=== PATIENT | male | born 1950 | race Caucasian/White ===

== ENCOUNTER → 2018-12-03 08:41 | Outpatient (BNVA) | payer OTHER, SELFPAY | PROVIDERS: PCP Internal Medicine; Visit Provider Orthopaedic Surgery | DX: S93.401A Sprain of unspecified ligament of right ankle, initial encounter (principal); X50.1XXA Overexertion from prolonged static or awkward postures, initial encounter; Y93.23 Activity, snow (alpine) (downhill) skiing, snowboarding, sledding, tobogganing and snow tubing | CPT/HCPCS: 29515; 99211; 99212; L1902 ==

== ENCOUNTER → 2018-12-22 09:22 | Outpatient (BNVA) | payer OTHER, SELFPAY | PROVIDERS: PCP Internal Medicine; Referring Provider Internal Medicine; Visit Provider Orthopaedic Surgery | DX: S93.431A Sprain of tibiofibular ligament of right ankle, initial encounter (principal); X50.9XXA Other and unspecified overexertion or strenuous movements or postures, initial encounter; Y93.23 Activity, snow (alpine) (downhill) skiing, snowboarding, sledding, tobogganing and snow tubing | CPT/HCPCS: 99212; 99213 ==

== ENCOUNTER 2019-06-07 15:25 | Outpatient (REF) | payer OTHER, SELFPAY ==
[2019-06-07 20:51] LABS: Abs Immature Grans 0.02 k/cumm (0.0-0.09); Absolute Basophil Count 0.03 k/cumm (0.0-0.2); Absolute Eosinophil Count 0.09 k/cumm (0.0-0.7); Absolute Lymphocyte Count 1.68 k/cumm (1.2-3.4); Absolute Monocyte Count 0.63 k/cumm (0.11-0.7); Absolute Neutrophil Count 4.25 k/cumm (1.2-6.7); Basophils % 0.4; Eosinophils % 1.3; HCT 44.5 % (40.0-50.0); HGB 15.3 g/dL (13.5-17.5); Immature Grans % 0.3; Lymphocytes % 25.1; Mean Corp. HGB Concentration 34.4 g/dL (32.0-36.0); Mean Corpuscular Hemoglobin 32.8 pg (27.0-33.0); Mean Corpuscular Volume 95.5 fL (80-95); Mean Platelet Volume 8.8 fL (8.0-11.0); Monocytes % 9.4; Neutrophils % 63.5; Platelet Count 265 x1000/uL (130-400); RBC 4.66 m/cumm (4.50-6.00); RBC Distribution Width 12.5 % (11.8-14.1)
[2019-06-07 20:59] LABS: Anion Gap 9.4 mmol/L (3-11); BUN 24 mg/dL (7-18); CO2 26.6 mmol/L (21.0-32.0); CREATININE 0.88 mg/dL (0.70-1.30); Calcium 8.6 mg/dL (8.5-10.1); Calculated LDL 170 mg/dL; Chloride 105 mmol/L (98-107); Cholesterol 264 mg/dL (50-200); Glucose 94 mg/dL (70-100); HDL Cholesterol 69 mg/dL (40-60); Potassium 4.3 mmol/L (3.5-5.1); Sodium 141 mmol/L (136-145); Triglyceride 127 mg/dL (30-150)
== END 2019-06-07 15:45 ==
LOC: NCHCN 15:25
PROVIDERS: PCP Internal Medicine; Visit Provider Internal Medicine
DX: N40.0 Benign prostatic hyperplasia without lower urinary tract symptoms (principal); Z01.818 Encounter for other preprocedural examination; Z13.6 Encounter for screening for cardiovascular disorders
CPT/HCPCS: 80048; 80061; 85025; 87086

== ENCOUNTER 2019-12-28 13:48 | Outpatient (REF) | payer OTHER, SELFPAY ==
[2019-12-28 21:58] LABS: Calculated LDL 158 mg/dL (<100); Cholesterol 225 mg/dL (<200); HDL Cholesterol 59 mg/dL (40-60); Triglyceride 43 mg/dL (<150)
== END 2019-12-28 14:08 ==
LOC: NCHCN 13:48
PROVIDERS: PCP Internal Medicine; Visit Provider Internal Medicine
DX: E78.5 Hyperlipidemia, unspecified (principal)
CPT/HCPCS: 80061

== ENCOUNTER 2021-02-15 16:21 | Outpatient (REF) | payer OTHER, SELFPAY ==
[2021-02-15 21:10] LABS: Calculated LDL 124 mg/dL (<100); Cholesterol 199 mg/dL (<200); HDL Cholesterol 70 mg/dL (40-60); Triglyceride 26 mg/dL (<150)
== END 2021-02-15 16:22 | disposition home or self-care (01) ==
LOC: NCHCN 16:21
PROVIDERS: PCP Internal Medicine; Visit Provider Internal Medicine
DX: E78.5 Hyperlipidemia, unspecified (principal)
CPT/HCPCS: 80061

== ENCOUNTER 2021-07-20 15:53 | Outpatient (REF) | payer MEDICARE, SELFPAY ==
[2021-07-20 15:59] LABS: Abs Immature Grans 0.01 10^3/uL (0.0-0.06); Absolute Basophil Count 0.06 10^3/uL (0.0-0.2); Absolute Eosinophil Count 0.07 10^3/uL (0.0-0.7); Absolute Lymphocyte Count 0.96 10^3/uL (1.2-3.4); Absolute Monocyte Count 0.48 10^3/uL (0.1-0.8); Absolute Neutrophil Count 3.34 10^3/uL (1.2-6.7); Basophils % 1.2; Eosinophils % 1.4; HCT 43.1 % (40.0-50.0); HGB 14.7 g/dL (13.5-17.5); Immature Grans % 0.2; Lymphocytes % 19.5; MCHC 34.1 % (32.0-36.0); MCV 96.6 fL (80-95); MPV 9.5 fL (8.0-11.0); Monocytes % 9.8; Neutrophils % 67.9; Nucleated RBC 0 %; Platelet Count 234 10^3/uL (130-400); RBC 4.46 10^6/uL (4.36-5.78); RDW 12.4 % (11.8-14.1); RDW-SD 44.4 fL; WBC 4.92 10^3/uL (4.4-10.8)
[2021-07-20 16:21] LABS: Iron 110 ug/dL (65-175); Total Iron Binding Capacity 241 ug/dL (250-450); Transferrin Sat 46 % (20-55)
[2021-07-20 16:34] LABS: Ferritin 104 ng/mL (26-388)
[2021-07-20 17:03] LABS: Calculated LDL 78 mg/dL (<100); Cholesterol 140 mg/dL (<200); HDL Cholesterol 57 mg/dL (40-60); Triglyceride 29 mg/dL (<150)
== END 2021-07-20 15:54 | disposition home or self-care (01) ==
LOC: NCHCN 15:53
PROVIDERS: PCP Internal Medicine; Visit Provider Internal Medicine
DX: E78.5 Hyperlipidemia, unspecified (principal); D64.9 Anemia, unspecified; Z51.81 Encounter for therapeutic drug level monitoring
CPT/HCPCS: 80061; 82728; 83540; 83550; 85025

== ENCOUNTER 2021-10-26 18:52 | Outpatient (REF) | payer MEDICARE, SELFPAY ==
--- OUTSIDE RECORDS SUMMARY | 2021-10-26 18:55 | XMS_ITS | CCD ---
:1950 Author Care Team Providers Name Role Phone Val JOSHUA MD Attending Physician Unavailable Vital Signs Unknown or Not Available. Allergies Allergy Code Allergy Type Reaction Status No Known Drug Allergies 0 No known drug allergies Active Procedures Unknown or Not Available. History of Immunizations Unknown or Not Available. Problems Unknown or Not Available. Results Unknown or Not Available. Active Medications Unknown or Not Available. Medications Administered During Visit Unknown or Not Available. Encounters Encounter Diagnosis Diagnosis Code Start Date Aftercare following joint replacement surgery [id number] 03/09/2021 Social History Smoking Status Code Start Date End Date Former smoker [id number] Patient Decision Aids Unknown or Not Available. Discharge Instructions You were admitted to [facility] on 03/09/2021 12:56 with a principal diagnosis of Aftercare following joint r eplacement surgery You were discharged from [facility] on 05/23/2021 13:29 Should you have any questions prior to d ischarge, please contact a member of your healthcare team. If you have left the spital and have any questions, please contact your primary care physician. Chief Complaint and Reason For Visit Unknown or Not Available. Function Status Unknown or Not Available. Plan of Care Unknown or Not Available. Referral/Transition of Care Unknown or Not Available.
--- OUTSIDE RECORDS SUMMARY | 2021-10-26 18:55 | XMS_ITS ---
:1950 Author Care Team Providers Name Role Phone RAPHAEL DOWNS MD Guest Services [phone] SANDRA ANDRES MD Primary Care Provider [phone] [employer] Primary Care Provider [phone] Allergies Code Code System Name Reaction Severity Status Onset NKDA ? Medications Name Status Start Date Stop Date ? ? amiodarone Completed ? 04/02/2019 5mg, pt thinks atorvastatin Active ? Not available dofetilide 250 mcg capsule Completed ? 10/26 Take 1 capsule twice a day by oral route. Eliquis 5 mg tablet Completed ? 04/02/2019 Take 1 tablet twice a day by oral route. Keppra 500 mg tablet Completed ? 10/26/2018 Take 1 tablet twice a day by oral route. pindolol 5 mg tablet Completed ? 01/22/2019 Take 2 tablets every day by oral route. tamsulosin 0.4 mg capsule Completed ? 2019 Take 1 capsule every day by oral route. Toprol XL 25 mg tablet,extended release Completed ? 10/26/2018 Take 1 tablet every day by oral route. Problems Name Status Onset Date Source ? Snoring Active 10/21/2018 ? Obstructive Sleep Apnea Syndrome Active ? ? Atrial Fibrillation Active ? History Apnea Active ? History Procedures Date Name Performed by ? 10/26/2018 Polysomnogram Information not avai lable Results Lab Results None recorded. Past Encounters 06/11/2021 Obstructive Sleep Apnea Syndrome Lolly Gil [employer] ATTENDANT: [address], [email or web address] [address], Ph. 07/03/2020 Obstructive Sleep Apnea Syndrome Lolly Gil [employer] ATTENDANT: [address], [email or web address] [address], Ph. Social History Tobacco Smoking Status Former Smoker Notes: quit 15 + years ago Vaccine List None recorded. Plan of Care Reminders Provider Appointments None ? ? recorded. Lab None ? ? recorded. Referral None ? ? recorded. Procedures None ? ? recorded. Surgeries None ? ? recorded. Imaging None ? ? recorded. Vitals 06/11/2021 08:30AM Office 30 Height Weight BMI Blood Pressure 170.18 cm 68.9 kg 23.8 kg/m2 122/72 mm[Hg] 07/03/2020 09:00AM Office 30 Height Weight BMI Blood Pressure 176.53 cm 70.85 kg 22.7 kg/m2 119/63 mm[Hg] 04/02/2019 01:15PM Office 30 Height Weight BMI Blood Pressure 176.53 cm 74.84 kg 24 kg/m2 110/54 mm[Hg] 01/22/2019 12:30PM Office 15 Weight Blood Pressure 76.16 kg 104/62 mm[Hg] 10/26/2018 01:30PM Office 30 Weight Blood Pressure 78.74 kg 118/62 mm[Hg] 07/23/2017 Height Weight Blood Pressure 177.8 cm 72.57 kg 98/60 mm[Hg] 06/11/2017 Height Weight Blood Pressure 177.8 cm 74.39 kg 98/62 mm[Hg]
--- OUTSIDE RECORDS SUMMARY | 2021-10-26 18:55 | XMS_ITS | CCD ---
[...] Encounter Diagnosis Diagnosis Code Start Date Aftercare [id number] 04/17/2021 Social History Smoking Status Code Start Date End Date Former smoker [id number] Patient Decision Aids Unknown or Not Available. Discharge Instructions You were admitted to [facility] on 04/17/2021 09:56 with a principal diagnosis of Aftercare following joint r eplacement surgery You were discharged from [facility] on 04/17/2021 09:56 Should you have any questions prior to [...]
--- OUTSIDE RECORDS SUMMARY | 2021-10-26 18:55 | XMS_ITS | CCD ---
:1950 Author Care Team Providers Name Role Phone SARAH CHARLES Attending Physician Unavailable Vital Signs Unknown or [...] Encounter Diagnosis Diagnosis Code Start Date Aftercare [id number] 03/07/2021 Social History Smoking Status Code Start Date End Date Former smoker [id number] Patient Decision Aids Unknown or Not Available. Discharge Instructions You were admitted to [facility] on 03/07/2021 13:17 with a principal diagnosis of Aftercare following joint r eplacement surgery You were discharged from [facility] on 03/07/2021 13:17 Should you have any questions prior to [...]
--- OUTSIDE RECORDS SUMMARY | 2021-10-26 18:55 | XMS_ITS | CCD ---
:1950 Author Care Team Providers Name Role Phone MENDEZ Attending Physician Unavailable Vital Signs Unknown or Not Available. Allergies Allergy Code Allergy Type Reaction Status No Known Drug Allergies 0 No known drug allergies Active Procedures Unknown or Not Available. History of Immunizations Unknown or Not Available. Problems Unknown or Not Available. Results TESTOSTERONE TOTAL - Collect Date/Time: 04/18/2021 09:37 Test Name Code Test Result Test Units Test Ref Range Testosterone 650 N/A 229-902 Active Medications Unknown or Not Available. Medications Administered During Visit Unknown or Not Available. Encounters Encounter Diagnosis Diagnosis Code Start Date Male erectile dysfunction, unspecified N529 0 04/18/2021 Social History Smoking Status Code Start Date End Date Former smoker [id number] Patient Decision Aids Unknown or Not Available. Discharge Instructions You were admitted to [facility] on 04/18/2021 08:53 with a principal diagnosis of Male erectile dysfunction, unspecified You had the following tests done: TESTOSTERONE TOTAL You were discharged from [facility] on 04/18/2021 08:53 Should you have any questions prior to d ischarge, please contact a member of your healthcare team. If you have left the ho spital and have any questions, please contact your primary care physician. Chief Complaint and Reason For Visit Unknown or Not Available. Function Status Unknown or Not Available. Plan of Care Unknown or Not Available. Referral/Transition of Care Unknown or Not Available.
[2021-10-26 21:52] LABS: Bilirubin Negative (Negative); Blood Negative (Negative); Clarity Clear (Clear); Glucose Negative (Negative); Ketones Negative (Negative); Leukocyte Esterase Negative (Negative); Nitrite Negative (Negative); Urobilinogen 0.2 EU/dL (Up TO 0.2); pH 6.5 (5-8)
== END 2021-10-26 18:53 | disposition home or self-care (01) ==
LOC: LBN 18:52
PROVIDERS: PCP Internal Medicine; Visit Provider Internal Medicine
DX: R39.12 Poor urinary stream (principal)
CPT/HCPCS: 81003

== ENCOUNTER 2022-04-18 12:50 | Outpatient (REF) | payer MEDICARE, SELFPAY ==
[2022-04-18 15:49] LABS: Anion Gap 8.4 mmol/L (3-11); BUN 14 mg/dL (7-18); CO2 27.6 mmol/L (21.0-32.0); CREATININE 0.8 mg/dL (0.70-1.30); Calcium 8.8 mg/dL (8.5-10.1); Chloride 105 mmol/L (98-107); Glucose 97 mg/dL (74-106); Potassium 4.4 mmol/L (3.5-5.1); Sodium 141 mmol/L (136-145)
== END 2022-04-18 12:51 | disposition home or self-care (01) ==
LOC: NCHCN 12:50
PROVIDERS: PCP Internal Medicine; Visit Provider Nurse Practitioner Family
DX: Z51.81 Encounter for therapeutic drug level monitoring (principal)
CPT/HCPCS: 80048

== ENCOUNTER 2022-08-01 15:46 | Outpatient (REF) | payer MEDICARE, SELFPAY ==
--- OUTSIDE RECORDS SUMMARY | 2022-08-01 15:47 | XMS_ITS | Encounter Summary ---
:1950 Author Organization [facility] [place] [address] Care Team Providers Name Role Phone Nathaniel Smith MD Primary Care Provider Encounter Details Date Type Department Care Team Description 05/21/2021 Telephone Cardiology [place] [facility] [place] [address] Social History Tobacco Use Types Packs/Day Years Used Date Smoking Tobacco: Never Smokeless Tobacco: Never Sex Assigned at Date Recorded Not on file documented as of this encounter Plan of Treatment Not on filedocumented as of this encounter Visit Diagnoses Not on filedocumented in this encounter Care Teams Independent Contractor Relationship Specialty Start Date End Date Nathaniel Smith MD PCP - General Family Medicine 12/23/18 [address] [place], [place] [address] documented as of this encounter
--- OUTSIDE RECORDS SUMMARY | 2022-08-01 15:47 | XMS_ITS | Encounter Summary ---
:1950 Author Organization [facility] [place] [address] Care Team Providers Name Role Phone Nathaniel Smith MD Primary Care Provider Encounter Details Date Type Department Care Team Description 05/29/2021 TH Visit Cardiology at [facility] Roderick Colón, Hyperlipidemia, unspecified hyperlipidemia type; (TeleHealth) [facility] Status post ablation of atrial fibrillat ion Drive [facility] [id number] CARDIOLOGY DEPT [phone] [place] [address] Social History Tobacco Use Types Packs/Day Years Used Date Smoking Tobacco: Never Smokeless Tobacco: Never Sex Assigned at Date Recorded Not on file documented as of this encounter Progress Notes Roderick Colón MD - 05/29/2021 8:40 AM EDT CARDIOLOGY TELE VISIT NOTE Pritesh Cardona 05/29/21 The patient consented to this being a virtual visit. HPI: Pritesh Cardona is a 70 y.o. year old male with history of PAF (s/p mini MAZE procedure and subsequent ablation) who presents now as a new patient. Per report the patient had a coronary calcium score of 250 (moderate risk). See electrophysiology's notes previously but briefly, patient had a mini maze procedure done in [place] in 2017 which included cardiac denervation as well as left atrial appendage closure with atrial clip and implantation of a Linq. He then underwent an additional atrial fibrillation ablation in 2019.He is not currently on anticoagulation or aspirin. The patient has a history of HLD. He says his diet is good, he is quite active. He has been trying to avoid taking a statin but was talking with his primary care about HLD (LDL 170, HDL 69, Trig 127, total cholesterol 264). He states that he also has developed erectile dysfunction. He has since started 20mg of Atorvastatin about 1 week ago. He seems to be tolerating it quite well.He bikes and skis quite a bit. He is wondering whether he can continue those activities. He denies chest pain chest pressure or lightheadedness. He says his exercise tolerance is as good as it ever hasbeen. He has a brother who has HTN and HLD but not CAD known. His parents both lived to old age without known CAD. Brief ROS: Activity level: Very active No new orthopnea, PND, LE edema. No lightheadedness, dizziness, syncope/pre- syncope. No new CP. Medications: Current Outpatient Medications Medication Sig Dispense Refill ??? atorvastatin (Lipitor) 20 mg Tablet Take 20 mg by mouth daily. Medications were reviewed with patient. TESTING: I have reviewed the pertinent outside records, laboratory data, and imaging studies. I personally reviewed the images and developed my own interpretation of the echocardiogram, CT scan if available, chest xray, and ECG. Pertinent results for this evaluation include: Labs: Lab Results Component Value Date WBC 7.8 01/15/2019 HGB 11.9 (L) 01/15/2019 HCT 34.7 (L) 01/15/2019 MCV 93.8 (H) 01/15/2019 PLATELET 162 01/15/2019 No results for input(s): NA, K, CL, CO2, BUN, CREATININE, GLUCOSE in the last 168 hours. Assessment and Plan CV issues are currently stable. 1. Primary prevention of coronary artery disease. Patient a coronary calcium score of 250. He started atorvastatin 20mg last week. He seems to be tolerating the medication well. We discussed his LDL goal of less than 100. I recommended he have his cholesterol rechecked with his primary care doctor 1 month after starting the atorvastatin. We also had a discussion about primary prevention aspirin. Given his coronary calcium score as well as history of smoking and elevated cholesterol I think it is reasonable for somebody of his age to start primary prevention 81 mg aspirin. He thinks he will give it a try. 2. History of paroxysmal atrial fibrillation status post mini maze procedure as well as ablation 2 years later. He is followed by [facility] electrophysiology. Follow-up on as-needed basis Roderick Colón MD Time spent: I spent a total of 40 minutes associated with this encounter including chart review, thepatient encounter, and documentation. Please see Assessment and Plan above for details of the discussion. documented in this encounter Plan of Treatment Not on filedocumented as of this encounter Visit Diagnoses Diagnosis Hyperlipidemia, unspecified hyperlipidem ia type Status post ablation of atrial fibrillat ion Other postprocedural status documented in this encounter Care Teams Chart Computer Relationship Specialty Start Date End Date Nathaniel Smith MD PCP - General Family Medicine 12/23/18 [address] [place] [address] documented as of this encounter
--- OUTSIDE RECORDS SUMMARY | 2022-08-01 15:47 | XMS_ITS | Encounter Summary ---
:1950 Author Organization [facility] [address] Care Team Providers Name Role Phone Nathaniel Smith MD Primary Care Provider Encounter Details Date Type Department Care Team Description 03/20/2021 Telephone Electrophysiology La [place] at [facility] [place] [address] Social History Tobacco Use Types Packs/Day Years Used Date Smoking Tobacco: Never Smokeless Tobacco: Never Sex Assigned at Date Recorded Not on file documented as of this encounter Miscellaneous Notes Telephone Encounter - Crystal Mallory - 03/20/2021 2:47 PM EDTSummary: ILR EXPLANT DEFERRED I spoke to patient to schedule his ILR explant and the patient advised that he wasn't bothering withthis right now. He stated he was recovering from total shoulder surgery. He advised that he may have this done closer to home as he lives in [facility] or if he decides to have it done here he will give our office a call to schedule. documented in this encounter Plan of Treatment Not on filedocumented as of this encounter Visit Diagnoses Not on filedocumented in this encounter Care Teams Nuclear Equipment Operator Relationship Specialty Start Date End Date Nathaniel Smith MD PCP - General Family Medicine 12/23/18 [address] [place] [address] documented as of this encounter
--- OUTSIDE RECORDS SUMMARY | 2022-08-01 15:48 | XMS_ITS | Encounter Summary ---
:1950 Author Organization [facility] [place] [address] Care Team Providers Name Role Phone Nathaniel Smith MD Primary Care Provider Encounter Details Date Type Department Care Team Description 10/16/2020 Notes Only Cardiology Angelica Kirkland PA [facility] [place] [address] [place], [place] [id number] [phone] (Wo rk) Social History Tobacco Use Types Packs/Day Years Used Date Smoking Tobacco: Never Smokeless Tobacco: Never Sex Assigned at Date Recorded Not on file documented as of this encounter Progress Notes Angelica Kirkland PA - 10/16/2020 9:19 AM EST Cardiac Electrophysiology Implantable Loop Recorder (ILR) Remote Monitoring Interpretation Transmission Date: 10/16/20 Device Type: Implantable Loop Recorder Generator resident care manager: [employer] Implanted: 08/14/17 Indication: AF management Battery Status: NATIONAL ACCOUNTS RECRUITER since 10/15/20 Events/Arrhythmias noted since 05/02/20 Symptom: 0 Tachy (> 167 BPM x 16 beats): 4 09/10/20 oversensing/noise artifact 08/25/20 oversensing/noise artifact Bradycardia (<30 BPM x 4 beats): 0 Asystole (<20 BPM): 110 08/07/20 undersensing 07/20/20 undersensing 07/13/20 undersensing 07/06/20 undersensing 07/03/20 undersensing with noise artifact 07/02/20 undersensing with noise artifact 06/24/20 undersensing 06/22/20 undersensing 06/16/20 undersensing 06/11/20 undersensing with noise artifact 06/10/20 undersensing 06/08/20 undersensing with noise artifact 06/05/20 undersensing 06/04/20 undersensing with noise artifact 05/30/20 undersensing with noise artifact 05/26/20 undersensing with noise artifact 05/23/20 undersensing with noise artifact 05/22/20 undersensing with noise artifact 05/17/20 undersensing with noise artifact 05/16/20 undersensing with noise artifact 05/13/20 undersensing 05/12/20 undersensing 05/11/20 undersensing with noise artifact 05/08/20 undersensing SVT/AT/other : 0 Atrial Fibrillation / Flutter: 10 09/11/20 Available EGM shows regular ventricular rhythm although preceding plot graph shows irregularity 08/30/20 Frequent noise 08/11/20 Irregular ventricular rhythm but P waves present 07/20/20 Noise, oversensing 05/25/20 Noise artifact Physiologic Monitoring: Activity ~3-4hrs/day Presenting EGM- VS at 100bpm, variation in R-R intervals Impression: Battery at NATIONAL ACCOUNTS RECRUITER- will reach out to Dr. Bustos (primary EP) to discuss preference for another ILR implant Angelica Kirkland PA-C Cardiac Electrophysiology documented in this encounter Plan of Treatment Not on filedocumented as of this encounter Visit Diagnoses Not on filedocumented in this encounter Care Teams Blueprint Processor Relationship Specialty Start Date End Date Nathaniel Smith MD PCP - General Family Medicine 12/23/18 [address] [place], [place] [address] documented as of this encounter
--- OUTSIDE RECORDS SUMMARY | 2022-08-01 15:48 | XMS_ITS | Encounter Summary ---
:1950 Author Organization [facility] [place] [address] Care Team Providers Name Role Phone Nathaniel Smith MD Primary Care Provider Reason for Visit Reason Comments Follow-up Encounter Details Date Type Department Care Team Description 02/05/2021 Office Visit [place]iology [place] [facility] Bustos [place] Atrial [facility] [place] [address] CARDIOLOGY DEPT. [phone] [place], [place] [address] (Wo rk) Social History Tobacco Use Types Packs/Day Years Used Date Smoking Tobacco: Never Smokeless Tobacco: Never Sex Assigned at Date Recorded Not on file documented as of this encounter Last Filed Vital Signs Vital Sign Reading Time Taken Comments Blood Pressure 126/66 02/05/2021 8:53 AM EDT Pulse 60 02/05/2021 8:53 AM EDT Temperature - - Respiratory Rate - - Oxygen Saturation 99% 02/05/2021 8:53 AM EDT Inhaled Oxygen Concentration - - Weight 71.8 kg (158 lb 6.4 oz) 02/05/2021 8:53 AM EDT Height 175.3 cm (5' 9) 02/05/2021 8:53 AM EDT Body Mass Index 23.39 02/05/2021 8:53 AM EDT documented in this encounter Progress Notes Torrey Bustos MD - 02/05/2021 9:00 AM EDT Cardiac Electrophysiology [place] Office February 05, 2021 (last visit January 26, 2020 via telephone) ?? Primary Care:??Nathaniel Smith MD ?? Reason for Visit:??Follow up s/p mapping and ablation of atrial fibrillation 2 years ago ?? Backgound: ??Brendan??is a 70??year old gentleman who has had symptomatic episodes of atrial tachycardia/fibrillation??subsequent to having undergone a mini-Maze procedure in [place] back in August2017. He underwent a follow up electrophysiology study, mapping, and ablation procedure on January 13 19??(findings and results summarized in his problem list). ?? When we spoke last year, he reported that overall he had been doing well, with no new issues. He hasgone about his exertional activities carefully, and he noted improvement. The day we spoke,in the morning he had jogged 1/2 mile, and he got his heart rate up to 115/minute (O2 saturation 97.5%) duringthat exercise; he was feeling well. Since that time, he reported having continued to do well, with no known symptomatic recurrences of atrial tachycardia/fibrillation. Of note, he has an implanted loop recorder that has been in place since prior to his ablation procedure 2 years ago. Please see the interrogation summary below... there was a questionable 1 hour detected atrial dysrhythmia episode on March 18, and there was a definite 8.5 hour episode of atrial fibrillation back on April 05 (of which he had been unaware). ?? Past Medical History: ??1) ??Persistent atrial fibrillation >?Phillips mini-Maze ([place]; August 2017) : Bilateral antral electrical isolation, partial cardiac denervation, left atrial appendage Atriclipclosure : Implanted loop recorder >?Atrial tachycardia - atypical flutter >?Recurrent fibrillation reported via ILR >?Mapping/ablation (January 13, 2019): :?No left atrial thrombus identified. Left atrial appendage closed,??without thrombus.?? :?Successful acute electrical isolation of the posterior left atrial wall and consequently biantral pulmonary vein isolation. Demonstration of slow spontaneous electrical activity in the posterior wall at the conclusion of the procedure but stage IV testing could not be performed due to procedural delays and time constraints.? :?Mitral annular isthmus dependent flutter was ablated across the posterolateral mitral annulus with bidirectional conduction block.?? :?Inferior cavotricuspid isthmus dependent atrial flutter??was ablated with bidirectional conduction block. :?Atypical right atrial flutter ablation at the right atrial lateral wall.?? :?Significant conduction inhomogeneity in the coronary sinus with tightly coupled APC of coronarysinus origin. Future consideration towards targeting coronary sinus if recurrent atrial arrhythmias.?? :?Preserved atrioventricular conduction. :?No finding of an accessory pathway. :?The P wave duration pre-ablation was 142 ms and post-ablation was 140 ms. > Implanted loop recorder (August 2017) : Confirmed coarse atrial fibrillation 8.5 hours on April 05, 2020, starting late at night and persisting into the morning of the next day; mean rate 94/minute. : Possible 1 hours episode of aztrial fibrillation on March 18, 2020; not confirmed, mean rate 120/minute. > [id number] score 1 ??2) ??Probable seizure disorder / Keppra ?? Allergies & Sensitivities:??Patient has no known allergies.? Medications:??Proscar, finasteride? Social History: Review of Systems: No history of diabetes, TIA, stroke, heart failure; no complaint of exertional angina, presyncope, syncope. Remainder of??interval??review of systems was unremarkable. Physical Examination: Vital Signs: Blood pressure: 126/66 sitting left arm (cuff). Pulse: 60/minute, regular Ventilations: 16/minute, unlabored Weight: 71.8 kg dressed General: In no acute distress. Articulate and attentive. Skin: Warm and dry, normal turgor. HEENT: Normocephalic, atraumatic; anicteric sclerae. Neck: No elevated jugulovenous distention upright. Chest: Symmetric chest wall expansion with inspiration. No significant kyphoscoliosis. Lungs: Clear. Heart: Regular rate. Abdomen: Nondistended. Extremities: Pulses present. Neurological: Grossly intact. ?? Tests:?? Loop Recorder??(November 29, 2020):??Since January 25, 2020, a total of 13 episodes of atrial fibrillation have been detected; review of these reveals that most are 2- 10 minute episodes detected as atrial fibrillation, and all had marked noise (sometimes periodic) +/- frequent conducted ectopy, but underlying these was sinus rhythm.??On April 05, however, there definitely was some coarse atrial fibrillation with a mean rate of 94/minute, but it lasted for nearly 8.5 hours overnight. The only other significant episode was from March 18, and that reportedly last ~1 hour at a mean rate of 120/minute - that episode lacked a tracing that I could review. There have been many pauses detected, but these have been attributed to undersensing. Loop Recorder??(December 06, 2019 - previously interrogated on September 02, 2019):??No tracings to review directly, but per summary report in chart: no clear finding of any atrial tachycardia/flutter.??Therewere 5 pauses detected, but each of those was due to undersensing. Loop Recorder??(September 03, 2019 - previously interrogated on June 05, 2019):??There was 1??episodeof atrial??tachycardia/flutter??detected July 02 with duration ~206 minutes and with median ventricular rate 83/minute.??There also were 3 pauses detected, but each of those was due to undersensing. Loop Recorder??(June 09, 2019):??There were episodes of tachycardia/fibrillation detected until February 13, and none since then (but for some limited noise detections)... Electrocardiogram??(January 17, 2020): Sinus bradycardia 57/minute, normal intervals, unremarkable morphology. Electrocardiogram??(June 09, 2019):??Sinus bradycardia 58/minute, VT 172 ms, QRS duration 96/minute, QTc 435 ms. Zio Monitor??(December 23, 2019; 11 days 12 hours): >?The overall sinus rhythm rate range was 42-130/minute, and averaged 69/minute. The predominant underlying rhythm throughout the monitoring period was conducted sinus rhythm. The slowest heart rates marginally tended to occur overnigh. >?No pauses >3 seconds were seen, and there was no high grade atrioventricular conduction block reported or observed at normal sinus rates.?? >?There was a <1.0% burden of isolated ectopic supraventricular beats detected, and rare supraventricular couplets and triplets were detected as well. There were 20 supraventricular runs detected (the run with the fastest interval lasted 5 beats with a maximum rate of 182/minute, and the longest lasted 11.9 seconds at a mean rate of 133/minute); the mean rate of all of these runs was 125/minute. Some of these may have been atrial tachycardia with variable atrioventricular conduction block. >?There was a <1.0% burden of isolated ectopic ventricular beats detected; no ventricular couplets, triplets, nor runs were detected. >?The patient wrote in 1 timed diary entry during a period of feeling anxious; there were alsowere 2 patient-triggered events. These corresponded to sinus rhythm 56-63/minute with supraventricular ectopy. ?Conclusion: This monitor study was remarkable for sinus rhythm with a limited rate range. Occasional nonsustained supraventricular tachycardia runs (without any atrial flutter/fibrillation) ladarius low overall burden of ectopy were detected. Transthoracic Echocardiogram??(January 17, 2020): >?The left ventricular chamber size is normal. There is normal global??left ventricular systolic function. The quantitative left ventricular??ejection fraction by biplane Olivares's method is 64%.There are no left??ventricular segmental wall motion abnormalities. >?Right ventricular chamber size and systolic function are within??normal limits. Pulmonary artery hypertension could not be assessed due??to inadequate tricuspid regurgitation jet.?? >?The atria are normal in size. >?There is no hemodynamically significant valve disease.?? >?Normal left atrial size. >?Compared to a prior study dated??January 14, 2019,??the??left ventricular??ejection fraction hasimproved. ?? Assessment:??Since his procedure in 2018, Mr. Garcia has had very limited atrial fibrillation detected via the loop recorder, as noted above. Since his last visit there has been 2 detected self-limited episodes detected by his ILR, one of which was confirmed (last April). His ILR battery no longer is sufficient to support continued monitoring (end of service as of November 06, 2020, with last interrogation having occurred on November 29, 2020). Going forward, continued vigilance for any recurrent atrial tachycardia/fibrillation should be maintained. He is aware that he has had at least a low burden of atrial fibrillation. We discussed the matter of anticoagulation, as his [id number] risk score is 1; his preference is to remain off anticoagulation for now, but he understands that existing guidelines support consideration of chronic anticoagulation therapy; reduction of his mild- moderate thromboembolic risk (relative to an mildly increasedhemorrahgic risk) makes anticoagulation worthwhile considering. We previously have discussed self-monitoring methods, and also discussed some of the limitations of commercial devices such as the [employer] Watch or similar devices. They also have utility in assessing heart rate trends that can faciliate assessing improvements in fitness, or otherwise. ?? I answered all of his questions. ?? Recommendations: 1)?Zio monitor in 1 year, sooner as needed (especially if any recurrent symptoms). 2) ??Follow up in this clinic with me??to review Zio monitor results (telehealth visit also OK). 3) Discussion about the role of anticoagulation for Mr. Cardona to consider. 4) Removal of implanted loop recorder - he has upcoming plans for orthopedic surgery, and I suggested that he ask if his surgeon might consider removal of the loop recorder at the same time (else I offered to schedule him nonurgently for this to be accomplished separately). __ documented in this encounter Plan of Treatment Not on filedocumented as of this encounter Visit Diagnoses Diagnosis Atrial arrhythmia Cardiac dysrhythmia, unspecified documented in this encounter Care Teams Patient Account Specialist Relationship Specialty Start Date End Date Nathaniel Smith MD PCP - General Family Medicine 12/23/18 [address] [place] [address] documented as of this encounter
--- OUTSIDE RECORDS SUMMARY | 2022-08-01 15:48 | XMS_ITS | Encounter Summary ---
:1950 Author Organization [facility] [place] [address] Care Team Providers Name Role Phone Nathaniel Smith MD Primary Care Provider Encounter Details Date Type Department Care Team Description 01/04/2020 TH Visit Cardiology at [facility] [place] Torrey Bustos, Atrial arrhythmia (TeleHealth) [facility] [place] [address] CARDIOLOGY DEPT. [phone] [place], [place] [address] Social History Tobacco Use Types Packs/Day Years Used Date Smoking Tobacco: Never Smokeless Tobacco: Never Sex Assigned at Date Recorded Not on file documented as of this encounter Progress Notes Torrey Bustos MD - 01/04/2020 8:20 AM EDT Cardiac Electrophysiology Clinic [place] Office January 04, 2020 Primary Care: Nathaniel Smith MD ?? Reason for Visit: S/p mapping and ablation of atrial fibrillation Backgound: Mr. Cardona is a 69 year old gentleman who has had symptomatic episodes of atrial tachycardia/fibrillation subsequent to having undergone a mini-Maze procedure in [place] back in August 2017. He underwent a follow up electrophysiology study, mapping, and ablation procedure on January 13, 2019 ( findings and results summarized in his problem list) ?? He reports having done well overall since his last visit until early November, when he went for a vigorous bike ride. The next morning (and since), he noted a faster (but regular) resting heart rate and reduced exercise tolerance. He did a loop recorder upload on December 05 in an effort to learn more about what might be going on; no atrial tachycardia/fibrillation was reported from that upload. Given thelimitations of the loop recorder for detecting regular atrial dysrhythmias with controlled ventricular rates, a Zio monitor was arranged. He is still wearing the Zio monitor for the next few days. He has no overt symptomns or irregular pulse, but his energy level is down - enough so that he wouldn't consider doing another vigorous bike ride for the time being, although he feels fine when he getsout to go for a walk. Otherwise he reports that he has been doing well. ?? Past Medical History: 1) Persistent atrial fibrillation > [place] mini-Maze ([place]; August 2017) : Bilateral antral electrical isolation, partial cardiac denervation, left atrial appendage Atriclipclosure : Implanted loop recorder > Atrial tachycardia - atypical flutter > Recurrent fibrillation reported via ILR > Mapping/ablation (January 13, 2019): : No left atrial thrombus identified. Left atrial appendage closed, without thrombus. : Successful acute electrical isolation of the posterior left atrial wall and consequently biantral pulmonary vein isolation. Demonstration of slow spontaneous electrical activity in the posterior wallat the conclusion of the procedure but stage IV testing could not be performed due to procedural delays and time constraints. ?? : Mitral annular isthmus dependent flutter was ablated across the posterolateral mitral annulus withbidirectional conduction block. : Inferior cavotricuspid isthmus dependent atrial flutter??was ablated with bidirectional conductionblock. : Atypical right atrial flutter ablation at the right atrial lateral wall. : Significant conduction inhomogeneity in the coronary sinus with tightly coupled APC of coronary sinus origin. Future consideration towards targeting coronary sinus if recurrent atrial arrhythmias. : Preserved atrioventricular conduction. : No finding of an accessory pathway. : The P wave duration pre-ablation was 142 ms and post-ablation was 140 ms. 2) Probable seizure disorder / Keppra Allergies & Sensitivities: Patient has no known allergies. ?? Medications: Proscar, finasteride ?? Review of Systems: No history of diabetes, TIA, stroke, heart failure; no complaint of exertional angina, presyncope, syncope. Remainder of interval review of systems was unremarkable. ?? Physical Examination (from June 09, 2019): Vital Signs: Blood pressure: 107/68 sitting arm (cuff). Pulse: 53/minute, regular Ventilations: 16/minute, unlabored Weight: 76.7 kg dressed Body mass index: 24.96 kg/m2 General: In no acute distress. Articulate and attentive. Skin: Warm and dry, normal turgor. HEENT: Normocephalic, atraumatic; anicteric sclerae. Neck: No elevated jugulovenous distention upright. Chest: Symmetric chest wall expansion with inspiration. Lungs: Good air movement. Heart: Regular rate. Abdomen: Nondistended. Extremities: Pulses present. Neurological: Grossly intact. Tests: Loop Recorder (December 06, 2019 - previously interrogated on September 02, 2019): No tracings to review directly, but per summary report in chart: no clear finding of any atrial tachycardia/flutter. There were 5 pauses detected, but each of those was due to undersensing. Loop Recorder (September 03, 2019 - previously interrogated on June 05, 2019): There was 1 episode ofatrial tachycardia/flutter detected July 02 with duration ~206 minutes and with median ventricular rate 83/minute. There also were 3 pauses detected, but each of those was due to undersensing. Loop Recorder (June 09, 2019): There were episode of tachycardia/fibrillation detected until February 13, and none since then (but for some limited noise detections)... Electrocardiogram (June 09, 2019): Sinus bradycardia 58/minute, FL 172 ms, QRS duration 96/minute,QTc 435 ms. ?? Assessment: From June through December 05, the loop recorder revealed one episode (atrial tachycardia/flutter with associated median ventricular rate 83/minute on July 02); the patient had no recollection of feeling that. Otherwise, he has remained free of detected recurrences; in case of underse nsing, a Zio monitor is underway to further assess for rate controlled atrial dysrhythmias, but as yet I don't have the results of that. Recommendations: 1) Continue device clinic follow up. 2) Obtain interval electrocardiogram and echocardiogram (compare to December 2018 study, with EF 45% global hypokinesis) 2) Pending Zio monitor results (I'll want to read this study). 3) Follow up in this clinic with me on January 25 __ Results of: Zio Monitor (December 23, 2019; 11 days 12 hours): > The overall sinus rhythm rate range was 42-130/minute, and averaged 69/minute. The predominant underlying rhythm throughout the monitoring period was conducted sinus rhythm. The slowest heart rates marginally tended to occur overnigh. > No pauses >3 seconds were seen, and there was no high grade atrioventricular conduction block reported or observed at normal sinus rates. > There was a <1.0% burden of isolated ectopic supraventricular beats detected, and rare supraventricular couplets and triplets were detected as well. There were 20 supraventricular runs detected(the run with the fastest interval lasted 5 beats with a maximum rate of 182/minute, and the longestlasted 11.9 seconds at a mean rate of 133/minute); the mean rate of all of these runs was 125/minute. Some of these may have been atrial tachycardia with variable atrioventricular conduction block. > There was a <1.0% burden of isolated ectopic ventricular beats detected; no ventricular couplets, triplets, nor runs were detected. > The patient wrote in 1 timed diary entry during a period of feeling anxious; there were also were 2 patient-triggered events. These corresponded to sinus rhythm 56-63/minute with supraventricular ectopy. Conclusion: This monitor study was remarkable for sinus rhythm with a limited rate range. Occasional nonsustained supraventricular tachycardia runs (without any atrial flutter/fibrillation) and a low overall burden of ectopy were detected. Electrocardiogram (January 17, 2020): Sinus bradycardia 57/minute, normal intervals, unremarkable morphology Transthoracic Echocardiogram (January 17, 2020): > The left ventricular chamber size is normal. There is normal global left ventricular systolic function. The quantitative left ventricular ejection fraction by biplane Olivares's method is 64%. There are no left ventricular segmental wall motion abnormalities. > Right ventricular chamber size and systolic function are within normal limits. Pulmonary arteryhypertension could not be assessed due to inadequate tricuspid regurgitation jet. > The atria are normal in size. > There is no hemodynamically significant valve disease. > Normal left atrial size. > Compared to a prior study dated January 14, 2019, the left ventricular ejection fraction has improved. documented in this encounter Plan of Treatment Not on filedocumented as of this encounter Visit Diagnoses Diagnosis Atrial arrhythmia Cardiac dysrhythmia, unspecified documented in this encounter Care Teams Utilization Management Nurse Relationship Specialty Start Date End Date Nathaniel Smith MD PCP - General Family Medicine 12/23/18 [address] [place] [address] documented as of this encounter
--- OUTSIDE RECORDS SUMMARY | 2022-08-01 15:48 | XMS_ITS | Encounter Summary ---
:1950 Author Organization [facility] [place] [address] Care Team Providers Name Role Phone Nathaniel Smith MD Primary Care Provider Encounter Details Date Type Department Care Team Description 01/26/2020 TH Visit Cardiology at [facility] Torrey Bustos, Atrial arrhythmia (TeleHealth) [facility] [place] [address] CARDI[address] DEPT. [phone] [place], [place] [address] Social History Tobacco Use Types Packs/Day Years Used Date Smoking Tobacco: Never Smokeless Tobacco: Never Sex Assigned at Date Recorded Not on file documented as of this encounter Progress Notes Torrey Bustos MD - 01/26/2020 10:40 AM EDT Cardiac Electrophysiology Telephone Visit January 26, 2020 ?? Primary Care:??Nathaniel Smith MD ?? Reason for Visit:??S/p mapping and ablation of atrial fibrillation ?? Backgound: ??Brendan??is a 69??year old gentleman who has had symptomatic episodes of atrial tachycardia/fibrillation??subsequent to having undergone a mini-Maze procedure in [place] back in August2017. He underwent a follow up electrophysiology study, mapping, and ablation procedure on January 13, 2019 (findings and results summarized in his problem list). He and I connected via telephone ~4 weeks ago (May 5th), but I did not have all his records with test results at the time, and so this connection is a follow up of that. Overall he has been doing well,with no new issues since we last spoke. He has gone about his exertional activities carefully, and he feels that he has been improving. Indeed, this morning he jogged 1/2 mile, and he got his heart rate up to 115/minute (O2 saturation 97.5%) during that exercise; he felt well. ?? Past Medical History: ??1) ??Persistent atrial fibrillation >?Phillips mini-Maze ([place]; August 2017) : Bilateral antral electrical isolation, partial cardiac denervation, left atrial appendage Atriclipclosure : Implanted loop recorder >?Atrial tachycardia - atypical flutter >?Recurrent fibrillation reported via ILR > Mapping/ablation (January 13, 2019): :?No left atrial thrombus identified. Left atrial appendage closed, without thrombus.?? :?Successful acute electrical isolation of the [...] 142 ms and post-ablation was 140 ms. ??2) ??Probable seizure disorder / Keppra ?? Allergies & Sensitivities:??Patient has no known allergies.? Medications:??Proscar, finasteride? Review of Systems: No history of diabetes, TIA, stroke, heart failure; no complaint of exertional angina, presyncope, syncope. Remainder of??interval??review of systems was unremarkable. Tests:?? Loop Recorder??(December 06, 2019 - previously interrogated on September 02, 2019):??No tracings to review directly, but per summary report in chart: no clear finding of any atrial tachycardia/flutter. There were 5 pauses detected, but each of those was due to undersensing. Loop Recorder??(September 03, 2019 - previously interrogated on June 05, 2019):??There was 1 episode of atrial tachycardia/flutter detected July 02 with duration ~206 minutes and with median ventricular rate 83/minute. There also were 3 pauses detected, but each of those was due to undersensing. Loop Recorder??(June 09, 2019):??There were episode of tachycardia/fibrillation detected until February 13, and none since then (but for some limited noise detections)... Electrocardiogram (January 17, 2020): Sinus bradycardia 57/minute, normal intervals, unremarkable morphology. Electrocardiogram??(June 09, 2019):??Sinus bradycardia 58/minute, WV 172 ms, QRS duration 96/minute, QTc 435 ms. Zio Monitor (December 23, 2019; 11 days [...] overall burden of ectopy were detected. Transthoracic Echocardiogram (January 17, 2020): > The [...] the left ventricular ejection fraction has improved. ?? Assessment:??I reviewed the results of the testing performed (Zio monitor, echocardiogram, and electrocardiogram. These revealed good cardiac structure and function, and no atrial tachycardia/fibrillation was detected. This is reassuring. Continued routine monitoring via the ILR is appropriate, as othe rwise he gradually works up towards longer periods of exercise. We discussed self-monitoring methods, and also discussed some of the limitations of commercial devices such as the Apple Watch and some of the available O2 saturation monitors. Even so, they may have utility in assessing heart rate trends that can faciliate assessing improvements in fitness, or otherwise. I answered all of his questions. Recommendations: 1)?Continue device clinic follow up. 2) ??Follow up in this clinic with me in 1 year, sooner as needed __ ?? documented in this encounter Plan of Treatment Not on filedocumented as of this encounter Visit Diagnoses Diagnosis Atrial arrhythmia Cardiac dysrhythmia, unspecified documented in this encounter Care Teams Aitchbone Breaker Relationship Specialty Start Date End Date Nathaniel Smith MD PCP - General Family Medicine 12/23/18 [address] [place] [address] documented as of this encounter
--- OUTSIDE RECORDS SUMMARY | 2022-08-01 15:48 | XMS_ITS | Encounter Summary ---
:1950 Author Organization [facility] [place] [address] Care Team Providers Name Role Phone Nathaniel Smith MD Primary Care Provider Encounter Details Date Type Department Care Team Description 06/09/2019 Office Visit Cardiology at [facility] Neli Farias Persistent atrial [facility] [place] [address] Social History Tobacco Use Types Packs/Day Years Used Date Smoking Tobacco: Never Smokeless Tobacco: Never Sex Assigned at Date Recorded Not on file documented as of this encounter Last Filed Vital Signs Vital Sign Reading Time Taken Comments Blood Pressure 107/68 06/09/2019 3:04 PM EDT Pulse 53 06/09/2019 3:04 PM EDT Temperature - - Respiratory Rate - - Oxygen Saturation 99% 06/09/2019 3:04 PM EDT Inhaled Oxygen Concentration - - Weight 76.7 kg (169 lb) 06/09/2019 3:04 PM EDT Height 175.3 cm (5' 9.02) 06/09/2019 3:04 PM EDT Body Mass Index 24.95 06/09/2019 3:04 PM EDT documented in this encounter Progress Notes Neli Farias RN - 06/09/2019 3:00 PM EDT ILR INTERROGATION INPATIENT Pritesh Cardona is a [address] Bustos wishes to interrogate the ILR to assess for Afib post ablation 01/13/19. The ILR was implanted Aug 14, 2017. PCP: Nathaniel Smith MD Implant data: Current ILR programming:Symptom Four 7.5 min episodes Tachy >167 bpm ,>=16 beats Pause >3 sec Tulio <30 bpm AT OFF AF all episodes %AT/AF Underlying rhythm today: SR 65 Battery status: Good R wave: 0.14 mV Activations: None Findings: Since AUG 14, 2017 There were 4 Tachy episodes- most of which was noise , 2 pauses and 366AF episodes for a 37.3% burden, He has had no further Afib since February 13, 2019 he had an Afib ablation on 01/13/19 Reprogramming: His sensitivity was decreased by 0.035 mV from 0.025 mV to decrease oversensing Plan: Continue to monitor remotely Provider: Neli Farias RN Attending: Torrey Bustos MD documented in this encounter Plan of Treatment Not on filedocumented as of this encounter Visit Diagnoses Diagnosis Persistent atrial fibrillation Atrial fibrillation documented in this encounter Care Teams Blood Splatter Analyst Relationship Specialty Start Date End Date Nathaniel Smith MD PCP - General Family Medicine 12/23/18 [address] [place] [address] documented as of this encounter
--- OUTSIDE RECORDS SUMMARY | 2022-08-01 15:48 | XMS_ITS | Encounter Summary ---
:1950 Author Organization [facility] [place] [address] Care Team Providers Name Role Phone Nathaniel Smith MD Primary Care Provider Encounter Details Date Type Department Care Team Description 03/07/2019 [place] [address] Social History Tobacco Use Types Packs/Day Years Used Date Smoking Tobacco: Never Smokeless Tobacco: Never Sex Assigned at Date Recorded Not on file documented as of this encounter Plan of Treatment Not on filedocumented as of this encounter Procedures Procedure Name Priority Date/Time Associated Diagnosis Comme nts CARDIAC DEVICE Routine 03/07/2019 10:36 PM Result s for this CHECK - REMOTE EDT procedure are in the results section. documented in this encounter Results Cardiac Device Check - Remote (03/07/2019 10:36 PM EDT) Component Value Ref Test Analysis Performed Pathologis t Range Method Time At Signature Date Time [id number] IDCO Interrogation Session Implantable Medtronic IDCO Pulse Generator Structural Engineering Project Manager Implantable [id number] IDCO Pulse Generator Model Implantable [id number] IDCO Pulse Generator Serial Number Type Remote IDCO Interrogation Session Implantable Implantable IDCO Pulse Generator Diagnostic Type Monitor Implantable [id number] IDCO Pulse Generator Implant Date Anatomical Region Laterality Modality Other Specimen (Source) Anatomical Collection Method Collection Time Re ceived Time Location / / Volume Laterality 03/07/2019 10:36 PM EDT Physician Cardiology IMPLANTABLE CARDIAC DEVICE documented in this encounter Visit Diagnoses Not on filedocumented in this encounter Care Teams Skein Dyer Relationship Specialty Start Date End Date Nathaniel Smith MD PCP - General Family Medicine 12/23/18 [address] [place] [address] documented as of this encounter
--- OUTSIDE RECORDS SUMMARY | 2022-08-01 15:48 | XMS_ITS | Encounter Summary ---
:1950 Author Organization [facility] [place] [address] Care Team Providers Name Role Phone Nathaniel Smith MD Primary Care Provider Encounter Details Date Type Department Care Team Description 06/09/2019 Office Visit Cardiology at [facility] Torrey Bustos, Duarte atrial [facility] [place] [address] CARDIOLOGY DEPT. [phone] [place], [place] [address] Social History Tobacco Use Types Packs/Day Years Used Date Smoking Tobacco: Never Smokeless Tobacco: Never Sex Assigned at Date Recorded Not on file documented as of this encounter Last Filed Vital Signs Vital Sign Reading Time Taken Comments Blood Pressure 107/68 06/09/2019 3:02 PM EDT Pulse 53 06/09/2019 3:02 PM EDT Temperature - - Respiratory Rate - - Oxygen Saturation 99% 06/09/2019 3:02 PM EDT Inhaled Oxygen Concentration - - Weight 76.7 kg (169 lb) 06/09/2019 3:02 PM EDT Height 175.3 cm (5' 9) 06/09/2019 3:02 PM EDT Body Mass Index 24.96 06/09/2019 3:02 PM EDT documented in this encounter Progress Notes Torrey Bustos MD - 06/09/2019 3:20 PM EDT Cardiac Electrophysiology Clinic [place] Office June 09, 2019 Primary Care: Nathaniel Smith MD Reason for Visit: S/p mapping and ablation of atrial fibrillation Backgound: Mr. Cardona is a 68 year old gentleman who has had symptomatic episodes of atrial tachycardia/fibrillation subsequent to having undergone a mini-Maze procedure in [place] back in August 2017. He underwent a follow up electrophysiology study, mapping, and ablation procedure on January 13, 2019.Below are listed summary findings and ablation results from his procedure: > No left atrial thrombus identified. Left atrial appendage surgical closed without thrombus. > Successful acute electrical isolation of the posterior left atrial wall and consequently biantral pulmonary vein isolation. Demonstration of slow spontaneous electrical activity in the posterior wall at the conclusion of the procedure but stage IV testing could not be performed due to procedural delays and time constraints. > Mitral annular isthmus dependent flutter was ablated across the posterolateral mitral annulus with bidirectional conduction block. > Inferior cavotricuspid isthmus dependent atrial flutter??was ablated with bidirectional conduction block. > Atypical right atrial flutter ablation at the right atrial lateral wall. > Significant conduction inhomogeneity in the coronary sinus with tightly coupled APC of coronarysinus origin. Future consideration towards targeting coronary sinus if recurrent atrial arrhythmias. > Preserved atrioventricular conduction. > No finding of an accessory pathway. > The P wave duration pre-ablation was 142 ms and post-ablation was 140 ms. He reports having doen well through the summer. He s here for follow up today (he has a loop recorder in place) Past Medical History: 1) Persistent atrial fibrillation > Phillips mini-Maze ([place]; August 2017) : Bilateral antral electrical isolation, partial cardiac denervation, left atrial appendage Atriclipclosure : Implanted loop recorder > Atrial tachycardia - atypical flutter > Recurrent fibrillation reported via ILR 2) Probable seizure disorder / Keppra Allergies & Sensitivities: Patient has no known allergies. Medications: Proscar, finasteride Review of Systems: No history of diabetes, TIA, stroke, heart failure; no complaint of exertional angina, presyncope, syncope. Remainder of interval review of systems was unremarkable. Physical Examination (cursory): Vital Signs: Blood pressure: 107/68 sitting arm [...] present. Neurological: Grossly intact. Tests: Loop Recorder (June 09, 2019): There were episode of tachycardia/fibrillation detected until February 13, and none since then (but for some limited noise detections)... Electrocardiogram (June 09, 2019): Sinus bradycardia 58/minute, SC 172 ms, QRS duration 96/minute,QTc 435 ms. Assessment: The loop recorder revealed some self-limited atrial dysrhythmias during the first month post-ablation, but over the past ~4 months he appears to have done well, and has remained free of recurrences. I reviewed the findings of the procedure again with him, and diuscussed limitations. All in all, there is nothing different to be done at this time. He will continue follow up in the device clinic for evaluation of his status via review of loop recorder data. Recommendations: 1) Continue device clinic follow up 2) No changes otherwise. 3) Follow up in this clinic with me in 1 year. ____ documented in this encounter Plan of Treatment Not on filedocumented as of this encounter Procedures Procedure Name Priority Date/Time Associated Diagnosis Comme nts EKG 12-LEAD Routine 06/09/2019 3:11 PM Persistent atrial Resu lts for this EDT fibrillation procedure are i n the results section. documented in this encounter Results EKG 12 Lead (06/09/2019 3:11 PM EDT) Component Value Ref Range Test Analysis Performed Pathologis t Method Time At Signature Ventricular rate 58 BPM MUSE SYSTEM Atrial Rate 58 BPM MUSE SYSTEM P-R Interval 172 ms MUSE SYSTEM QRS Duration 96 ms MUSE SYSTEM Q-T Interval 444 ms MUSE SYSTEM QTC Calculated 435 ms MUSE SYSTEM (Bezet) Calculated P [place] 85 degrees MUSE SYSTEM Calculated R [place] 40 degrees MUSE SYSTEM Calculated T [place] 64 degrees MUSE SYSTEM INTERPRETATION Sinus bradycardia with marked sinus arrhythmia MUSE SYSTEM When compared with ECG of 14-JAN-2019 11:57, Vent. rate has decreased BY ??32 BPM Borderline criteria for Inferior infarct are no longer Prese nt Nonspecific T wave abnormality no longer evident in Inferior leads Nonspecific T wave abnormality no longer evident in Anterola teral leads Confirmed by MD Garcia Michael ([id number]) on 06/09/2019 8:42:22 PM Specimen Anatomical Collection Method Collection Time Receive d Time (Source) Location / / Volume Laterality 06/09/2019 3:11 PM 9 8:42 EDT PM EDT Torrey Bustos MD ECG ORDERABLES Performing Organization Address City/State/ZIP Code Phon e Number MUSE SYSTEM documented in this encounter Visit Diagnoses Diagnosis Persistent atrial fibrillation Atrial fibrillation documented in this encounter Care Teams Home Specialist Relationship Specialty Start Date End Date Nathaniel Smith MD PCP - General Family Medicine 12/23/18 [address] [place] [address] documented as of this encounter
--- OUTSIDE RECORDS SUMMARY | 2022-08-01 15:48 | XMS_ITS | Encounter Summary ---
:1950 Author Organization [facility] [place] [address] Care Team Providers Name Role Phone Nathaniel Smith MD Primary Care Provider Encounter Details Date Type Department Care Team Description 01/26/2020 Notes Only Cardiology at [facility] Valentín Browne MD [facility] [place] [address] CARDIOLOGY DEPT. [phone] [place] [address] (Wo rk) Social History Tobacco Use Types Packs/Day Years Used Date Smoking Tobacco: Never Smokeless Tobacco: Never Sex Assigned at Date Recorded Not on file documented as of this encounter Progress Notes Valentín Browne MD - 01/26/2020 10:15 AM EDT Cardiac Device Remote Monitoring Report Summary Medtronic Carelink 01/26/20 Device: ILR Model: Reveal LINQ LNQ11 Battery: 'OK' Events: Underlying rhythm appears to be sinus rhythm 2 pauses - these appear to be secondary to undersensing Impression Normal device function No arrhythmias Follow Up As per schedule - in-clinic and remote VALENTÍN BROWNE MD documented in this encounter Plan of Treatment Not on filedocumented as of this encounter Visit Diagnoses Not on filedocumented in this encounter Care Teams Video Game Tester Relationship Specialty Start Date End Date Nathaniel Smith MD PCP - General Family Medicine 12/23/18 [address] [place] [address] documented as of this encounter
--- OUTSIDE RECORDS SUMMARY | 2022-08-01 15:48 | XMS_ITS | Encounter Summary ---
:1950 Author Organization [facility] [place] [address] Care Team Providers Name Role Phone Nathaniel Smith MD Primary Care Provider Encounter Details Date Type Department Care Team Description 10/16/2020 Hospital Encounter Non-Invasive Cardiology [place], Myriam Mari MD [place], [place] [address] [place] [address] [phone] Social History Tobacco Use Types Packs/Day Years Used Date Smoking Tobacco: Never Smokeless Tobacco: Never Sex Assigned at Date Recorded Not on file documented as of this encounter Medications at Time of Discharge Medication Sig Dispensed Refills Start Date End Date finasteride (PROSCAR) 5 mg Take 5 mg by mouth. 0 02/06/2018 05/29/2021 Tablet tamsulosin (FLOMAX) 0.4 mg Take 0.4 mg by 0 02/0705/29/2021 Capsule, Sust. Release 24 mouth. hr documented as of this encounter Plan of Treatment Not on filedocumented as of this encounter Visit Diagnoses Not on filedocumented in this encounter Care Teams Larry Car Operator Relationship Specialty Start Date End Date Nathaniel Smith MD PCP - General Family Medicine 12/23/18 [address] [place], [place] [id number] documented as of this encounter
--- OUTSIDE RECORDS SUMMARY | 2022-08-01 15:48 | XMS_ITS | Encounter Summary ---
:1950 Author Organization [facility] [place] [address] Care Team Providers Name Role Phone Nathaniel Smith MD Primary Care Provider Encounter Details Date Type Department Care Team Description 01/24/2019 [place] [address] Social History Tobacco Use Types Packs/Day Years Used Date Smoking Tobacco: Never Smokeless Tobacco: Never Sex Assigned at Date Recorded Not on file documented as of this encounter Plan of Treatment Not on filedocumented as of this encounter Procedures Procedure Name Priority Date/Time Associated Diagnosis Comme nts CARDIAC DEVICE Routine 01/24/2019 11:06 PM Result s for this CHECK - REMOTE EDT procedure are in the results section. documented in this encounter Results Cardiac Device Check - Remote (01/24/2019 11:06 PM EDT) Component Value Ref Test Analysis Performed Pathologis t Range Method Time At Signature Date Time [id number] IDCO Interrogation Session Implantable Medtronic IDCO Pulse Generator Gas Singer Implantable [id number] IDCO Pulse Generator Model Implantable [id number] IDCO Pulse Generator Serial Number Type Remote IDCO Interrogation Session Implantable Implantable IDCO Pulse Generator Diagnostic Type Monitor Implantable [id number] IDCO Pulse Generator Implant Date Zone Setting 2,000 ms IDCO Detection Interval Zone Setting 3,000 ms IDCO Detection Interval Zone Setting AT/AF IDCO Type Category Zone Setting VF IDCO Type Category Zone Setting VT IDCO Type Category Zone Setting 360 ms IDCO Detection Interval Battery Status OK IDCO Episode 2,023 IDCO Identifier Episode Type AT/AF IDCO Category Episode Date [id number] IDCO Time Episode Duration 1,560 s IDCO Episode 2,022 IDCO Identifier Episode Type AT/AF IDCO Category Episode Date [id number] IDCO Time Episode Duration 720 s IDCO Episode 2,021 IDCO Identifier Episode Type AT/AF IDCO Category Episode Date [id number] IDCO Time Episode Duration 720 s IDCO Episode 2,020 IDCO Identifier Episode Type AT/AF IDCO Category Episode Date [id number] IDCO Time Episode Duration 240 s IDCO Episode 2,019 IDCO Identifier Episode Type AT/AF IDCO Category Episode Date [id number] IDCO Time Episode Duration 840 s IDCO Episode 2,018 IDCO Identifier Episode Type AT/AF IDCO Category Episode Date [id number] IDCO Time Episode Duration 3,240 s IDCO Episode 2,017 IDCO Identifier Episode Type AT/AF IDCO Category Episode Date [id number] IDCO Time Episode Duration 120 s IDCO Episode 2,016 IDCO Identifier Episode Type AT/AF IDCO Category Episode Date [id number] IDCO Time Episode Duration 240 s IDCO Episode 2,015 IDCO Identifier Episode Type AT/AF IDCO Category Episode Date [id number] IDCO Time Episode Duration 720 s IDCO Episode 2,014 IDCO Identifier Episode Type AT/AF IDCO Category Episode Date [id number] IDCO Time Episode Duration 120 s IDCO Episode 2,013 IDCO Identifier Episode Type AT/AF IDCO Category Episode Date [id number] IDCO Time Episode Duration 480 s IDCO Episode 2,012 IDCO Identifier Episode Type AT/AF IDCO Category Episode Date [id number] IDCO Time Episode Duration 120 s IDCO Episode 2,011 IDCO Identifier Episode Type AT/AF IDCO Category Episode Date [id number] IDCO Time Episode Duration 120 s IDCO Episode 2,010 IDCO Identifier Episode Type AT/AF IDCO Category Episode Date [id number] IDCO Time Episode Duration 120 s IDCO Episode 2,009 IDCO Identifier Episode Type AT/AF IDCO Category Episode Date [id number] IDCO Time Episode Duration 120 s IDCO Episode 2,008 IDCO Identifier Episode Type AT/AF IDCO Category Episode Date [id number] IDCO Time Episode Duration 3,840 s IDCO Episode 2,007 IDCO Identifier Episode Type AT/AF IDCO Category Episode Date [id number] IDCO Time Episode Duration 240 s IDCO Episode 2,006 IDCO Identifier Episode Type AT/AF IDCO Category Episode Date [id number] IDCO Time Episode Duration 480 s IDCO Episode 2,005 IDCO Identifier Episode Type AT/AF IDCO Category Episode Date [id number] IDCO Time Episode Duration 1,800 s IDCO Episode 2,004 IDCO Identifier Episode Type AT/AF IDCO Category Episode Date [id number] IDCO Time Episode Duration 120 s IDCO Episode 2,003 IDCO Identifier Episode Type AT/AF IDCO Category Episode Date [id number] IDCO Time Episode Duration 9,600 s IDCO Episode 2,002 IDCO Identifier Episode Type AT/AF IDCO Category Episode Date [id number] IDCO Time Episode Duration 8,160 s IDCO Episode 2,001 IDCO Identifier Episode Type AT/AF IDCO Category Episode Date [id number] IDCO Time Episode Duration 120 s IDCO Episode 2,000 IDCO Identifier Episode Type AT/AF IDCO Category Episode Date [id number] IDCO Time Episode Duration 120 s IDCO Episode 1,999 IDCO Identifier Episode Type AT/AF IDCO Category Episode Date [id number] IDCO Time Episode Duration 240 s IDCO Episode 1,998 IDCO Identifier Episode Type AT/AF IDCO Category Episode Date [id number] IDCO Time Episode Duration 120 s IDCO Episode 1,997 IDCO Identifier Episode Type AT/AF IDCO Category Episode Date [id number] IDCO Time Episode Duration 1,200 s IDCO Episode 1,996 IDCO Identifier Episode Type AT/AF IDCO Category Episode Date [id number] IDCO Time Episode Duration 3,240 s IDCO Episode 1,995 IDCO Identifier Episode Type AT/AF IDCO Category Episode Date [id number] IDCO Time Episode Duration 360 s IDCO Episode 1,994 IDCO Identifier Episode Type AT/AF IDCO Category Episode Date [id number] IDCO Time Episode Duration 3,240 s IDCO Episode 1,975 IDCO Identifier Episode Type AT/AF IDCO Category Episode Date [id number] IDCO Time Episode Duration 29,640 s IDCO Atrial Tachy 87547124132055 IDCO Statistic Date Time Start Atrial Tachy 13963828460491 IDCO Statistic Date Time End Atrial Tachy 41.5 % IDCO Statistic AT/AF [place] Percent Episode 0 IDCO Statistic Recent Count Episode 0 IDCO Statistic Recent Count Episode 0 IDCO Statistic Recent Count Episode 0 IDCO Statistic Recent Count Episode 0 IDCO Statistic Recent Count Episode Patient Activated IDCO Statistic Type Category Episode 86 IDCO Statistic Recent Count Episode AT/AF IDCO Statistic Type Category Episode [id number] IDCO Statistic Recent Date Time Start Episode 32343910275868 IDCO Statistic Recent Date Time End Episode 23627835723205 IDCO Statistic Recent Date Time Start Episode 12700827236015 IDCO Statistic Recent Date Time End Episode 26104454214961 IDCO Statistic Recent Date Time Start Episode 63350167483774 IDCO Statistic Recent Date Time End Episode 84068279382351 IDCO Statistic Recent Date Time Start Episode 09631778517455 IDCO Statistic Recent Date Time End Episode 08960373213830 IDCO Statistic Recent Date Time Start Episode 23211494227377 IDCO Statistic Recent Date Time End Episode 36231202123888 IDCO Statistic Recent Date Time Start Episode 97261826672377 IDCO Statistic Recent Date Time End Episode 3 IDCO Statistic Total Count Episode 2 IDCO Statistic Total Count Episode 0 IDCO Statistic Total Count Episode 0 IDCO Statistic Total Count Episode 6 IDCO Statistic Total Count Episode Patient Activated IDCO Statistic Type Category Episode 4,806 IDCO Statistic Total Count Episode AT/AF IDCO Statistic Type Category Episode [id number] IDCO Statistic Total Date Time Start Episode 29659139555305 IDCO Statistic Total Date Time End Episode 15749016138868 IDCO Statistic Total Date Time Start Episode 09651304760591 IDCO Statistic Total Date Time End Episode 74489624879889 IDCO Statistic Total Date Time Start Episode 55802082354315 IDCO Statistic Total Date Time End Episode 04645791578108 IDCO Statistic Total Date Time Start Episode 04177389313273 IDCO Statistic Total Date Time End Episode 02402082750140 IDCO Statistic Total Date Time Start Episode 38956572879754 IDCO Statistic Total Date Time End Episode 13550348135221 IDCO Statistic Total Date Time Start Episode 40338947694220 IDCO Statistic Total Date Time End Anatomical Region Laterality Modality Other Specimen (Source) Anatomical Collection Method Collection Time Re ceived Time Location / / Volume Laterality 01/24/2019 11:06 PM EDT Physician Cardiology IMPLANTABLE CARDIAC DEVICE documented in this encounter Visit Diagnoses Not on filedocumented in this encounter Care Teams Sales Promotion Coordinator Relationship Specialty Start Date End Date Nathaniel Smith MD PCP - General Family Medicine 12/23/18 [address] [place] [address] documented as of this encounter
--- OUTSIDE RECORDS SUMMARY | 2022-08-01 15:48 | XMS_ITS | Encounter Summary ---
:1950 Author Organization [facility] [place] [address] Care Team Providers Name Role Phone Nathaniel Smith MD Primary Care Provider Reason for Referral Diagnostic Test (Routine) - Closed Specialty Diagnoses / Procedures Referred By Contact Refer red To Contact Cardiology Diagnoses Persistent atrial fibrillation Torrey Bustos MD [facility] Non-Inv Card Lab Procedures Echocardiogram Transthoracic([facility]) [facility] [place] [address] [place] [address] Fax: Referral ID Status Reason Start Date Expiration Date Visits V isits Requested Authorized [id number] Closed Specialty 01/11/2020 01/10/2021 1 1 Service Requested Encounter Details Date Type Department Care Team Description 01/11/2020 [place] [facility], Persistent atrial [facility] [place] [address] CARDI[address]Y DEPT. [phone] [place], [place] [address] Social History Tobacco Use Types Packs/Day Years Used Date Smoking Tobacco: Never Smokeless Tobacco: Never Sex Assigned at Date Recorded Not on file documented as of this encounter Plan of Treatment Not on filedocumented as of this encounter Results ECHOCARDIOGRAM COMPLETE (01/17/2020 12:00 PM EDT) P athologist Signature EF 60 HEARTLAB SYSTEM Anatomical Region Laterality Modality Other Specimen (Source) Anatomical Location Collection Method / Collectio n Time Received Time / Laterality Volume 01/17/2020 Narrative 01/17/2020 12:36 PM EDT Procedure: ?Transthoracic Echocardiogram Patient: ?ARMANI QUINTERO Yared ?(Age): 1950(69y) Med Rec#: ? [id number] ?Sex: ?M ? [place] ? [facility]Ht / Wt: ??175(cm)/77(kg) Pt. Loc: ?Echo Lab ?BSA: ?1.92 Study Date: ?? 01/17/2020 ?Pt. Type: Outpatient Tape: ? Referring: JEFF Reading: Eduardo Garcia ??([id number]) Cloth Dyeing Range Tender: Arielle Lawler Diagnosis: Rhythm: ? Sinus BP: ? 123/72 SUMMARY: 1. The left ventricular chamber size is normal. There is normal global left ventricular systolic function. The quantitative left ventricular ejection fraction by biplane Olivares's m ethod is 64%. There are no left ventricular segmental wall motion abnorm alities. 2. Right ventricular chamber size and sy stolic function are within normal limits. Pulmonary artery hyperten truman could not be assessed due to inadequate tricuspid regurgitation je t. 3. The atria are normal in size. 4. There is no hemodynamically significa nt valve disease. 5. See remainder of report for additiona l findings. 6. Compared to a prior study dated , LVEF has improved. Findings ? : Study Quality: ? Adequate Left Ventricle: ? The left ventricul ar chamber size is normal. ?Left ventricular wall thickness is normal. ?There is normal global left ventri cular systolic function. ?The quantitative left ventricular ejection fraction by biplane Olivares's method is 64%. ?There are no left ventricular segm ental wall motion abnormalities. ?Assessment of diastolic function i s indeterminate. ?Doppler assessment is consistent w ith normal left sided filling pressure. Left Atrium: ? The left atrium is no rmal in size. ?No atrial septal defect is visuali zed. Right Ventricle: ? Right ventricular chamber size, wall thickness, and systolic function are within normal limi ts. ?Pulmonary artery hypertension coul d not be assessed due to inadequate tricuspid regurgitation jet. ?The estimated right atrial pressur e is 3 mmHg. Right Atrium: ? The right atrium kaye ears normal. Aortic Valve: ? The aortic valve is trileaflet. The leaflets are thin with normal excursion. There is no aorti c stenosis or regurgitation present. Mitral Valve: ? The mitral valve kaye ears normal in structure and function. ?There is trace mitral regurgitatio n present. Tricuspid Valve: ? The tricuspid amilcar ve appears normal in structure and function. ?There is trace tricuspid regurgita tion present. Pulmonic Valve: ? The pulmonic valve appears normal in structure and function. Pericardium: ? The pericardium appea rs normal and there is no evidence of a pericardial effusion. Aorta: ? There is no evidence of coa rctation of the aorta. Venous: ? The inferior vena cava kaye ears normal in size. ?There is a greater than 50% respir atory change in the inferior vena cava dimension. Misc: ? There is no hemodynamically significant valve disease. ?See remainder of report for additi onal findings. ?Two-dimensional echo, limited spec tral Doppler and color Doppler performed. Chambers 2D ?Value ?Units (Range) ? IVSd (2D) ? 0.97 ? cm ? LVPWd (2D) ?0.83 ? cm ? IVS:LVPW ratio (2D) 1.16 ? ratio ? RWT (2D) ?0.34 ? ratio ? RWT PW (2D) ? 0.31 ? ratio ? LVIDd (2D) ?5.34 ? cm ? LVIDs (2D) ?3.72 ? cm ? LVIDd (2D) index ?2.77 ? cm/m2 ? LVIDs (2D) index ?1.93 ? cm/m2 ? LV FS (2D) ?30.34 ?% ? EF Teichholz (2D) ?? 57.24 ?% ? Ao root diameter (2D3.3 ?cm (2.1 - 3.6) ? Ascending Ao ?3.2 ?cm (2 - 3.5) ? Volumes/Mass ?Value ?Units (Range) ? LA Area 4 CH ?18 ? cm2 (<21) ? RA AREA 4CH ? 17 ? cm2 ? LA ESV BP (MOD) inde28.79 ? ml/m2 ? LV ESV SP 4CH (MOD) 41 ? ml ? LV ESV SP 2CH (MOD) 32 ? ml ? LV EDV BP ? 99.8 ? ml ? LV ESV BP ? 36.2 ? ml ? LV EDV BP index ? 51.86 ?ml/m2 ? LV ESV BP index ? 18.81 ?ml/m2 ? BP EF (MOD) ? 63.73 ?% ? LV mass (2D) ?176.24 ? g ? LV mass (2D) index ??91.58 ?g/m2 ? Diastolic/Systolic Function ?Value ?Units (Range) ? MV E-wave Vmax ?0.83 ? m/sec ? MV deceleration [id number] ?msec ? MV A-wave Vmax ?0.34 ? m/sec ? MV E:A ratio ?2.47 ? ratio ? LV septal e' Vmax ?? 0.11 ? m/sec ? LV lateral e' Vmax ??0.12 ? m/sec ? LV average e' Vmax ??0.12 ? m/sec ? LV E:e' septal ratio7.54 ? ratio ? LV E:e' lateral rati6.91 ? ratio ? LV average E:e' rati7.21 ? ratio ? Tricuspid Valve ?Value ?Units (Range) ? RAP ? 3 ?mmHg ? Pulmonic Valve/Qp:Qs ?Value ?Units (Range) ? CA end-diastolic Vma0.65 ? m/sec ? Wall Motion: Segment Name ?Rest ? Base-Anteroseptal ?? Normal ? Base-Anterior ? Normal ? Base-Anterolateral ??Normal ? Base-Posterolateral Normal ? Base-Inferior ? Normal ? Base-Inferoseptal ?? Normal ? Mid-Anteroseptal ?Normal ? Mid-Anterior ?Normal ? Mid-Anterolateral ?? Normal ? Mid-Posterolateral ??Normal ? Mid-Inferior ?Normal ? Mid-Inferoseptal ?Normal ? [place]-Septal ? Normal ? [place]-Anterior ? Normal ? [place]-Lateral ?Normal ? [place]-Inferior ? Normal ? [place]-Tip ?Normal ? This report has been electronically sign ed by: _ Eduardo Garcia MD ? 01/17/2020 12:35 :15 [facility] Procedure Note Eduardo Garcia MD - 01/17/2020Formattin g of this note might be different from the original. Procedure: Transthoracic Echocardiogram Patient: ARMANI Vail (Age): 1950(69y) Med Rec#: [id number] Sex: M [place] [facility]t / Wt: 175(cm)/77(kg) Pt. Loc: Echo Lab BSA: 1.92 Study Date: 01/17/2020 Pt. Type: Outpati ent Tape: Referring: JEFF Reading: Eduardo Garcia ([id number]) Cloth Dyeing Range Tender: Arielle Lawler Diagnosis: Rhythm: Sinus BP: 123/72 SUMMARY: 1. The left ventricular chamber size is normal. There is normal global left ventricular systolic function. The quantitative left ventricular ejection fraction by biplane Olivares's m ethod is 64%. There are no left ventricular segmental wall motion abnorm alities. 2. Right ventricular chamber size and sy stolic function are within normal limits. Pulmonary artery hyperten truman could not be assessed due to inadequate tricuspid regurgitation je t. 3. The atria are normal in size. 4. There is no hemodynamically significa nt valve disease. 5. See remainder of report for additiona l findings. 6. Compared to a prior study dated , LVEF has improved. Findings : Study Quality: Adequate Left Ventricle: The left ventricular madiha mber size is normal. Left ventricular wall thickness is norm al. There is normal global left ventricular systolic function. The quantitative left ventricular eject ion fraction by biplane Olivares's method is 64%. There are no left ventricular segmental wall motion abnormalities. Assessment of diastolic function is ind eterminate. Doppler assessment is consistent with n ormal left sided filling pressure. Left Atrium: The left atrium is normal i n size. No atrial septal defect is visualized. Right Ventricle: Right ventricular chamb er size, wall thickness, and systolic function are within normal limi ts. Pulmonary artery hypertension could not be assessed due to inadequate tricuspid regurgitation jet. The estimated right atrial pressure is 3 mmHg. Right Atrium: The right atrium appears n ormal. Aortic Valve: The aortic valve is trilea flet. The leaflets are thin with normal excursion. There is no aorti c stenosis or regurgitation present. Mitral Valve: The mitral valve appears n ormal in structure and function. There is trace mitral regurgitation pre sent. Tricuspid Valve: The tricuspid valve kaye ears normal in structure and function. There is trace tricuspid regurgitation present. Pulmonic Valve: The pulmonic valve appea rs normal in structure and function. Pericardium: The pericardium appears nor mal and there is no evidence of a pericardial effusion. Aorta: There is no evidence of coarctati on of the aorta. Venous: The inferior vena cava appears n ormal in size. There is a greater than 50% respiratory change in the inferior vena cava dimension. Misc: There is no hemodynamically signif icant valve disease. See remainder of report for additional findings. Two-dimensional echo, limited spectral Doppler and color Doppler performed. Chambers 2D Value Units (Range) IVSd (2D) 0.97 cm LVPWd (2D) 0.83 cm IVS:LVPW ratio (2D) 1.16 ratio RWT (2D) 0.34 ratio RWT PW (2D) 0.31 ratio LVIDd (2D) 5.34 cm LVIDs (2D) 3.72 cm LVIDd (2D) index 2.77 cm/m2 LVIDs (2D) index 1.93 cm/m2 LV FS (2D) 30.34 % EF Teichholz (2D) 57.24 % Ao root diameter (2D3.3 cm (2.1 - 3.6) Ascending Ao 3.2 cm (2 - 3.5) Volumes/Mass Value Units (Range) LA Area 4 CH 18 cm2 (<21) RA AREA 4CH 17 cm2 LA ESV BP (MOD) inde28.79 ml/m2 LV ESV SP 4CH (MOD) 41 ml LV ESV SP 2CH (MOD) 32 ml LV EDV BP 99.8 ml LV ESV BP 36.2 ml LV EDV BP index 51.86 ml/m2 LV ESV BP index 18.81 ml/m2 BP EF (MOD) 63.73 % LV mass (2D) 176.24 g LV mass (2D) index 91.58 g/m2 Diastolic/Systolic Function Value Units (Range) MV E-wave Vmax 0.83 m/sec MV deceleration [id number] msec MV A-wave Vmax 0.34 m/sec MV E:A ratio 2.47 ratio LV septal e' Vmax 0.11 m/sec LV lateral e' Vmax 0.12 m/sec LV average e' Vmax 0.12 m/sec LV E:e' septal ratio7.54 ratio LV E:e' lateral rati6.91 ratio LV average E:e' rati7.21 ratio Tricuspid Valve Value Units (Range) RAP 3 mmHg Pulmonic Valve/Qp:Qs Value Units (Range) CA end-diastolic Vma0.65 m/sec Wall Motion: Segment Name Rest Base-Anteroseptal Normal Base-Anterior Normal Base-Anterolateral Normal Base-Posterolateral Normal Base-Inferior Normal Base-Inferoseptal Normal Mid-Anteroseptal Normal Mid-Anterior Normal Mid-Anterolateral Normal Mid-Posterolateral Normal Mid-Inferior Normal Mid-Inferoseptal Normal [place]-Septal Normal [place]-Anterior Normal [place]-Lateral Normal [place]-Inferior Normal [place]-Tip Normal This report has been electronically sign ed by: _ Eduardo Garcia MD 01/17/2020 12:35:15 Images reviewed and interpretation verif ied [facility] Cardiac Ultrasound Laboratory Torrey Bustos MD ECHO ORDERABLES EKG 12 Lead (01/17/2020 9:41 AM EDT) Component Value Ref Range Test Analysis Performed Pathologis t Method Time At Signature Ventricular rate 57 BPM MUSE SYSTEM Atrial Rate 57 BPM MUSE SYSTEM P-R Interval 172 ms MUSE SYSTEM QRS Duration 90 ms MUSE SYSTEM Q-T Interval 434 ms MUSE SYSTEM QTC Calculated 422 ms MUSE SYSTEM (Bezet) Calculated P [place] 72 degrees MUSE SYSTEM Calculated R [place] 48 degrees MUSE SYSTEM Calculated T [place] 8 degrees MUSE SYSTEM INTERPRETATION Sinus bradycardia MUSE SY STEM Otherwise normal ECG When compared with ECG of 09-JUN-2019 15:11, No significant change was found Confirmed by Adam Roque MD ([id number]) on 01/17/2020 3:54:30 PM Specimen Anatomical Collection Method Collection Time Receive d Time (Source) Location / / Volume Laterality 01/17/2020 9:41 AM 0 3:54 EDT PM EDT Torrey Bustos MD ECG ORDERABLES Performing Organization Address City/State/ZIP Code Phon e Number MUSE SYSTEM documented in this encounter Visit Diagnoses Diagnosis Persistent atrial fibrillation Atrial fibrillation Persistent atrial fibrillation Atrial fibrillation documented in this encounter Care Teams Gas Welding Machine Operator Relationship Specialty Start Date End Date Nathaniel Smith MD PCP - General Family Medicine 12/23/18 [address] [place] [address] documented as of this encounter
--- OUTSIDE RECORDS SUMMARY | 2022-08-01 15:48 | XMS_ITS | Encounter Summary ---
:1950 Author Organization [facility] [place] [address] Care Team Providers Name Role Phone Nathaniel Smith MD Primary Care Provider Encounter Details Date Type Department Care Team Description 12/17/2019 Notes Only Cardiology at [facility] Valentín Browne MD [facility] [place] [address] CARDIOLOGY DEPT. [phone] [place] [id number] (Wo rk) Social History Tobacco Use Types Packs/Day Years Used Date Smoking Tobacco: Never Smokeless Tobacco: Never Sex Assigned at Date Recorded Not on file documented as of this encounter Progress Notes Valentín Browne MD - 12/17/2019 1:34 PM EDT Remote Device Download Medtronic Carelink 12/17/19 Device: ILR Model: LinQ [id number] Battery: 'OK' Events: 1 tachycardia - this appears to be oversensing and noise 9 pause - events appear to represent undersensing 4 AF - appear to be sinus rhythm / tachycardia with noise Although events on 07/02/2019 and 07/03/2019 may represent atrial flutter (3.5 hours and 12 minutes respectively, average ventricular rate 109 bpm for the briefer episode) Impression Most of the events represent noise with over and undersensing There are 2 episodes of probable atrial flutter - the longest is about 3.5 hours, ventricular rates appear to be reasonably well controlled VALENTÍN BROWNE MD documented in this encounter Plan of Treatment Not on filedocumented as of this encounter Visit Diagnoses Not on filedocumented in this encounter Care Teams Senior Business Development Manager Relationship Specialty Start Date End Date Nathaniel Smith MD PCP - General Family Medicine 12/23/18 [address] [place] [address] documented as of this encounter
--- OUTSIDE RECORDS SUMMARY | 2022-08-01 15:48 | XMS_ITS | Encounter Summary ---
:1950 Author Organization [facility] [place] [address] Care Team Providers Name Role Phone Nathaniel Smith MD Primary Care Provider Reason for Referral Diagnostic Test (Routine) - Closed Specialty Diagnoses / Procedures Referred By Contact Refer red To Contact Cardiology Diagnoses Persistent atrial fibrillation Torrey Bustos MD [facility] Non-Inv Card Lab Procedures Echocardiogram Transthoracic([facility]) [facility] CARDIOLOGY DEPT. [place], [place] [id number] [place] [phone] Fax: Referral ID Status Reason Start Date Expiration Date Visits V isits Requested Authorized [id number] Closed Specialty 01/11/2020 01/10/2021 1 1 Service Requested Reason for Visit Diagnostic Test (Routine) - Closed Specialty Diagnoses / Procedures Referred By Contact Refer red To Contact Cardiology Diagnoses Persistent atrial fibrillation Torrey Bustos MD [facility] Non-Inv Card Lab Procedures Echocardiogram Transthoracic([facility]) [facility] CARDIOLOGY DEPT. [place], [place] [id number] [place] [phone] Fax: Referral ID Status Reason Start Date Expiration Date Visits V isits Requested Authorized [id number] Closed Specialty 01/11/2020 01/10/2021 1 1 Service Requested Encounter Details Date Type Department Care Team Description 01/17/2020 Hospital Encounter Non-Invasive Torrey Bustos Persi stent atrial Cardiology Lab [place] [place] fibrillation [facility] [place]IOLOGY [place] [id number] [phone] Social History Tobacco Use Types Packs/Day Years [...] Name Priority Date/Time Associated Diagnosis Comme nts ECHOCARDIOGRAM Routine 01/17/2020 12:00 Persistent atrial Resu lts for this COMPLETE PM EDT fibrillation procedure are i n the results section. documented in this encounter Results ECHOCARDIOGRAM COMPLETE (01/17/2020 12:00 PM EDT) P athologist Signature EF 60 HEARTLAB SYSTEM Anatomical Region Laterality Modality Other Specimen (Source) Anatomical Location Collection Method / Collectio n Time Received Time / Laterality Volume 01/17/2020 Narrative 01/17/2020 12:36 PM EDT Procedure: ?Transthoracic Echocardiogram Patient: ?ARMANI Vail ?(Age): 1950(69y) Med Rec#: ? [id number] ?Sex: ?M ? Site Loc: ? [facility] ?Ht / Wt: ??175(cm)/77(kg) Pt. Loc: ?Echo Lab ?BSA: ?1.92 Study Date: ?? 01/17/2020 ?Pt. Type: Outpatient Tape: ? Referring: JEFF Reading: Eduardo Garcia ??([id number]) Production Welder: Arielle Lawler Diagnosis: Rhythm: ? Sinus BP: [...] Vmax ?0.83 ? m/sec ? MV deceleration [id number] ?msec ? MV A-wave Vmax ?0.34 ? [...] ? Pulmonic Valve/Qp:Qs ?Value ?Units (Range) ? IA end-diastolic Vma0.65 ? m/sec ? Wall Motion: Segment Name ?Rest ? Base-Anteroseptal ?? Normal ? Base-Anterior ? Normal ? Base-Anterolateral ??Normal ? Base-Posterolateral Normal ? Base-Inferior ? Normal ? Base-Inferoseptal ?? Normal ? Mid-Anteroseptal ?Normal ? Mid-Anterior ?Normal ? Mid-Anterolateral ?? Normal ? Mid-Posterolateral ??Normal ? Mid-Inferior ?Normal ? Mid-Inferoseptal ?Normal ? [place]-Septal ? Normal ? [place]-Anterior ? Normal ? [place]-Lateral ?Normal ? [place]-Inferior ? Normal ? [place]-Tip ?Normal ? This report has been electronically sign ed by: _ Eduardo Garcia MD ? 01/17/2020 12:35 :15 Images reviewed and interpretation verif [email or web address] [facility] Cardiac Ultrasound Laboratory Procedure Note Eduardo Garcia MD - 01/17/2020Formattin g of this note might be different from the original. Procedure: Transthoracic Echocardiogram Patient: ARMANI Vail (Age): 1950(69y) Med Rec#: [id number] Sex: M Site Loc: [facility] Ht / Wt: 175(cm)/77(kg) Pt. Loc: Echo Lab BSA: 1.92 Study Date: 01/17/2020 Pt. Type: Outpati ent Tape: Referring: JEFF Reading: Eduardo Garcia ([id number]) Production Welder: Arielle Lawler Diagnosis: Rhythm: Sinus BP: 123/72 [...] MV E-wave Vmax 0.83 m/sec MV deceleration [id number] msec MV A-wave Vmax 0.34 m/sec MV E:A ratio 2.47 ratio LV septal e' Vmax 0.11 m/sec LV lateral e' Vmax 0.12 m/sec LV average e' Vmax 0.12 m/sec LV E:e' septal ratio7.54 ratio LV E:e' lateral rati6.91 ratio LV average E:e' rati7.21 ratio Tricuspid Valve Value Units (Range) RAP 3 mmHg Pulmonic Valve/Qp:Qs Value Units (Range) IA end-diastolic Vma0.65 m/sec Wall Motion: Segment Name Rest Base-Anteroseptal Normal Base-Anterior Normal Base-Anterolateral Normal Base-Posterolateral Normal Base-Inferior Normal Base-Inferoseptal Normal Mid-Anteroseptal Normal Mid-Anterior Normal Mid-Anterolateral Normal Mid-Posterolateral Normal Mid-Inferior Normal Mid-Inferoseptal Normal [place]-Septal Normal [place]-Anterior Normal [place]-Lateral Normal [place]-Inferior Normal [place]-Tip Normal This report has been electronically sign ed by: _ Eduardo Garcia MD 01/17/2020 12:35:15 Images reviewed and interpretation verif ied [facility] Cardiac Ultrasound Laboratory Torrey Bustos MD ECHO ORDERABLES documented in this encounter Visit Diagnoses Diagnosis Persistent atrial fibrillation Atrial fibrillation documented in this encounter Care Teams Tailing Machine Operator Relationship Specialty Start Date End Date Nathaniel Smith MD PCP - General Family Medicine 12/23/18 [address] [place] [address] documented as of this encounter
--- OUTSIDE RECORDS SUMMARY | 2022-08-01 15:48 | XMS_ITS | Encounter Summary ---
:1950 Author Organization [facility] [place] [address] Care Team Providers Name Role Phone Nathaniel Smith MD Primary Care Provider Encounter Details Date Type Department Care Team Description 12/06/2019 Notes Only Cardiology at [facility] Willard Hayes MD [facility] [place] [address] [place], [place] [address] [phone] (Wo rk) Social History Tobacco Use Types Packs/Day Years Used Date Smoking Tobacco: Never Smokeless Tobacco: Never Sex Assigned at Date Recorded Not on file documented as of this encounter Progress Notes Willard Hayes MD - 12/06/2019 9:10 PM EDT MDT ILR remote reviewed. Battery OK. Since Sep 02, 2019: 5 pauses. 3 to 4 seconds in duration. Most represent, clearly, undersensing. 2 episodes: 2/20 at 6:17 am and 2/18 at 8:19 am are likely undersensing but this is not definitive. 2 AF : unlikely AF. Undersensing and oversensing of noise are both observed. Premature are also observed. AF is not definitively seen. No symptoms reported. documented in this encounter Plan of Treatment Not on filedocumented as of this encounter Visit Diagnoses Not on filedocumented in this encounter Care Teams Thermostat Repairer Relationship Specialty Start Date End Date Nathaniel Smith MD PCP - General Family Medicine 12/23/18 [address] [place] [address] documented as of this encounter
--- OUTSIDE RECORDS SUMMARY | 2022-08-01 15:48 | XMS_ITS | Encounter Summary ---
:1950 Author Organization [facility] [address] Care Team Providers Name Role Phone Nathaniel Smith MD Primary Care Provider Encounter Details Date Type Department Care Team Description 02/25/2019 [place] [phone] Social History Tobacco Use Types Packs/Day Years Used Date Smoking Tobacco: Never Smokeless Tobacco: Never Sex Assigned at Date Recorded Not on file documented as of this encounter Plan of Treatment Not on filedocumented as of this encounter Procedures Procedure Name Priority Date/Time Associated Diagnosis Comme nts CARDIAC DEVICE Routine 02/25/2019 11:15 PM Result s for this CHECK - REMOTE EDT procedure are in the results section. documented in this encounter Results Cardiac Device Check - Remote (02/25/2019 11:15 PM EDT) Component Value Ref Test Analysis Performed Pathologis t Range Method Time At Signature Date Time [id number] IDCO Interrogation Session Implantable Medtronic IDCO Pulse Generator Erosion Control Coordinator Implantable [id number] IDCO Pulse Generator Model Implantable [id number] IDCO Pulse Generator Serial Number Type Remote IDCO Interrogation Session Implantable Implantable IDCO Pulse Generator Diagnostic Type Monitor Implantable [id number] IDCO Pulse Generator Implant Date Zone Setting 2,000 ms IDCO Detection Interval Zone Setting 3,000 ms IDCO Detection Interval Zone Setting AT/AF IDCO Type Category Zone Setting VF IDCO Type Category Zone Setting VT IDCO Type Category Zone Setting 360 ms IDCO Detection Interval Battery Status OK IDCO Episode 2,073 IDCO Identifier Episode Type AT/AF IDCO Category Episode Date [id number] IDCO Time Episode Duration 120 s IDCO Episode 2,072 IDCO Identifier Episode Type AT/AF IDCO Category Episode Date [id number] IDCO Time Episode Duration 1,080 s IDCO Episode 2,071 IDCO Identifier Episode Type AT/AF IDCO Category Episode Date [id number] IDCO Time Episode Duration 2,280 s IDCO Episode 2,070 IDCO Identifier Episode Type AT/AF IDCO Category Episode Date [id number] IDCO Time Episode Duration 480 s IDCO Episode 2,069 IDCO Identifier Episode Type AT/AF IDCO Category Episode Date [id number] IDCO Time Episode Duration 600 s IDCO Episode 2,068 IDCO Identifier Episode Type AT/AF IDCO Category Episode Date [id number] IDCO Time Episode Duration 4,080 s IDCO Episode 2,067 IDCO Identifier Episode Type AT/AF IDCO Category Episode Date [id number] IDCO Time Episode Duration 1,080 s IDCO Episode 2,066 IDCO Identifier Episode Type AT/AF IDCO Category Episode Date [id number] IDCO Time Episode Duration 480 s IDCO Episode 2,065 IDCO Identifier Episode Type AT/AF IDCO Category Episode Date [id number] IDCO Time Episode Duration 120 s IDCO Episode 2,064 IDCO Identifier Episode Type AT/AF IDCO Category Episode Date [id number] IDCO Time Episode Duration 1,320 s IDCO Episode 2,063 IDCO Identifier Episode Type AT/AF IDCO Category Episode Date [id number] IDCO Time Episode Duration 240 s IDCO Episode 2,062 IDCO Identifier Episode Type AT/AF IDCO Category Episode Date [id number] IDCO Time Episode Duration 120 s IDCO Episode 2,061 IDCO Identifier Episode Type AT/AF IDCO Category Episode Date [id number] IDCO Time Episode Duration 600 s IDCO Episode 2,060 IDCO Identifier Episode Type AT/AF IDCO Category Episode Date [id number] IDCO Time Episode Duration 120 s IDCO Episode 2,059 IDCO Identifier Episode Type AT/AF IDCO Category Episode Date [id number] IDCO Time Episode Duration 120 s IDCO Episode 2,058 IDCO Identifier Episode Type AT/AF IDCO Category Episode Date [id number] IDCO Time Episode Duration 120 s IDCO Episode 2,057 IDCO Identifier Episode Type AT/AF IDCO Category Episode Date [id number] IDCO Time Episode Duration 240 s IDCO Episode 2,056 IDCO Identifier Episode Type AT/AF IDCO Category Episode Date [id number] IDCO Time Episode Duration 120 s IDCO Episode 2,055 IDCO Identifier Episode Type AT/AF IDCO Category Episode Date [id number] IDCO Time Episode Duration 120 s IDCO Episode 2,054 IDCO Identifier Episode Type AT/AF IDCO Category Episode Date [id number] IDCO Time Episode Duration 360 s IDCO Episode 2,053 IDCO Identifier Episode Type AT/AF IDCO Category Episode Date [id number] IDCO Time Episode Duration 360 s IDCO Episode 2,052 IDCO Identifier Episode Type AT/AF IDCO Category Episode Date [id number] IDCO Time Episode Duration 1,320 s IDCO Episode 2,051 IDCO Identifier Episode Type AT/AF IDCO Category Episode Date [id number] IDCO Time Episode Duration 360 s IDCO Episode 2,050 IDCO Identifier Episode Type AT/AF IDCO Category Episode Date [id number] IDCO Time Episode Duration 120 s IDCO Episode 2,049 IDCO Identifier Episode Type AT/AF IDCO Category Episode Date [id number] IDCO Time Episode Duration 240 s IDCO Episode 2,048 IDCO Identifier Episode Type AT/AF IDCO Category Episode Date [id number] IDCO Time Episode Duration 1,200 s IDCO Episode 2,047 IDCO Identifier Episode Type AT/AF IDCO Category Episode Date [id number] IDCO Time Episode Duration 360 s IDCO Episode 2,046 IDCO Identifier Episode Type AT/AF IDCO Category Episode Date [id number] IDCO Time Episode Duration 1,680 s IDCO Episode 2,045 IDCO Identifier Episode Type AT/AF IDCO Category Episode Date [id number] IDCO Time Episode Duration 240 s IDCO Episode 2,044 IDCO Identifier Episode Type AT/AF IDCO Category Episode Date [id number] IDCO Time Episode Duration 120 s IDCO Atrial Tachy [id number] IDCO Statistic Date Time Start Atrial Tachy 91250314471744 IDCO Statistic Date Time End Atrial Tachy 2.9 % IDCO Statistic AT/AF [place] Percent Episode 0 IDCO Statistic Recent Count Episode 0 IDCO Statistic Recent Count Episode 0 IDCO Statistic Recent Count Episode 0 IDCO Statistic Recent Count Episode 0 IDCO Statistic Recent Count Episode Patient Activated IDCO Statistic Type Category Episode 89 IDCO Statistic Recent Count Episode AT/AF IDCO Statistic Type Category Episode [id number] IDCO Statistic Recent Date Time Start Episode [id number] IDCO Statistic Recent Date Time End Episode 87087391360199 IDCO Statistic Recent Date Time Start Episode 75753642677440 IDCO Statistic Recent Date Time End Episode [id number] IDCO Statistic Recent Date Time Start Episode 47459753405725 IDCO Statistic Recent Date Time End Episode 37503212028575 IDCO Statistic Recent Date Time Start Episode 64686328794157 IDCO Statistic Recent Date Time End Episode 99190393126033 IDCO Statistic Recent Date Time Start Episode [id number] IDCO Statistic Recent Date Time End Episode 67876828133180 IDCO Statistic Recent Date Time Start Episode 54228798664941 IDCO Statistic Recent Date Time End Episode 3 IDCO Statistic Total Count Episode 2 IDCO Statistic Total Count Episode 0 IDCO Statistic Total Count Episode 0 IDCO Statistic Total Count Episode 6 IDCO Statistic Total Count Episode Patient Activated IDCO Statistic Type Category Episode 4,899 IDCO Statistic Total Count Episode AT/AF IDCO Statistic Type Category Episode [id number] IDCO Statistic Total Date Time Start Episode 02017559958649 IDCO Statistic Total Date Time End Episode 95006655548628 IDCO Statistic Total Date Time Start Episode 94055904054598 IDCO Statistic Total Date Time End Episode 65659778390440 IDCO Statistic Total Date Time Start Episode 32385364379034 IDCO Statistic Total Date Time End Episode 21251435310370 IDCO Statistic Total Date Time Start Episode 17110587240918 IDCO Statistic Total Date Time End Episode 94610402932485 IDCO Statistic Total Date Time Start Episode 70598528665269 IDCO Statistic Total Date Time End Episode 91285113916044 IDCO Statistic Total Date Time Start Episode 93310762480514 IDCO Statistic Total Date Time End Anatomical Region Laterality Modality Other Specimen (Source) Anatomical Collection Method Collection Time Re ceived Time Location / / Volume Laterality 02/25/2019 11:15 PM EDT Physician Cardiology MD IMPLANTABLE CARDIAC DEVICE documented in this encounter Visit Diagnoses Not on filedocumented in this encounter Care Teams Electronics Instructor Relationship Specialty Start Date End Date Nathaniel Smith MD PCP - General Family Medicine 12/23/18 [address] [place] [address] documented as of this encounter
--- OUTSIDE RECORDS SUMMARY | 2022-08-01 15:48 | XMS_ITS | Encounter Summary ---
:1950 Author Organization [place] [address] Care Team Providers Name Role Phone Nathaniel Smith MD Primary Care Provider Encounter Details Date Type Department Care Team Description 01/17/2020 Hospital Encounter Non-Invasive Persisten [place] [address] Social History Tobacco Use Types Packs/Day [...] Associated Diagnosis Comme nts EKG 12-LEAD Routine 01/17/2020 9:41 AM Persistent atrial Resu lts for this EDT fibrillation procedure are i n the results section. documented in this encounter Results EKG 12 Lead (01/17/2020 9:41 AM EDT) Component Value Ref Range Test Analysis Performed Pathologis t Method Time At Signature Ventricular rate 57 BPM MUSE SYSTEM Atrial Rate 57 BPM MUSE SYSTEM P-R Interval 172 ms MUSE SYSTEM QRS Duration 90 ms MUSE SYSTEM Q-T Interval 434 ms MUSE SYSTEM QTC Calculated 422 ms MUSE SYSTEM (Bezet) Calculated P [place] 72 degrees MUSE SYSTEM Calculated R [place] 48 degrees MUSE SYSTEM Calculated T [place] 8 degrees MUSE SYSTEM INTERPRETATION Sinus bradycardia [...] fibrillation documented in this encounter Care Teams Work Manager Relationship Specialty Start Date End Date Nathaniel Smith MD PCP - General Family Medicine 12/23/18 [address] [place] [address] documented as of this encounter
--- OUTSIDE RECORDS SUMMARY | 2022-08-01 15:48 | XMS_ITS | Encounter Summary ---
:1950 Author Organization [facility] [place] [address] Care Team Providers Name Role Phone Nathaniel Smith MD Primary Care Provider Reason for Visit Auth/Cert Specialty Diagnoses / Procedures Referred By Contact Refer red To Contact Diagnoses AFIB Procedures PRG SHANIA REAL TIME IMG 2D W PRB IMG ACQUIS I&R PRO EPHYS EVAL W ABLATION SUPRAVENT ARRHYTHMIA ELECTROPHYSIOLOGY PROCEDURE TRANSESOPHAGEAL ECHO DURING CATH/EP PROCEDURE Referral ID Status Reason Start Date Expiration Date Visits Requ ested Visits Authorized [id number] 1 1 Encounter Details Date Type Department Care Team Description 01/13/2019 - Hospital Encounter Short Stay Unit at [facility], [place], Persistent atrial fibrillation; 01/15/2019 Demetra Mckay MD Dyspnea, unspecified type; [facility] Abnormal stress test; [facility] Status post ablation of atrial fibrillat ion; [facility] CARDIOLOGY DEPT. [place], [place] [id number] [phone] Social History Tobacco Use Types Packs/Day Years Used Date Smoking Tobacco: Never Smokeless Tobacco: Never Sex Assigned at Date Recorded Not on file documented as of this encounter Last Filed Vital Signs Vital Sign Reading Time Taken Comments Blood Pressure 97/51 01/15/2019 7:09 AM EDT Pulse 89 01/15/2019 7:09 AM EDT Temperature 36.9 ??C (98.4 ??F) 01/15/2019 7:09 AM EDT Respiratory Rate 18 01/15/2019 7:09 AM EDT Oxygen Saturation 95% 01/15/2019 7:09 AM EDT Inhaled Oxygen Concentration - - Weight 77.8 kg (171 lb 9.6 oz) 01/15/2019 4:26 AM EDT Height 175.3 cm (5' 9) 01/13/2019 6:37 AM EDT Body Mass Index 25.34 01/13/2019 6:37 AM EDT documented in this encounter Discharge Instructions Patient InstructionsSung Beatty PA - 01/14/2019 9:16 AM EDT DISCHARGE INSTRUCTIONS FOLLOWING YOUR ABLATION 1. Medications as prescribed. ?? Amiodarone 400 mg twice daily x 1 week, then 200 mg daily x 2 months, then STOP ?? Colchicine 0.6 mg daily x 30 days ?? Pantoprazole 40 mg daily x 30 days 2. Follow up with Dr. Bustos in 3 months. You will be contacted with arrangements. 3. Resume anticoagulation as per your home dose. 4. Standard post ablation wound care instructions (see below): Anticoagulation - You have been prescribed anticoagulation to reduce risk of clot formation due to atrial fibrillation/flutter and following the ablation procedure. Catheter Insertion Area Care - You may take a shower if you wish the morning after the procedure. Wash the area with soap and water. - Look for signs of infection over the next several days. - A little spot of blood at the catheter insertion area is not unusual. A bruise or a small lump under the skin is normal; they generally disappear in three or four days. In some cases you may develop a larger bruise that may appear to extend somewhat down your thigh; this is normal and will resolve, generally within 1-2 weeks. - Expect some mild tenderness over the area where the catheter was inserted. This should improve during the 24 to 48nhours after the procedure. - Take Tylenol if needed and contact your doctor if the discomfort worsens. Avoid higher-dose ibuprofen (greater than 400mg twice daily) due to increased bleeding risk while on blood thinners (does notinclude aspirin). Problems to Watch For If there is bright red blood flowing from the catheter insertion area 1. STOP what you are doing and lie down. 2. Hold pressure steadily on the area for fifteen minutes. 3. Call for help. 4. If the bleeding does not stop in fifteen minutes, call 911. 5. If there is rapid swelling with a ???black and blue?? color at the catheter insertion area, there may be bleeding inside. Call your doctor if there is any increase in size. Check the insertion site for the next few days at home. Signs of infection are: 1. Redness 2. Swelling 3. Yellow, white, green or brown, foul smelling drainage 4. Increased soreness 5. If you think there is an infection, take your temperature. Then call your doctor. The limb on the side where you had the catheter inserted should look and feel normal in its color, sensation and temperature. If your leg becomes cool, pale, blue or changing color with numbness and tingling, contact your doctor. If you feel faint or dizzy, lie down with your feet elevated. Have someone call the doctor. If you are alert, drink fluids. Activity - Do not bend over, strain or lift heavy objects for 48 hours after the procedure. - Do not participate in active sports for 1 week. - Avoid heavy lifting (greater than 10 pounds) for one week following your procedure. Additional discharge instructions: Pt advised to be vigilant for any of the following clinical findings (or anything else out of the ordinary): ?? Bleeding, pain, or swelling at any sheath/catheter insertion site. Sometimes this may develop even days after discharge, and there may then be a need to examine this and alter the anticoagulation medications. It is good to be up and around after the ablation procedure, but heavy lifting and straingshould be avoided for the first 3-5 days. ?? Chest discomfort. Inflammation in the form of pericarditis may result in chest pain, which is notuncommon after an ablation procedure for atrial fibrillation. It often may be position-dependent, orwill be exacerbated by ventilatory movement. If the patient experiences chest discomfort, it should be medically evaluated to ascertain the significance, and to assess for more serious alternative considerations requiring urgent intervention. If it otherwise is pericarditis, it commonly responds well to anti-inflammatory medication. ?? Atrial dysrhythmias (flutter, fibrillation, tachycardia). Post-procedure atrial dysrhythmias on the basis of temporary inflammation are not uncommon, and are not necessarily indicative of an ineffective procedure... if the dysrhythmia is due to inflammtion, the dysrhythmias likely will cease as theinflammation resolves. The first 1-2 months are the most likely time during which this matter is relevant. If the patient experiences dysrhythmias, the Cardiac Electrtophysiology Service should be contacted. ?? Side effects of any new medications initiated at the [facility]. The patient should be aware and informed of any significant potential side effects that may be incurred as a result of being on new medication... ?? Sudden weakness, sensory loss, altered behavior or speech. This might be a consequence of a cerbrovascular event (stroke or TIA). This requires urgent and immediate medical attention. ?? Fever or sweats, significant malaise. Possibly a consequence of infection. This requires that theCardiac Electrophysiology Service be contacted, or otherwise an urgent medical assessment should be obtained. ?? Shortness of breath, increased exertional intolerance. A variety of pulmonary or cardiac processes could be responsible for this. This requires that the Cardiac Electrophysiology Service be contacted, or otherwise an urgent medical assessment should be obtained. ?? Difficulty swallowing, or pain with swallowing. While remote, there nonetheless is a ablation procedural risk of injury to the esophagus; if these symptoms emerge, immediate medical evaluation is urged (with no oral intake pending medical evaluation). This is not an exhaustive list. If the patient experiences anything out of the ordinary post-procedure, he/she is encouraged to contact his/her physician or the Cardiac Electrophysiology Service ([phone]). AttachmentsThe following attachments cannot be sent through Care Everywhere.EPS (Electrophysiology Study) and Catheter Ablation: Post-op ([place])documented in this encounter Medications at Time of Discharge Medication Sig Dispensed Refills Start Date End Date colchicine (COLCRYS) 0.6 Take 1 tablet by 30 tablet 0 01/1602/15/2019 mg Tablet mouth daily for 30 days. pantoprazole (PROTONIX) Take 1 tablet by 30 tablet 0 201802/14/2019 40 mg Tablet, Delayed mouth daily for 30 Release (E.C.) days. AMIOdarone (CORDARONE; Take 2 tablets by 88 tablet 0 201806/09/2019 PACERONE) 200 mg Tablet mouth twice daily x 7 days, then 1 tablet by mouth daily x 60 days, then STOP apixaban (ELIQUIS) 5 mg Take 1 tablet by 180 tablet 1 201806/09/2019 TabletIndications: mouth 2 times Persistent atrial daily. fibrillation finasteride (PROSCAR) 5 Take 5 mg by mouth. 0 04/201805/29/2021 mg Tablet tamsulosin (FLOMAX) 0.4 Take 0.4 mg by 0 02/08/20 18 05/29/2021 mg Capsule, Sust. Release mouth. 24 hr documented as of this encounter Progress Notes Marleen Oleary RN - 01/15/2019 11:46 AM EDT The patient has met discharge criteria per policy. Discharge instruction reviewed and patient discharged to responsible adult. Patient???s pain level has been assessed and patient states that his/her level is tolerable at this time. The After Visit Summary (AVS) and accompanying hand-outs have been reviewed with the patient; the patient verbalizes understanding at this time. Opportunity for clarification provided. All new medications have been reviewed with the patient and the appropriate hand-outs have been given to the patient. Reportable sign and symptoms have been reviewed with patient. Marleen Oleary RN Celine Adorno RN - 01/15/2019 4:31 AM EDT 01/15/19 0345 01/15/19 0346 01/15/19 0348 Adult Vital Signs Temp 36.9 ??C (98.4 ??F) -- -- Temp src Oral -- -- Heart Rate 75 -- -- Heart Rate Source Monitor -- -- BP (!) 81/52 (!) 83/54 (!) 85/56 (sure sign device) BP Method Automatic Automatic Automatic BP Location (NBP) Left arm Right arm Left arm Patient Position Lying Lying Lying Resp 18 -- -- SpO2 96 % -- -- Visual Checks Eyes closed;In bed;Quiet -- -- Oxygen Therapy O2 Device RA -- -- pt soundly asleep, vitals obtained above. Pt up to BR at this time no dizziness. BP remians low . Ptin NSR on his tele. Groins site soft, FLEECE TIER, noredness,no drainage. +DP and PT pulses. Pt. Denies dizziness, has no SOB. Pt. Weighed, up at 171.60 lb.-Bp info paged to Dr. Herring at [phone] by this RN. Am labs drawn and pending.Dr. Herring called back and said to hold am BP meds.hemo. Back as 11.9,hct 34.7. Dr. Herring came to see pt. , BP rechecked by RN motor coach supervisor, Mamta as 92/50 Celine Adorno RN - 01/15/2019 1:25 AM EDT 01/15/19 0103 Adult Vital Signs Heart Rate 86 Heart Rate Source Monitor BP (!) 89/56 BP Method Automatic BP Location (NBP) Left arm SpO2 94 % Oxygen Therapy O2 Device RA pt.'s bolus done @ 0100. BP rechecked at 89/56. Pt. States he feels great. This info text paged to Dr. Herring by this RN at [phone] Celine Adorno RN - 01/14/2019 11:43 PM EDT 01/14/19 2341 Adult Vital Signs Temp 36.7 ??C (98.1 ??F) Temp src Oral Heart Rate 77 (sinus rhythm) Heart Rate Source Monitor BP (!) 87/53 (86/53 right arm, automatic) BP Method Automatic BP Location (NBP) Left arm Patient Position Lying Resp 16 SpO2 95 % Oxygen Therapy O2 Device RA Pain Scale/Rating Pain Assessment Scale Numbers (Numeric Rating Pain Scale) Pain Level 1 pt.'s BP soft, taken left and right arms.pt just oob to BR asymtomatic. Pt. With clear lungs bilat,decreased. Groin sites ASIA,benign,no swelling. +DP and PT pulses +2 heard with doppler. Pt says its easier to breath now,he rates his pain as less than 1/10-hurts less to take a deep breath. This paged to dr. Herring at [phone], pager [phone]. One time IV bolus of 500cc's ordered Celine Adorno RN - 01/14/2019 10:43 PM EDT Pt assessed at the time of 1945: He says he has 3-4/10 pain with a deep breath to center chest,but it is better than it was. Pt.'s apical HR over one minute is 83 beats a minute of regular rhythm. Pt. On r/a. Pt.'s bilat groin sites are FLEECE TIER,no redness,no drainage ,no swelling, + DP and PT pulses with doppler bilat to feet. Pt ambulating to BR for frequent voids with one stand by assist. Pt denies SOBand denies dizziness when up ambulating. His telemetry is in sinus rhythm, very occasional PAC as pt. Has been during the day as reported by off going RN. Pac's confirmed with this RN by [facility] [facility]. Ptgiven motrin around 1900 per Sung, Nurse Practitioner's request. Sung said to continue motrin whendue per pt.'s pain and also encouraged tylenol use(also give to pt. By this RN). Sung said it was okay to give pt. His hs Colchicine with prn motrin and ordered anti platelet. Dr. Herring later called by this RN for pt.'s BP left arm 91/50's(pt was asleep and normally runs 110 systolic-per pt.'s RN present ) with HR in the seventies. Asked by this RN if pt . Should receive his amniodarone. Dr. herring said to go ahead and give pt his amniodarone. Dr. herring is on pager [phone]. p aparna requested no further running IV fluids at [address] herring said was okay to stop fluids, if pt. Refused them. Sung Beatty PA - 01/14/2019 9:57 PM EDT Cardiac Electrophysiology Progress Note Problem List: Patient Active Problem List Diagnosis ??? Status post ablation of atrial fibrillation ??? Probable seizure disorder Overview Note: Pt placed on Keppra ??? Persistent atrial fibrillation Overview Note: Phillips mini maze (bilateral left antral isolation, partial cardiac denervation, intraoperative EP testing & closure of left atrial appendage), transesophageal echo, intraoperative cardioversion ??? History of loop recorder Overview Note: Placed 08/14/17 - [employer] LINQ serial #[id number] Brief HPI: 68 y.o. male with a history of recurrent AF/AFL following his surgical AF ablation (performed in [facility]iant - 'mini MAZE, bilateral LA antral isolation, cardiac denervation, MACKENZIE closer with atriclip, implant of LINQ ILR) following which he developed probable atypical atrial flutter. He was in rate controlled flutter at this visit, having stopped amiodarone a few months prior.??He was trialledon pindolol for about 3 days - converted to sinus rhythm and believes stayed in SR for couple of months and therefore decided to postpone his redo AF ablation. However, sometime in July went back into AF with symptoms and couldn't tolerate pindolol and was not interested in Amiodarone or other AADdue to side effect profile and presents today in AF for mapping, EPS and ablation. Interval History: Patient underwent acutely successful LA wall isolation, mitral annual flutter, inferior cavotriuspid isthmus flutter ablation, and right posterior wall atrial ablation with scaring likely due to prior surgery to remove ganglia (cardiac denervation). He was resting well and euvolemic f ollowing IV lasix drip overnight. The lasix drip was turned off and pleitez catheter removed. Patient complained of rib pain followed by bilateral precordial pain worse with deep inspiration. A 12-leadEKG did not show signs of acute pericarditis including no diffuse ST segment elevation. He had an echo done to rule out pericardial effusion that also showed LVEF 45% without significant valvular abnormalities and no pericardial effusion. There were bilateral pleural effusions noted. A chest x-ray wasperformed with official results pending at time of documentation. Patient was not hypotensive or tach ycardic at time of evaluation. His chest pain was somewhat masked by Ibuprofen and Colchicine, but persisted at a lower level of discomfort for much of the day (atypical for ischemia with pleuritic component). A 12-lead EKG showed possible inferior infarct with Q waves and non-specific T wave abnormalities laterally. He denied shortness of breath, palpitations, and issues with access sites. ROS: Constitutional: - fatigue, - fever, - chills Respiratory: - shortness of breath, - cough, - apnea, - wheezing Cardiovascular: - chest pain, - palpitations, - unusual rates Gastrointestinal: - nausea, - vomiting, - abdominal pain, - diarrhea Neurological: - lightheadedness, - dizziness, - syncope, - weakness Psychiatric: - anxious Vitals: Last Set of Vitals and range of vitals over past 24 hours: Last value Range last 24 hrs Temperature Temp: 37.2 ??C (99 ??F) Temp: [37 ??C (98.6 ??F)-37.2 ??C (99 ??F)] Heart Rate Heart Rate: 79 Heart Rate: [79-104] Blood Pressure BP: 92/56(91/57) BP: (92-119)/(56-71) Respiratory Rate Resp: 16 Resp: [16-18] SpO2 SpO2: 97 % SpO2: [93 %-99 %] Physical Exam: General- No acute distress, laying comfortably in bed Skin- Warm and dry Neck- No JVD note. [facility] acces site is CDI without drainage. Cardiovascular- S1/S2 regular rate and rhythm. No murmur, rub or gallop Lungs- Clear to auscultation bilaterally Extremities- Pulses equal bilaterally. No edema noted. R/L groin are CDI. Neuro- A&Ox3 Laboratory (Last 24 Hours): Lab Results Component Value Date WBC 5.0 01/13/2019 HGB 14.3 01/13/2019 HCT 42.1 01/13/2019 PLATELET 214 01/13/2019 No results for input(s): INR in the last 168 hours. Lab Results Component Value Date NA 141 01/14/2019 K 3.4 (L) 01/14/2019 CL 100 01/14/2019 BUN 15 01/14/2019 CREATININE 1.16 01/14/2019 MAGNESIUM 0.69 01/14/2019 Procedures: EPS/Ablation: See operative note Assessment: 1. Post-AFib/Flutter ablation 2. Post-ablation pericarditis, without effusion or tamponade, pleuritic pain improved on Colchicine and Ibuprofen 3. Bilateral pleural effusions 4. Cardiomyopathy, etiology unclear, LVEF 45% 5. Anticoagulation on Eliquis Plan: 1. Reviewed post-ablation instructions 2. Continue Colchicine and Ibuprofen for pericardial symptoms. 3. Start NaCL 0.9% at 100 ml/hr for up to 1L in setting of overdiuresis 4. Replete electrolytes 5. Follow-up CXR results 6. Possible discharge in AM CANDACE Garcia 01/14/2019 Pager: [phone] More than 60 minutes were spent on coordination of care and formulation of treatment plan. Dr. Nj was directly involved in patient's care and treatment plan and our discussion reflective above. Associated attestation - Hector Nazario MD - 01/15/2019 8:48 AM EDT Cardiac Electrophysiology Attending Addendum: The patient was seen, interviewed and examined by me, and Sung Beatty's note above was reviewed byme and agreed with. Specifically, the pertinent diagnoses and recommendations were discussed with me. We shall treat his likely post- ablative pericardial discomfort w/ NSAIDS and colchicine. He may also have been over diuresed, hence will give back 1 L NS over 10 hours, extend observation to 48 hours and anticipate discharge in AM Hector Nazario MD, PhD, [facility] Cardiac Electrophysiology Jenelle Jasso RN - 01/14/2019 4:26 AM EDT Patient refusing catheter removal due to lasix gtt. Dr. Herring notified-- ok to keep pleitez until lasix is discontinued. Jenelle Jasso RN - 01/13/2019 8:50 PM EDT Patient Name: Pritesh Cardona Patient Age: 68 y.o. Birthdate: 1950 Admit date: 01/13/2019 Attending Physician: Torrey Bustos MD Patient arrived via bed to [facility] in no acute distress, assessment as documented. Dressings all appearCDI, no hematomas noted. PIV flushed without difficulty. Pharmacy paged for lasix gtt. Currently running NSR with occasional PVCs on telemetry. New patient education provided. Bedrest until 2229. Will continue to monitor. BP 112/70 (BP Location (NBP): Left arm) Pulse 89 Temp 36.6 ??C (97.9 ??F) (Oral) Resp 17 Ht 175.3 cm (5' 9) Wt 74.9 kg (165 lb 0.2 oz) SpO2 98% BMI 24.37 kg/m?? Silvana Andersen RN - 01/13/2019 8:30 PM EDT Report to Keeley in [facility]su. Pt janessa ice chips. Denies pain. States he feels well.. documented in this encounter H&P Notes Shantal Louie DO - 01/13/2019 7:14 AM EDT Pritesh Vail Brendan [id number] 01/13/2019 68 y.o. Admission History and Physical PCP: Nathaniel Smith MD I performed a history and physical exam of the patient and discussed the management of this patient with Dr. Browne. Admission Diagnosis: persistent symptomatic AF Date of Evaluation: 01/13/2019 Date of Admission: 01/13/2019 Problem List: Active Non-Hospital Problems Diagnosis ??? Probable seizure disorder ??? Persistent atrial fibrillation ??? History of loop recorder HPI: This 68 y.o. male is admitted with a chief complaint of exertional fatigue and shortness of breath with atrial fibrillation. He was seen by myself and Dr. Browne in 02/16 for recurrent AF/AFL following his surgical AF ablation (performed in Radiant - 'mini MAZE, bilateral LA antral isolation, cardiac denervation, MACKENZIE closer with atriclip, implant of LINQ ILR) following which he developed probableatypical atrial flutter. He was in rate controlled flutter at this visit, having stopped amiodarone a few months prior. He was trialled on pindolol for about 3 days - converted to sinus rhythm and believes stayed in SR for couple of months and therefore decided to postpone his redo AF ablation. However, sometime in July went back into AF with symptoms and couldn't tolerate pindolol and was not interested in Amiodarone or other AAD due to side effect profile and presents today in AF for mapping, EPS and ablation. No changes in health recently. Sprained his right ankle this winter during Skiing. Is undergoing evaluation (2nd time) for SHERI. Has not received results back yet. Last dose of Eliquis was yesterday morning. Accompanied by his Eunice today. I have reviewed the available records, interviewed and examined the patient. Physical Exam: Vital signs: BP 106/80 Pulse 63 Temp 36.3 ??C (97.3 ??F) (Temporal) Resp 16 Ht 175.3 cm (5' 9) Wt 74.9 kg (165 lb 0.2 oz) SpO2 99% BMI 24.37 kg/m?? Physical Exam Gen: Appears well, no acute distress Oropharynx: +tonsils Lungs: CTA b/l, no w/r/r Cardiac: Irregular rate and rhythm, S1, S2, no murmurs or gallops, no rubs Ext: Warm, trace edema Neuro: No focal deficits Skin: Warm, no new rashes MSK: Intact ROM in all extremities Lab (Last 24 Hours): Recent Results (from the past 24 hour(s)) BMP w/fasting Glucose Result Value Ref Range Glucose Fasting 93 65 - 99 mg/dL BUN 20 10 - 20 mg/dL Creatinine 0.88 0.80 - 1.50 mg/dL Sodium 142 135 - 145 mmol/L Potassium 4.3 3.5 - 5.0 mmol/L Chloride 105 98 - 107 mmol/L CO2 26 22 - 31 mmol/L Anion Gap 11 5 - 15 mmol/L Calcium 8.9 8.5 - 10.5 mg/dL eGFR 89 >=60 mL/min/1.73 m?? eGFR 103 >=60 mL/min/1.73 m?? Hemogram Result Value Ref Range WBC 5.0 4.0 - 9.5 x10(3)/mcL RBC 4.38 (L) 4.58 - 5.54 x10(6)/mcL Hemoglobin 14.3 13.7 - 16.5 gm/dL Hematocrit 42.1 40.5 - 48.5 % MCV 96.1 (H) 82.9 - 93.1 fL MCH 32.6 (H) 27.5 - 32.1 pg MCHC 34.0 32.0 - 35.7 gm/dL Platelets 214 145 - 357 x10(3)/mcL RDWSD 41.4 36.0 - 45.0 fL RDWCV 11.9 11.4 - 13.8 % MPV 9.0 7.6 - 12.9 fL nRBC % Auto 0.0 % nRBC Abs Auto 0.000 0.000 - 0.000 x10(3)/mcL Differential, Automated Result Value Ref Range Neutrophils % 50.7 % Neutr Abs (ANC) 2.55 1.70 - 6.10 x10(3)/mcL Lymphocytes % 34.2 % Lymphocytes Abs 1.7 0.9 - 3.2 x10(3)/mcL Monocytes % 11.5 % Monocyte Abs 0.6 0.3 - 0.9 x10(3)/mcL Eosinophils % 1.8 % Eosinophils Abs 0.1 0.0 - 0.4 x10(3)/mcL Basophils % 1.2 % Basophils Abs 0.1 0.0 - 0.1 x10(3)/mcL Immature Gran % 0.60 % Sheri Gran Abs 0.03 0.00 - 0.04 x10(3)/mcL Assessment: 1. Recurrent persistent Symptomatic AF/Atypical atrial flutter with history of prior surgical AF ablation: b/l LA antral isolation, cardiac denervation, MACKENZIE atriclip closure, and subsequent ILR implantation 2. Possible seizure d/o 3. BPH Plan: 1. The working diagnosis and plan of management was reviewed with the patient, available family 2. We had an extensive discussion. Plan for detailed mapping and evaluation for flutter circuits andtriggers, evaluation of his prior surgical ablation lines. Possibly requiring further ablation to isolate the posterior wall after ensuring bilateral PV are isolated. We discussed the involved risks related to the planned intervention. Major risk of harm from the procedure: tamponade, esophageal injury (very rare), vascular complications, embolic phenomenon, pericarditis, bleeding, more frequent AF in the post ablation period, possible requirement repeat atrial fibrillation ablation, but this is generally deferred for over three months after the index procedure. The risk of cardiovascular deterioration, arrhythmia and and resuscitative measures were discussed. After detailed discussion informed consent was obtained. Risk of anesthesia has been discussed separately by anesthesia service. All questions were addressed and patient wishes to proceed. Above case was discussed with Dr. Bustos, recommendations reflect our discussion together. Shantal Loiue, DO Cardiac Electrophysiology Fellow documented in this encounter Miscellaneous Notes Plan of Care - Laurence Oates RN - 01/14/2019 6:34 PM EDT Problem: Patient Care Overview Goal: Plan of Care Review Outcome: Ongoing (Interventions Implemented as Appropriate) 01/13/19 2223 01/14/19 0900 Coping/Psychosocial Plan Of Care Reviewed With -- patient;spouse Plan of Care Review Progress progress toward functional goals as expected -- OUTCOME EVALUATION NOTE: OUTCOME SUMMARY: Pt alert and oriented throughout shift. at bedside. In AM with MD Nazario at bedside pt c/o rightunder the arm pain, within 20 minutes pt states that pain is getting worse. CANDACE Beatty at bedside toassess pt. Ordered STAT EKG, echo and chest x-ray. Pt frustrated throughout day with pain and no answers. CANDACE at bedside multiple times to see pt. MD Nazario at bedside in evening to see pt. Ibuprofen ordered q 6 for pain. IV fluids started. Pt up to void multiple times in bathroom. Fall precautions maintained. PLAN MOVING FORWARD: Control pain, encourage PO intake INDIVIDUALIZED FALL PREVENTION INTERVENTIONS: Patient-specific fall risk factors per assessment: pain Assistance: 1 assist Supervision: Arms reach Surveillance: Bed locked in low position, call quevedo within reach, purposeful hourly rounding, clutter free environment, at bedside Patient-specific fall prevention interventions for sensory deficits provided: Yes CPG GOAL OUTCOME EVALUATION: Continue care plan as documented. Plan of Care - Jenelle Jasso RN - 01/13/2019 10:26 PM EDT Problem: Patient Care Overview Goal: Plan of Care Review Outcome: Ongoing (Interventions Implemented as Appropriate) 01/13/192222 Coping/Psychosocial Plan Of Care Reviewed With patient;spouse Plan of Care Review Progress progress toward functional goals as expected PLAN MOVING FORWARD: Waiting on HS medications and lasix gtt from pharmacy. Will ambulate and discontinue catheter once bedrest is complete. INDIVIDUALIZED FALL PREVENTION INTERVENTIONS: Patient-specific fall risk factors per assessment: [current deficits]: Medications Assistance [level of assistance required for transfers and ambulation]: Assist x1 Supervision [direct monitoring required during toileting and ADLs]: No Surveillance [continuous indirect monitoring]: Telemetry, continuous pulse oximetry Patient-specific fall prevention interventions for sensory deficits provided, if applicable: [X] N/A Goal: Fall Prevention-Safe Patient Handling Outcome: Ongoing (Interventions Implemented as Appropriate) 01/13/19204901/13/192222 Daily Care Interventions Self-Care Promotion -- independence encouraged;BADL personal objects within reach;safe use of adaptive equipment encouraged;BADL personal routines maintained Jean Fall Risk History of Falling 0 -- Secondary Diagnosis 15 -- Ambulatory Aids 0 -- Intravenous Therapy/Heparin/Saline Lock 20 -- Gait/Transferring 0 -- Mental Status 0 -- Score 35 -- OTHER Jean Fall Risk Med -- Restraint Interventions Safety Promotion/Fall Prevention activity supervised;fall prevention program maintained;muscle strengthening facilitated;nonskid shoes/slippers when out of bed;safety round/check completed -- Positioning Body Position independent;supine -- Activity Activity Type bedrest -- Goal: Infection Control Outcome: Ongoing (Interventions Implemented as Appropriate) 01/13/192049 Safety Interventions Isolation Precautions standard precautions maintained Infection Prevention rest/sleep promoted;single patient room provided Coping Strategies Supportive Measures active listening utilized;goal setting facilitated;relaxation techniques promoted;self-care encouraged;verbalization of feelings encouraged Goal: Discharge Needs Assessment Outcome: Ongoing (Interventions Implemented as Appropriate) 01/13/192222 Discharge Needs Assessment Concerns To Be Addressed no discharge needs identified Equipment Needed After Discharge none Discharge Disposition still a patient Current Health Anticipated Changes Related to Illness none Activity/Self Care Review of Systems Equipment Currently Used at Home none Living Environment Transportation Available family or friend will provide Goal: Interdisciplinary Rounds/Family Conf Outcome: Ongoing (Interventions Implemented as Appropriate) 01/13/19 2223 Interdisciplinary Rounds/Family Conf Participants nursing;family;patient documented in this encounter Plan of Treatment Not on filedocumented as of this encounter Procedures Procedure Name Priority Date/Time Associated Comments Diagnosis HEMOGRAM Routine 01/15/2019 4:15 Results for this AM EDT procedure are i n the results section. MAGNESIUM Routine 01/15/2019 4:15 Results for this AM EDT procedure are i n the results section. BASIC METABOLIC PANEL Routine 01/15/2019 4:15 Res ults for this (NON-FASTING) AM EDT procedure are in the results section. XR CHEST PA AND LATERAL Routine 01/14/2019 6:14 R esults for this PM EDT procedure are i n the results section. ECHOCARDIOGRAM LMTD W/O STAT 01/14/2019 3:04 Status post R esults for this CON W LMTD SPEC DOPP, PM EDT ablation of atrial procedure are in COLOR DOPP fibrillation the results Chest pain, section. unspecified type EKG 12-LEAD STAT 01/14/2019 11:57 Status post Results for this AM EDT ablation of atrial procedure are in fibrillation the results Chest pain, section. unspecified type T3 TOTAL Routine 01/14/2019 9:18 Results for this AM EDT procedure are i n the results section. T4, FREE Routine 01/14/2019 9:18 Results for this AM EDT procedure are i n the results section. MAGNESIUM Routine 01/14/2019 9:18 Results for this AM EDT procedure are i n the results section. BASIC METABOLIC PANEL Routine 01/14/2019 9:18 Res ults for this (NON-FASTING) AM EDT procedure are in the results section. EKG 12-LEAD Routine 01/14/2019 7:25 Dyspnea, Results for this AM EDT unspecified type procedure are in Abnormal stress the results test section. EKG 12-LEAD Routine 01/13/2019 7:28 Persistent atrial Results for this PM EDT fibrillation procedure are i n the results section. POINT OF CARE BLOOD GAS Routine 01/13/2019 12:56 Results for this HISTORICAL PM EDT procedure are i n the results section. ELECTROPHYSIOLOGY Routine 01/13/2019 12:20 Result s for this PROCEDURE PM EDT procedure are i n the results section. BMP W/FASTING GLUCOSE STAT 01/13/2019 6:21 Res ults for this AM EDT procedure are i n the results section. HEMOGRAM STAT 01/13/2019 6:21 Results for this AM EDT procedure are i n the results section. DIFFERENTIAL, AUTOMATED STAT 01/13/2019 6:21 R esults for this AM EDT procedure are i n the results section. CBC (WITH DIFF) STAT 01/13/2019 6:21 AM EDT TSH STAT 01/13/2019 6:21 Results for this AM EDT procedure are i n the results section. HEPATIC FUNCTION PANEL STAT 01/13/2019 6:21 Re sults for this AM EDT procedure are i n the results section. MANAGER OF GLOBAL SCAN 01/13/2019 12:00 Res ults for this AM EDT procedure are i n the results section. documented in this encounter Results Magnesium (01/15/2019 4:15 AM EDT) athologist Signature Magnesium 0.79 0.69 - 1.07 [facility] mmol/L [facility] Specimen Anatomical Collection Method Collection Time Receive d Time (Source) Location / / Volume Laterality Blood specimen 01/15/2019 4:15 AM 019 4:26 (specimen) EDT AM EDT Resulting Agency Comment Spec In Lab Torrey Bustos MD CHEMISTRY ORDERABLES Performing Organization Address City/State/Z[place] [address] (ABNORMAL) Basic Metabolic Panel (non-fasting) (01/15/2019 4:15 AM EDT) athologist Signature Glucose Lvl 112 65 - 199 [facility] mg/dL [facility] Comment: Diabetes: >=200 mg/dL plus symp toms BUN 12 10 - 20 mg/dL [facility] Creatinine 0.90 0.80 - 1.50 mg/dL [facility] Sodium 137 135 - 145 mmol/L [facility] Potassium 4.0 3.5 - 5.0 mmol/L [facility] Comment: Please note: ??Patients with WBC >100,00 0 may have falsely elevated Potassium levels. ??For accurate Potassium quantif ication in these patients send serum separator tube (gold top) for subsequent determinations. ??Contact the Clinical Chemistry Laboratory if there are any qu estions. Chloride 103 98 - 107 mmol/L [facility] CO2 26 22 - 31 mmol/L [facility] Anion Gap 8 5 - 15 mmol/L [facility] Calcium 8.3 (L) 8.5 - 10.5 mg/dL [facility] Estimated GFR 88 >=60 mL/min/1.73 m?? [facility] Comment: The eGFR was calculated using the CKD-EP I equation. As with all creatinine based estimates of kidney function, eGFR values calculated with the CKD-EPI equation are not accurate in patients wi th acute kidney failure, extremes of body mass or the acutely ill. [email or web address] eGFR 102 >=60 mL/min/1.73 m?? [facility] Comment: The eGFR was calculated using the CKD-EP I equation. As with all creatinine based estimates of kidney function, eGFR values calculated with the CKD-EPI equation are not accurate in patients wi th acute kidney failure, extremes of body mass or the acutely ill. [email or web address] Specimen Anatomical Collection Method Collection Time Receive d Time (Source) Location / / Volume Laterality Blood specimen 01/15/2019 4:15 AM 019 4:26 (specimen) EDT AM EDT Resulting Agency Comment Spec In Lab Torrey Bustos MD CHEMISTRY ORDERABLES Performing Organization Address City/State/[place] [address] (ABNORMAL) Hemogram (01/15/2019 4:15 AM EDT) Analysis Performed At Patho logist Time Signature WBC 7.8 4.0 - 9.5 [facility] x10(3)/[facility] LABORATORY RBC 3.70 (L) 4.58 - [place] 5.54 [facility] x10(6)/[facility] LABORATORY Hemoglobin 11.9 (L) 13.7 - [place] 16.5 gm/dL [facility] Hematocrit 34.7 (L) 40.5 - [place] 48.5 % [facility] MCV 93.8 (H) 82.9 - [facility] [place] 93.1 [facility] LABORATORY MCH 32.2 (H) 27.5 - [place] 32.1 pg [facility] MCHC 34.3 32.0 - [place] 35.7 gm/dL [facility] Platelets 162 145 - 357 [facility] x10(3)/[facility] LABORATORY RDWSD 40.7 36.0 - [place] 45.0 [facility] RDWCV 11.9 11.4 - [facility] 13.8 % [facility] MPV 8.9 7.6 - 12.9 [facility] nRBC % Auto 0.0 % [facility] nRBC Abs Auto 0.000 0.000 - [place] 0.000 [facility] x10(3)/[facility] LABORATORY Specimen Anatomical Collection Method Collection Time Receive d Time (Source) Location / / Volume Laterality Blood specimen 01/15/2019 4:15 AM 019 4:26 (specimen) EDT AM EDT Resulting Agency Comment Spec In Lab Torrey Bustos MD HEMATOLOGY ORDERABLES Performing Organization Address City/State/ZIP [place] [address] XR Chest PA & Lateral (Generic) (01/14/2019 6:14 PM EDT) Anatomical Region Laterality Modality Chest N/A Digital Radiography Specimen (Source) Anatomical Location Collection Method / Collectio n Time Received Time / Laterality Volume Impressions 01/15/2019 1:07 AM EDT Small bilateral pleural effusions. Thank you for letting us participate in the care of this patient. For questions regarding this report, please contact e number below. ? Narrative 01/15/2019 1:07 AM EDT EXAMINATION: XR CHEST PA AND LATERAL (GENERIC) CLINICAL HISTORY: status-post AFib ablat ion, chest pain, pleural effusions on echo, assess for acute abnormalities TECHNIQUE: Frontal and lateral views of the chest COMPARISON: Chest radiograph dated 07/16/2018 FINDINGS: Implanted event monitor is seen on the l eft. Small pleural effusions are seen bilaterally. There is left lower lobe at electasis. No pneumothorax is seen. No acute osseous abnormality is present. Procedure Note Joshua Riggs MD - 01/15/2019Formatt ing of this note might be different from the original. EXAMINATION: XR CHEST PA AND LATERAL (GE NERIC) CLINICAL HISTORY: status-post AFib ablat ion, chest pain, pleural effusions on echo, assess for acute abnormalities TECHNIQUE: Frontal and lateral views of the chest COMPARISON: Chest radiograph dated 07/16/2018 FINDINGS: Implanted event monitor is seen on the l eft. Small pleural effusions are seen bilaterally. There is left lower lobe at electasis. No pneumothorax is seen. No acute osseous abnormality is present. IMPRESSION Small bilateral pleural effusions. Thank you for letting us participate in the care of this patient. For questions regarding this report, please contact e number below. Torrey Bustos MD IMG DX ORDERABLES ECHOCARDIOGRAM LMTD W/O CON W LMTD SPEC DOPP, COLOR DOPP (01/14/2019 3:04 PM EDT) P athologist Signature EF 45 [facility] Anatomical Region Laterality Modality Other Specimen (Source) Anatomical Location Collection Method / Collectio n Time Received Time / Laterality Volume 01/14/2019 Narrative 01/14/2019 3:55 PM EDT Procedure: ?Transthoracic Echocardiogram Patient: ?BRENDAN QUINTERO ?(Age): 1950(68y) Med Rec#: ? [id number] ?Sex: ?M ? Site Loc: ? [facility] ?Ht / Wt: ??175(cm)/75(kg) Pt. Loc: ?PACU ?BSA: ?1.9 Study Date: ?? 01/14/2019 ?Pt. Type: Same-Day Patient Tape: ? Referring: Torrey Bustos Reading: Reagan Ybarra ([id number]) Color Separation Photographer: Parish Cheung Diagnosis: *Persistent atrial fibrillation (I48.1) *Shortness of breath (R06.02) BP: ? 101/57 SUMMARY: 1. The left ventricular chamber size is normal. ??Global left ventricular systolic function is mildly reduced. ??E jection fraction is estimated to be 45%. ??There is diffuse hypokinesis p resent. 2. Right ventricular chamber size, wall thickness, and systolic function are within normal limits. 3. The left atrium is normal in size. 4. No significant valvular abnormalities . 5. See remainder of report for additiona l findings. 6. IMPRESSION: Overal LVEF similar to a prior outside echo report from 03/05/17. Findings ? : Study Quality: ? Adequate Limited st udy done post ablation. Patient is supine per his request. Left Ventricle: ? The left ventricul ar chamber size is normal. ?Left ventricular wall thickness is normal. ?Global left ventricular systolic f unction is mildly reduced. Ejection fraction is estimated to be 45% . ?There is diffuse hypokinesis prese nt. ?Left sided filling pressure could not be assessed by Doppler. Left Atrium: ? The left atrium is no rmal in size. Right Ventricle: ? Right ventricular chamber size, wall thickness, and systolic function are within normal limi ts. ?The estimated right atrial pressur e is [...] is no evidence of a pericardial effusion. ?Bilateral pleural effusions are pr esent. Venous: ? The inferior vena cava kaye ears normal in size. ?There is a greater than 50% respir atory change in the inferior vena cava dimension. Misc: ? Two-dimensional echo, limite d spectral Doppler and color Doppler performed. Chambers 2D ?Value ?Units (Range) ? IVSd (2D) ? 0.9 ?cm ? LVPWd (2D) ?0.8 ?cm ? IVS:LVPW ratio (2D) 1.2 ?ratio ? RWT (2D) ?0.4 ?ratio ? RWT PW (2D) ? 0.3 ?ratio ? LVIDd (2D) ?5.1 ?cm ? LVIDs (2D) ?4 ?cm ? LVIDd (2D) index ?2.7 ?cm/m2 ? LVIDs (2D) index ?2.1 ?cm/m2 ? LV FS (2D) ?22 ? % ? EF Teichholz (2D) ?? 44 ? % ? Volumes/Mass ?Value ?Units (Range) ? LA Area 4 CH ?22.4 ? cm2 (<21) ? LA ESV BP (A/L) inde32.5 ? ml/m2 ? RA AREA 4CH ? 18.6 ? cm2 ? LV mass (2D) ?158.8 ?g ? LV mass (2D) index ??83.6 ? g/m2 ? Tricuspid Valve ?Value ?Units (Range) ? TR Vmax ? 2.5 ?m/sec ? TR peak gradient ?25 ? mmHg ? RAP ? 3 ?mmHg ? RVSP ?28 ? mmHg ? Wall Motion: Segment Name ?Rest ? Base-Anteroseptal ?? Normal ? Base-Anterior ? Normal ? Base-Anterolateral ??Normal ? Base-Posterolateral Normal ? Base-Inferior ? Normal ? Base-Inferoseptal ?? Normal ? Mid-Anteroseptal ?Normal ? Mid-Anterior ?Normal ? Mid-Anterolateral ?? Normal ? Mid-Posterolateral ??Normal ? Mid-Inferior ?Normal ? Mid-Inferoseptal ?Normal ? [place]-Septal ? Normal ? [place]-Anterior ? Normal ? [place]-Lateral ?Normal ? [place]-Inferior ? Normal ? [place]-Tip ?Normal ? This report has been electronically sign ed by: _ Reagan Ybarra MD ? 01/14/2019 15:54:55 Images reviewed and interpretation [facility] Cardiac Ultrasound Laboratory Procedure Note Reagan Ybarra MD - 01/14/2019Forma tting of this note might be different from the original. Procedure: Transthoracic Echocardiogram Patient: BRENDAN SINGH(Age): [birth year](68y) Med Rec#: [id number] Sex: M Site Loc: [facility] Ht / Wt: 175(cm)/75(kg) Pt. Loc: PACU BSA: 1.9 Study Date: 01/14/2019 Pt. Type: Same-Da y Patient Tape: Referring: Torrey Bustos Reading: Reagan Ybarra ([id number]) Color Separation Photographer: Parish Cheung Diagnosis: *Persistent atrial fibrillation (I48.1) *Shortness of breath (R06.02) BP: 101/57 SUMMARY: 1. The left ventricular chamber size is normal. Global left ventricular systolic function is mildly reduced. Eje ction fraction is estimated to be 45%. There is diffuse hypokinesis pre sent. 2. Right ventricular chamber size, wall thickness, and systolic function are within normal limits. 3. The left atrium is normal in size. 4. No significant valvular abnormalities . 5. See remainder of report for additiona l findings. 6. IMPRESSION: Overal LVEF similar to a prior outside echo report from 03/05/17. Findings : Study Quality: Adequate Limited study do ne post ablation. Patient is supine per his request. Left Ventricle: The left ventricular madiha mber size is normal. Left ventricular wall thickness is norm al. Global left ventricular systolic functi on is mildly reduced. Ejection fraction is estimated to be 45% . There is diffuse hypokinesis present. Left sided filling pressure could not b e assessed by Doppler. Left Atrium: The left atrium is normal i n size. Right Ventricle: Right ventricular chamb er size, wall thickness, and systolic function are within normal limi ts. The estimated right atrial pressure is 3 [...] is no evidence of a pericardial effusion. Bilateral pleural effusions are present . Venous: The inferior vena cava appears n ormal in size. There is a greater than 50% respiratory change in the inferior vena cava dimension. Misc: Two-dimensional echo, limited spec tral Doppler and color Doppler performed. Chambers 2D Value Units (Range) IVSd (2D) 0.9 cm LVPWd (2D) 0.8 cm IVS:LVPW ratio (2D) 1.2 ratio RWT (2D) 0.4 ratio RWT PW (2D) 0.3 ratio LVIDd (2D) 5.1 cm LVIDs (2D) 4 cm LVIDd (2D) index 2.7 cm/m2 LVIDs (2D) index 2.1 cm/m2 LV FS (2D) 22 % EF Teichholz (2D) 44 % Volumes/Mass Value Units (Range) LA Area 4 CH 22.4 cm2 (<21) LA ESV BP (A/L) inde32.5 ml/m2 RA AREA 4CH 18.6 cm2 LV mass (2D) 158.8 g LV mass (2D) index 83.6 g/m2 Tricuspid Valve Value Units (Range) TR Vmax 2.5 m/sec TR peak gradient 25 mmHg RAP 3 mmHg RVSP 28 mmHg Wall Motion: Segment Name Rest Base-Anteroseptal Normal Base-Anterior Normal Base-Anterolateral Normal Base-Posterolateral Normal Base-Inferior Normal Base-Inferoseptal Normal Mid-Anteroseptal Normal Mid-Anterior Normal Mid-Anterolateral Normal Mid-Posterolateral Normal Mid-Inferior Normal Mid-Inferoseptal Normal [place]-Septal Normal [place]-Anterior Normal [place]-Lateral Normal [place]-Inferior Normal [place]-Tip Normal This report has been electronically sign ed by: _ Reagan Ybarra MD 01/14/2019 15:54: 55 Images reviewed and interpretation verif ied [facility] Cardiac Ultrasound Laboratory Torrey Bustos MD ECHO ORDERABLES EKG 12 Lead (01/14/2019 11:57 AM EDT) Component Value Ref Range Test Analysis Performed Pathologis t Method Time At Signature Ventricular rate 90 BPM MUSE SYSTEM Atrial Rate 90 BPM MUSE SYSTEM P-R Interval 180 ms MUSE SYSTEM QRS Duration 100 ms MUSE SYSTEM Q-T Interval 350 ms MUSE SYSTEM QTC Calculated 428 ms MUSE SYSTEM (Bezet) Calculated P [place] 64 degrees MUSE SYSTEM Calculated R [place] 68 degrees MUSE SYSTEM Calculated T [place] -12 degrees MUSE SYSTEM INTERPRETATION Normal sinus rhythm MUSE SYSTEM Possible Inferior infarct , age undetermined T wave abnormality, consider lateral ischemia Abnormal ECG When compared with ECG of 14-JAN-2019 07:25, (unconfirmed) Borderline criteria for Inferior infarct are now Present Confirmed by MD Shun, Saturnino ([id number]) on 01/14/2019 4:53:38 PM Specimen Anatomical Collection Method Collection Time Receive d Time (Source) Location / / Volume Laterality 01/14/2019 11:57 01/14/2019 4:53 AM EDT PM EDT Torrey Bustos MD ECG ORDERABLES Performing Organization Address City/State/ZIP Code Phon e Number MUSE SYSTEM (ABNORMAL) T3 Total (01/14/2019 9:18 AM EDT) athologist Signature T3, Total 58 (L) 75 - 170 [facility] [place] ng/dL [facility] Specimen Anatomical Collection Method Collection Time Receive d Time (Source) Location / / Volume Laterality Blood specimen Venous Draw / 01/14/2019 9:18 AM 2018 (specimen) Unknown EDT 10:53 AM EDT Resulting Agency Comment Spec In Lab Sung MARIA CHEMISTRY ORDERABLES Performing Organization Address City/[facility]/ZIP Code Phon e Number [address] T4, free (01/14/2019 9:18 AM EDT) athologist Signature Free T4 1.54 0.93 - 1.70 [place] ng/dL [facility] Specimen Anatomical Collection Method Collection Time Receive d Time (Source) Location / / Volume Laterality Blood specimen Venous Draw / 01/14/2019 9:18 AM 2018 (specimen) Unknown EDT 10:53 AM EDT Resulting Agency Comment Spec In Lab Sung MARIA CHEMISTRY ORDERABLES Performing Organization Address City/[facility]/[place] [address] Magnesium (01/14/2019 9:18 AM EDT) athologist Signature Magnesium 0.69 0.69 - 1.07 [facility]/L [facility] Specimen Anatomical Collection Method Collection Time Receive d Time (Source) Location / / Volume Laterality Blood specimen 01/14/2019 9:18 AM 019 (specimen) EDT 10:53 AM EDT Resulting Agency Comment Spec In Lab Torrey Bustos MD CHEMISTRY ORDERABLES Performing Organization Address City/[facility]/ZIP [place] [address] (ABNORMAL) Basic Metabolic Panel (non-fasting) (01/14/2019 9:18 AM EDT) athologist Signature Glucose Lvl Not Perf 65 - 199 [facility] Comment: Sample improperly processed prior to rec eipt. Diabetes: >=200 mg/dL plus symptoms BUN 15 10 - 20 mg/dL [facility] Creatinine 1.16 0.80 - 1.50 mg/dL [facility] Sodium 141 135 - 145 mmol/L [facility] Potassium 3.4 (L) 3.5 - 5.0 mmol/L [facility] Comment: Please note: ??Patients with WBC >100,00 0 may have falsely elevated Potassium levels. ??For accurate Potassium quantif ication in these patients send serum separator tube (gold top) for subsequent determinations. ??Contact the Clinical Chemistry Laboratory if there are any qu estions. Chloride 100 98 - 107 mmol/L [facility] CO2 26 22 - 31 mmol/L [facility] Anion Gap 15 5 - 15 mmol/L [facility] Calcium 8.6 8.5 - 10.5 mg/dL [facility] Estimated GFR 65 >=60 mL/min/1.73 m?? [facility] Comment: The eGFR was calculated using the CKD-EP I equation. As with all creatinine based estimates of kidney function, eGFR values calculated with the CKD-EPI equation are not accurate in patients wi th acute kidney failure, extremes of body mass or the acutely ill. [email or web address] eGFR 75 >=60 mL/min/1.73 m?? [facility] Comment: The eGFR was calculated using the CKD-EP I equation. As with all creatinine based estimates of kidney function, eGFR values calculated with the CKD-EPI equation are not accurate in patients wi th acute kidney failure, extremes of body mass or the acutely ill. [email or web address] Specimen Anatomical Collection Method Collection Time Receive d Time (Source) Location / / Volume Laterality Blood specimen 01/14/2019 9:18 AM 019 (specimen) EDT 10:53 AM EDT Resulting Agency Comment Spec In Lab Torrey Bustos MD CHEMISTRY ORDERABLES Performing Organization Address City/State/ZIP Code Phon e Number [place] [phone] EKG 12 Lead (01/14/2019 7:25 AM EDT) Component Value Ref Range Test Analysis Performed Pathologis t Method Time At Signature Ventricular rate 83 BPM MUSE SYSTEM Atrial Rate 83 BPM MUSE SYSTEM P-R Interval 186 ms MUSE SYSTEM QRS Duration 96 ms MUSE SYSTEM Q-T Interval 378 ms MUSE SYSTEM QTC Calculated 444 ms MUSE SYSTEM (Bezet) Calculated P [place] 82 degrees MUSE SYSTEM Calculated R [place] 48 degrees MUSE SYSTEM Calculated T [place] 42 degrees MUSE SYSTEM INTERPRETATION Normal sinus rhythm with sinus arrhythmia MUSE SYSTEM T wave abnormality, consider anterolateral ischemia Abnormal ECG When compared with ECG of 13-JAN-2019 19:28, No significant change was found Confirmed by Adam Roque MD ([id number]) on 01/14/2019 3:20:46 PM Specimen Anatomical Collection Method Collection Time Receive d Time (Source) Location / / Volume Laterality 01/14/2019 7:25 AM 9 3:20 EDT PM EDT Osorio Barbosa MD ECG ORDERABLES Performing Organization Address City/State/ZIP Code Phon e Number MUSE SYSTEM EKG 12 Lead (01/13/2019 7:28 PM EDT) Component Value Ref Range Test Analysis Performed Pathologis t Method Time At Signature Ventricular rate 90 BPM MUSE SYSTEM Atrial Rate 90 BPM MUSE SYSTEM P-R Interval 186 ms MUSE SYSTEM QRS Duration 94 ms MUSE SYSTEM Q-T Interval 382 ms MUSE SYSTEM QTC Calculated 467 ms MUSE SYSTEM (Bezet) Calculated P [place] 79 degrees MUSE SYSTEM Calculated R [place] -30 degrees MUSE SYSTEM Calculated T [place] -28 degrees MUSE SYSTEM INTERPRETATION Normal sinus rhythm MUSE SYSTEM Left axis deviation Nonspecific T wave abnormality Prolonged QT Abnormal ECG When compared with ECG of 18-AUG-2018 11:16, Sinus rhythm has replaced Atrial fibrillation Confirmed by Adam Roque MD ([id number]) on 01/14/2019 3:20:22 PM Specimen Anatomical Collection Method Collection Time Receive d Time (Source) Location / / Volume Laterality 01/13/2019 7:28 PM 05/16/201 9 3:20 EDT PM EDT Torrey Bustos MD ECG ORDERABLES Performing Organization Address City/State/ZIP Code Phon e Number MUSE SYSTEM (ABNORMAL) Point of Care Blood Gas Historical (01/13/2019 12:56 PM EDT) [facility] Method Time Signature POC pH 7.40 7.35 - [facility] 7.45 [facility] POC PCO2 39 35 - 45 [facility] mmHg [facility] POC PO2 315 (H) 85 - 104 [facility] LABORATORY POC Base Excess 0.0 -3.0 - 3.0 [facility] K mmol/L [facility] POC HCO3 24.3 20.0 - [facility] 26.0 [facility] Sodium 143 135 - 145 [facility] mmol/L [facility] POC Potassium 3.8 3.5 - 5.0 [facility] mmol/L [facility] POC Ionized Ca 1.08 (L) 1.15 - [facility] 1.33 [facility] P[facility] Hematocrit 37.0 (L) 40.0 - [facility] 51.0 % [facility] POC Calc Hgb 12.6 (L) 13.7 - [facility] 17.5 gm/dL [facility] Comment: The calculation of hemoglobin f rom hematocrit assumes a normal MCHC. POC Bgas Loc CC LAB [facility] Specimen Anatomical Collection Method Collection Time Receive d Time (Source) Location / / Volume Laterality Blood specimen 01/13/2019 12:56 9 9:30 (specimen) PM EDT AM EDT Torrey Bustos MD CHEMISTRY ORDERABLES Performing Organization Address City/State/[place]IP [place] [address] ELECTROPHYSIOLOGY PROCEDURE (01/13/2019 12:20 PM EDT) Anatomical Region Laterality Modality Other Specimen (Source) Anatomical Location Collection Method / Collectio n Time Received Time / Laterality Volume Narrative 01/20/2019 7:17 PM EDT Electrical Isolation of Pulmonary Vein Antra, Electrical Isolation of Posterior Left Atrial Wall, Mitral Annul ar Flutter Ablation, Inferior Cavotricuspid Isthmus Ablation, Right At rial Atypical Flutter Ablation: Electrophysiology Study with Dobutamine Infusion, Transseptal Left Atrial Assessment x 2, Intracardiac Echo Imagin g, 3-Dimensional Intracardiac Mapping (CARTO + CARTO-Sound), Direct Cu rrent Cardioversion ?? Operators: ??Shantal Louie DO, and Torrey Bustos MD ?? Indication:??Symptomatic persistent atri al fibrillation ?? Pre-procedure:? Anticoagulation ?: Apixaban (he ld for 2 doses) Antiarrhythmic ?: None Weight (kilograms) ?: 74.9 [id number] Score ?: 1 Method:??The procedural attending person soila reviewed the nature of the procedure, procedural goals, and associa salvador risks and limitations of the planned intervention with the patient. T he patient was reminded of anticoagulation plans post-procedure. Ot her post-procedure issues also were reviewed, such as pericarditis, pos t-procedure atrial fibrillation related to inflammation in pericarditis, bleeding and thrombus issues, excess fluid, etc. All??questions were a nswered. Mr. Cardona was brought to the electrophy siology lab after a four hour delay due to fluoroscopy equipment malfu nction. ?? After confirming the??informed consent, the patient was brought to the biplane Electrophysiology Laboratory in the fasting state. A time out was accomplished. Continuous electrocard iographic monitoring was instituted. General anesthesia and airwa y management were accomplished by the Anesthesiology Service. ?? Both femoral regions and the right base of the neck were prepared and draped in the usual sterile manner. Loca l anesthesia was achieved with a 1:1 mixture of 2% lidocaine and 0.5% bup ivacaine administered subcutaneously. Using ultrasound venogra phy for guidance, the following hemostatic sheaths (all with sidearms an d flushed) were inserted utilizing a modified Seldinger technique and elect rode catheters were positioned under fluoroscopic guidance as follows: ?? Sheath Catheter Electrodes ??Insertion S ite ?Target ?8 Fr ?6 Fr ?10 ?Right internal jugular ??Coronary sinus (CS) ??8.5 Fr ?7 Fr ?20 ?Right femoral vein ?Left atrium 11.5 Fr ??7.5 Fr ?4 ?Right femoral vein ?Left atrium ?9 Fr ?8 Fr ?ICE ?Left femoral vein ?Both atria ??5.5 Fr ?5 Fr ?10 ?Left femoral vein ?Right atrium ?? ... esophageal lead w/ 2 cm bipole (with thermistor and Esophastar) (to assess left atrial posterior wall ac tivation timing). ?? ... central venous pressure (monitored via the right internal jugula r sheath side arm). ?? ... blood pressure (monitored via radial arterial line) ?? Programmed electrical stimulation, imagi ng, CARTO 3-dimensional mapping, and radiofrequency ablation were perform ed as detailed below and digitally archived. ?? Transeptal Access: ?? A heparin infusion was initiated at a ra te of 3000 units/hour. The short 8 American sheaths in the right femoral vein were replaced with long sheaths as follows: ?? A Daig 8.5 Fr SL1 transeptal sheath care fully was advanced over a 0.035 J-tipped guidewire so that its tip was i n the superior vena cava. The guidewire was exchanged for a BrockiApp4Me ugh needle (BRK tip), which was inserted into the sheath dilator. The ti p of the sheath dilator was pulled inferiorly and positioned at the low mid dle aspect of the foramen ovalis ('leftward tenting at the fossa' was con firmed), and then the Brockenbrough needle was advanced into t he left atrium guided by the intracardiac echocardiography (ICE) imag ing and fluoroscopic views, and over this was advanced the dilator and s zak, taking care to remain posterior and away from the left atrial appendage (MACKENZIE); almost simultaneously, a 7500 unit bolus of hep marybeth was administered. With the needle and dilator withdrawn, the left a trial pressure was assessed via the sheath side arm pressure column to b e??8??cm blood. A blood sample sample also was obtained, and the oxygen saturation was measured as 96.6%. An eicosapolar PentaRay catheter was ins erted via this SL1 sheath and cautiously advanced into the left atrium (LA) for mapping. ?? Arterial blood gas measurements and iSt at chemistries were obtained from the sample drawn at the time of initial transseptal access to the left atrium; these results were within an acc eptable range pH 7.41, pCO2??39??mm Hg, pO2 315??mm Hg, HCO3 24??mmol/L. ?? Next, a [address] Yamil 'Agilis' s hort curl steerable transeptal sheath was advanced across the fossa via a separate lower and more anterior septal access site utilizing si milar technique as was used with the SL1 sheath. The left atrial pressure was assessed via the sheath side arm pressure column, and was 8 cm blood. Another blood sample was obtained, with the oxygen saturation was measured at 95.9%). Another 5000 unit intravenous bolus of heparin was ad ministered immediately after confirming successful left atrial access . ?? Activated Clotting Times (ACTs) were ass essed regularly after entry into the left atrium, and adjustments to the heparin infusion rate and heparin bolus doses were administered to maintai n the ACT in the targeted range (300-400 seconds). A slow continuous hep arinized saline flush (10,000 units/liter) was maintained through the sidearms of both transseptal sheaths. ?? Left Atrial Appendage Assessment: ?? The intracardiac echocardiography (ICE) catheter was removed from the 9 Fr sheath, and then deployed through the Ag ilis sheath for left atrial access. ICE was employed for a careful a ssessment of the left atrial appendage (imaging at a frequency of 11. 5 MHz). Left atrial appendage stump was identified with no evidence of thrombus. ICE also was used to generate spatial shells depicting the le ft atrium and esophageal volume. The ICE catheter then was removed from t he Agilis sheath, and redeployed via the 9 Fr femoral sheath to the right atrium for subsequent use in monitoring the patient's status. ?? Electrophysiologic Assessment: ?? 1) The baseline rhythm was atrial fibril lation??with a ventricular rate of 80/minute. A 200 J synchronized direct c urrent cardioversion (DCCV) across an anterior posterior vector restored si nus rhythm. Measurements assessed during sinus rhythm at a cycle length (C L) of 1125 milliseconds (ms) were as follows: ?? KS: ??200 ms (P wave duration??142 ms) AH:?104 ms HV: ??60 ms QRS: 100 ms QT: ??472 ms ?? 2) Atrial overdrive pacing (10 mA @ 2 ms ) was accomplished from the proximal-most bipole in the coronary sin us (CS), and the atrioventricular (AV) Wenckebach block CL was observed at ??370 ms. There was no pre-excitation or conduction aberrancy i dentified. The lgdxojzz-fi-AMG interval < QRS-QRS interval just prior t o the observed AV Wenckebach block CL, and no echo beats were elicited. ?? 3) Pacing was accomplished from high rig ht ventricular septum, and 1:1 concentric ventriculo-atrial (VA) conduc tion was present down to a CL of??610 ms. Frequent atrial premature be ats (APBs) would interrupt the VA conduction. Tightest APB coupling interv al of 290 ms was observed to originate from the left atrial lateral w all. ?? 4) Atrial extrastimulus testing from the most proximal CS bipole was accomplished using an atrial drive train of CL 600 ms (10 mA @ 2 ms); the atrioventricular node effective refracto ry period (ERP) was noted at an S2 coupling interval of??300 ms, and the lo irvin atrial ERP was 280 ms (25 mA @ 2 ms) with 12 beats of atrial reentry. S ubsequent to this, julita of atrial tachycardia/atrial flutter emerged with varying cycle length. ?? 5) A 6 mg intravenous test bolus of martell osine was administered, which was observed to have minimal manifest effect on conduction intervals, and also there was no other obvious effect on the patient's rhythm or ventilatory parameters (no significant AH prolongati on, AV conduction block, or change in ventilatory pressures). An 18 mg intr avenous bolus of adenosine was administered next, that elicited transie nt AV conduction block with sinus rate slowing; again there was no apparen t impact on ventilatory parameters. ?? 6) ??Rapid atrial pacing from the proxim al most coronary sinus bipole with decremented down to a CL of 220 ms elici salvador ??5 reentrant beats. Rapid atrial pacing to CL of 200 ms elicited 1 0 beats. Rapid atrial pacing was limited by conduction inhomogeneity and conduction delays in the coronary sinus. 7) Dobutamine was infused at a rate of 1 0 mcg/kg/minute, and the infusion rate incrementally was increased to a ma ximum infusion rate of 40 mcg/kg/minute (sinus rate increased to?? 97/minute). As the dobutamine infusion was terminated, a??30??mg adeno sine bolus was administered, after which AV conduction block occurred follo wing which atrial fibrillation (AF) ensued. This was self limiting. Sin us rhythm with APB of left atrial origin was noted. ?? Left Atrial Anatomy and Mapping: ?? A CARTO Biosense ThermoCool SF 8 Fr abla tion catheter with bidirectional deflectable 3.5 mm tip (D and F curves) was positioned within the left atrium for mapping and ablation via the Agilis sheath. A left atrial volume was constructed via a combination of fast anatomical mapping (using the eicosapolar PentaRay catheter) and 3 -dimensional volumes obtained using CARTO-Sound. A left atrial voltage map was simultaneously acquired. Attempts at coronary sinus pacing would results in conduction delay and induction of atrial fibrillation that re quired electrical cardioversion with 200 J across an AP vector. Therefor e, left atrial mapping was performed in sinus rhythm. Bilateral pul monary veins were found to be isolated. However, as depicted in figure 1, the right pulmonary vein antrum (as expected with surgical ablati on) did not show adequate trajectory to encase the right pulmonary vein antra and probably a contributor to periantral flutter. Figure 1: Pre catheter ablation voltage map of the left atrium during sinus rhythm. The left pulmonary vein an tral margin appears to be adequately isolated. However, the right pulmonary vein antra is inadequately encased in the attempted ri ght pulmonary vein surgical isolation. ?? Radiofrequency Ablation:? Electrical Isolation of Posterior Left A trial Wall (PLAW) ?? The esophageal lead was observed in posi tion more adjacent to the posterior??left atrial wall. Ablation du ring coronary sinus pacing was hampered by coronary sinus conduction in homogeneity and resulted atrial fibrillation. Therefore, initial ablatio n trajectory across the IP line starting from the right IP segment was p erformed in atrial fibrillation. Cautious radiofrequency ablation was acc omplished across the inferoposterior (IP) segment, extending from the inferior right pulmonary vein antrum (LPVA) margin towards the in feroposterior margin of the left pulmonary vein antrum (RPVA), using expe dited unidirectional catheter motion and 20 lux of delivered power. Direct current cardioversion across an AP vector with 30 J restored s inus rhythm. The IP segment was ablated with the delivery of??0??Joul es during 1:43??minutes:seconds (m:s) of ablation time before conduction block across the trajectory became evident. ?? Next, ablation was accomplished along th e superior segment; the superior segment was ablated with the delivery of 10,077??Joules during 5:10??minutes:seconds (m:s) of ablation time, with demonstration of??acute electrical isolation (aEI) of the PLAW. Inferior cavotricuspid isthmus (iCTI) de pendant atrial flutter ablation ?? Rapid atrial pacing from the proximal mo st coronary sinus down (CS)to CL 220 ms now elicited atrial flutter at CL 240 with medial to lateral CS activation. Entrainment from iCTI showed post pacing interval of 255 ms consistent with iCTI dependency. The rov e catheter and Agilis sheath were withdrawn to the right atrium. Ablation was accomplished along the iCTI ablation trajectory at ~6:00 in the KISWAHILI view during tachycardia with termination during ablation; coronary si nus pacing to assess for iCTI block would consistently induce atrial f ibrillation that required 30 J direct current cardioversion. During a b rief CS pacing captured beat, block was not demonstrated across the iC TI line and further ablation was performed near the annular end of the li ne. The iCTI line was found to be quite long (~4-5 cm by ICE imaging). Tig htly couple (90ms) atrial premature beat (APB) from the coronary s inus elicited atrial flutter. TCL had slowed to 290 ms and further interro gation of the ablation line finally resulted in conduction block as assessed by medial pacing with a decapolar catheter (as CS pacing would d eteriorate into atrial fibrillation). Transisthmus conduction t percy was 163 ms on bidirectional pacing. This required ablation energy of 39,441 J delivered over 18:14 min:sec. Mitral annular isthmus dependent atrial flutter ablation Tightly couple APB (121 ms) elicited atr ial flutter with medial to lateral activation at TCL 270 ms. This was not i CTI dependent. As CS entrainment had consistently resulted in deteriorati on to AF, the ablation catheter was carefully advanced back into the LA followed by the Agilis steerable sheath and endocardial entrainment of th e flutter was performed from the posterolateral (PL) mitral annulus (MA). Post pacing interval of [address] MA demonstrated active circuit p articipation. A posterolateral mitral annular ablation was performed ex tending up to the left pulmonary vein marya using up to 40 Lux along t he length of this trajectory. Tachycardia persisted without cycle adin th being perturbed. Therefore, the ablation catheter was advanced via the c oronary sinus to ablation across the mitral isthmus from the epicardial a spect. Atrial flutter deteriorated to atrial fibrillation during this ablat ion attempt. After restoring sinus rhythm via 30J direct current cardiovers ion across AP vector, bidirectional block with a conduction de lay time of 170 ms was demonstrated. The mitral annulus remaine d blocked upon reassessment at the completion of the procedure. At this time the PLAW demonstrated slow spontaneous electrical activity (SSEA) and mitral annulus endocardial as pect demonstrated wide splits using the PentaRay mapping catheter. Atypical right atrial flutter ablation Rapid atrial pacing (RAP) from the proxi mal most coronary sinus down to 200 ms elicited 2 reentrant beats. Repea t assessment down to 200 ms elicited atrial flutter with CL 270 ms m edial to lateral CS activation. Entrainment from the lateral MA or iCTI was not consistent with reconnection at these sites. Due to dete rioration to AF, electrical cardioversion with 50J restored sinus rh ythm and an RAP was performed again that now elicited atrial flutter o f TCL 230 ms. No discrete site of entrainment (iCTI, MA, septum) indicated participation. Limited right atrial activation map was performed. A n arrow region of right atrial posterolateral wall showed a local area of probable reentry (not a focal pattern of activation) that accounted fr om almost the entire cycle length of the tachycardia. This was suspected t o be probably one of the surgical sites that may have targeted the ganglio seda plexi in the past on this particular patient. After carefully liliana ing for the phrenic nerve with high output stimulation, cautious ablati on was performed in this region that resulted in termination of the atri al flutter. A thorough assessment of the tachycardia focus and mechanism c ould not be performed due to long procedure time and delayed start to the procedure. Reassessment:? Coronary sinus continued to demonstrated tightly coupled APC between 190-230 ms. ICTI line and posterior mitr al annular line demonstrated continued block and demonstration of loc al splits in the iCTI line. PLAW demonstrated SSEA with demonstration of exit block. Rapid atrial pacing could now be performed down to 160 ms th at elicited atrial fibrillation with successful baptism of sinus rhy thm with only 20 J of synchronized electrical cardioversion. The coronary s inus conduction inhomogeneity was acknowledged and its tendency to elicit tightly coupled APCs that would trigger atrial flutter with fibrillatory conduction. However, due to the prolonged nature of this procedure time, anesthesia time with the back drop of four hour delayed procedure star t time secondary to equipment malfunction, ablation in the coronary si nus was not pursued. Additionally, further assessment of the posterior wall for stage IV block could not be performed for the above reasons. ?? Completion of the Procedure: ?? The heparin infusion was discontinued as the catheters and sheaths were withdrawn from the left atrium.??All cat heters and sheaths were placed in neutral position and cautiously were wit hdrawn from the heart. ?? Total Fluoroscopy Time:??low intensity s etting, biplane Data not docuemented Total Radiofrequency Energy Delivered:?? 54,946??Joules Total Actual Ablation Time:?25:25??m:s ?? At the conclusion of the procedure, kramer ths were removed, and hemostasis was achieved via manual compression (fol lowing administration of 50??mg of protamine). The total estimated blood lo ss was <50 cc (including discards in conjunction with assessing ACT). No i ntravenous contrast was used during this procedure. The total fluid a dministered during the procedure was 3036??cc, and the urine output was 1 000??cc. The patient tolerated the procedure well, with no apparent acute c omplications. She??was transferred to the recovery area in stable condition with a Pleitez catheter yet in place. ?? Results: ?? 0) No left atrial thrombus identified. L eft atrial appendage surgical closed without thrombus. ?? 1)??Successful acute electrical isolatio n of the posterior left atrial wall and consequently biantral pulmonary vein isolation. Demonstration of slow spontaneous electrical activity in the p osterior wall at the conclusion of the procedure but stage IV testing could not be performed due to procedural delays and time constraints. ? 2)??Mitral annular isthmus dependent flu tter was ablated across the posterolateral mitral annulus with bidir ectional conduction block. ?? 3) Inferior cavotricuspid isthmus depend ent atrial flutter??was ablated with bidirectional conduction block. 4) Atypical right atrial flutter ablatio n at the right atrial lateral wall. ?? 5) Significant conduction inhomogeneity in the coronary sinus with tightly coupled APC of coronary sinus origin. Fu ture consideration towards targeting coronary sinus if recurrent at rial arrhythmias. 6) Preserved atrioventricular conduction . ?? 7) No finding of an accessory pathway. ?? 8) The P wave duration pre-ablation was 142 ms and post-ablation was [address] ___ Dr. Bustos was present through out the procedure and was the gravity prospecting operator; he reviewed the draft report p repared by Dr. Louie, and approved it with only limited editing. Torrey Bustos MD EP PROCEDURE ORDERABLES (ABNORMAL) Hepatic Function Panel (01/13/2019 6:21 AM EDT) Analysis Performed At [facility] Time Signature Total Protein 6.1 6.1 - 8.0 [facility] gm/dL [facility] Albumin 4.1 3.2 - 5.2 [facility] gm/dL [facility] AST 18 0 - 39 [facility] unit/L [facility] ALT 15 0 - 55 [facility] unit/L [facility] Alk Phos 36 (L) 40 - 120 [facility] Total Not Perf 0.2 - 1.3 [facility]LA Bilirubin mg/dL [facility] Comment: Analyte stability exceeded; nighat t not performed. Bili, Direct Not Perf 0.0 - 0.3 mg/dL [facility] Comment: Analyte stability exceeded; nighat t not performed. Specimen Anatomical Collection Method Collection Time Receive d Time (Source) Location / / Volume Laterality Blood specimen Venous Draw / 01/13/2019 6:21 AM 2018 7:16 (specimen) Unknown EDT AM EDT Resulting Agency Comment Spec In Lab Sung MARIA CHEMISTRY ORDERABLES Performing Organization Address City/[facility]/ZIP Code Phon e Number [address] (ABNORMAL) TSH (01/13/2019 6:21 AM EDT) P athologist Signature TSH 4.69 (H) 0.27 - 4.20 [facility] mcIU/mL [facility] Specimen Anatomical Collection Method Collection Time Receive d Time (Source) Location / / Volume Laterality Blood specimen Venous Draw / 01/13/2019 6:21 AM 2018 7:16 (specimen) Unknown EDT AM EDT Resulting Agency Comment Spec In Lab Sung MARIA CHEMISTRY ORDERABLES Performing Organization Address City/[facility]/ZIP Code Phon e Number [address] Differential, Automated (01/13/2019 6:21 AM EDT) P athologist Signature Neutrophils % 50.7 % [facility] Neutr Abs (ANC) 2.55 1.70 - [facility] 6.10 [facility] x10(3)/[facility] LABORATORY Lymphocytes % 34.2 % [facility] Lymphocytes Abs 1.7 0.9 - 3.2 [facility] x10(3)/[facility] LABORATORY Monocytes % 11.5 % [facility] Monocyte Abs 0.6 0.3 - 0.9 [facility] x10(3)/[facility] LABORATORY Eosinophils % 1.8 % [facility] Eosinophils Abs 0.1 0.0 - 0.4 [facility] x10(3)/[facility] LABORATORY Basophils % 1.2 % [facility] Basophils Abs 0.1 0.0 - 0.1 [facility] x10(3)/[facility] LABORATORY Immature Gran % 0.60 % [facility] Comment: Immature granulocytes(IG's)percentage an d absolute count will include metamyelocytes, myelocytes, and promyelo cytes. Blood smears from CBCs yielding IG's will be scanned manually for concor dance. If this scan disagrees with the automated IG or if promyelocytes are not ed, a manual differential will be performed. Sheri Gran Abs 0.03 0.00 - 0.04 x10(3)/[facility] MAR Y [facility]OR[facility]ORY Specimen Anatomical Collection Method Collection Time Receive d Time (Source) Location / / Volume Laterality Blood specimen 01/13/2019 6:21 AM 019 6:24 (specimen) EDT AM EDT Resulting Agency Comment Spec In Lab Farhad MARIA HEMATOLOGY ORDERABLES Performing Organization Address City/State/[place]IP [place] [address] (ABNORMAL) Hemogram (01/13/2019 6:21 AM EDT) Analysis Performed At Patho logist Time Signature WBC 5.0 4.0 - 9.5 [facility] x10(3)/[facility] LABORATORY RBC 4.38 (L) 4.58 - [facility] 5.54 [facility] x10(6)/[facility] LABORATORY Hemoglobin 14.3 13.7 - [facility] 16.5 gm/dL [facility] Hematocrit 42.1 40.5 - [facility] 48.5 % [facility] MCV 96.1 (H) 82.9 - [facility] 93.1 [facility] LABORATORY MCH 32.6 (H) 27.5 - [place] 32.1 pg [facility] MCHC 34.0 32.0 - [place] 35.7 gm/dL [facility] Platelets 214 145 - 357 [facility] x10(3[facility] LABORATORY RDWSD 41.4 36.0 - [place] 45.0 [facility] LABORATORY RDWCV 11.9 11.4 - [place] [facility] 13.8 % [facility] MPV 9.0 7.6 - 12.9 [facility] LABORATORY nRBC % Auto 0.0 % [facility] nRBC Abs Auto 0.000 0.000 - [place] [facility] 0.000 [facility] x10(3)/[facility] LABORATORY Specimen Anatomical Collection Method Collection Time Receive d Time (Source) Location / / Volume Laterality Blood specimen 01/13/2019 6:21 AM 019 6:24 (specimen) EDT AM EDT Resulting Agency Comment Spec In Lab Farhad MARIA HEMATOLOGY ORDERABLES Performing Organization Address City/State/ZIP [place] [address] BMP w/fasting Glucose (01/13/2019 6:21 AM EDT) P athologist Signature Glucose 93 65 - 99 [facility] Fasting mg/dL [facility] Comment: ?Fasting* Glucose Interpretive C riteria Normal ?65-99 mg/dL Impaired Fasting glucose ?100-125 mg/dL Consistent with Diabetes Mellitus ? >or= 126 mg/dL *Fasting is defined as no caloric intake for at least 8 hours In the absence of unequivocal hypergly cemia a plasma glucose value of >or= 126 mg/dL should be repeated on a subseq u day. Diagnosis and Classification of Diabetes Mellitus, Position Statement from the [place] [employer]. ??Diabete s Care, Volume 33, Supplement 1, Sep 2009 BUN 20 10 - 20 mg/dL [facility] Creatinine 0.88 0.80 - 1.50 mg/dL [facility] Sodium 142 135 - 145 mmol/L [facility] Potassium 4.3 3.5 - 5.0 mmol/L [facility] Comment: Please note: ??Patients with WBC >100,00 0 may have falsely elevated Potassium levels. ??For accurate Potassium quantif ication in these patients send serum separator tube (gold top) for subsequent determinations. ??Contact the Clinical Chemistry Laboratory if there are any qu estions. Chloride 105 98 - 107 mmol/L [facility] CO2 26 22 - 31 mmol/L [facility] Anion Gap 11 5 - 15 mmol/L [facility] Calcium 8.9 8.5 - 10.5 mg/dL [facility] Estimated GFR 89 >=60 mL/min/1.73 m?? [facility] Comment: The eGFR was calculated using the CKD-EP I equation. As with all creatinine based estimates of kidney function, eGFR values calculated with the CKD-EPI equation are not accurate in patients wi th acute kidney failure, extremes of body mass or the acutely ill. [email or web address] eGFR 103 >=60 mL/min/1.73 m?? [facility] Comment: The eGFR was calculated using the CKD-EP I equation. As with all creatinine based estimates of kidney function, eGFR values calculated with the CKD-EPI equation are not accurate in patients wi th acute kidney failure, extremes of body mass or the acutely ill. [email or web address] Specimen Anatomical Collection Method Collection Time Receive d Time (Source) Location / / Volume Laterality Blood specimen 01/13/2019 6:21 AM 019 6:24 (specimen) EDT AM EDT Resulting Agency Comment Spec In Lab Osorio Barbosa MD CHEMISTRY ORDERABLES Performing Organization Address City/State/ZIP [place] [address] SCAN DOC: MANAGER OF GLOBAL (01/13/2019 12:00 AM EDT) Anatomical Region Laterality Modality Other Narrative 01/13/2019 12:00 AM EDT This result has an attachment that is no t available. Ordered by an unspecified provider. Scanning Provider MEDIA MGR SCAN EXT ORDR/RSLT documented in this encounter Visit Diagnoses Diagnosis Persistent atrial fibrillation Atrial fibrillation Dyspnea, unspecified type Abnormal stress test Other nonspecific abnormal cardiovascula r system function study Status post ablation of atrial fibrillat ion Other postprocedural status Chest pain, unspecified type Status post ablation of atrial fibrillat ion Other postprocedural status documented in this encounter Admitting Diagnoses Diagnosis Status post ablation of atrial fibrillat ion Other postprocedural status documented in this encounter Administered Medications Inactive Administered Medications - up to 3 most recent administrations Medication Order MAR Action Action Date Dose Rate Site acetaminophen (TYLENOL) tablet 650 Given 01/14/2019 8:22 PM EDT 650 mg mg 650 mg, Oral, EVERY 4 HOURS PRN, Starting on Fri01/13/19 at 1838, Until Fri01/15/19 at 1352, Pain, Fever, Mild-moderate pain (1-6), maximum daily dose 4 gm, Recovery (Recovery-Hospital Unit), Routine Given 01/14/2019 8:19 AM EDT 650 mg Given 01/13/2019 9:53 PM EDT 650 mg AMIOdarone (CORDARONE; PACERONE) tablet 400 Given 01/14/2019 9:41 PM EDT 400 mg mg 400 mg, Oral, DAILY, First dose on Fri01/13/19 at 2200, Until Discontinued, Routine Given 01/13/2019 11:01 PM EDT 400 mg AMIOdarone (CORDARONE; PACERONE) tablet 400 Given 01/15/2019 9:14 AM EDT 400 mg mg 400 mg, Oral, 2 TIMES DAILY, First dose (after last modification) on Fri01/15/19 at 1000, Until Discontinued, Routine apixaban (ELIQUIS) tablet 5 mg Given 01/15/2019 9:14 AM EDT 5 mg 5 mg, Oral, 2 TIMES DAILY, First dose on Fri01/13/19 at 2230, Until Discontinued, Anticoagulant, Routine, Restricted anticoagulant, choose the most appropriate response: Approved indication of non-valvular atrial fibrillation Given 01/14/2019 11:29 PM EDT 5 mg Given 01/14/2019 8:19 AM EDT 5 mg BUpivacaine (PF) (MARCAINE) 0.5 % (5 mg/mL) Given 12/30 12:55 PM EDT 150 mg injection 150 mg 150 mg (30 mL), Subcutaneous, ONCE, 1 dose, On Fri01/13/19 at 0715, EP (Intra-Procedure), Routine colchicine (COLCRYS) tablet 0.6 mg Given 01/15/2019 9:14 AM EDT 0.6 mg 0.6 mg, Oral, 2 TIMES DAILY, First dose on Fri01/14/19 at 2100, Until Discontinued, Maximum dose: 2.4 mg/ 24 hours, Routine Given 01/14/2019 9:42 PM EDT 0.6 mg colchicine (COLCRYS) tablet 0.6 mg 0.6 mg, Oral, DAILY, First dose (after l ast modification) on Fri01/16/19 at 0900, Until Discontinued, Maximum dose: 2.4 mg/ 24 hours, Ro utine finasteride (PROSCAR) tablet 5 mg Given 01/14/2019 8:00 PM EDT 5 mg 5 mg, Oral, NIGHTLY, First dose (after last reorder) on Fri01/13/19 at 2315, Until Discontinued, STAT Given 01/13/2019 11:15 PM EDT 5 mg furosemide (LASIX) 100 mg in sodium New Bag 01/13/2019 11:01 P M EDT 5 mg/hr 5 mL/hr chloride 0.9% 100 mL infusion 5 mg/hr (5 mL/hr), Intravenous, CONTINUOUS, Starting on Fri01/13/19 at 2200, Until Fri01/14/19 at 0836, Routine ibuprofen (ADVIL;MOTRIN) tablet 400 mg Given 01/14/2019 12:51 PM EDT 400 mg 400 mg, Oral, ONCE, 1 dose, On Fri01/14/19 at 1315, Administer orally with milk or food to minimize GI irritation. Maximum dose of 3200 mg from all sources in 24 hours, Routine ibuprofen (ADVIL;MOTRIN) tablet 400 mg Given 01/15/2019 11:34 AM EDT 400 mg 400 mg, Oral, EVERY 6 HOURS PRN, Starting on Fri01/14/19 at 1712, Until Fri01/15/19 at 1352, Pain, GREATER THAN 7/10, Administer orally with milk or food to minimize GI irritation. Maximum dose of 3200 mg from all sources in 24 hours, Routine Given 01/14/2019 7:07 PM EDT 400 mg lactated ringers infusion New Bag 01/13/2019 6:00 PM EDT 1,000 mL, at 100 mL/hr, Intravenous, CONTINUOUS, Starting on Fri01/13/19 at 0715, Until Fri01/13/19 at 2030, Day of Surgery (Day of Procedure) New Bag 01/13/2019 2:57 PM EDT New Bag 01/13/2019 7:24 AM EDT 1,000 mLs 100 mL/hr lidocaine ((GLYDO)) 2 % gel 10 mL Given 01/13/2019 12:00 PM EDT 10 mLs 10 mL, INTRA-URETHRAL, ONCE, 1 dose, On Fri01/13/19 at 0715, EP (Intra-Procedure), Routine lidocaine (XYLOCAINE) 10 mg/mL (1 %) injection Given 0 01/13/2019 7:24 AM EDT 3 mg 3 mg 3 mg (0.3 mL), Subcutaneous, ONCE PRN, 1 dose, Starting on Fri01/13/19 at 0657, Until Fri01/13/19 at 0724, for discomfort with PIV insertion, Day of Surgery (Day of Procedure), Routine lidocaine (XYLOCAINE) 20 mg/mL (2 %) Given 01/13/2019 12:55 PM E DT 400 mg injection 400 mg 400 mg (20 mL), Subcutaneous, ONCE, 1 dose, On Fri01/13/19 at 0715, EP (Intra-Procedure), Routine magnesium oxide (MAG-OX) tablet 400 mg Given 01/15/2019 9:15 AM EDT 400 mg 400 mg, Oral, DAILY, First dose on Fri01/14/19 at 1900, Until Discontinued, Routine Given 01/14/2019 8:02 PM EDT 400 mg melatonin tablet 6 mg Given 01/14/2019 11:29 PM EDT 6 mg 6 mg, Oral, NIGHTLY, First dose on Fri01/14/19 at 2100, Until Discontinued, Routine pantoprazole (PROTONIX) tablet 40 mg Given 01/15/2019 9:30 AM EDT 40 mg 40 mg, Oral, DAILY, First dose on Fri01/15/19 at 1000, Until Discontinued, DO NOT CRUSH OR OPEN, Routine potassium chloride (K-DUR/KLOR-CON) extended Given 5:39 PM EDT 40 mEq release tablet 40 mEq 40 mEq, Oral, ONCE, 1 dose, On Anna 01/14/19 at 1730, 20 mEq tablet may be dissolved in water for administration, Routine psyllium (Aspartame) 1 packet 1 packet, Oral, DAILY PRN, Starting on T hu 01/14/19 at 1859, Until Fri01/15/19 at 1352, constipation, Routine sodium chloride 0.9% 500 mL IV bolus New Bag 01/15/2019 12:00 AM EDT Intravenous, ONCE, 1 dose, On Fri01/15/19 at 0015 sodium chloride 0.9% infusion New Bag 01/14/2019 6:19 PM EDT 100 mL/hr 100 mL/hr 100 mL/hr, Intravenous, CONTINUOUS, Starting on Anna 01/14/19 at 1730, Until Fri01/15/19 at 0329 tamsulosin (FLOMAX) ER capsule 0.4 mg Given 01/14/2019 8:01 PM EDT 0.4 mg 0.4 mg, Oral, NIGHTLY, First dose (after last reorder) on Fri01/13/19 at 2315, Until Discontinued, DO NOT CRUSH OR OPEN, STAT Given 01/13/2019 11:15 PM EDT 0.4 mg documented in this encounter Active and Recently Administered Medications Times are shown in EDT. Scheduled Medication Order 01/13/2019 01/14/2019 01/15/2019 AMIOdarone (CORDARONE; PACERONE) tablet 400 mg (CANCEL ED) 230 (Given - Provider: Jenelle Jasso RN - Comment: med missing) 2140 (Given - Provider: Celine Adorno RN - Comment: 91/57,HR 89-okay to have ,this checked by this RN,Dr. Herring at 2145) 400 mg, Oral, DAILY, First dose on Fri at 2200, Until Discontinued, Routine AMIOdarone (CORDARONE; PACERONE) tablet 400 mg 0914 (Given - Provider: Marleen Oleary RN) 400 mg, Oral, 2 TIMES DAILY, First dose on Fri01/15/19 at 1000, Until Discontinued, Routine apixaban (ELIQUIS) tablet 5 mg 2152 (Given - Provider: Nicole Jasso RN) 818 (Given - Provider: Laurence Oates, RN)2328 (Given - Provider: Celine Adorno RN) 09 (Given - Provider: Lyn Sylvester) 5 mg, Oral, 2 TIMES DAILY, First dose on Fri01/13/19 at 2230, Until Discontinued, Anticoagulant, Routine BUpivacaine (PF) (MARCAINE) 0.5 % (5 mg/mL) injection 150 mg (COMPLETED) 1255 (Given - Provider: Tanya Jin RN) 150 mg (30 mL), Subcutaneous, ONCE, 1 do se, Fri01/13/19 at 0715, EP (Intra- Procedure), Routine colchicine (COLCRYS) tablet 0.6 mg (CANCELED) 2141 (Given - Provider: Celine Adorno RN) 913 (Given - Provider: Lyn Sylvester) 0.6 mg, Oral, 2 TIMES DAILY, First dose on Anna 01/14/19 at 2100, Until Discontinued, Maximum dose: 2.4 mg/ 24 hours, Routine colchicine (COLCRYS) tablet 0.6 mg 0.6 mg, Oral, DAILY, First dose on Fri at 0900, Until Discontinued, Maximum dose: 2.4 mg/ 24 hours, Routine finasteride (PROSCAR) tablet 5 mg 2314 (Given - Provider: Pritesh Jasso RN) 1999 (Given - Provider: Celine Adorno RN)2100 (Not Given - Provider: Celine Adorno RN - Reason: See comment - Comment: given prior) 5 mg, Oral, NIGHTLY, First dose on Fri at 2315, Until Discontinued, STAT ibuprofen (ADVIL;MOTRIN) tablet 400 mg (COMPLETED) 1251 (Given - Provider: Laurence Oates, PRECIOUS) 400 mg, Oral, ONCE, 1 dose, Anna 01/14/19 at 1315, Administer orally with milk or food to minimize GI irritation. Maximum dose of 3200 mg from all sources in 24 hours, Routine lidocaine ((GLYDO)) 2 % gel 10 mL (COMPLETED) 1200 (Gi cecilia - Provider: Tanya Jin RN) 10 mL, INTRA-URETHRAL, ONCE, 1 dose, Fri01/13/19 at 0715, EP (Intra-Procedure), Routine lidocaine (XYLOCAINE) 20 mg/mL (2 %) injection 400 mg (COMPLETED) 1255 (Given - Provider: Tanya Jin RN) 400 mg (20 mL), Subcutaneous, ONCE, 1 do se, Fri01/13/19 at 0715, EP (Intra- Procedure), Routine magnesium oxide (MAG-OX) tablet 400 mg 2 002 (Given - Provider: Celine Adorno RN) 0915 (Given - Provider: Lyn Sylvester) 400 mg, Oral, DAILY, First dose on Fri at 1900, Until Discontinued, Routine melatonin tablet 6 mg 2328 (Given - Provider: Sheyla Adorno RN) 6 mg, Oral, NIGHTLY, First dose on Fri at 2100, Until Discontinued, Routine pantoprazole (PROTONIX) tablet 40 mg 30 (Given - Provider: Marleen Oleary, PRECIOUS) 40 mg, Oral, DAILY, First dose on Fri at 1000, Until Discontinued, DO NOT CRUSH OR OPEN, Routine potassium chloride (K-DUR/KLOR-CON) extended release tablet 40 mEq (COMPLETED) 1739 (Given - Provider: Laurence Oates, PRCEIOUS) 40 mEq, Oral, ONCE, 1 dose, Fri01/14/19 at 1730, 20 mEq tablet may be dissolved in water for administration, Routine sodium chloride 0.9% 500 mL IV bolus (COMPLETED) 0000 (New Bag - Provider: Celine Adorno RN) Intravenous, ONCE, 1 dose, Fri01/15/19 at 0015 tamsulosin (FLOMAX) ER capsule 0.4 mg 2315 (Given - Pr ovider: Jenelle Jasso RN) 2000 (Given - Provider: Celine Adorno RN) 0.4 mg, Oral, NIGHTLY, First dose on Fri01/13/19 at 2315, Until Discontinued, DO NOT CRUSH OR OPEN, STAT Continuous Medication Order 01/13/2019 01/14/2019 01/15/2019 furosemide (LASIX) 100 mg in sodium chloride 0.9% 100 mL infusion (CANCELED) 2301 (New Bag - Provider: Jenelle Jasso, RN) 0829 (Stopped - Provider: Laurence Oates RN) 5 mg/hr (5 mL/hr), Intravenous, at 5 mL/ hr, CONTINUOUS, Starting Fri01/13/19 at 2200, Until Anna 01/14/19 at 0836, Routine lactated ringers infusion (CANCELED) 0724 (New Bag - P rovider: Grace Martinez RN)1457 (New Bag - Provider: Lawson Cesar CRNA)1800 (New Bag - Provider: Lawson Cesar CRNA)1835 (Anesthesia Volume Adjustment - Provider: Lawson Cesar CRNA) 1,000 mL, at 100 mL/hr, Intravenous, CON TINUOUS, Starting Fri01/13/19 at 0715, Until Fri01/13/19 at 2030, Day of Surgery (Day of Procedure) sodium chloride 0.9% infusion 1819 (New Bag - Provider: Laurence Oates, PRECIOUS)2349 (Stopped - Provider: Celine Adorno RN - Comment: per pt request) 100 mL/hr, at 100 mL/hr, Intravenous, CO NTINUOUS, Starting Anna 01/14/19 at 1730, Until Fri01/15/19 at 0329 PRN Medication Order 01/13/2019 01/14/2019 01/15/2019 acetaminophen (TYLENOL) tablet 650 mg 2152 (Given - Pr ovider: Jenelle Jasso RN) 818 (Given - Provider: Laurence avery RN)2021 (Given - Provider: Celine Adorno, PRECIOUS) 650 mg, Oral, EVERY 4 HOURS PRN, Startin g Fri01/13/19 at 1838, Until Fri01/15/19 at 1352, Pain, Fever, Mild-moderate pain (1-6), maximum daily dose 4 gm, Recovery (Recovery-Hospital Unit), Routine ibuprofen (ADVIL;MOTRIN) tablet 400 mg 1 907 (Given - Provider: Celine Kyree, RN) 1134 (Given - Provider: Lyn Sylvester) 400 mg, Oral, EVERY 6 HOURS PRN, Startin g Anna 01/14/19 at 1712, Until Fri01/15/19 at 1352, Pain, GREATER THAN 7/10, Administer orally with milk or food to minimize GI irritation. Maximum dose of 3200 mg from all sources in 24 hours, Routine lidocaine (XYLOCAINE) 10 mg/mL (1 %) injection 3 mg (C OMPLETED) 0724 (Given - Provider: Grace Martinez RN) 3 mg (0.3 mL), Subcutaneous, ONCE PRN, 1 dose, Starting 01/13/19 at 0657, Until Discontinued, for discomfort with PIV insertion, Day of Surgery (Day of Procedure), Routine psyllium (Aspartame) 1 packet 1 packet, Oral, DAILY PRN, Starting Anna 01/14/19 at 1859, Until Fri01/15/19 at 1352, constipation, Routine documented in this encounter Care Teams Field Marketing Representative Relationship Specialty Start Date End Date Nathaniel Smith MD PCP - General Family Medicine 12/23/18 [address] [place] [address] documented as of this encounter
--- OUTSIDE RECORDS SUMMARY | 2022-08-01 15:48 | XMS_ITS | Encounter Summary ---
:1950 Author Organization [facility] [place] [address] Care Team Providers Name Role Phone Nathaniel Smith MD Primary Care Provider Encounter Details Date Type Department Care Team Description 09/03/2019 Orders [place] [phone] Social History Tobacco Use Types Packs/Day Years Used Date Smoking Tobacco: Never Smokeless Tobacco: Never Sex Assigned at Date Recorded Not on file documented as of this encounter Plan of Treatment Not on filedocumented as of this encounter Procedures Procedure Name Priority Date/Time Associated Diagnosis Comme nts CARDIAC DEVICE Routine 09/03/2019 11:40 PM Result s for this CHECK - REMOTE EST procedure are in the results section. documented in this encounter Results Cardiac Device Check - Remote (09/03/2019 11:40 PM EST) Component Value Ref Test Analysis Performed Pathologis t Range Method Time At Signature Date Time [id number] IDCO Interrogation Session Implantable Med[employer]onic IDCO Pulse Generator Park Aide Implantable [id number] IDCO Pulse Generator Model Implantable [id number] IDCO Pulse Generator Serial Number Type Remote IDCO Interrogation Session Implantable Implantable IDCO Pulse Generator Diagnostic Type Monitor Implantable [id number] IDCO Pulse Generator Implant Date Anatomical Region Laterality Modality Other Specimen (Source) Anatomical Collection Method Collection Time Re ceived Time Location / / Volume Laterality 09/03/2019 11:40 PM EST Physician Cardiology IMPLANTABLE CARDIAC DEVICE documented in this encounter Visit Diagnoses Not on filedocumented in this encounter Care Teams Refueling Ramp Supervisor Relationship Specialty Start Date End Date Nathaniel Smith MD PCP - General Family Medicine 12/23/18 [address] [place] [address] documented as of this encounter
--- OUTSIDE RECORDS SUMMARY | 2022-08-01 15:48 | XMS_ITS | Encounter Summary ---
:1950 Author Organization [facility] Address [place] [id number] Care Team Providers Name Role Phone Nathaniel Smith MD Primary Care Provider Encounter Details Date Type Department Care Team Description 03/01/2020 Hospital Encounter Non-Invasive Valentín Browne Atrial flutter, Cardiology Lab Demetra Bess MD unspecified type [facility] [place] [phone] Social History Tobacco Use Types Packs/Day Years [...] Procedure Name Priority Date/Time Associated Comments Diagnosis ILR INTERROGATION 1 Routine 03/02/2020 10:43 Atrial flutter, R esults for this MONTH AM EDT unspecified type procedure a re in the results section. documented in this encounter Results ILR INTERROGATION 1 MONTH (03/02/2020 10:43 AM EDT) Anatomical Region Laterality Modality Other Specimen (Source) Anatomical Location Collection Method / Collectio n Time Received Time / Laterality Volume Narrative 03/02/2020 2:05 PM EDT Cardiac Device Remote Monitoring Report Summary [employer] 03/02/20 Device: ??ILR Model: Reveal LINQ LNQ11 Battery: ok, Events: 12 pause events - these represent unders ensing 2 AF events - these represent oversensin g Impression No significant events Undersensing and oversensing is observed Follow Up As per schedule - in-clinic and remote VALENTÍN BROWNE MD Valentín Browne MD IMPLANTABLE CARDIAC DEVICE documented in this encounter Visit Diagnoses Diagnosis Atrial flutter, unspecified type documented in this encounter Care Teams Rebrander Relationship Specialty Start Date End Date Nathaniel Smith MD PCP - General Family Medicine 12/23/18 [address] [place] [address] documented as of this encounter
--- OUTSIDE RECORDS SUMMARY | 2022-08-01 15:48 | XMS_ITS | Encounter Summary ---
:1950 Author Organization [facility] [place] [address] Care Team Providers Name Role Phone Nathaniel Smith MD Primary Care Provider Encounter Details Date Type Department Care Team Description 04/22/2019 External Results Cardiology at [facility] Unknown [facility] [place] [address] Social History Tobacco Use Types Packs/Day Years Used Date Smoking Tobacco: Never Smokeless Tobacco: Never Sex Assigned at Date Recorded Not on file documented as of this encounter Plan of Treatment Not on filedocumented as of this encounter Procedures Procedure Name Priority Date/Time Associated Diagnosis Comme nts EP DEVICE SCAN Routine 02/25/2019 documented in this encounter Results Scan Doc: EP Device (02/25/2019) Anatomical Region Laterality Modality Other Narrative This result has an attachment that is no t available. Unknown MEDIA MGR SCAN EXT ORDR/RSLT documented in this encounter Visit Diagnoses Not on filedocumented in this encounter Care Teams Instrument Designer Relationship Specialty Start Date End Date Nathaniel Smith MD PCP - General Family Medicine 12/23/18 [address] [place] [address] documented as of this encounter
--- OUTSIDE RECORDS SUMMARY | 2022-08-01 15:48 | XMS_ITS | Encounter Summary ---
:1950 Author Organization [facility] [place] [address] Care Team Providers Name Role Phone Nathaniel Smith MD Primary Care Provider Encounter Details Date Type Department Care Team Description 01/22/2019 Notes Only Cardiology Valentín Browne MD [facility] [place] [address] CARDIOLOGY DEPT. [phone] [place], [place] [address] (Wo rk) Social History Tobacco Use Types Packs/Day Years Used Date Smoking Tobacco: Never Smokeless Tobacco: Never Sex Assigned at Date Recorded Not on file documented as of this encounter Progress Notes Valentín Browne MD - 01/22/2019 2:22 PM EDT Remote Device Download Medtronic Carelink 01/22/19 Device: ILR Model: LNQ11 Reveal LINQ Battery: 'OK' Events Atrial fibrillation and atrial flutter episodes are seen from the to 21 of January. Ventricular rates are generally well controlled. Impression Atrial fibrillation and atrial flutter with controlled ventricular rates seen since Jan 19 2019 VALENTÍN BROWNE MD documented in this encounter Plan of Treatment Not on filedocumented as of this encounter Visit Diagnoses Not on filedocumented in this encounter Care Teams Casing In Line Setter Relationship Specialty Start Date End Date Nathaniel Smith MD PCP - General Family Medicine 12/23/18 [address] [place] [address] documented as of this encounter
--- OUTSIDE RECORDS SUMMARY | 2022-08-01 15:48 | XMS_ITS | Encounter Summary ---
:1950 Author Organization [facility] [place] [address] Care Team Providers Name Role Phone Nathaniel Smith MD Primary Care Provider Reason for Referral Diagnostic Test (Routine) - Closed Specialty Diagnoses / Procedures Referred By Contact Refer red To Contact Cardiology Diagnoses Persistent atrial fibrillation Torrey Bustos MD [facility] Cardiology 4a Procedures [facility] [place] [address] [place] [address] Referral ID Status Reason Start Date Expiration Date Visits V isits Requested Authorized [id number] Closed Specialty 12/23/2019 01/18/2020 1 1 Service Requested Reason for Visit Diagnostic Test (Routine) - Closed Specialty Diagnoses / Procedures Referred By Contact Refer red To Contact Cardiology Diagnoses Persistent atrial fibrillation Torrey Bustos MD [facility] Cardiology 4a Procedures [facility] [place] [address] [place] [address] Referral ID Status Reason Start Date Expiration Date Visits V isits Requested Authorized [id number] Closed Specialty 12/23/2019 01/18/2020 1 1 Service Requested Encounter Details Date Type Department Care Team Description 12/23/2019 Hospital Encounter Non-Invasive Torrey Bustos Persi stent atrial Cardiology Lab Demetra [place] fibrillation [facility] CARDIOLOGY [address] [place], [place] [address] [phone] Social History Tobacco Use Types Packs/Day Years [...] Name Priority Date/Time Associated Diagnosis Comme nts ZIOPATCH Routine 12/23/2019 7:48 AM Persistent atrial Resu lts for this EDT fibrillation procedure are i n the results section. documented in this encounter Results Ziopatch (12/23/2019 7:48 AM EDT) Anatomical Region Laterality Modality Other Specimen (Source) Anatomical Location Collection Method / Collectio n Time Received Time / Laterality Volume Narrative 01/18/2020 2:58 PM EDT Cardiac Electrophysiology Zio Monitor Study Initiated: ??25 December 2019 Duration: ?? 11 days 12 hours (after rem oval of ~3 hours of artifact) Indication: Other persistent atrial (s ic) Result: The overall sinus rhythm rate range was 42-130/minute, and averaged 69/minute. The predominant underlying rh ythm throughout the monitoring period was conducted sinus rhythm. The s lowest heart rates marginally tended to occur overnigh. No pauses >3 seconds were seen, and ther e was no high grade atrioventricular conduction block report ed or observed at normal sinus rates. There was a <1.0% burden of isolated ect opic supraventricular beats detected, and rare supraventricular coup lets and triplets were detected as well. There were 20 supraventricular run s detected (the run with the fastest interval lasted 5 beats with a m aximum rate of 182/minute, and the longest lasted 11.9 seconds at a mean ra te of 133/minute); the mean rate of all of these runs was 125/minute. Artis e of these may have been atrial tachycardia with variable atrioventricul ar conduction block. There was a <1.0% burden of isolated ect opic ventricular beats detected; no ventricular couplets, triplets, nor r uns were detected. The patient wrote in 1 timed diary entry during a period of feeling anxious; there were also were 2 patient- triggered events. These corresponded to sinus rhythm 56-63/minut e with supraventricular ectopy. Conclusion: This monitor study was remarkable for si nus rhythm with a limited rate range. Occasional nonsustained supravent ricular tachycardia runs (without any atrial flutter/fibrillation) and a l ow overall burden of ectopy were detected. ____ Interpreted by Torrey Bustos MD, [facility] Torrey Bustos MD CARDIAC SERVICES ORDERABLES documented in this encounter Visit Diagnoses Diagnosis Persistent atrial fibrillation Atrial fibrillation documented in this encounter Care Teams Network Applications Specialist Relationship Specialty Start Date End Date Nathaniel Smith MD PCP - General Family Medicine 12/23/18 [address] [place] [address] documented as of this encounter
--- OUTSIDE RECORDS SUMMARY | 2022-08-01 15:48 | XMS_ITS | Encounter Summary ---
:1950 Author Organization [facility] [place] [address] Care Team Providers Name Role Phone Nathaniel Smith MD Primary Care Provider Reason for Visit Reason Onset Date Comments Follow-up 01/22/2019 from [facility] advice repaul udakotah Encounter Details Date Type Department Care Team Description 01/22/2019 Telephone Cardiology at [facility] Christine Rodríguez RN Follow-up (from [facility] advice re quest) [place] [address] Social History Tobacco Use Types Packs/Day Years Used Date Smoking Tobacco: Never Smokeless Tobacco: Never Sex Assigned at Date Recorded Not on file documented as of this encounter Miscellaneous Notes Telephone Encounter - Christine Rodríguez RN - 01/22/2019 10:24 AM EDT TC to pt regarding ILR transmission & episodes of atrial fibrillation s/p Afib ablation on 01/[address] Bustos. ILR does show episodes of Afib, he reports he is not terribly symptomatic & can do daily activities, however when he attempts to walk up long flights of stairs/ performs physical he can become mildly SOB. HR 77 when checking on home monitor. He currently is on amiodarone taper (taking 400 mg BID for 7 days and then will drop to 200 mg daily), also taking Eliquis, & colchicine for pericarditis. He reports that he stopped the colchicine a few days ago, but has been having the same pericardial pain that he had during hospital stay when he lays on his sides. Notes that he typically likes to sleep on his sides because he when he does he does not have apnea. [place] as though pulse maybe dropped low in the middle of the night on Friday, Friday, & Friday. No decrease in pulse events seen on ILR per Neli Farias Discussed f/u plan with Sung Beatty. Recommended that pt could take low dose ibuprofen 200 mg per night (no more than 400 mg per day) If symptoms don't improve possible repeat echo within next 2 weeks. Pt was agreeable and verbalized understanding. Will call in the meantime with any further questions/concerns. documented in this encounter Plan of Treatment Not on filedocumented as of this encounter Visit Diagnoses Not on filedocumented in this encounter Care Teams Manufacturing Lead Relationship Specialty Start Date End Date Nathaniel Smith MD PCP - General Family Medicine 12/23/18 [address] [place] [address] documented as of this encounter
--- OUTSIDE RECORDS SUMMARY | 2022-08-01 15:48 | XMS_ITS | Encounter Summary ---
:1950 Author Organization [facility] [place] [address] Care Team Providers Name Role Phone Nathaniel Smith MD Primary Care Provider Encounter Details Date Type Department Care Team Description 01/26/2019 [place] [address] Social History Tobacco Use Types Packs/Day Years Used Date Smoking Tobacco: Never Smokeless Tobacco: Never Sex Assigned at Date Recorded Not on file documented as of this encounter Plan of Treatment Not on filedocumented as of this encounter Procedures Procedure Name Priority Date/Time Associated Diagnosis Comme nts CARDIAC DEVICE Routine 01/26/2019 6:22 PM Results for this CHECK - REMOTE EDT procedure are in the results section. documented in this encounter Results Cardiac Device Check - Remote (01/26/2019 6:22 PM EDT) Component Value Ref Test Analysis Performed Pathologis t Range Method Time At Signature Date Time [id number] IDCO Interrogation Session Implantable Medtronic IDCO Pulse Generator Pipe And Boiler Covers Supervisor Implantable LNQ11 IDCO Pulse Generator Model Implantable [id number] IDCO Pulse Generator Serial Number Type Remote IDCO Interrogation Session Implantable Implantable IDCO Pulse Generator Diagnostic Type Monitor Implantable [id number] IDCO Pulse Generator Implant Date Zone Setting 2,000 ms IDCO Detection Interval Zone Setting 3,000 ms IDCO Detection Interval Zone Setting AT/AF IDCO Type Category Zone Setting VF IDCO Type Category Zone Setting [place] IDCO Type Category Zone Setting 360 ms IDCO Detection Interval Battery Status OK IDCO Episode 2,025 IDCO Identifier Episode Type AT/AF IDCO Category Episode Date [id number] IDCO Time Episode Duration 120 s IDCO Episode 2,024 IDCO Identifier Episode Type AT/AF IDCO Category Episode Date [id number] IDCO Time Episode Duration 1,200 s IDCO Atrial Tachy [id number] IDCO Statistic Date Time Start Atrial Tachy [id number] IDCO Statistic Date Time End Atrial Tachy 1.2 % IDCO Statistic AT/AF [place] Percent Episode 0 IDCO Statistic Recent Count Episode 0 IDCO Statistic Recent Count Episode 0 IDCO Statistic Recent Count Episode 0 IDCO Statistic Recent Count Episode 0 IDCO Statistic Recent Count Episode Patient Activated IDCO Statistic Type Category Episode 4 IDCO Statistic Recent Count Episode AT/AF IDCO Statistic Type Category Episode [id number] IDCO Statistic Recent Date Time Start Episode [id number] IDCO Statistic Recent Date Time End Episode [id number] IDCO Statistic Recent Date Time Start Episode 68414677790155 IDCO Statistic Recent Date Time End Episode [id number] IDCO Statistic Recent Date Time Start Episode [id number] IDCO Statistic Recent Date Time End Episode 81310407345766 IDCO Statistic Recent Date Time Start Episode 24189498005477 IDCO Statistic Recent Date Time End Episode [id number] IDCO Statistic Recent Date Time Start Episode [id number] IDCO Statistic Recent Date Time End Episode [id number] IDCO Statistic Recent Date Time Start Episode 83872683957408 IDCO Statistic Recent Date Time End Episode 3 IDCO Statistic Total Count Episode 2 IDCO Statistic Total Count Episode 0 IDCO Statistic Total Count Episode 0 IDCO Statistic Total Count Episode 6 IDCO Statistic Total Count Episode Patient Activated IDCO Statistic Type Category Episode 4,810 IDCO Statistic Total Count Episode AT/AF IDCO Statistic Type Category Episode [id number] IDCO Statistic Total Date Time Start Episode 85179503899282 IDCO Statistic Total Date Time End Episode 45165521746877 IDCO Statistic Total Date Time Start Episode 74732189000377 IDCO Statistic Total Date Time End Episode 13227634873553 IDCO Statistic Total Date Time Start Episode 24323520256927 IDCO Statistic Total Date Time End Episode 82240151036112 IDCO Statistic Total Date Time Start Episode 88352792970225 IDCO Statistic Total Date Time End Episode [id number] IDCO Statistic Total Date Time Start Episode 38801966595831 IDCO Statistic Total Date Time End Episode 60316562109787 IDCO Statistic Total Date Time Start Episode 92801972266297 IDCO Statistic Total Date Time End Anatomical Region Laterality Modality Other Specimen (Source) Anatomical Collection Method Collection Time Re ceived Time Location / / Volume Laterality 01/26/2019 6:22 PM EDT Physician Cardiology IMPLANTABLE CARDIAC DEVICE documented in this encounter Visit Diagnoses Not on filedocumented in this encounter Care Teams Automotive Painter Relationship Specialty Start Date End Date Nathaniel Smith MD PCP - General Family Medicine 12/23/18 [address] [place] [address] documented as of this encounter
--- OUTSIDE RECORDS SUMMARY | 2022-08-01 15:48 | XMS_ITS | Encounter Summary ---
:1950 Author Organization [facility] [place] [address] Care Team Providers Name Role Phone Nathaniel Smith MD Primary Care Provider Encounter Details Date Type Department Care Team Description 01/21/2019 [place] [address] Social History Tobacco Use Types Packs/Day Years Used Date Smoking Tobacco: Never Smokeless Tobacco: Never Sex Assigned at Date Recorded Not on file documented as of this encounter Plan of Treatment Not on filedocumented as of this encounter Procedures Procedure Name Priority Date/Time Associated Diagnosis Comme nts CARDIAC DEVICE Routine 01/21/2019 4:03 PM Results for this CHECK - REMOTE EDT procedure are in the results section. documented in this encounter Results Cardiac Device Check - Remote (01/21/2019 4:03 PM EDT) Component Value Ref Test Analysis Performed Pathologis t Range Method Time At Signature Date Time [id number] IDCO Interrogation Session Implantable Medtronic IDCO Pulse Generator Radarman Implantable LNQ11 IDCO Pulse Generator Model Implantable [id number] IDCO Pulse Generator Serial Number Type Remote IDCO Interrogation Session Implantable Implantable IDCO Pulse Generator Diagnostic Type Monitor Implantable [id number] IDCO Pulse Generator Implant Date Zone Setting 2,000 ms IDCO Detection Interval Zone Setting 3,000 ms IDCO Detection Interval Zone Setting AT/AF IDCO Type Category Zone Setting VF IDCO Type Category Zone Setting [place] IDCO Type Category Zone Setting 360 ms IDCO Detection Interval Battery Status OK IDCO Episode 1,908 IDCO Identifier Episode Date 50538104607571 IDCO Time Episode Duration 4.55 s IDCO Episode 1,907 IDCO Identifier Episode Date 49486432250239 IDCO Time Episode Duration 7.07 s IDCO Episode 1,913 IDCO Identifier Episode Type Tachy IDCO Category Episode Date 24274421087974 IDCO Time Episode Duration 55 s IDCO Episode 1,912 IDCO Identifier Episode Type Tachy IDCO Category Episode Date 48815529341644 IDCO Time Episode Duration 175 s IDCO Episode 1,906 IDCO Identifier Episode Type Tachy IDCO Category Episode Date 88583033772816 IDCO Time Episode Duration 163 s IDCO Episode 1,975 IDCO Identifier Episode Type AT/AF IDCO Category Episode Date [id number] IDCO Time Episode Duration 22,080 s IDCO Episode 1,974 IDCO Identifier Episode Type AT/AF IDCO Category Episode Date [id number] IDCO Time Episode Duration 6,600 s IDCO Episode 1,973 IDCO Identifier Episode Type AT/AF IDCO Category Episode Date [id number] IDCO Time Episode Duration 720 s IDCO Episode 1,972 IDCO Identifier Episode Type AT/AF IDCO Category Episode Date [id number] IDCO Time Episode Duration 1,440 s IDCO Episode 1,971 IDCO Identifier Episode Type AT/AF IDCO Category Episode Date [id number] IDCO Time Episode Duration 480 s IDCO Episode 1,970 IDCO Identifier Episode Type AT/AF IDCO Category Episode Date [id number] IDCO Time Episode Duration 3,480 s IDCO Episode 1,969 IDCO Identifier Episode Type AT/AF IDCO Category Episode Date [id number] IDCO Time Episode Duration 360 s IDCO Episode 1,968 IDCO Identifier Episode Type AT/AF IDCO Category Episode Date [id number] IDCO Time Episode Duration 1,560 s IDCO Episode 1,967 IDCO Identifier Episode Type AT/AF IDCO Category Episode Date [id number] IDCO Time Episode Duration 120 s IDCO Episode 1,966 IDCO Identifier Episode Type AT/AF IDCO Category Episode Date [id number] IDCO Time Episode Duration 3,240 s IDCO Episode 1,965 IDCO Identifier Episode Type AT/AF IDCO Category Episode Date [id number] IDCO Time Episode Duration 1,440 s IDCO Episode 1,964 IDCO Identifier Episode Type AT/AF IDCO Category Episode Date [id number] IDCO Time Episode Duration 720 s IDCO Episode 1,963 IDCO Identifier Episode Type AT/AF IDCO Category Episode Date [id number] IDCO Time Episode Duration 480 s IDCO Episode 1,962 IDCO Identifier Episode Type AT/AF IDCO Category Episode Date [id number] IDCO Time Episode Duration 720 s IDCO Episode 1,961 IDCO Identifier Episode Type AT/AF IDCO Category Episode Date [id number] IDCO Time Episode Duration 4,800 s IDCO Episode 1,960 IDCO Identifier Episode Type AT/AF IDCO Category Episode Date [id number] IDCO Time Episode Duration 6,960 s IDCO Episode 1,959 IDCO Identifier Episode Type AT/AF IDCO Category Episode Date [id number] IDCO Time Episode Duration 600 s IDCO Episode 1,958 IDCO Identifier Episode Type AT/AF IDCO Category Episode Date [id number] IDCO Time Episode Duration 4,200 s IDCO Episode 1,957 IDCO Identifier Episode Type AT/AF IDCO Category Episode Date [id number] IDCO Time Episode Duration 15,480 s IDCO Episode 1,956 IDCO Identifier Episode Type AT/AF IDCO Category Episode Date [id number] IDCO Time Episode Duration 2,040 s IDCO Episode 1,955 IDCO Identifier Episode Type AT/AF IDCO Category Episode Date [id number] IDCO Time Episode Duration 7,920 s IDCO Episode 1,954 IDCO Identifier Episode Type AT/AF IDCO Category Episode Date [id number] IDCO Time Episode Duration 240 s IDCO Episode 1,953 IDCO Identifier Episode Type AT/AF IDCO Category Episode Date [id number] IDCO Time Episode Duration 3,960 s IDCO Episode 1,952 IDCO Identifier Episode Type AT/AF IDCO Category Episode Date [id number] IDCO Time Episode Duration 120 s IDCO Episode 1,951 IDCO Identifier Episode Type AT/AF IDCO Category Episode Date [id number] IDCO Time Episode Duration 600 s IDCO Episode 1,950 IDCO Identifier Episode Type AT/AF IDCO Category Episode Date [id number] IDCO Time Episode Duration 840 s IDCO Episode 1,949 IDCO Identifier Episode Type AT/AF IDCO Category Episode Date [id number] IDCO Time Episode Duration 840 s IDCO Episode 1,948 IDCO Identifier Episode Type AT/AF IDCO Category Episode Date IDCO Time Episode Duration 240 s IDCO Episode 1,947 IDCO Identifier Episode Type AT/AF IDCO Category Episode Date IDCO Time Episode Duration 1,200 s IDCO Episode 1,946 IDCO Identifier Episode Type AT/AF IDCO Category Episode Date [id number] IDCO Time Episode Duration 600 s IDCO Episode 1,945 IDCO Identifier Episode Type AT/AF IDCO Category Episode Date [id number] IDCO Time Episode Duration 2,160 s IDCO Episode 1,905 IDCO Identifier Episode Type AT/AF IDCO Category Episode Date IDCO Time Episode Duration 14,238,240 s IDCO Atrial Tachy 09759923237612 IDCO Statistic Date Time Start Atrial Tachy 73044333414996 IDCO Statistic Date Time End Atrial Tachy 96.8 % IDCO Statistic AT/AF [place] Percent Episode 3 IDCO Statistic Recent Count Episode 2 IDCO Statistic Recent Count Episode 0 IDCO Statistic Recent Count Episode 0 IDCO Statistic Recent Count Episode 0 IDCO Statistic Recent Count Episode Patient Activated IDCO Statistic Type Category Episode 75 IDCO Statistic Recent Count Episode AT/AF IDCO Statistic Type Category Episode [id number] IDCO Statistic Recent Date Time Start Episode 53890273853168 IDCO Statistic Recent Date Time End Episode 27757330792817 IDCO Statistic Recent Date Time Start Episode 04404559987496 IDCO Statistic Recent Date Time End Episode 33721749378659 IDCO Statistic Recent Date Time Start Episode 90033876188530 IDCO Statistic Recent Date Time End Episode 96245329386632 IDCO Statistic Recent Date Time Start Episode 56849997563440 IDCO Statistic Recent Date Time End Episode 30262601669558 IDCO Statistic Recent Date Time Start Episode [id number] IDCO Statistic Recent Date Time End Episode 46731679633397 IDCO Statistic Recent Date Time Start Episode 11700073129784 IDCO Statistic Recent Date Time End Episode 3 IDCO Statistic Total Count Episode 2 IDCO Statistic Total Count Episode 0 IDCO Statistic Total Count Episode 0 IDCO Statistic Total Count Episode 6 IDCO Statistic Total Count Episode Patient Activated IDCO Statistic Type Category Episode 4,720 IDCO Statistic Total Count Episode AT/AF IDCO Statistic Type Category Episode [id number] IDCO Statistic Total Date Time Start Episode 49257017371195 IDCO Statistic Total Date Time End Episode 44789314856313 IDCO Statistic Total Date Time Start Episode 54312522550947 IDCO Statistic Total Date Time End Episode 45667692246302 IDCO Statistic Total Date Time Start Episode 79185765844392 IDCO Statistic Total Date Time End Episode 77062577871140 IDCO Statistic Total Date Time Start Episode 74016170786126 IDCO Statistic Total Date Time End Episode 30983219335494 IDCO Statistic Total Date Time Start Episode 78037794088712 IDCO Statistic Total Date Time End Episode 96282879311364 IDCO Statistic Total Date Time Start Episode 73862035841526 IDCO Statistic Total Date Time End Anatomical Region Laterality Modality Other Specimen (Source) Anatomical Collection Method Collection Time Re ceived Time Location / / Volume Laterality 01/21/2019 4:03 PM EDT Physician Cardiology IMPLANTABLE CARDIAC DEVICE documented in this encounter Visit Diagnoses Not on filedocumented in this encounter Care Teams Outpatient Case Manager Relationship Specialty Start Date End Date Nathaniel Smith MD PCP - General Family Medicine 12/23/18 [address] [place] [address] documented as of this encounter
--- OUTSIDE RECORDS SUMMARY | 2022-08-01 15:48 | XMS_ITS | Encounter Summary ---
:1950 Author Organization [facility] [place] [address] Care Team Providers Name Role Phone Nathaniel Smith MD Primary Care Provider Encounter Details Date Type Department Care Team Description 02/04/2019 External Results Cardiology at [facility] [place] [address] Social History Tobacco Use Types Packs/Day Years Used Date Smoking Tobacco: Never Smokeless Tobacco: Never Sex Assigned at Date Recorded Not on file documented as of this encounter Plan of Treatment Not on filedocumented as of this encounter Procedures Procedure Name Priority Date/Time Associated Diagnosis Comme nts EP DEVICE SCAN Routine 01/21/2019 documented in this encounter Results Scan Doc: EP Device (01/21/2019) Anatomical Region Laterality Modality Other Narrative This result has an attachment that is no t available. Unknown MEDIA MGR SCAN EXT ORDR/RSLT documented in this encounter Visit Diagnoses Not on filedocumented in this encounter Care Teams Explosive Operator Bomb Relationship Specialty Start Date End Date Nathaniel Smith MD PCP - General Family Medicine 12/23/18 [address] [place] [address] documented as of this encounter
--- OUTSIDE RECORDS SUMMARY | 2022-08-01 15:48 | XMS_ITS | Encounter Summary ---
:1950 Author Organization [facility] [place] [address] Care Team Providers Name Role Phone Nathaniel Smith MD Primary Care Provider Encounter Details Date Type Department Care Team Description 10/28/2019 External [place] [address] Social History Tobacco Use Types Packs/Day Years Used Date Smoking Tobacco: Never Smokeless Tobacco: Never Sex Assigned at Date Recorded Not on file documented as of this encounter Plan of Treatment Not on filedocumented as of this encounter Procedures Procedure Name Priority Date/Time Associated Diagnosis Comme nts EP DEVICE SCAN Routine 12/07/2018 documented in this encounter Results Scan Doc: EP Device (12/07/2018) Anatomical Region Laterality Modality Other Narrative This result has an attachment that is no t available. Historical Provider MEDIA MGR SCAN EXT ORDR/RSLT documented in this encounter Visit Diagnoses Not on filedocumented in this encounter Care Teams Art Historian Relationship Specialty Start Date End Date Nathaniel Smith MD PCP - General Family Medicine 12/23/18 [address] [place] [address] documented as of this encounter
--- OUTSIDE RECORDS SUMMARY | 2022-08-01 15:48 | XMS_ITS | Encounter Summary ---
:1950 Author Organization [facility] Address [place] [id number] Care Team Providers Name Role Phone Nathaniel Smith MD Primary Care Provider Encounter Details Date Type Department Care Team Description 11/29/2020 Hospital Encounter Non-Invasive Myriam Bergeron Atrial flutter, Cardiology Lab Demetra Mari MD unspecified type [facility] [place], [place] [address] [place] [address] [phone] (Work) [phone] Social History Tobacco Use Types Packs/Day Years [...] Associated Comments Diagnosis ILR INTERROGATION 1 Routine 12/04/2020 8:31 AM Atrial flutter, Results for this MONTH EDT unspecified type procedure a re in the results section. documented in this encounter Results ILR INTERROGATION 1 MONTH (12/04/2020 8:31 AM EDT) Anatomical Region Laterality Modality Other Specimen (Source) Anatomical Location Collection Method / Collectio n Time Received Time / Laterality Volume Narrative 12/04/2020 11:16 AM EDT ILR Remote Transmission Interpretation Date of transmission: 11/29/2020 Date of implant: 08/14/2017 Device type: MDT Reveal LINQ Reason for implant: atrial flutter Battery: EOS since 11/06/2020 Presenting Rhythm: SR Events since 01/25/2020 Symptom: 0 Tachy: 4 Pause: 124 [place]: 0 AT: 0 AF: 13 All reviewed events are spurious represe nting oversensing (AF/tachy) and undersensing (pause) events. ??No arrhyt hmias seen. Conclusion(s): ? 1). Battery at EOS. ? 2). No arrhythmias seen. ? 3). Refer for consideration of de vice removal with or without replacement. Myriam Bergeron MD IMPLANTABLE CARDIAC DEVICE documented in this encounter Visit Diagnoses Diagnosis Atrial flutter, unspecified type documented in this encounter Care Teams Miner Helper Relationship Specialty Start Date End Date Nathaniel Smith MD PCP - General Family Medicine 12/23/18 [address] [place] [address] documented as of this encounter
--- OUTSIDE RECORDS SUMMARY | 2022-08-01 15:48 | XMS_ITS | Encounter Summary ---
:1950 Author Organization [facility] Address [place] [id number] Care Team Providers Name Role Phone Nathaniel Smith MD Primary Care Provider Encounter Details Date Type Department Care Team Description 07/30/2020 Hospital Encounter Non-Invasive Valentín Browne Atrial flutter, Cardiology Lab Demetra Bess MD unspecified type [facility] CARDIOLOGY DE PT. [place] [phone] Social History Tobacco Use Types Packs/Day Years [...] Associated Comments Diagnosis ILR INTERROGATION 1 Routine 07/31/2020 11:04 Atrial flutter, R esults for this MONTH AM EST unspecified type procedure a re in the results section. documented in this encounter Results ILR INTERROGATION 1 MONTH (07/31/2020 11:04 AM EST) Anatomical Region Laterality Modality Other Specimen (Source) Anatomical Location Collection Method / Collectio n Time Received Time / Laterality Volume Narrative 07/31/2020 12:54 PM EST Cardiac Device Remote Monitoring Report Summary Jobr 07/31/20 Device: ILR Model: LINQ [id number] Battery: Okay Events: The presenting rhythm appears to be sinu s rhythm Multiple pause events appear to repres ent undersensing Impression No significant arrhythmias, under sensin g and over sensing is seen Follow Up As per schedule - in-clinic and remote VALENTÍN BROWNE MD Valentín Browne MD IMPLANTABLE CARDIAC DEVICE documented in this encounter Visit Diagnoses Diagnosis Atrial flutter, unspecified type documented in this encounter Care Teams 1[address] Pressman Relationship Specialty Start Date End Date Nathaniel Smith MD PCP - General Family Medicine 12/23/18 [address] [place] [address] documented as of this encounter
--- OUTSIDE RECORDS SUMMARY | 2022-08-01 15:48 | XMS_ITS | Encounter Summary ---
:1950 Author Organization [facility] [place] [address] Care Team Providers Name Role Phone Nathaniel Smith MD Primary Care Provider Encounter Details Date Type Department Care Team Description 05/02/2020 Notes Only Cardiology at [facility] Willard Hayes MD [facility] [place] [address] [place] [address] [phone] (Wo rk) Social History Tobacco Use Types Packs/Day Years Used Date Smoking Tobacco: Never Smokeless Tobacco: Never Sex Assigned at Date Recorded Not on file documented as of this encounter Progress Notes Willard Hayes MD - 05/02/2020 12:52 PM EDT MDT ILR remote reviewed. Battery OK. Since March 31, 2020: 33 pauses. 12 episodes are available for review from March 31 to April 24. All represent sinus rhythm with undersensing and not true pauses. 1 AF episode. Not available for review. No details. Willard Hayes MD [facility] Cardiac Electrophysiology 05/02/2020 12:57 PM documented in this encounter Plan of Treatment Not on filedocumented as of this encounter Visit Diagnoses Not on filedocumented in this encounter Care Teams Box Car Checker Relationship Specialty Start Date End Date Nathaniel Smith MD PCP - General Family Medicine 12/23/18 [address] [place] [address] documented as of this encounter
--- OUTSIDE RECORDS SUMMARY | 2022-08-01 15:49 | XMS_ITS | Encounter Summary ---
:1950 Author Organization [facility] [place] [address] Care Team Providers Name Role Phone Nathaniel Smith MD Primary Care Provider Reason for Visit Diagnostic Test (Routine) - Closed Specialty Diagnoses / Procedures Referred By Contact Refer red To Contact Radiology Diagnoses Typical atrial flutter Shantal Louie, DO [facility] Rad Mri Procedures MRI Cardiac Morph Func wwo Contrast [facility] [place] [address] [place] [address] Referral ID Status Reason Start Date Expiration Date Visits V isits Requested Authorized [id number] Closed Specialty 02/12/2018 02/12/2019 1 1 Service Requested Encounter Details Date Type Department Care Team Description 07/20/2018 [address] Encounter MRI at [facility] Valentín Browne MD [facility] [place] [address] CARDIOLOGY DEPT. [phone] [place], [place] [address] (Wo rk) Social History Tobacco Use Types Packs/Day Years Used Date Smoking Tobacco: Never Smokeless Tobacco: Never Sex Assigned at Date Recorded Not on file documented as of this encounter Medications at Time of Discharge Medication Sig Dispensed Refills Start Date End Date pindolol (VISKEN) 5 mg Take 1 tablet by mouth 60 tablet 0 02/12/2018 07/30/2018 Tablet 2 times daily. chlorhexidine Apply topically daily 120 mL 0 02/12/2018 07/30/2018 (HIBICLENS) 4 % Liquid as needed. Shower/bathe from head to toe with Chlorhexidine the night before the procedure and the morning of the procedure. . ELIQUIS 5 mg Tablet Take 5 mg by mouth 2 0 201707/30/2018 times daily. finasteride (PROSCAR) 5 Take 5 mg by mouth. 0 04/201805/29/2021 mg Tablet tamsulosin (FLOMAX) 0.4 Take 0.4 mg by mouth. 0 0 02/07/2018 05/29/2021 mg Capsule, Sust. Release 24 hr documented as of this encounter Plan of Treatment Not on filedocumented as of this encounter Procedures Procedure Name Priority Date/Time Associated Comments Diagnosis MRI CARDIAC Routine 07/20/2018 11:17 AM Typical atrial Result s for this MORPHOLOGY FUNCTION EST flutter procedur e are in WWO CONTRAST the results section. documented in this encounter Visit Diagnoses Not on filedocumented in this encounter Administered Medications Inactive Administered Medications - up to 3 most recent administrations Medication Order MAR Action Action Date Dose Rate Site gadoterate meglumine (DOTAREM) Given 07/20/2018 10:32 AM EST 30 mLs 0.5 mmol/mL (376.9 mg/mL) injection 0-20 mL/kg/dose 0-20 mL/kg/dose, Intravenous, ONCE PRN, 1 dose, Starting on Fri07/20/18 at 1116, Until Fri07/20/18 at 1032, Per Protocol, Radiology Contrast, Routine documented in this encounter Care Teams Juvenile Corrections Officer Relationship Specialty Start Date End Date Nathaniel Smith MD PCP - General Family Medicine 04/22/17 08/11/18 [address] [place] [address] documented as of this encounter
--- OUTSIDE RECORDS SUMMARY | 2022-08-01 15:49 | XMS_ITS | Encounter Summary ---
:1950 Author Organization [place] [address] Care Team Providers Name Role Phone Nathaniel Smith MD Primary Care Provider Encounter Details Date Type Department Care Team Description 08/10/2018 [place] [address] Social History Tobacco Use Types Packs/Day Years Used Date Smoking Tobacco: Never Smokeless Tobacco: Never Sex Assigned at Date Recorded Not on file documented as of this encounter Plan of Treatment Not on filedocumented as of this encounter Procedures Procedure Name Priority Date/Time Associated Diagnosis Comme nts CARDIAC DEVICE Routine 08/10/2018 1:16 PM Results for this CHECK - REMOTE EST procedure are in the results section. documented in this encounter Results Cardiac Device Check - Remote (08/10/2018 1:16 PM EST) Component Value Ref Test Analysis Performed Pathologis t Range Method Time At Signature Date Time [id number] IDCO Interrogation Session Implantable Medtronic IDCO Pulse Generator Embroidery Machine Operator Implantable [id number] IDCO Pulse Generator Model Implantable [id number] IDCO Pulse Generator Serial Number Type Remote IDCO Interrogation Session Implantable Implantable IDCO Pulse Generator Diagnostic Type Monitor Implantable [id number] IDCO Pulse Generator Implant Date Zone Setting 2,000 ms IDCO Detection Interval Zone Setting 3,000 ms IDCO Detection Interval Zone Setting AT/AF IDCO Type Category Zone Setting VF IDCO Type Category Zone Setting [place] IDCO Type Category Zone Setting 360 ms IDCO Detection Interval Battery Status OK IDCO Episode 1,905 IDCO Identifier Episode Type AT/AF IDCO Category Episode Date [id number] IDCO Time Episode Duration 740,760 s IDCO Episode 1,904 IDCO Identifier Episode Type AT/AF IDCO Category Episode Date [id number] IDCO Time Episode Duration 360 s IDCO Episode 1,903 IDCO Identifier Episode Type AT/AF IDCO Category Episode Date [id number] IDCO Time Episode Duration 840 s IDCO Episode 1,902 IDCO Identifier Episode Type AT/AF IDCO Category Episode Date [id number] IDCO Time Episode Duration 129,600 s IDCO Episode 1,901 IDCO Identifier Episode Type AT/AF IDCO Category Episode Date [id number] IDCO Time Episode Duration 7,080 s IDCO Episode 1,900 IDCO Identifier Episode Type AT/AF IDCO Category Episode Date [id number] IDCO Time Episode Duration 480 s IDCO Episode 1,899 IDCO Identifier Episode Type AT/AF IDCO Category Episode Date [id number] IDCO Time Episode Duration 840 s IDCO Episode 1,898 IDCO Identifier Episode Type AT/AF IDCO Category Episode Date [id number] IDCO Time Episode Duration 240 s IDCO Episode 1,897 IDCO Identifier Episode Type AT/AF IDCO Category Episode Date [id number] IDCO Time Episode Duration 360 s IDCO Episode 1,896 IDCO Identifier Episode Type AT/AF IDCO Category Episode Date [id number] IDCO Time Episode Duration 5,040 s IDCO Episode 1,895 IDCO Identifier Episode Type AT/AF IDCO Category Episode Date [id number] IDCO Time Episode Duration 240 s IDCO Episode 1,894 IDCO Identifier Episode Type AT/AF IDCO Category Episode Date [id number] IDCO Time Episode Duration 2,640 s IDCO Episode 1,893 IDCO Identifier Episode Type AT/AF IDCO Category Episode Date [id number] IDCO Time Episode Duration 600 s IDCO Episode 1,892 IDCO Identifier Episode Type AT/AF IDCO Category Episode Date [id number] IDCO Time Episode Duration 1,800 s IDCO Episode 1,891 IDCO Identifier Episode Type AT/AF IDCO Category Episode Date [id number] IDCO Time Episode Duration 285,600 s IDCO Episode 1,890 IDCO Identifier Episode Type AT/AF IDCO Category Episode Date [id number] IDCO Time Episode Duration 216,360 s IDCO Episode 1,889 IDCO Identifier Episode Type AT/AF IDCO Category Episode Date [id number] IDCO Time Episode Duration 3,120 s IDCO Episode 1,888 IDCO Identifier Episode Type AT/AF IDCO Category Episode Date [id number] IDCO Time Episode Duration 20,880 s IDCO Episode 1,887 IDCO Identifier Episode Type AT/AF IDCO Category Episode Date [id number] IDCO Time Episode Duration 17,040 s IDCO Atrial Tachy 22105802747142 IDCO Statistic Date Time Start Atrial Tachy 67250571597119 IDCO Statistic Date Time End Atrial Tachy 39 % IDCO Statistic AT/AF [place] Percent Episode 0 IDCO Statistic Recent Count Episode 0 IDCO Statistic Recent Count Episode 0 IDCO Statistic Recent Count Episode 0 IDCO Statistic Recent Count Episode 0 IDCO Statistic Recent Count Episode Patient Activated IDCO Statistic Type Category Episode 18 IDCO Statistic Recent Count Episode AT/AF IDCO Statistic Type Category Episode [id number] IDCO Statistic Recent Date Time Start Episode [id number] IDCO Statistic Recent Date Time End Episode 39862925578919 IDCO Statistic Recent Date Time Start Episode 24244318671648 IDCO Statistic Recent Date Time End Episode 95426601249525 IDCO Statistic Recent Date Time Start Episode 12537794372730 IDCO Statistic Recent Date Time End Episode 13066914195537 IDCO Statistic Recent Date Time Start Episode 56024788915119 IDCO Statistic Recent Date Time End Episode [id number] IDCO Statistic Recent Date Time Start Episode 18828444323647 IDCO Statistic Recent Date Time End Episode 77655490585457 IDCO Statistic Recent Date Time Start Episode 75128181283264 IDCO Statistic Recent Date Time End Episode 0 IDCO Statistic Total Count Episode 0 IDCO Statistic Total Count Episode 0 IDCO Statistic Total Count Episode 0 IDCO Statistic Total Count Episode 6 IDCO Statistic Total Count Episode Patient Activated IDCO Statistic Type Category Episode 4,645 IDCO Statistic Total Count Episode AT/AF IDCO Statistic Type Category Episode 14970080033426 IDCO Statistic Total Date Time Start Episode 36764297549094 IDCO Statistic Total Date Time End Episode 99005679710927 IDCO Statistic Total Date Time Start Episode 76605099350986 IDCO Statistic Total Date Time End Episode 22898379060652 IDCO Statistic Total Date Time Start Episode 88961746139361 IDCO Statistic Total Date Time End Episode 47387380005222 IDCO Statistic Total Date Time Start Episode 78174447450396 IDCO Statistic Total Date Time End Episode 19054999834696 IDCO Statistic Total Date Time Start Episode 34490520374365 IDCO Statistic Total Date Time End Episode 87074697505027 IDCO Statistic Total Date Time Start Episode 50405616332838 IDCO Statistic Total Date Time End Anatomical Region Laterality Modality Other Specimen (Source) Anatomical Collection Method Collection Time Re ceived Time Location / / Volume Laterality 08/10/2018 1:16 PM EST Physician Cardiology IMPLANTABLE CARDIAC DEVICE documented in this encounter Visit Diagnoses Not on filedocumented in this encounter Care Teams Facility Administrator Relationship Specialty Start Date End Date Nathaniel Smith MD PCP - General Family Medicine 04/22/17 08/11/18 [address] [place] [address] documented as of this encounter
--- OUTSIDE RECORDS SUMMARY | 2022-08-01 15:49 | XMS_ITS | Encounter Summary ---
:1950 Author Organization [place] [address] Care Team Providers Name Role Phone None Primary Care Provider Unavailable Reason for Visit Reason Onset Date Comments Referral 04/21/2014 Encounter Details Date Type Department Care Team Description 04/21/2014 Telephone [place] [facility] [place] [address] Social History Tobacco Use Types Packs/Day Years Used Date Smoking Tobacco: Never Assessed Sex Assigned at Date Recorded Not on file documented as of this encounter Miscellaneous Notes Telephone Encounter - Rica Mejia - 05/05/2014 5:55 PM EDT Complete. Telephone Encounter - Alessandra Melchor - 04/26/2014 8:44 AM EDT Received 2 pages of office notes from [facility], for the patients upcoming appointment. List what was rec'd. MRI REPORT Telephone Encounter - Alessandra Melchor - 04/21/2014 8:54 AM EDT Ask patient to verify the following: Full name: Pritesh Cardona : 1950 Phone number: [phone] (home) [place]ailing address: [place] [address] AGE: 63 y.o. REASON FOR APPOINTMENT: L ACHILLES TENDON PAIN - 2ND OPINION How long have you had these symptoms? (days, weeks, months, years) Is this WORKERS COMP? If YES ? SINCE DECEMBER DOI: Records Retrieval What? When? (m/d/y) Where? (facility) Who? Notes: Checklist Physical exam w/in last year? X-rays 03/08/14 [facility] MRI 04/14/[address] Scan Physical Therapy Injection Other diagnostic studies Other therapies Other Specialist(s) 03/08/14 DR. DALE VASQUEZ If 2nd (+) opinion get info on previous; book with MD only ? Have you had any surgeries for this issue? Operative report Did surgery include placement of implant/hardware or fixation of any kind? Implant stickers Do you have a [facility] account? If ???NO?? deploy dotphrase: MYDHPATIENTINSTRUCTIONS documented in this encounter Plan of Treatment Not on filedocumented as of this encounter Visit Diagnoses Not on filedocumented in this encounter Care Teams Management Analyst Relationship Specialty Start Date End Date None PCP - General 07/24/10 04/21/17 None documented as of this encounter
--- OUTSIDE RECORDS SUMMARY | 2022-08-01 15:49 | XMS_ITS | Encounter Summary ---
:1950 Author Organization [facility] [place] [address] Care Team Providers Name Role Phone Nathaniel Smith MD Primary Care Provider Encounter Details Date Type Department Care Team Description 06/29/2018 [place] [address] Social History Tobacco Use Types Packs/Day Years Used Date Smoking Tobacco: Never Smokeless Tobacco: Never Sex Assigned at Date Recorded Not on file documented as of this encounter Plan of Treatment Not on filedocumented as of this encounter Procedures Procedure Name Priority Date/Time Associated Diagnosis Comme nts CARDIAC DEVICE Routine 06/29/2018 4:27 AM Results for this CHECK - REMOTE EDT procedure are in the results section. documented in this encounter Results Cardiac Device Check - Remote (06/29/2018 4:27 AM EDT) Component Value Ref Test Analysis Performed Pathologis t Range Method Time At Signature Date Time [id number] IDCO Interrogation Session Implantable Medtronic IDCO Pulse Generator Auto Club Travel Counselor Implantable [id number] IDCO Pulse Generator Model Implantable [id number] IDCO Pulse Generator Serial Number Type Remote IDCO Interrogation Session Implantable Implantable IDCO Pulse Generator Diagnostic Type Monitor Implantable [id number] IDCO Pulse Generator Implant Date Zone Setting 2,000 ms IDCO Detection Interval Zone Setting 3,000 ms IDCO Detection Interval Zone Setting AT/AF IDCO Type Category Zone Setting VF IDCO Type Category Zone Setting VT IDCO Type Category Zone Setting 360 ms IDCO Detection Interval Battery Status OK IDCO Episode 1,887 IDCO Identifier Episode Type AT/AF IDCO Category Episode Date [id number] IDCO Time Episode Duration 6,000 s IDCO Episode 1,886 IDCO Identifier Episode Type AT/AF IDCO Category Episode Date [id number] IDCO Time Episode Duration 720 s IDCO Episode 1,885 IDCO Identifier Episode Type AT/AF IDCO Category Episode Date [id number] IDCO Time Episode Duration 120 s IDCO Episode 1,884 IDCO Identifier Episode Type AT/AF IDCO Category Episode Date [id number] IDCO Time Episode Duration 360 s IDCO Episode 1,883 IDCO Identifier Episode Type AT/AF IDCO Category Episode Date 96496422112053 IDCO Time Episode Duration 18,480 s IDCO Atrial Tachy [id number] IDCO Statistic Date Time Start Atrial Tachy 84477909304875 IDCO Statistic Date Time End Atrial Tachy 0.2 % IDCO Statistic AT/AF [place] Percent Episode 0 IDCO Statistic Recent Count Episode 0 IDCO Statistic Recent Count Episode 0 IDCO Statistic Recent Count Episode 0 IDCO Statistic Recent Count Episode 0 IDCO Statistic Recent Count Episode Patient Activated IDCO Statistic Type Category Episode 5 IDCO Statistic Recent Count Episode AT/AF IDCO Statistic Type Category Episode [id number] IDCO Statistic Recent Date Time Start Episode 52696868017236 IDCO Statistic Recent Date Time End Episode 78486843549366 IDCO Statistic Recent Date Time Start Episode 23122291331942 IDCO Statistic Recent Date Time End Episode 19551202638963 IDCO Statistic Recent Date Time Start Episode 27129686820530 IDCO Statistic Recent Date Time End Episode 85803692660593 IDCO Statistic Recent Date Time Start Episode 78316111988603 IDCO Statistic Recent Date Time End Episode 30065409921662 IDCO Statistic Recent Date Time Start Episode 96012724824202 IDCO Statistic Recent Date Time End Episode 82771209493567 IDCO Statistic Recent Date Time Start Episode 95042406092358 IDCO Statistic Recent Date Time End Episode 0 IDCO Statistic Total Count Episode 0 IDCO Statistic Total Count Episode 0 IDCO Statistic Total Count Episode 0 IDCO Statistic Total Count Episode 6 IDCO Statistic Total Count Episode Patient Activated IDCO Statistic Type Category Episode 4,627 IDCO Statistic Total Count Episode AT/AF IDCO Statistic Type Category Episode [id number] IDCO Statistic Total Date Time Start Episode 24762192400782 IDCO Statistic Total Date Time End Episode 72602194006447 IDCO Statistic Total Date Time Start Episode 35170116463431 IDCO Statistic Total Date Time End Episode 65539102897254 IDCO Statistic Total Date Time Start Episode 03714432999835 IDCO Statistic Total Date Time End Episode 74463224478958 IDCO Statistic Total Date Time Start Episode 54380227887162 IDCO Statistic Total Date Time End Episode 94560674581325 IDCO Statistic Total Date Time Start Episode 08391012306698 IDCO Statistic Total Date Time End Episode 98977547687278 IDCO Statistic Total Date Time Start Episode 66442130829484 IDCO Statistic Total Date Time End Anatomical Region Laterality Modality Other Specimen (Source) Anatomical Collection Method Collection Time Re ceived Time Location / / Volume Laterality 06/29/2018 4:27 AM EDT Physician Cardiology IMPLANTABLE CARDIAC DEVICE documented in this encounter Visit Diagnoses Not on filedocumented in this encounter Care Teams Global Recruiter Relationship Specialty Start Date End Date Nathaniel Smith MD PCP - General Family Medicine 04/22/17 08/11/18 [address] [place] [address] documented as of this encounter
--- OUTSIDE RECORDS SUMMARY | 2022-08-01 15:49 | XMS_ITS | Encounter Summary ---
:1950 Author Organization [facility] [address] Care Team Providers Name Role Phone Nathaniel Smith MD Primary Care Provider Reason for Visit Diagnostic Test (Routine) - Closed Specialty Diagnoses / Procedures Referred By Contact Refer red To Contact Radiology Diagnoses Typical atrial flutter Shantal Louie, DO [facility] Rad Mri Procedures MRI Cardiac Morph Func wwo Contrast [facility] [place] [address] [place] [address] Referral ID Status Reason Start Date Expiration Date Visits V isits Requested Authorized [id number] Closed Specialty 02/12/2018 02/12/2019 1 1 Service Requested Encounter Details Date Type Department Care Team Description 04/20/2018 Hospital Encounter [place] [facility] [place] Browne Canceled ([facility] MD Shahriar LONGER NEEDED) [place], [place] CENTER [address] CARDIOLOGY DEPT. [phone] [place] [address] Social History Tobacco Use Types Packs/Day Years [...] filedocumented in this encounter Care Teams Nuclear Plant Operator Relationship Specialty Start Date End Date Nathaniel Smith MD PCP - General Family Medicine 04/22/17 08/11/18 [address] [place] [address] documented as of this encounter
--- OUTSIDE RECORDS SUMMARY | 2022-08-01 15:49 | XMS_ITS | Encounter Summary ---
:1950 Author Organization [facility] [place] [address] Care Team Providers Name Role Phone Nathaniel Smith MD Primary Care Provider Reason for Referral Diagnostic Test (Routine) - Closed Specialty Diagnoses / Procedures Referred By Contact Refer red To Contact Radiology Diagnoses Typical atrial flutter Shantal Louie, DO [facility] Rad Mri Procedures MRI Cardiac Morph Func wwo Contrast [facility] [place] [address] [place] [address] Referral ID Status Reason Start Date Expiration Date Visits V isits Requested Authorized [id number] Closed Specialty 02/12/2018 02/12/2019 1 1 Service Requested Reason for Visit Consultation (Routine) - Closed Specialty Diagnoses / Referred By Referred To Cont act Procedures Contact Electrophysiology / Diagnoses AFNathaniel Siddiqui [facility] Cardiology 4a Cardiology MD Michelle [facility] [address] [place], [place] [address] [place] [address] Phone: [phone] Referral ID Status Reason Start Date Expiration Date Visits V isits Requested Authorized [id number] Closed Consult, 12/30/2017 12/30/2018 1 1 Test & Treat Encounter Details Date Type Department Care Team Description 02/12/2018 Office Visit [place] [facility] [place] Raphael Browne S, Probable seizure disorder; [facility] MD History of loop recorder; Drive [facility] Persistent atrial fibrillati on; [place], [place] Typical atrial flutter [id number] CARDIOLOGY DEPT. [phone] [place] [address] Social History Tobacco Use Types Packs/Day Years Used Date Smoking Tobacco: Never Smokeless Tobacco: Never Sex Assigned at Date Recorded Not on file documented as of this encounter Last Filed Vital Signs Vital Sign Reading Time Taken Comments Blood Pressure 113/68 02/12/2018 8:49 AM EDT Pulse 52 02/12/2018 8:49 AM EDT Temperature - - Respiratory Rate - - Oxygen Saturation 100% 02/12/2018 8:49 AM EDT Inhaled Oxygen Concentration - - Weight 74.8 kg (165 lb) 02/12/2018 8:49 AM EDT Height 176.5 cm (5' 9.5) 02/12/2018 8:49 AM EDT Body Mass Index 24.02 02/12/2018 8:49 AM EDT documented in this encounter Progress Notes Shantal Louie, DO - 02/12/2018 8:40 AM EDT Images from the original note were not included. Section of Cardiology/Cardiac Electrophysiology Clinical Cardiac Electrophysiology Consult Patient ID Pritesh Cardona 1950 [id number] Pritesh Cardona is referred to the EP clinic by self History Mr. Cardona is a 67 year old male who was diagnosed with AF last March when he his called EMS lenny episode of ?apnea, loss of consciousness and possible seizure like activity during his sleep. He had presented to the hospital and was found to be in AF. He then underwent multiple cardioversion, once with Tikosyn in June 2017 but then had recurrent AF and was taken off. He then opted for a surgical AF ablation and went to [place] where he underwent '(Phillips) mini MAZE' entailing bilateral LA antral isolation, partial cardiac denervation, EP study, MACKENZIE closure with Atriclip. Post op day 9 he returned with AFL and required DCCV and a MDT LINQ loop recorder was implanted. He was placed on Amiodarone for 3 months. He returned to [place] where he required another DCCV in October which Mr. Cardona reports was for Atrial fibrillation while on Amiodarone. He is presenting today to establish care with us and get an opinion on his Atrial flutter management. His presenting rhythm today to [facility] is rate controlled atrial flutter at VR of 98 bpm, Flutter CL Around 240 ms. He stopped Amiodarone sometime in October or November. He is only on Eliquis and not on any AVN artem due to reported history of plummeting heart rate from 90's to 40's with symptoms. He is not symptomatic at rest or with moderate exertion but when he is performing heavy exertion (bike rides, skiis) he feels winded. He expresses a strong interest in going back to sinus rhythm and avoiding use of any antiarrhythmic drugs (Tikosyn due to lack of benefit and Amiodarone due to risk of fci side effects). Problem List Patient Active Problem List Diagnosis ??? 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 Persistent atrial fibrillation Phillips mini maze (bilateral left antral isolation, partial cardiac denervation, intraoperative EP testing & closure of left atrial appendage), transesophageal echo, intraoperative cardioversion ??? History of loop recorder Placed 08/14/17 - [employer] Reveal LINQ serial #[id number] Review of Systems ROS. 12 point ROS was discussed and otherwise was found to be negative. Meds Current Outpatient Prescriptions Medication Sig Dispense Refill ??? ELIQUIS 5 mg Tablet Take 5 mg by mouth 2 times daily. 0 ??? finasteride (PROSCAR) 5 mg Tablet Take 5 mg by mouth. 0 ??? tamsulosin (FLOMAX) 0.4 mg Capsule, Sust. Release 24 hr Take 0.4 mg by mouth. 0 No current facility-administered medications for this visit. Social History Social History Social History ??? Marital status: Spouse name: N/A ??? Number of children: N/A ??? Years of education: N/A Social History Main Topics ??? Smoking status: Never Smoker ??? Smokeless tobacco: Never Used ??? Alcohol use None ??? Drug use: None ??? Sexual activity: Not Asked Other Topics Concern ??? None Social History Narrative [place] Family History No family history on file. Exam Most Recent Vitals: 02/12/18 0849 BP: 113/68 Pulse: 52 SpO2: 100% Physical Exam Gen: Appears well, no acute distress Neck: no thyromegaly Lungs: CTA b/l, no w/r/r Cardiac: Somewhat distant heart sounds, somewhat irregular rate and rhythm, S1, S2, no murmurs or gallops, no rubs Abd: Soft, NT/ND Ext: Warm, no edema Neuro: No focal deficits Skin: Warm, no new rashes, healed chest incisional scars MSK: Intact ROM in all extremities I have personally reviewed the ECG: Typical appearing atrial flutter with 2:1 to 3:1 conduction, at 98 bpm Impression 1. Typical atrial flutter on EKG with atrial CL ~240-250 ms anticoagulated with Eliquis cannot rule out left sided flutter given history of extensive LA surgical ablation 2. History of mini - MAZE in [place] 08/17: b/l antral isolation with entrance block proven, partialcardiac denervation, EPS, MACKENZIE closure - Maintained on Amiodarone for 3-4 months post ablation till October or November 2017 3. Symptoms primary related to heavy exertion with shortness of breath 4. S/p DCCV at [facility] in Oct 2017 while being maintained on Amiodarone - ? If this was cardioversion for AF or AFL. Will need to get records. Discussion: We had an extensive discussion regarding approach to his atrial flutter. Review of the scanned document from [facility] don't indicate any right atrial circuit ablation nor elicitation of any AFL during their EPS. Post op day 9 he had presented there in atrial flutter per their reports and required DCCV and ILR implantation. We interrogated the ILR today but most of the data is from January and not recorded between September and January. It would also be important to find out if [facility] cardioverted him for AF or AFL. We reviewed that his EKG is consistent with a typical RA counterclockwise flutter but given his extensive left atrial ablation, there is a chance this could be a LA macro reentrant circuit. He stated intolerance to AVN blockers and is not interested in being on antiarrhythmic drug therapy and wishes to pursue ablation whether it is RA or LA involvement. Considering his complex LA ablation, we reviewed that his procedure will be planned as if this is will be LA flutter and require LA mapping. But an initial EPS will determine that on the day of the procedure. Recommendations / Plan A) Start Pindolol 5 mg BID. B) Obtained baseline echocardiogram C) Plan for EPS and Atrial flutter ablation. Although expect RA/CTI dependent flutter, cannot rule out LA flutter and therefore will plan the case as such. If LA mapping is needed, Rhythmia system would be better suited for low amplitude signal mapping. D) CMR for LA /PV topography (MACKENZIE clip is MRI conditional) E) Hold Eliquis for 2 doses (morning off and the night before), anticipate needing a SHANIA preprocedurally since it seem to be a persistent flutter on ILR interrogation. F) Submit request to [employer] to have his IL[place] download forwarded [place] [facility] [place] than [facility] G) Get records from [facility] related to most recent cardioversion (?AF vs AFL cardioverted). H) We discussed the importance of a centralized care. He wishes to stay with [facility] [place] further [place]. I) Get results of his sleep study from [facility] ([place], [place]). His episode of ?LOC/Seizure is suspicious for an apneic event vs ? Conversion pause. Patient states being diagnosed with mild SHERI with no therapy needed. Above case was discussed with Dr. Browne, recommendations reflect our discussion together. Shantal Louie, Cardiac Electrophysiology Fellow Cc: Nathaniel Smith MD Addendum I personally interviewed and saw the patient, discussed in detail with Dr Louie The above note reflects our discussion Mr. Cardona presents with what appears to be a counter-clockwise right atrial flutter; he has likely been in this for a number of weeks (based on his ILR interrogation, where there may be some undersensing apparent) With a slightly elevated heart rate in clinic today, and atrial flutter; and a prior history of mildhypokinesis on echo, I think it is reasonable to at least introduce a low dose of beta-artem. Pindolol may be a reasonable option given his intrinsic sympathomimetic activity. I think it is also reasonable to obtain an interval echocardiogram, to evaluate if there has been some return in LV function, but it is still mildly depressed. It seems also reasonable to proceed with what appears to be right atrial flutter ablation, given thehistory of extensive left atrial surgical ablation, this may jewel bearing turner to be a left atrial macro reentrant arrhythmia. Nonetheless, he is keen to proceed with EPS and ablation. Plan as above RAPHAEL BROWNE MD documented in this encounter Plan of Treatment Not on filedocumented as of this encounter Procedures Procedure Name Priority Date/Time Associated Diagnosis Comme nts IMPLANTABLE DEVICES 02/24/2018 12:00 Resu lts for this SCAN AM EDT procedure are i n the results section. EKG 12-LEAD Routine 02/12/2018 8:54 AM Persistent atrial Resu lts for this EDT fibrillation procedure are i n the results section. documented in this encounter Results MRI Cardiac Morph Fun wwo Contrast (07/20/2018 11:17 AM EST) Anatomical Region Laterality Modality Magnetic Resonance Specimen (Source) Anatomical Location Collection Method / Collectio n Time Received Time / Laterality Volume Impressions 07/21/2018 9:43 AM EST 1. ??Preserved left and right ventricular function 2. ??Pulmonary angiography as noted abov e 3. ??No delayed enhancement to suggest p revious infarct, myocarditis, or infiltrative disease of the left or righ t ventricle Narrative 07/21/2018 9:43 AM EST EXAMINATION: MRI CARDIAC MORPH FUN WWO CONTRAST CLINICAL HISTORY: Preprocedural planning for AF ablation, assess PV anatomy, has history of MACKENZIE clipping and has ILR (MRI conditional) COMPARISON: None TECHNIQUE: Right iliac MRI with and with out IV contrast IV CONTRAST: 30 mL Dotarem FUNCTIONAL ANALYSIS: LEFT VENTRICLE: End-diastolic volume 194 mL End-systolic volume 91 mL Stroke volume 103 mL Ejection fraction 53% End-diastolic width 5.3 cm End-systolic with 4.1 cm Septum 0.8 cm Inferolateral wall 0.8 cm RIGHT VENTRICLE: End-diastolic volume 162 mL End-systolic volume 64 mL Stroke volume 98 mL Ejection fraction 60% FINDINGS: Chambers: At rest, the left ventricle is normal in size and function. Quantitated left ventricular ejection fraction is 53%. No regional wall motion abnormalities are present. The right ventricle appears nor mal in size and function. Right ventricular ejection fraction is 60%. Mo derate biatrial enlargement is present. The interventricular and interatrial sep ellen appear intact. The aortic root is normal in size. There is no significant pericardial effusion present. Valves: The mitral valve appears normal in struc ture and function without stenosis or regurgitation present. The tricuspid amilcar ve appears normal in structure and function with trace tricuspid insufficie ncy and no stenosis present. The aortic valve appears normal in structure and fu nction without stenosis or regurgitation present. The pulmonic valve is not well visualized on the study. Pulmonary angiography: 4 pulmonary veins are seen entering the left atrium. Measurements are: Right superior: 1.7 cm x 2.7 cm Right inferior 1.1 cm x 1.5 cm Left superior 1.1 cm x 2.0 cm Left inferior 0.8 cm x 1.7 cm Left atrium: 4.4 x 2.5 x 5.8 cm Delayed enhancement: Delayed enhancement was performed in bot h long and short axis planes. No left ventricular delayed enhancement is noted . Some right atrial fibrosis is noted. No significant left atrial fibrosis is p resent. Procedure Note Ger Miner MD - 07/21/2018Formatt ing of this note might be different from the original. EXAMINATION: MRI CARDIAC MORPH FUNC WWO CONTRAST CLINICAL HISTORY: Preprocedural planning for AF ablation, assess PV anatomy, has history of MACKENZIE clipping and has ILR (MRI conditional) COMPARISON: None TECHNIQUE: Right iliac MRI with and with out IV contrast IV CONTRAST: 30 mL Dotarem FUNCTIONAL ANALYSIS: LEFT VENTRICLE: End-diastolic volume 194 mL End-systolic volume 91 mL Stroke volume 103 mL Ejection fraction 53% End-diastolic width 5.3 cm End-systolic with 4.1 cm Septum 0.8 cm Inferolateral wall 0.8 cm RIGHT VENTRICLE: End-diastolic volume 162 mL End-systolic volume 64 mL Stroke volume 98 mL Ejection fraction 60% FINDINGS: Chambers: At rest, the left ventricle is normal in size and function. Quantitated left ventricular ejection fraction is 53%. No regional wall motion abnormalities are present. The right ventricle appears nor mal in size and function. Right ventricular ejection fraction is 60%. Mo derate biatrial enlargement is present. The interventricular and interatrial sep ellen appear intact. The aortic root is normal in size. There is no significant pericardial effusion present. Valves: The mitral valve appears normal in struc ture and function without stenosis or regurgitation present. The tricuspid amilcar ve appears normal in structure and function with trace tricuspid insufficie ncy and no stenosis present. The aortic valve appears normal in structure and fu nction without stenosis or regurgitation present. The pulmonic valve is not well visualized on the study. Pulmonary angiography: 4 pulmonary veins are seen entering the left atrium. Measurements are: Right superior: 1.7 cm x 2.7 cm Right inferior 1.1 cm x 1.5 cm Left superior 1.1 cm x 2.0 cm Left inferior 0.8 cm x 1.7 cm Left atrium: 4.4 x 2.5 x 5.8 cm Delayed enhancement: Delayed enhancement was performed in bot h long and short axis planes. No left ventricular delayed enhancement is noted . Some right atrial fibrosis is noted. No significant left atrial fibrosis is p resent. IMPRESSION 1. Preserved left and right ventricular function 2. Pulmonary angiography as noted above 3. No delayed enhancement to suggest pre vious infarct, myocarditis, or infiltrative disease of the left or righ t ventricle Raphael Browne MD IMG MRI ORDERABLES SCAN DOC: IMPLANTABLE DEVICES (02/24/2018 12:00 AM EDT) Narrative 02/24/2018 12:00 AM EDT This result has an attachment that is no t available. Ordered by an unspecified provider. Scanning Provider MEDIA MGR SCAN EXT ORDR/RSLT EKG 12 Lead (02/12/2018 8:54 AM EDT) [facility] gist Method Time Signature Ventricular rate 98 BPM MUSE SYSTEM Atrial Rate 94 BPM MUSE SYSTEM QRS Duration 114 ms MUSE SYSTEM Q-T Interval 374 ms MUSE SYSTEM QTC Calculated 477 ms MUSE SYSTEM (Bezet) Calculated R [place] 2 degrees MUSE SYSTEM Calculated T [place] 27 degrees MUSE SYSTEM INTERPRETATION Atrial flutter with variable A-V block MUSE SYSTEM Prolonged QT Abnormal ECG No previous ECGs available Confirmed by fellow MD Pinedo Kristy ([id number]) on 02/12/2018 3:53:25 PM Confirmed by MD LAURA, KELLIE ([id number]) on 02/13/2018 8:44:35 AM Specimen Anatomical Collection Method Collection Time Receive d Time (Source) Location / / Volume Laterality 02/12/2018 8:54 AM 8 8:44 EDT AM EDT Raphael Browne MD ECG ORDERABLES Performing Organization Address City/State/ZIP Code Phon e Number MUSE SYSTEM documented in this encounter Visit Diagnoses Diagnosis Probable seizure disorder Unspecified epilepsy without mention of intractable epilepsy History of loop recorder Persistent atrial fibrillation Atrial fibrillation Typical atrial flutter Atrial flutter documented in this encounter Care Teams Evaluation Specialist Relationship Specialty Start Date End Date Nathaniel Smith MD PCP - General Family Medicine 04/22/17 08/11/18 [address] [place] [address] documented as of this encounter
--- OUTSIDE RECORDS SUMMARY | 2022-08-01 15:49 | XMS_ITS | Encounter Summary ---
:1950 Author Organization [facility] [place] [address] Care Team Providers Name Role Phone Unknown Primary Care Provider Unavailable Reason for Visit Reason Onset Date Comments Medication Refill 08/14/2018 Encounter Details Date Type Department Care Team Description 08/14/2018 Refill Cardiology at [facility] [place] Valentín Browne MD Medication Refill [facility] [place] [address] CARDIOLOGY DEPT. [phone] [place] [id number] (Wo rk) Social History Tobacco Use Types Packs/Day Years Used Date Smoking Tobacco: Never Smokeless Tobacco: Never Sex Assigned at Date Recorded Not on file documented as of this encounter Plan of Treatment Not on filedocumented as of this encounter Visit Diagnoses Diagnosis Persistent atrial fibrillation Atrial fibrillation documented in this encounter Care Teams Brake Mechanic Relationship Specialty Start Date End Date Unknown PCP - General 08/12/18 12/22/18 None documented as of this encounter
--- OUTSIDE RECORDS SUMMARY | 2022-08-01 15:49 | XMS_ITS | Encounter Summary ---
:1950 Author Organization [facility] [place] [address] Care Team Providers Name Role Phone Nathaniel Smith MD Primary Care Provider Encounter Details Date Type Department Care Team Description 10/16/2017 Hospital Encounter Radiology Library at Valentín Browne MD [facility] [place] [address] [place] [address] [phone] (Wo rk) Social History Tobacco Use Types Packs/Day Years Used Date Smoking Tobacco: Never Assessed Sex Assigned at Date Recorded Not on file documented as of this encounter Medications at Time of Discharge Medication Sig Dispensed Refills Start Date End Date levETIRAcetam (KEPPRA) 500 Take 500 mg by 0 09/0202/12/2018 mg Tablet mouth 2 times daily. metoprolol succinate Take 50 mg by 0 09/11/2017 0 02/12/2018 (TOPROL-XL) 50 mg Tablet mouth daily. Sustained Release 24 hr documented as of this encounter Plan of Treatment Not on filedocumented as of this encounter Procedures Procedure Name Priority Date/Time Associated Diagnosis Comme nts FILM LIBRARY Routine 10/16/2017 12:00 AM Results for this STORAGE ONLY DX EST procedure ar e in CHEST the results section. documented in this encounter Results Film Library- Storage Only DX Chest (10/16/2017 12:00 AM EST) Specimen (Source) Anatomical Location Collection Method / Collectio n Time Received Time / Laterality Volume Narrative RAD - 07/20/2018 3:06 PM EST This exam is for storage only and is aut o-finalizing. Valentín Browne MD IMG FILM LIBRARY ORDERABLES Performing Organization Address City/State/ZIP Code Phon e Number RAD [place], [place] documented in this encounter Visit Diagnoses Not on filedocumented in this encounter Care Teams Licensed Club Manager Relationship Specialty Start Date End Date Nathaniel Smith MD PCP - General Family Medicine 04/22/17 08/11/18 [address] [place] [address] documented as of this encounter
--- OUTSIDE RECORDS SUMMARY | 2022-08-01 15:49 | XMS_ITS | Encounter Summary ---
:1950 Author Organization [facility] [place] [address] Care Team Providers Name Role Phone Nathaniel Smith MD Primary Care Provider Reason for Visit Reason Onset Date Comments Prior Authorization 07/15/2018 Encounter Details Date Type Department Care Team Description 07/15/2018 Telephone Cardiology at [facility] Christine Rodríguez retail wireless [place] [address] Social History Tobacco Use Types Packs/Day Years Used Date Smoking Tobacco: Never Smokeless Tobacco: Never Sex Assigned at Date Recorded Not on file documented as of this encounter Miscellaneous Notes Telephone Encounter - Christine Rodríguez RN - 07/15/2018 12:02 PM EST TC to pt's insurance provider [facility] Managed Medicare concerning necessity of pre- certification beforecompletion. Pt is having CXR prior to procedure, wants to have done at [facility]. Per property insurance inspector, no PA required for CPT 91882 Reference #[id number] Faxed demographics, phone note, and CXR order to [facility] Radiology at [phone] documented in this encounter Plan of Treatment Not on filedocumented as of this encounter Visit Diagnoses Not on filedocumented in this encounter Care Teams Euclid Operator Relationship Specialty Start Date End Date Nathaniel Smith MD PCP - General Family Medicine 04/22/17 08/11/18 [address] [place] [address] documented as of this encounter
--- OUTSIDE RECORDS SUMMARY | 2022-08-01 15:49 | XMS_ITS | Encounter Summary ---
:1950 Author Organization [facility] [place] [address] Care Team Providers Name Role Phone Unknown Primary Care Provider Unavailable Encounter Details Date Type Department Care Team Description 12/07/2018 [facility] [place] [address] Social History Tobacco Use Types Packs/Day Years Used Date Smoking Tobacco: Never Smokeless Tobacco: Never Sex Assigned at Date Recorded Not on file documented as of this encounter Plan of Treatment Not on filedocumented as of this encounter Procedures Procedure Name Priority Date/Time Associated Diagnosis Comme nts CARDIAC DEVICE Routine 12/07/2018 9:35 PM Results for this CHECK - REMOTE EDT procedure are in the results section. documented in this encounter Results Cardiac Device Check - Remote (12/07/2018 9:35 PM EDT) Component Value Ref Test Analysis Performed Pathologis t Range Method Time At Signature Date Time [id number] IDCO Interrogation Session Implantable Medtronic IDCO Pulse Generator Information Technology Associate Implantable [id number] IDCO Pulse Generator Model Implantable [id number] IDCO Pulse Generator Serial Number Type Remote IDCO Interrogation Session Implantable Implantable IDCO Pulse Generator Diagnostic Type Monitor Implantable [id number] IDCO Pulse Generator Implant Date Anatomical Region Laterality Modality Other Specimen (Source) Anatomical Collection Method Collection Time Re ceived Time Location / / Volume Laterality 12/07/2018 9:35 PM EDT Physician Cardiology MD IMPLANTABLE CARDIAC DEVICE documented in this encounter Visit Diagnoses Not on filedocumented in this encounter Care Teams Hobbies And Crafts Sales Representative Relationship Specialty Start Date End Date Unknown PCP - General 08/12/18 12/22/18 None documented as of this encounter
--- OUTSIDE RECORDS SUMMARY | 2022-08-01 15:49 | XMS_ITS | Encounter Summary ---
:1950 Author Organization [facility] [place] [address] Care Team Providers Name Role Phone Unknown Primary Care Provider Unavailable Encounter Details Date Type Department Care Team Description 09/08/2018 [facility] [place] [address] Social History Tobacco Use Types Packs/Day Years Used Date Smoking Tobacco: Never Smokeless Tobacco: Never Sex Assigned at Date Recorded Not on file documented as of this encounter Plan of Treatment Not on filedocumented as of this encounter Procedures Procedure Name Priority Date/Time Associated Diagnosis Comme nts CARDIAC DEVICE Routine 09/08/2018 9:41 PM Results for this CHECK - REMOTE EST procedure are in the results section. documented in this encounter Results Cardiac Device Check - Remote (09/08/2018 9:41 PM EST) Component Value Ref Test Analysis Performed Pathologis t Range Method Time At Signature Date Time [id number] IDCO Interrogation Session Implantable Medtronic IDCO Pulse Generator Radiotelephone Technical Operator Implantable LNQ11 IDCO Pulse Generator Model Implantable [id number] IDCO Pulse Generator Serial Number Type Remote IDCO Interrogation Session Implantable Implantable IDCO Pulse Generator Diagnostic Type Monitor Implantable [id number] IDCO Pulse Generator Implant Date Anatomical Region Laterality Modality Other Specimen (Source) Anatomical Collection Method Collection Time Re ceived Time Location / / Volume Laterality 09/08/2018 9:41 PM EST Physician Cardiology MD IMPLANTABLE CARDIAC DEVICE documented in this encounter Visit Diagnoses Not on filedocumented in this encounter Care Teams Security Administrator Relationship Specialty Start Date End Date Unknown PCP - General 08/12/18 12/22/18 None documented as of this encounter
--- OUTSIDE RECORDS SUMMARY | 2022-08-01 15:49 | XMS_ITS | Encounter Summary ---
:1950 Author Organization [facility] [place] [address] Care Team Providers Name Role Phone Nathaniel Smith MD Primary Care Provider Encounter Details Date Type Department Care Team Description 02/24/2018 Telephone Cardiology at [facility] Christine Rodríguez, [place] [address] Social History Tobacco Use Types Packs/Day Years Used Date Smoking Tobacco: Never Smokeless Tobacco: Never Sex Assigned at Date Recorded Not on file documented as of this encounter Miscellaneous Notes Telephone Encounter - Christine Rodríguez RN - 02/25/2018 10:27 AM EDT Images from the original note were not included. TC to pt regarding advisement from Dr. Browne. Notified him of advice below: Message Received: Today ? Valentín Browne MD Fox, Courtney K, RN ? Caller: Unspecified (Yesterday, ??4:59 PM) ? Partly up to him. It is likely that the flutter will recur in time and we will be having a similar conversation about ablation again especially as he does not tolerate beta artem. If he wants to wait, that is OK - but we do have a 6-8 week wait list if he were to need to be rescheduled. Yury Pt agreeable to advisement and would like to keep scheduled date for ablation on 04/23/18. Will call w/ any additional questions or concerns Telephone Encounter - Christine Rodríguez RN - 02/24/2018 4:59 PM EDT TC to pt to assess status/recent symptoms while on pindolol. Per Dr. Browne on 02/20/18, pt was advised to stop pindolol d/t these side effects. Pt reports today that his HR and symptoms have not completely gone away but that they have improved. HRs are in the 60s and he is able to complete more activity than normal. Pt questioning now that he is in SR, is it necessary for him to still have his ablation procedure scheduled for 02/21/18 Notified him that I would make Dr. Browne aware and that I would f/u pending his advisement. Pt agreeable w/ POC documented in this encounter Plan of Treatment Not on filedocumented as of this encounter Visit Diagnoses Not on filedocumented in this encounter Care Teams Beauty Advisor Relationship Specialty Start Date End Date Nathaniel Smith MD PCP - General Family Medicine 04/22/17 08/11/18 [address] [place] [address] documented as of this encounter
--- OUTSIDE RECORDS SUMMARY | 2022-08-01 15:49 | XMS_ITS | Encounter Summary ---
:1950 Author Organization [facility] [place] [address] Care Team Providers Name Role Phone Unknown Primary Care Provider Unavailable Encounter Details Date Type Department Care Team Description 12/10/2018 Orders Only Cardiology at [facility] [place] Torrey Bustos, Persistent atrial [facility] [place] [address] CARDIOLOGY DEPT. [phone] [place], [place] [address] Social History Tobacco Use Types Packs/Day Years Used Date Smoking Tobacco: Never Smokeless Tobacco: Never Sex Assigned at Date Recorded Not on file documented as of this encounter Plan of Treatment Not on filedocumented as of this encounter Visit Diagnoses Diagnosis Persistent atrial fibrillation Atrial fibrillation documented in this encounter Care Teams Restaurant Worker Relationship Specialty Start Date End Date Unknown PCP - General 08/12/18 12/22/18 None documented as of this encounter
--- OUTSIDE RECORDS SUMMARY | 2022-08-01 15:49 | XMS_ITS | Encounter Summary ---
:1950 Author Organization [facility] [place] [address] Care Team Providers Name Role Phone Nathaniel Smith MD Primary Care Provider Encounter Details Date Type Department Care Team Description 07/14/2018 Orders Only Card[place] [facility] [place] Valentín Browne S, Persistent atrial fibrillati on; [facility] History [place] [address] DR [phone] CARDIOLOGY DEPT. [place], [place] [address] Social History Tobacco Use Types Packs/Day Years Used Date Smoking Tobacco: Never Smokeless Tobacco: Never Sex Assigned at Date Recorded Not on file documented as of this encounter Plan of Treatment Not on filedocumented as of this encounter Visit Diagnoses Diagnosis Persistent atrial fibrillation Atrial fibrillation History of loop recorder documented in this encounter Care Teams [place] Cutter Operator Relationship Specialty Start Date End Date Nathaniel Smith MD PCP - General Family Medicine 04/22/17 08/11/18 [address] [place] [id number] documented as of this encounter
--- OUTSIDE RECORDS SUMMARY | 2022-08-01 15:49 | XMS_ITS | Encounter Summary ---
:1950 Author Organization [facility] [place] [address] Care Team Providers Name Role Phone Unknown Primary Care Provider Unavailable Encounter Details Date Type Department Care Team Description 08/14/2018 Abstract Cardiology at [facility] Christine Rodríguez, [place] [address] Social History Tobacco Use Types Packs/Day Years Used Date Smoking Tobacco: Never Smokeless Tobacco: Never Sex Assigned at Date Recorded Not on file documented as of this encounter Plan of Treatment Not on filedocumented as of this encounter Visit Diagnoses Not on filedocumented in this encounter Care Teams Batch Plant Supervisor Relationship Specialty Start Date End Date Unknown PCP - General 08/12/18 12/22/18 None documented as of this encounter
--- OUTSIDE RECORDS SUMMARY | 2022-08-01 15:49 | XMS_ITS | Encounter Summary ---
:1950 Author Organization [facility] [address] Care Team Providers Name Role Phone Nathaniel Smith MD Primary Care Provider Encounter Details Date Type Department Care Team Description 06/24/2018 External [place] [address] Social History Tobacco Use Types Packs/Day Years Used Date Smoking Tobacco: Never Smokeless Tobacco: Never Sex Assigned at Date Recorded Not on file documented as of this encounter Plan of Treatment Not on filedocumented as of this encounter Procedures Procedure Name Priority Date/Time Associated Diagnosis Comme nts EP DEVICE SCAN Routine 03/12/2018 documented in this encounter Results Scan Doc: EP Device (03/12/2018) Anatomical Region Laterality Modality Other Narrative This result has an attachment that is no t available. Historical Provider MEDIA MGR SCAN EXT ORDR/RSLT documented in this encounter Visit Diagnoses Not on filedocumented in this encounter Care Teams Radio Announcer Relationship Specialty Start Date End Date Nathaniel Smith MD PCP - General Family Medicine 04/22/17 08/11/18 [address] [place], [place] [address] documented as of this encounter
--- OUTSIDE RECORDS SUMMARY | 2022-08-01 15:49 | XMS_ITS | Encounter Summary ---
:1950 Author Organization [facility] [place] [address] Care Team Providers Name Role Phone Nathaniel Smith MD Primary Care Provider Encounter Details Date Type Department Care Team Description 01/08/2019 Orders Only Watch And Clock Maker And Repairer Farhad Gao, Dyspnea, u nspecified type; [facility] Abnormal stress test [facility] [place] [address] [place] [address] [phone] Social History Tobacco Use Types Packs/Day Years Used Date Smoking Tobacco: Never Smokeless Tobacco: Never Sex Assigned at Date Recorded Not on file documented as of this encounter Plan of Treatment Not on filedocumented as of this encounter Visit Diagnoses Diagnosis Dyspnea, unspecified type Abnormal stress test Other nonspecific abnormal cardiovascula r system function study documented in this encounter Care Teams Manager Trade Marketing Relationship Specialty Start Date End Date Nathaniel Smith MD PCP - General Family Medicine 12/23/18 [address] [place] [address] documented as of this encounter
--- OUTSIDE RECORDS SUMMARY | 2022-08-01 15:49 | XMS_ITS | Encounter Summary ---
:1950 Author Organization [facility] [place] [address] Care Team Providers Name Role Phone Nathaniel Smith MD Primary Care Provider Encounter Details Date Type Department Care Team Description 07/28/2018 External Results Cardiology at [facility] None [facility] [place] [address] Social History Tobacco Use Types Packs/Day Years Used Date Smoking Tobacco: Never Smokeless Tobacco: Never Sex Assigned at Date Recorded Not on file documented as of this encounter Plan of Treatment Not on filedocumented as of this encounter Procedures Procedure Name Priority Date/Time Associated Diagnosis Comme nts EP DEVICE SCAN Routine 07/12/2018 documented in this encounter Results Scan Doc: EP Device (07/12/2018) Anatomical Region Laterality Modality Other Narrative This result has an attachment that is no t available. None MEDIA MGR SCAN EXT ORDR/RSLT documented in this encounter Visit Diagnoses Not on filedocumented in this encounter Care Teams Skin Care Therapist Relationship Specialty Start Date End Date Nathaniel Smith MD PCP - General Family Medicine 04/22/17 08/11/18 [address] [place] [address] documented as of this encounter
--- OUTSIDE RECORDS SUMMARY | 2022-08-01 15:49 | XMS_ITS | Encounter Summary ---
:1950 Author Organization [facility] [place] [address] Care Team Providers Name Role Phone Nathaniel Smith MD Primary Care Provider Reason for Referral Diagnostic Test (Routine) - Closed Specialty Diagnoses / Procedures Referred By Contact Refer red To Contact Radiology Diagnoses Typical atrial flutter Shantal Louie, DO [facility] Rad Mri Procedures MRI Cardiac Morph Func wwo Contrast [facility] [place] [address] [place] [address] Referral ID Status Reason Start Date Expiration Date Visits V isits Requested Authorized [id number] Closed Specialty 02/12/2018 02/12/2019 1 1 Service Requested Reason for Visit Diagnostic Test (Routine) - Closed Specialty Diagnoses / Procedures Referred By Contact Refer red To Contact Radiology Diagnoses Typical atrial flutter Shantal Louie, DO [facility] Rad Mri Procedures MRI Cardiac Morph Func wwo Contrast [facility] [place] [address] [place] [address] Referral ID Status Reason Start Date Expiration Date Visits V isits Requested Authorized [id number] Closed Specialty 02/12/2018 02/12/2019 1 1 Service Requested Encounter Details Date Type Department Care Team Description 04/20/2018 Hospital Encounter MRI at [facility] [place] Valentín Browne Typical atrial [facility] MD [address] [place], [place] CENTER [address] CARDIOLOGY DEPT. [phone] [place] [address] Social History Tobacco Use Types Packs/Day Years [...] in this encounter Results MRI Cardiac Morph Func wwo Contrast (07/20/2018 11:17 AM EST) Anatomical [...] 9:43 AM EST EXAMINATION: MRI CARDIAC MORPH FUNC WWO CONTRAST [...] of the left or righ t ventricle Valentín Browne MD IMG MRI ORDERABLES documented in this encounter Visit Diagnoses Diagnosis Typical atrial flutter Atrial flutter documented in this encounter Care Teams Java Mobile Developer Relationship Specialty Start Date End Date Nathaniel Smith MD PCP - General Family Medicine 04/22/17 08/11/18 [address] [place] [address] documented as of this encounter
--- OUTSIDE RECORDS SUMMARY | 2022-08-01 15:49 | XMS_ITS | Encounter Summary ---
:1950 Author Organization [facility] [place] [address] Care Team Providers Name Role Phone Nathaniel Smith MD Primary Care Provider Encounter Details Date Type Department Care Team Description 07/12/2018 [place] [address] Social History Tobacco Use Types Packs/Day Years Used Date Smoking Tobacco: Never Smokeless Tobacco: Never Sex Assigned at Date Recorded Not on file documented as of this encounter Plan of Treatment Not on filedocumented as of this encounter Procedures Procedure Name Priority Date/Time Associated Diagnosis Comme nts CARDIAC DEVICE Routine 07/12/2018 1:03 PM Results for this CHECK - REMOTE EST procedure are in the results section. documented in this encounter Results Cardiac Device Check - Remote (07/12/2018 1:03 PM EST) Component Value Ref Test Analysis Performed Pathologis t Range Method Time At Signature Date Time [id number] IDCO Interrogation Session Implantable Medtronic IDCO Pulse Generator Corporate Legal Assistant Implantable [id number] IDCO Pulse Generator Model Implantable [id number] IDCO Pulse Generator Serial Number Type Remote IDCO Interrogation Session Implantable Implantable IDCO Pulse Generator Diagnostic Type Monitor Implantable [id number] IDCO Pulse Generator Implant Date Zone Setting 2,000 ms IDCO Detection Interval Zone Setting 3,000 ms IDCO Detection Interval Zone Setting AT/AF IDCO Type Category Zone Setting VF IDCO Type Category Zone Setting VT IDCO Type Category Zone Setting 360 ms IDCO Detection Interval Battery Status OK IDCO Episode 1,890 IDCO Identifier Episode Type AT/AF IDCO Category Episode Date [id number] IDCO Time Episode Duration 108,000 s IDCO Episode 1,889 IDCO Identifier Episode Type AT/AF IDCO Category Episode Date [id number] IDCO Time Episode Duration 3,120 s IDCO Episode 1,888 IDCO Identifier Episode Type AT/AF IDCO Category Episode Date [id number] IDCO Time Episode Duration 20,880 s IDCO Episode 1,887 IDCO Identifier Episode Type AT/AF IDCO Category Episode Date [id number] IDCO Time Episode Duration 17,040 s IDCO Atrial Tachy [id number] IDCO Statistic Date Time Start Atrial Tachy [id number] IDCO Statistic Date Time End Atrial Tachy 12.4 % IDCO Statistic AT/AF [place] Percent Episode 0 IDCO Statistic Recent Count Episode 0 IDCO Statistic Recent Count Episode 0 IDCO Statistic Recent Count Episode 0 IDCO Statistic Recent Count Episode 0 IDCO Statistic Recent Count Episode Patient Activated IDCO Statistic Type Category Episode 3 IDCO Statistic Recent Count Episode AT/AF IDCO Statistic Type Category Episode [id number] IDCO Statistic Recent Date Time Start Episode 91060031028591 IDCO Statistic Recent Date Time End Episode 71936373304537 IDCO Statistic Recent Date Time Start Episode 96029989323253 IDCO Statistic Recent Date Time End Episode 41013403255259 IDCO Statistic Recent Date Time Start Episode 91815246047643 IDCO Statistic Recent Date Time End Episode 99788940754733 IDCO Statistic Recent Date Time Start Episode 84958813181157 IDCO Statistic Recent Date Time End Episode [id number] IDCO Statistic Recent Date Time Start Episode 94930145454146 IDCO Statistic Recent Date Time End Episode 13047612584860 IDCO Statistic Recent Date Time Start Episode 60985007343151 IDCO Statistic Recent Date Time End Episode 0 IDCO Statistic Total Count Episode 0 IDCO Statistic Total Count Episode 0 IDCO Statistic Total Count Episode 0 IDCO Statistic Total Count Episode 6 IDCO Statistic Total Count Episode Patient Activated IDCO Statistic Type Category Episode 4,630 IDCO Statistic Total Count Episode AT/AF IDCO Statistic Type Category Episode [id number] IDCO Statistic Total Date Time Start Episode 45736990416214 IDCO Statistic Total Date Time End Episode 46651824738119 IDCO Statistic Total Date Time Start Episode 28646579972316 IDCO Statistic Total Date Time End Episode 42925745739538 IDCO Statistic Total Date Time Start Episode 70403934783703 IDCO Statistic Total Date Time End Episode 17813065245416 IDCO Statistic Total Date Time Start Episode 30198169021495 IDCO Statistic Total Date Time End Episode 25189515763729 IDCO Statistic Total Date Time Start Episode 54373313639949 IDCO Statistic Total Date Time End Episode 42004071945928 IDCO Statistic Total Date Time Start Episode 02717665223913 IDCO Statistic Total Date Time End Anatomical Region Laterality Modality Other Specimen (Source) Anatomical Collection Method Collection Time Re ceived Time Location / / Volume Laterality 07/12/2018 1:03 PM EST Physician Cardiology IMPLANTABLE CARDIAC DEVICE documented in this encounter Visit Diagnoses Not on filedocumented in this encounter Care Teams Half Section Ironer Relationship Specialty Start Date End Date Nathaniel Smith MD PCP - General Family Medicine 04/22/17 08/11/18 [address] [place] [address] documented as of this encounter
--- OUTSIDE RECORDS SUMMARY | 2022-08-01 15:49 | XMS_ITS | Encounter Summary ---
:1950 Author Organization [place] [address] Care Team Providers Name Role Phone Nathaniel Smith MD Primary Care Provider Encounter Details Date Type Department Care Team Description 06/10/2018 [place] [address] Social History Tobacco Use Types Packs/Day Years Used Date Smoking Tobacco: Never Smokeless Tobacco: Never Sex Assigned at Date Recorded Not on file documented as of this encounter Plan of Treatment Not on filedocumented as of this encounter Procedures Procedure Name Priority Date/Time Associated Diagnosis Comme nts CARDIAC DEVICE Routine 06/10/2018 9:11 PM Results for this CHECK - REMOTE EDT procedure are in the results section. documented in this encounter Results Cardiac Device Check - Remote (06/10/2018 9:11 PM EDT) Component Value Ref Test Analysis Performed Pathologis t Range Method Time At Signature Date Time [id number] IDCO Interrogation Session Implantable Medtronic IDCO Pulse Generator Rate And Cost Analyst Implantable [id number] IDCO Pulse Generator Model Implantable [id number] IDCO Pulse Generator Serial Number Type Remote IDCO Interrogation Session Implantable Implantable IDCO Pulse Generator Diagnostic Type Monitor Implantable [id number] IDCO Pulse Generator Implant Date Anatomical Region Laterality Modality Other Specimen (Source) Anatomical Collection Method Collection Time Re ceived Time Location / / Volume Laterality 06/10/2018 9:11 PM EDT Physician Cardiology IMPLANTABLE CARDIAC DEVICE documented in this encounter Visit Diagnoses Not on filedocumented in this encounter Care Teams Miller Supervisor Relationship Specialty Start Date End Date Nathaniel Smith MD PCP - General Family Medicine 04/22/17 08/11/18 [address] [place] [address] documented as of this encounter
--- OUTSIDE RECORDS SUMMARY | 2022-08-01 15:49 | XMS_ITS | Encounter Summary ---
:1950 Author Organization [facility] [place] [address] Care Team Providers Name Role Phone None Primary Care Provider Unavailable Encounter Details Date Type Department Care Team Description 04/14/2014 Orders Only Orthopaedics at [facility] Torrey Joya MD [facility] [place] [address] ORTHOPAEDIC SURGERY [phone] [place] [phone] (Wo rk) Social History Tobacco Use Types Packs/Day Years Used Date Smoking Tobacco: Never Assessed Sex Assigned at Date Recorded Not on file documented as of this encounter Plan of Treatment Not on filedocumented as of this encounter Procedures Procedure Name Priority Date/Time Associated Diagnosis Comme nts FILM LIBRARY Routine 04/14/2014 8:15 AM Results f or this STORAGE ONLY MR EDT procedure ar e in LOWER EXTREMITY the results section. documented in this encounter Results Film Library- Storage only MR Lower Extremity (04/14/2014 8:15 AM EDT) Anatomical Region Laterality Modality Other Specimen (Source) Anatomical Collection Method Collection Time Re ceived Time Location / / Volume Laterality 04/14/2014 8:15 AM EDT Narrative 04/27/2014 10:25 PM EDT This is a Non-reportable exam Procedure Note 04/27/2014 This is a Non-reportable exam Torrey Joya MD [facility] FILM LIBRARY ORDERABLES documented in this encounter Visit Diagnoses Not on filedocumented in this encounter Care Teams Supervisor Central Supply Relationship Specialty Start Date End Date None PCP - General 07/24/10 04/21/17 None documented as of this encounter
--- OUTSIDE RECORDS SUMMARY | 2022-08-01 15:49 | XMS_ITS | Encounter Summary ---
:1950 Author Organization [facility] [place] [address] Care Team Providers Name Role Phone Nathaniel Smith MD Primary Care Provider Encounter Details Date Type Department Care Team Description 07/30/2018 Office Visit Cardiology at [facility] Valentín Browne PAF (paroxysmal atrial [facility] MD fibrillation) [place] [address] CARDIOLOGY DEPT. [phone] [place], [place] [address] Social History Tobacco Use Types Packs/Day Years Used Date Smoking Tobacco: Never Smokeless Tobacco: Never Sex Assigned at Date Recorded Not on file documented as of this encounter Last Filed Vital Signs Vital Sign Reading Time Taken Comments Blood Pressure 124/62 07/30/2018 9:08 AM EST Pulse 53 07/30/2018 9:08 AM EST Temperature - - Respiratory Rate - - Oxygen Saturation 100% 07/30/2018 9:08 AM EST Inhaled Oxygen Concentration - - Weight 76.7 kg (169 lb) 07/30/2018 9:08 AM EST Height 175.3 cm (5' 9) 07/30/2018 9:08 AM EST Body Mass Index 24.96 07/30/2018 9:08 AM EST documented in this encounter Patient Instructions Patient InstructionsSaValentín acharya MD - 07/30/2018 9:00 AM EST Images from the original note were not included. It was nice to see you in the Cardiac Electrophysiology Clinic today. We discussed the atrial fibrillation, the role of anticoagulation, medication, ablation You should continue with your medicines as before - I made no changes to your medicines today I will arrange for a routine follow up in about 6 months time For any questions, call my office: [phone] To access your health care information, go to the web at: [email or web address] (you will need to register) For educational materials: [email or web address] Valentín SANCHEZ.[facility], Clinical Cardiac Electrophysiology, [facility], [facility] A Healthy Heart: After Your Visit Your Care Instructions Heart disease occurs when the vessels that supply oxygen-rich blood to your heart become narrow or blocked. A heart attack happens when blood flow is completely blocked. A high-fat diet, smoking, and other factors increase the risk of heart disease. Abnormal heart rhythms can occur in the presence and absence of other heart disease. You can do lots of things to keep your heart healthy. It may not be easy, but you can change your diet, exercise more, and quit smoking. These steps really work to lower your chance of heart disease. Follow-up care is a [place] part of your treatment and safety. Be sure to make and go to all appointments, and call your doctor if you are having problems. It???s also a good idea to know your test resultsand keep a list of the medicines you take. How can you care for yourself at home? Diet ?? Use less salt when you cook and eat. This helps lower your blood pressure. Taste food before salting. Add only a little salt when you think you need it. With time, your taste buds will adjust to less salt. ?? Eat fewer snack items, fast foods, canned soups, and other high-salt, high- fat, processed foods. ?? Read food labels and try to avoid saturated and trans fats. They increase your risk of heart disease by raising cholesterol levels. ?? Limit the amount of solid fat--butter, margarine, and shortening--you eat. Use olive, peanut, or canola oil when you cook. Bake, broil, and steam foods instead of frying them. ?? Eating fish can lower your risk for heart disease. Eat at least 2 servings of fish a week. [place], mackerel, newman, sardines, and chunk light tuna are very good choices. These fish contain omega-3fatty acids. ?? Eat a variety of fruit and vegetables every day. Dark green, deep orange, red, or yellow fruits and vegetables are especially good for you. Examples include spinach, carrots, peaches, and berries. You may need to eat these in moderation if you are taking coumadin or warfarin ?? Foods high in fiber can reduce your cholesterol and provide important vitamins and minerals. High-fiber foods include whole-grain cereals and breads, oatmeal, beans, brown rice, citrus fruits, and apples. ?? Limit drinks and foods with added sugar. These include candy, desserts, and soda pop. Lifestyle changes ?? If your doctor recommends it, get more exercise. Walking is a good choice. Bit by bit, increase the amount you walk every day. Try for at least 30 minutes on most days of the week. You also may wantto swim, bike, or do other activities. ?? Do not smoke. If you need help quitting, talk to your doctor about stop- smoking programs and medicines. These can increase your chances of quitting for good. Quitting smoking may be the most important step you can take to protect your heart. It is never too late to quit. You will get health benefits right away. ?? Limit alcohol to 2 drinks a day for men and 1 drink a day for women. Too much alcohol can cause health problems. Medicines ?? Take your medicines exactly as prescribed. Call your doctor if you think you are having a problemwith your medicine. ?? If your doctor recommends aspirin, take the amount directed each day. Make sure you take aspirin and not another kind of pain reliever, such as acetaminophen (Tylenol). If you take ibuprofen (such as Advil or Motrin) for other problems, take aspirin at least 2 hours before taking ibuprofen. When should you call for help? Call 911 if you have symptoms of a heart attack. These may include: ?? You have chest pain or pressure. This may occur with: ?? Chest pain or pressure, or a strange feeling in the chest. ?? Sweating. ?? Shortness of breath. ?? Pain, pressure, or a strange feeling in the back, neck, jaw, or upper belly or in one or both shoulders or arms. ?? Lightheadedness or sudden weakness. ?? A fast or irregular heartbeat. After you call 911, the nuclear equipment operator may tell you to chew 1 adult-strength or 2 to 4 low-dose aspirin. Wait for an ambulance. Do not try to drive yourself. Watch closely for changes in your health, and be sure to contact your doctor if: ?? Your symptoms are slowly getting worse. ?? You do not get better as expected. Where can you learn more? Visit our health information library at [email or web address]. You can also view health information on [employer], your personal patient account. Log in or sign up today. Enter F075 in the search box to learn more about A Healthy Heart: After Your Visit. ?? [phone] [facility]. documented in this encounter Progress Notes Valentín Browne MD - 07/30/2018 9:00 AM EST Images from the original note were not included. Section of Cardiology/Cardiac Electrophysiology Clinical Cardiac Electrophysiology Follow Up Patient ID Pritesh Cardona 1950 [id number] Pritesh Cardona is following up in EP clinic History Mr Cardona was last seen in the EP clinic in January of this year. He has a prior history of paroxysmal atrial fibrillation for which he underwent multiple cardioversions and then opted for a surgical AF ablation (performed in [place] - 'mini MAZE, bilateral LA antral isolation, cardiac denervation, MACKENZIE closer with atriclip, implant of LINQ ILR) following which he developed probable atypical atrial flutter. He was in rate controlled flutter at his visit, having stopped amiodarone a few months prior. He was trialled on pindolol for about 3 days - converted to sinus rhythm at this time. Plans were made to consider an EPS / ablation, but he self converted to sinus rhythm in January and deferred on further evaluation. His ILR download in June showed a single episode of atrial fibrillation since March, this lasted 5 hours. He has had a couple of episodes of atrial fibrillation since then- the worst was about 3 weeks ago when he developed irregular rhythm that lasted about 2 days. He spontaneously converted (or converted after a dose of pindolol) He has been stable in apparent sinus rhythm since then. When he is in stable sinus rhythm, he feels well. He has been ski-ing and remains physically active. No lightheadedness, dizziness or syncope. No chest pain or cardiopulmonary symptoms. He recently had a cardiac MRI performed, this showed normal valvular function, normal LV and RV function, no significant left atrial enlargement (and no significant left atrial scar) Problem List Patient Active Problem List Diagnosis ??? 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 Persistent atrial fibrillation [place] mini maze (bilateral left antral isolation, partial cardiac denervation, intraoperative EP testing & closure of left atrial appendage), transesophageal echo, intraoperative cardioversion ??? History of loop recorder Placed 08/14/17 - Medtronic Reveal LINQ serial #[id number] Review of Systems Review of Systems Cardiovascular: Positive for irregular heartbeat (rare). Genitourinary: Prostate issues Meds Current Outpatient Medications Medication Sig Dispense Refill ??? finasteride (PROSCAR) 5 mg Tablet Take 5 mg by mouth. 0 ??? tamsulosin (FLOMAX) 0.4 mg Capsule, Sust. Release 24 hr Take 0.4 mg by mouth. 0 No current facility-administered medications for this visit. Social History Social History Socioeconomic History ??? Marital status: Spouse name: None ??? Number of children: None ??? Years of education: None ??? Highest education level: None Social Needs ??? Financial resource strain: None ??? Food insecurity - worry: None ??? Food insecurity - inability: None ??? Transportation needs - medical: None ??? Transportation needs - non-medical: None Occupational History ??? None Tobacco Use ??? Smoking status: Never Smoker ??? Smokeless tobacco: Never Used Substance and Sexual Activity ??? Alcohol use: None ??? Drug use: None ??? Sexual activity: None Other Topics Concern ??? None Social History Narrative ??? None Family History No family history on file. Exam Most Recent Vitals: 07/30/18 0908 BP: 124/62 Pulse: 53 SpO2: 100% Physical Exam Constitutional: He is oriented to person, place, and time. He appears well-developed. Body mass index is 24.96 kg/m??. Cardiovascular: Normal rate and regular rhythm. No murmur heard. Pulmonary/Chest: Effort normal. No respiratory distress. Neurological: He is alert and oriented to person, place, and time. Skin: Skin is warm. I have personally reviewed the ECG: sinus rhythm, 59 bpm, TX 200 ms, QRS 100 ms, QT 440 ms, no brugada, or pre-excitation, no Long QT. Single PVC Impression 67 y.o. man with a history of paroxysmal atrial fibrillation, now s/p surgical ablation in [place] (an extensive procedure). He appears now to be doing well, with little in the way of symptoms. He remains active and is not limited in his activity level. We discussed the possibility of recurrence of atrial fibrillation and flutter, the role of medical therapy, the role of EPS and ablation. At this point in time he appears to be doing very well, so I made no changes to his current medications. We did discuss that in the event that he has a prolonged episode of atrial arrhythmia, he may wish to at least transiently restart his Eliquis-even though he did apparently have a left atrial appendage ligation procedure performed (and so his risk of thromboembolism would be lower) I am pleasantly surprised at the lack of left atrial enlargement on his cardiac MRI, and also the description of minimal scar. At this point in time I think conservative watchful waiting is an acceptable approach. Recommendations / Plan A) No changes to current medicines B) Routine follow up in 6 months time C) Contingency remains for EPS and ablation for persistent recurrent arrhythmias. VALENTÍN BROWNE MD 20 minutes of this 25 minute encounter were spent in counselling ( as above ) Cc: Nathaniel Smith MD documented in this encounter Plan of Treatment Not on filedocumented as of this encounter Procedures Procedure Name Priority Date/Time Associated Diagnosis Comme nts EKG 12-LEAD Routine 07/30/2018 9:44 AM PAF (paroxysmal Result s for this EST atrial fibrillation) procedu re are in the results section . documented in this encounter Results EKG 12 Lead (07/30/2018 9:44 AM EST) Component Value Ref Range Test Analysis Performed Pathologis t Method Time At Signature Ventricular rate 59 BPM MUSE SYSTEM Atrial Rate 59 BPM MUSE SYSTEM P-R Interval 174 ms MUSE SYSTEM QRS Duration 88 ms MUSE SYSTEM Q-T Interval 442 ms MUSE SYSTEM QTC Calculated 437 ms MUSE SYSTEM (Bezet) Calculated P [place] -24 degrees MUSE SYSTEM Calculated R [place] 29 degrees MUSE SYSTEM Calculated T [place] 43 degrees MUSE SYSTEM INTERPRETATION Sinus bradycardia with Dhara ture atrial complexes with Aberrant conduction MUSE SYSTEM Otherwise normal ECG When compared with ECG of 20-APR-2018 09:42, Premature atrial complexes are now present Confirmed by MD VINAYAK, LOREN ([id number]) on 07/30/2018 7:27:01 PM Specimen Anatomical Collection Method Collection Time Receive d Time (Source) Location / / Volume Laterality 07/30/2018 9:44 AM 8 7:27 EST PM EST Valentín Browne MD ECG ORDERABLES Performing Organization Address City/State/ZIP Code Phon e Number MUSE SYSTEM documented in this encounter Visit Diagnoses Diagnosis PAF (paroxysmal atrial fibrillation) Atrial fibrillation documented in this encounter Care Teams Key Person Relationship Specialty Start Date End Date Nathaniel Smith MD PCP - General Family Medicine 04/22/17 08/11/18 [address] [place], [place] [address] documented as of this encounter
--- OUTSIDE RECORDS SUMMARY | 2022-08-01 15:49 | XMS_ITS | Encounter Summary ---
:1950 Author Organization [facility] [place] [address] Care Team Providers Name Role Phone Unknown Primary Care Provider Unavailable Reason for Visit Reason Onset Date Comments Medication Refill 10/07/2018 Encounter Details Date Type Department Care Team Description 10/07/2018 Refill Cardiology at [facility] Valentín Browne MD Medication Refill [facility] [place] [address] CARDIOLOGY DEPT. [phone] [place] [id number] (Wo rk) Social History Tobacco Use Types Packs/Day Years Used Date Smoking Tobacco: Never Smokeless Tobacco: Never Sex Assigned at Date Recorded Not on file documented as of this encounter Plan of Treatment Not on filedocumented as of this encounter Visit Diagnoses Diagnosis Persistent atrial fibrillation Atrial fibrillation documented in this encounter Care Teams Ring Striker Relationship Specialty Start Date End Date Unknown PCP - General 08/12/18 12/22/18 None documented as of this encounter
--- OUTSIDE RECORDS SUMMARY | 2022-08-01 15:49 | XMS_ITS | Encounter Summary ---
:1950 Author Organization [place] [address] Care Team Providers Name Role Phone Unknown Primary Care Provider Unavailable Reason for Referral Consultation (Routine) - Closed Specialty Diagnoses / Procedures Referred By Contact Refer red To Contact Sleep Center Diagnoses Persistent atrial fibrillation Angelica Kirkland PA [facility] Sleep Medicine [facility] D r [address] [place] [address] [place] [address] Fax: Referral ID Status Reason Start Date Expiration Date Visits V isits Requested Authorized [id number] Closed Consult, 08/18/2018 08/18/2019 1 1 Test & Treat Encounter Details Date Type Department Care Team Description 08/18/2018 Office Visit Cardiology at [facility] Angelica Kirkland Persistent atrial [facility] [place] [address] [place] [address] [phone] Social History Tobacco Use Types Packs/Day Years Used Date Smoking Tobacco: Never Smokeless Tobacco: Never Sex Assigned at Date Recorded Not on file documented as of this encounter Last Filed Vital Signs Vital Sign Reading Time Taken Comments Blood Pressure 105/73 08/18/2018 11:05 AM EST Pulse 79 08/18/2018 11:05 AM EST Temperature - - Respiratory Rate - - Oxygen Saturation 99% 08/18/2018 11:05 AM EST Inhaled Oxygen Concentration - - Weight 75.8 kg (167 lb) 08/18/2018 11:05 AM EST Height 175.3 cm (5' 9) 08/18/2018 11:05 AM EST Body Mass Index 24.66 08/18/2018 11:05 AM EST documented in this encounter Progress Notes Angelica Kirkland PA - 08/18/2018 11:00 AM EST Cardiac Electrophysiology Clinic Visit Subjective: Patient ID: Pritesh Cardona is a 67 y.o. male. CC: Follow up of recurrent atrial fibrillation episode x 1 week HPI: 67 y.o. male with past medical history of possible seizure disorder previously on Keppra (discontinued Summer 2017) and persistent atrial fibrillation on Eliquis who presents today for atrial fibrillation follow-up. Mr. Cardona underwent multiple DCCV's since summer and in August 2017, ultimately had a surgical AF ablation in [place] (mini MAZE, bilateral LA antral isolation, cardiac denervation, MACKENZIE closer with atriclip, and implant of a LINQ ILR), and developed probable atypical atrial flutter. He was previously on amiodarone after his August 2017 procedure but this was discontinued after 3 months, and he was placed on pindolol with early conversion to sinus rhythm. He also had dofetilide but experienced breakthrough episodes of Afib. An EPS/ablation was considered but he self converted to SR in January. Since then, he has had 3 episodes of atrial fibrillation revealed on ILR downloads. He converted after 1 dose of pindolol 5mg PRN. At his last appointment with Dr. Browne in July, there was discussion about the utility of an EPS/ablation for persistent recurrent atrial arrhythmias with a davys-jaq-[id number] plan. Symptoms in afib include dyspnea on exertion and aware of irregular rhythm especially when laying down. He feels well in sinus rhythm. He is physically active with skiing. No lightheadedness, dizziness or syncope. No chest pain. Current Medications: For the past week (sicne start of this Afib episode), Pindolol 5mg PO BID Patient Active Problem List Diagnosis ??? Probable seizure disorder Overview Note: Pt placed on Keppra ??? Persistent atrial fibrillation Overview Note: Phillips mini maze (bilateral left antral isolation, partial cardiac denervation, intraoperative EP testing & closure of left atrial appendage), transesophageal echo, intraoperative cardioversion ??? History of loop recorder Overview Note: Placed 08/14/17 - [employer]. Carolyn LINQ serial #[id number] ROS: Constitutional: - fatigue, - fever, - chills Respiratory: See HPI Cardiovascular: See HPI Gastrointestinal: - nausea, - vomiting, - abdominal pain, - diarrhea Neurological: + lightheadedness (transient maybe, slightly, short), - dizziness, + syncope (vasovagal: needles, blood), - weakness Psychiatric: - anxious Medications: Current Outpatient Medications Medication Sig Dispense Refill ??? pindolol (VISKEN) 5 mg Tablet Take 5 mg by mouth 2 times daily. ??? apixaban (ELIQUIS) 5 mg Tablet Take 1 tablet by mouth 2 times daily. 60 tablet 5 ??? finasteride (PROSCAR) 5 mg Tablet Take 5 mg by mouth. 0 ??? tamsulosin (FLOMAX) 0.4 mg Capsule, Sust. Release 24 hr Take 0.4 mg by mouth. 0 Objective: Vitals: Vitals: 08/18/18 1105 BP: 105/73 Pulse: 79 SpO2: 99% Weight: 75.8 kg (167 lb) Height: 175.3 cm (5' 9) Physical Exam: General- No acute distress, sitting comfortably in exam room chair HEENT- Head atraumatic, normocephalic Neck- No JVD noted Cardiovascular- S1, S2, irregular rate and irregular rhythm. No murmur, rub or gallop Lungs- Clear to auscultation bilaterally Extremities- Pulses equal bilaterally (radial, DP/PT). No edema noted. Neuro- A&Ox3 ECG in office today shows Afib with ventricular rate of ~96bpm. Cardiac MRI 07/20/2018: IMPRESSION 1. Preserved left and right ventricular function 2. Pulmonary angiography as noted above 3. No delayed enhancement to suggest previous infarct, myocarditis, or infiltrative disease of the left or right ventricle Chambers: At rest, the left ventricle is normal in size and function. Quantitated left ventricular ejection fraction is 53%. No regional wall motion abnormalities are present. The right ventricle appears normal in size and function. Right ventricular ejection fraction is 60%. Moderate biatrial enlargement is present. The interventricular and interatrial septum appear intact. The aortic root is normal in size. There is no significant pericardial effusion present. Valves: The mitral valve appears normal in structure and function without stenosis or regurgitation present. The tricuspid valve appears normal in structure and function with trace tricuspid insufficiency and no stenosis present. The aortic valve appears normal in structure and function without stenosis or regurgitation present. The pulmonic [...] Delayed enhancement: Delayed enhancement was performed in both long and short axis planes. No left ventricular delayed enhancement is noted. Some right atrial fibrosis is noted. No significant left atrial fibrosis is present. Assessment and Plan: 67 y.o. with medical history significant for persistent atrial fibrillation on Eliquis who presents today for atrial fibrillation management. Mr. Cardona has had previous work-ups with plans to proceed with EPS and ablation. At this juncture, Mr. Cardona is in favor of proceeding with an ablation and this is a reasonable plan. He will need to continue anticoagulation on Eliquis. Plan: 1. EPS/Ablation with SHANIA, procedure requested- EP to call with procedure date 2. Continue anticoagulation with Eliquis 3. Hold pindolol the night before and morning of ablation 4. Referral for sleep study I appreciate the opportunity to be involved with Mr. Cardona' care. Please do not hesitate to contactEP with any further questions (pager [phone]). CANDACE Monte 08/18/18 7:14 PM documented in this encounter Plan of Treatment Scheduled Referrals Name Type Priority Associated Diagnoses Order S chedule Referral to Sleep Outpatient Referral Routine Persistent atria l Ordered: Disorders Center fibrillation 08/18/2018 documented as of this encounter Procedures Procedure Name Priority Date/Time Associated Diagnosis Comme nts EKG 12-LEAD Routine 08/18/2018 11:16 AM Persistent atrial Res ults for this EST fibrillation procedure are i n the results section. documented in this encounter Results EKG 12 Lead (08/18/2018 11:16 AM EST) Component Value Ref Range Test Analysis Performed Pathologis t Method Time At Signature Ventricular rate 99 BPM MUSE SYSTEM Atrial Rate 441 BPM MUSE SYSTEM QRS Duration 88 ms MUSE SYSTEM Q-T Interval 356 ms MUSE SYSTEM QTC Calculated 456 ms MUSE SYSTEM (Bezet) Calculated R [place] -19 degrees MUSE SYSTEM Calculated T [place] -58 degrees MUSE SYSTEM INTERPRETATION Atrial fibrillation MUSE SYSTEM Nonspecific ST and T wave abnormality , probably digitalis e ffect Abnormal ECG When compared with ECG of 30-JUL-2018 09:44, Atrial fibrillation has replaced Sinus rhythm Vent. rate has increased BY ??40 BPM Nonspecific T wave abnormality now evident in Inferior leads Nonspecific T wave abnormality now evident in Lateral leads Confirmed by MD Shun, Saturnino ([id number]) on 08/18/2018 4:45:2 5 PM Specimen Anatomical Collection Method Collection Time Receive d Time (Source) Location / / Volume Laterality 08/18/2018 11:16 08/18/2018 4:45 AM EST PM EST Valentín Browne MD ECG ORDERABLES Performing Organization Address City/State/ZIP Code Phon e Number MUSE SYSTEM documented in this encounter Visit Diagnoses Diagnosis Persistent atrial fibrillation Atrial fibrillation documented in this encounter Care Teams Drum Operator Relationship Specialty Start Date End Date Unknown PCP - General 08/12/18 12/22/18 None documented as of this encounter
--- OUTSIDE RECORDS SUMMARY | 2022-08-01 15:49 | XMS_ITS | Encounter Summary ---
:1950 Author Organization [facility] [address] Care Team Providers Name Role Phone Nathaniel [...] Expiration Date Visits Requ ested Visits Authorized [id number] 1 1 Encounter Details Date Type Department Care Team Description 01/13/2019 Anesthesia Event Electrophysiology Lab at Sasha Mccracken MD [facility] [place] [address] [facility] Kade King MD [facility] [place] [address] [facility] [address] Anesthesia Record Procedure Summary Procedure Name Responsible Anesthesia Start Anesthesia Stop Anesthesiologist Time Time ELECTROPHYSIOLOGY Sasha Mccracken MD 01/13/19 1130 01/13 1851 PROCEDURE Events Date Time Event Comment 01/13/2019 0727 1130 AN Verify 1130 Start 1131 An Start Data 1141 An Induction 1142 An Intubation 1208 Anesthesia Ready 1251 Procedure Start 1353 Break/Relief In BHARATH T HECTOR N, APPRENTICE STYLIST 1403 Quick Note Soft bite block in place. 1404 Quick Note Cardioverted 200 J sync. Sinus rhythm. 1426 Break/Relief Out 1540 AN Defib 100J 1547 Break/Relief In Graciela Gupta James fan, APPRENTICE STYLIST 1610 Break/Relief Out 1612 AN Defib 30J 1643 AN Defib 30J 1702 AN Defib 20J 1702 AN Defib 20J then 50J 1704 AN Defib 50J 1714 AN Defib 50J 1746 AN Defib 30J 1821 Extubation/LMA Out 182 Handoff Intra-procedure anesthesia care was transferred afte r review of the patient's history, current anesthetic/surgical status and plan, accord ing to the [facility] Provider Handoff Checklis t. 182 Quick Note On PACU hold. 1843 an stop data 1850 Recovery or ICU Handoff Patient care was transferred to the destination unit staff after review of the patient's medica l history, current anesthetic/surgi irvin status and plan, according to the Provider Handoff Checklist. 185 Stop Name Total fentaNYL 100 mcg IV Lidocaine 40 mg Propofol 290 mg Rocuronium 75 mg PHENYLephrine 400 mcg Ondansetron 8 mg Dexamethasone 8 mg Neostigmine 3 mg Glycopyrrolate 0.4 mg PHENYLephrine INF 12,060 mcg Heparin 16,500 Units Heparin INF 12,930.6 Units Adenosine 54 mg DOBUTamine INF 47.94 mg Protamine 50 mg lactated ringers infusion 2,200 mL Agents Name O2 Air N2O Sevoflurane (et) Blood No blood administrations on file. Lines, Drains, and Airways Type Details Placement Removal Incision 01/13/19; groin; 04/29/22 01/13/19 0000 by 04/29 1715 by (LDA cleanup utility Silvana Andersen, Pascual Chaidez RA#[id number]); 171 (LDA cleanup utility RA#[id number]) Incision 01/13/19; groin; 04/29/22 01/13/19 0000 by 04/29 1715 by (LDA cleanup utility Silvana Andersen, Pascual Chaidez RA#[id number]); 171 (LDA cleanup utility RA#[id number]) Incision 01/13/19; neck; 04/29/22 01/13/19 0000 by 1715 by (STEVIE cleanup utility Silvana Andersen, Pascual Chaidez RA#[id number]); 1715 (LDA cleanup utility RA#[id number]) PIV 01/13/19; 0723; median 01/13/19 0723 by 01/15/19 1125 by cubital vein (antecubital Grace Martinez M cClintradha, Digna fossa), right; RN L, RN [id number] catheter system; 18 gauge; Michelle RN; distraction, intradermal injection, tolerated well; 0; 01/15/19; 1125 ETT Mask Ventilation: Easy 01/13/19 1147 by 01/13/19 1821 by (1); ETT Type: Cuffed, Tali, Lawson Cesar, Lawson Oral; ETT Size: 24 mm; CY Vaughn, CR NA Mac Blade: 4; Notes: Asleep, Pre-O2, Cricoid Pressure; Attempts: 1; Laryngoscopy Grade: 2 (Anterior.); ETT Placement Verified By: Auscultation, Capnometry, Visual Arterial Line 01/13/19; 1216; radial 01/13/19 1216 by 01/13/192022 by artery, right; 20 gauge; Lawson Cesar Lisa D, RN Sterile Prep, Sterile CY Vaughn Gloves; no longer indicated, catheter intact; 01/13/19; 2022 Urethral Catheter 01/13/19; 1226; Surgery 01/13/19 1226 by 01/14 0828 by longer than 2 hours; Tanya Jin, Efrain Kerr, indwelling double lumen RN catheter; latex; 14; inserted at this facility; 1; 10; 10; intraurethral Xylocaine gel; drainage bag to dependent drainage; 01/14/19; 0828 LDA Cath/EP Sheath 01/13/19; 1254; 8 Latvian 01/13/19 1254 by 1615 by (Fr) (8F); Right; Bharath Ayala Stocker, M elissa A, Internal jugular RN RN LDA Cath/EP Sheath 01/13/19; 1254; 8 Latvian 01/13/19 1254 by 1615 by (Fr) (8F); Right; Femoral Lucy, Bharath A, St ocker, Bharath A, (RFV) RN RN LDA Cath/EP Sheath 01/13/19; 1254; 8 Latvian 01/13/19 1254 by 1615 by (Fr) (8F); Right; Femoral Lucy, Bharath A, St ocker, Bharath A, (RFV) RN RN LDA Cath/EP Sheath 01/13/19; 1254; 7 Latvian 01/13/19 1254 by 1615 by (Fr) (7F); Left; Femoral Lucy, Bharath A, Sto cker, Bharath A, (LFV) RN RN LDA Cath/EP Sheath 01/13/19; 1254; 9 Latvian 01/13/19 1254 by 1615 by (Fr) (9F); Left; Femoral Lucy, Bharath A, Sto cker, Bharath A, (LFV) RN RN documented in this encounter Social History Tobacco Use Types Packs/Day Years Used Date Smoking Tobacco: Never Smokeless Tobacco: Never Sex Assigned at Date Recorded Not on file documented as of this encounter OR Notes Anesthesia Postprocedure Evaluation - Sasha Mccracken MD - 01/13/2019 7:30 PM EDT Department of Anesthesiology Post-procedure Note Patient: Pritesh Cardona Procedure Summary Date: 01/13/19 Room / Location: [facility] B-LAB ROOM 4 / [facility] Anesthesia Start: 1130 Anesthesia Stop: 1850 Procedures: ELECTROPHYSIOLOGY PROCEDURE (N/A ) TRANSESOPHAGEAL ECHO DURING CATH/EP PROCEDURE (N/A ) Diagnosis: (AFIB) Provider: Torrey Bustos MD; Jamey Hickey MD Responsible Provider: Sasha Mccracken MD Anesthesia Type: general ASA Status: 2 All Anesthesia Providers: Anesthesiologist: Sasha Mccracken MD; Kade King MD; Lissa Marshall MD APPRENTICE STYLIST: Lawson Cesar CRNA Vitals Value Taken Time BP 104/69 01/13/2019 8:00 PM Temp 36.5 ??C (97.7 ??F) 01/13/2019 6:47 PM Pulse 91 01/13/2019 8:09 PM Resp 9 01/13/2019 8:08 PM SpO2 97 % 01/13/2019 8:09 PM Pain Level Vitals shown include unvalidated device data. Patient Location: PACU/[facility] Level of Consciousness: Awake and Alert Pain Management: Satisfactory Analgesia PONV: None Cardiovascular Status: At Baseline and Hemodynamically Stable Respiratory Status: At Baseline and Room Air Postoperative Fluid Status: Intravascular EUvolemia Possible Anesthetic Complications: NONE apparent at time of evaluation Final Primary Anesthesia Type: General (The anesthetic type performed was the same as planned.) Comments: SASHA MCCRACKEN MD Anesthesia Preprocedure Evaluation - Kade King MD - 01/13/2019 6:44 AM EDT Pre-Anesthesia Evaluation for: Pritesh Cardona a 68 y.o. male. Procedure(s): ELECTROPHYSIOLOGY PROCEDURE TRANSESOPHAGEAL ECHO DURING CATH/EP PROCEDURE Patient Active Problem List Diagnosis ??? 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 Persistent atrial fibrillation Phillips mini maze (bilateral left antral isolation, partial cardiac denervation, intraoperative EP testing & closure of left atrial appendage), transesophageal echo, intraoperative cardioversion ??? History of loop recorder Placed 08/14/17 - [employer] LINQ serial #[id number] Past Medical History: Diagnosis Date ??? Probable seizure disorder 02/11/2018 No past surgical history on file. Social History Tobacco Use ??? Smoking status: Never Smoker ??? Smokeless tobacco: Never Used Substance Use Topics ??? Alcohol use: Not on file Social History Substance and Sexual Activity Drug Use Not on file No Known Allergies Medications: MAR and/or home medications have been reviewed. Physical Exam: There were no vitals filed for this visit. There is no height or weight on file to calculate BMI. Airway Assessment: Mallampati: II TM distance: >3 FB Neck ROM: full Cardiovascular Assessment: Pulmonary Assessment: Dental Assessment: - normal exam Misc Assessment: IV access: Peripheral line Anesthesia Plan: ASA 2 general, with a(n) intravenous induction 68 y/o man with a PMH of a-fib (persistent s/p mini MAZE and multiple cardioversions), seizure, heart failure with reduced EF here for a fib ablation. Tolerated GA in the past. METS >4. SHANIA from last year with EF 40-45%, more recent cardiac MR withEF 50%. Plan for GA, ETT, PIVx2, arterial line. Region - Intrathoracic Cardiac Informed Consent: Anesthetic plan and risks discussed with patient and spouse. Plan discussed with APPRENTICE STYLIST. PAT Clinic Note documented in this encounter Plan of Treatment Not on filedocumented as of this encounter Visit Diagnoses Not on filedocumented in this encounter Administered Medications Inactive Administered Medications - up to 3 most recent administrations Medication Order MAR Action Action Date Dose Rate Site adenosine (ADENOCARD) injection Given 01/13/2019 2:50 PM EDT 30 mg PRN, Starting on Fri01/13/19 at 1414, Until Fri01/13/19 at 1853, Anesthesia Intra-op, Routine Given 01/13/2019 2:16 PM EDT 18 mg Given 01/13/2019 2:14 PM EDT 6 mg dexamethasone (DECADRON) injection Given 01/13/2019 12:34 PM EDT 8 mg PRN, Starting on Fri01/13/19 at 1234, Until Fri01/13/19 at 1853, Anesthesia Intra-op, Routine DOBUTamine 2,000 mcg/mL Restarted 01/13/2019 5:17 PM 40 mcg/kg/min 8 9.9 mL/hr (standard ADULT & Pedi EDT greater than 20kg) CONTINUOUS PRN, Starting on Fri01/13/19 at 1422, Until Fri01/13/19 at 1853, Anesthesia Intra-op Rate/Dose Change 01/13/2019 2:45 PM EDT 40 mcg/kg/min 89.9 mL/hr Rate/Dose Change 01/13/2019 2:40 PM EDT 20 mcg/kg/min 44.9 mL/hr fentaNYL 50 mcg/mL multi-dose injection Given 01/13/2019 6:16 PM EDT 25 mcg PRN, Starting on Fri01/13/19 at 1406, Until Fri01/13/19 at 1853, Anesthesia Intra-op, Routine Given 01/13/2019 5:57 PM EDT 25 mcg Given 01/13/2019 2:06 PM EDT 50 mcg glycopyrrolate (ROBINUL) multi-dose inje ction Given 01/13/2019 5:56 PM EDT 0.4 mg PRN, Starting on Fri01/13/19 at 1756, Until Fri01/13/19 at 1853, Anesthesia Intra-op, Routine heparin (porcine) injection Given 01/13/2019 2:24 PM EDT 4,000 Units PRN, Starting on Fri01/13/19 at 1342, Until Fri01/13/19 at 1853, Anesthesia Intra-op, Routine Given 01/13/2019 1:47 PM EDT 5,000 Units Given 01/13/2019 1:42 PM EDT 7,500 Units heparin 25,000 units in Rate/Dose Change 01/13/2019 2:24 3,999 Unit s/hr 80 mL/hr dextrose 5% 500 mL infusion PM EDT CONTINUOUS PRN, Starting on Fri01/13/19 at 1344, Until Fri01/13/19 at 1853, Anesthesia Intra-op, Routine New Bag 01/13/2019 1:44 PM EDT 3,000 Units/hr 60 mL/hr lactated ringers infusion New Bag 01/13/2019 6:00 PM EDT 1,000 mL, at 100 mL/hr, Intravenous, CONTINUOUS, Starting on Fri01/13/19 at 0715, Until Fri01/13/19 at 2030, Day of Surgery (Day of Procedure) New Bag 01/13/2019 2:57 PM EDT New Bag 01/13/2019 7:24 AM EDT 1,000 mLs 100 mL/hr lidocaine (PF) (XYLOCAINE) 100 mg/5 mL (2 %) Given 11:40 AM EDT 40 mg injection PRN, Starting on Fri01/13/19 at 1140, Until Fri01/13/19 at 1853, Anesthesia Intra-op, Routine neostigmine (BLOXIVERZ) injection Given 01/13/2019 5:55 PM EDT 3 mg PRN, Starting on Fri01/13/19 at 1755, Until Fri01/13/19 at 1853, Anesthesia Intra-op, Routine ondansetron (ZOFRAN) injection Given 01/13/2019 5:51 PM EDT 4 mg PRN, Starting on Fri01/13/19 at 1435, Until Fri01/13/19 at 1853, Anesthesia Intra-op, Routine Given 01/13/2019 2:35 PM EDT 4 mg PHENYLephrine Rate/Dose Change 01/13/2019 5:59 PM 20 mcg/min 15 mL/hr (VENU-SYNEPHRINE) 20 mg in EDT sodium chloride 250 mL (standard ADULT & Pedi greater than 20kg) infusion CONTINUOUS PRN, Starting on Fri01/13/19 at 1223, Until Fri01/13/19 at 1853, Anesthesia Intra-op, Routine Restarted 01/13/2019 3:00 PM EDT 40 mcg/min 30 mL/hr Rate/Dose Change 01/13/2019 2:36 PM EDT 10 mcg/min 7.5 mL/hr PHENYLephrine in NS (PF) (VENU-SYNEPHRINE) Given 01/13/2019 2:18 PM EDT 160 mcg 0.8 mg/10 mL (80 mcg/mL) multi-dose injection Syrg PRN, Starting on Fri01/13/19 at 1207, Until Fri01/13/19 at 1853, Anesthesia Intra-op, Routine Given 01/13/2019 12:22 PM EDT 80 mcg Given 01/13/2019 12:12 PM EDT 80 mcg propofol (DIPRIVAN) 10 mg/mL bolus injection Given 9 2:06 PM EDT 40 mg (Anesthesia) PRN, Starting on Fri01/13/19 at 1141, Until Fri01/13/19 at 1853, Anesthesia Intra-op Given 01/13/2019 11:48 AM EDT 50 mg Given 01/13/2019 11:41 AM EDT 200 mg protamine injection Given 01/13/2019 5:58 PM EDT 50 mg PRN, Starting on Fri01/13/19 at 1758, Until Fri01/13/19 at 1853, Anesthesia Intra-op, Routine rocuronium (ZEMURON) multi-dose injectio n Given 01/13/2019 3:40 PM EDT 25 mg PRN, Starting on Fri01/13/19 at 1141, Until Fri01/13/19 at 1853, Anesthesia Intra-op, Routine Given 01/13/2019 11:41 AM EDT 50 mg documented in this encounter Care Teams Business Analysis Specialist Relationship Specialty Start Date End Date Nathaniel Smith MD PCP - General Family Medicine 12/23/18 [address] [place] [address] documented as of this encounter
--- OUTSIDE RECORDS SUMMARY | 2022-08-01 15:49 | XMS_ITS | Encounter Summary ---
:1950 Author Organization [facility] [place] [address] Care Team Providers Name Role Phone None Primary Care Provider Unavailable Encounter Details Date Type Department Care Team Description 03/08/2014 Orders Only Orthopaedics at [facility] Torrey Joya MD [facility] [place] [address] ORTHOPAEDIC SURGERY [phone] [place] [id number] (Wo rk) Social History Tobacco Use Types Packs/Day Years Used Date Smoking Tobacco: Never Assessed Sex Assigned at Date Recorded Not on file documented as of this encounter Plan of Treatment Not on filedocumented as of this encounter Procedures Procedure Name Priority Date/Time Associated Diagnosis Comme nts FILM LIBRARY Routine 03/08/2014 8:15 AM Results f or this STORAGE ONLY DX EDT procedure ar e in ANKLE the results section. documented in this encounter Results Film Library- Storage only DX Ankle (03/08/2014 8:15 AM EDT) Anatomical Region Laterality Modality Other Specimen (Source) Anatomical Collection Method Collection Time Re ceived Time Location / / Volume Laterality 03/08/2014 8:15 AM EDT Narrative 04/27/2014 10:25 PM EDT This is a Non-reportable exam Procedure Note 04/27/2014 This is a Non-reportable exam Torrey Joay MD [facility] FILM LIBRARY ORDERABLES documented in this encounter Visit Diagnoses Not on filedocumented in this encounter Care Teams Furnace Charging Machine Operator Relationship Specialty Start Date End Date None PCP - General 07/24/10 04/21/17 None documented as of this encounter
--- OUTSIDE RECORDS SUMMARY | 2022-08-01 15:49 | XMS_ITS | Encounter Summary ---
:1950 Author Organization [facility] [place] [address] Care Team Providers Name Role Phone Nathaniel Smith MD Primary Care Provider Reason for Visit Reason Comments Dizziness Encounter Details Date Type Department Care Team Description 04/20/2018 Emergency Emergency Department [facility] [place] [address] Social History Tobacco Use Types Packs/Day Years Used Date Smoking Tobacco: Never Smokeless Tobacco: Never Sex Assigned at Date Recorded Not on file documented as of this encounter Last Filed Vital Signs Vital Sign Reading Time Taken Comments Blood Pressure 135/78 04/20/2018 12:10 PM EDT Pulse 79 04/20/2018 12:10 PM EDT Temperature 36.8 ??C (98.2 ??F) 04/20/2018 9:45 AM EDT Respiratory Rate 13 04/20/2018 12:08 PM EDT Oxygen Saturation 100% 04/20/2018 12:10 PM EDT Inhaled Oxygen Concentration - - Weight - - Height - - Body Mass Index - - documented in this encounter Discharge Instructions Discharge Yuan Olmstead PA - 04/20/2018 12:06 PM EDT It appears that you have had an episode of vasovagal syncope. Please follow-up with your doctor to discuss this episode that occurred today. Continue to follow-up with cardiology to discuss management of your atrial fibrillation. Return to the emergency department as needed for worsening symptoms or other concerns. AttachmentsThe following attachments cannot be sent through Care Everywhere. VASOVAGAL SYNCOPE ([employer] [place])documented in this encounter Medications at Time of [...] 24 hr documented as of this encounter ED Notes Blane Medellin RN - 04/20/2018 12:15 PM EDT Pt reports that he currently have no symptoms/complaint. For discharge home. Ambulated to restroom with steady gait. Yuan Crockett PA - 04/20/2018 10:41 AM EDT Chief Complaint Patient presents with ??? Dizziness HPI This is a 67 y/o male with hx of paroxysmal atrial fibrillation not on anticoagulation, and BPH, whopresents with a syncopal episode just prior to arrival. Patient was in the hospital getting an MRI of his heart today which was scheduled many months ago, and while he was having an IV placed, he passed out for roughly 1 minute. Patient did urinate on himself. There was no seizure activity noticed.He never had any chest pain. His symptoms have now resolved. He reports that this has happened to him numerous times in the past. Patient did feel the symptoms coming on and knew that he was going to pass out again. He reports that I know this is my vasovagal syncope again. No Known Allergies Review of Systems Constitutional: Negative for fever. HENT: Negative for rhinorrhea. Eyes: Negative for pain. Respiratory: Negative for shortness of breath. Cardiovascular: Negative for chest pain. Gastrointestinal: Negative for abdominal pain. Endocrine: Negative for polyuria. Genitourinary: Negative for frequency. Musculoskeletal: Negative for back pain. Skin: Negative for rash. Neurological: Negative for headaches. Psychiatric/Behavioral: Negative for confusion. Physical Exam Constitutional: He is oriented to person, place, and time. He appears well- developed and well-nourished. No distress. HENT: Head: Normocephalic and atraumatic. Eyes: EOM are normal. Pupils are equal, round, and reactive to light. Right eye exhibits no discharge. Left eye exhibits no discharge. Neck: Neck supple. Cardiovascular: Normal rate, regular rhythm, normal heart sounds and intact distal pulses. Exam reveals no gallop and no friction rub. No murmur heard. Pulmonary/Chest: Effort normal and breath sounds normal. No stridor. No respiratory distress. He hasno wheezes. He has no rales. Abdominal: Soft. Bowel sounds are normal. He exhibits no distension. There is no tenderness. There is no rebound and no guarding. Musculoskeletal: He exhibits no edema. Neurological: He is alert and oriented to person, place, and time. Skin: Skin is warm and dry. He is not diaphoretic. Psychiatric: His behavior is normal. Nursing note and vitals reviewed. Procedures Recent Results (from the past 24 hour(s)) Basic Metabolic Panel (non-fasting) Result Value Ref Range Glucose Lvl 98 65 - 199 mg/dL BUN 13 10 - 20 mg/dL Creatinine 0.82 0.80 - 1.50 mg/dL Sodium 142 135 - 145 mmol/L Potassium 4.6 3.5 - 5.0 mmol/L Chloride 107 98 - 107 mmol/L CO2 23 22 - 31 mmol/L Anion Gap 12 5 - 15 mmol/L Calcium 8.6 8.5 - 10.5 mg/dL eGFR 92 >=60 mL/min/1.73 m?? eGFR 107 >=60 mL/min/1.73 m?? Hemogram Result Value Ref Range WBC 5.5 4.0 - 9.5 x10(3)/mcL RBC 4.36 (L) 4.58 - 5.54 x10(6)/mcL Hemoglobin 14.4 13.7 - 16.5 gm/dL Hematocrit 41.0 40.5 - 48.5 % MCV 94.0 (H) 82.9 - 93.1 fL MCH 33.0 (H) 27.5 - 32.1 pg MCHC 35.1 32.0 - 35.7 gm/dL Platelets 218 145 - 357 x10(3)/mcL RDWSD 41.3 36.0 - 45.0 fL RDWCV 12.0 11.4 - 13.8 % MPV 8.8 7.6 - 12.9 fL nRBC % Auto 0.0 % nRBC Abs Auto 0.000 0.000 - 0.000 x10(3)/mcL Differential, Automated Result Value Ref Range Neutrophils % 73.1 % Neutr Abs (ANC) 4.05 1.70 - 6.10 x10(3)/mcL Lymphocytes % 17.0 % Lymphocytes Abs 0.9 0.9 - 3.2 x10(3)/mcL Monocytes % 8.7 % Monocyte Abs 0.5 0.3 - 0.9 x10(3)/mcL Eosinophils % 0.5 % Eosinophils Abs 0.0 0.0 - 0.4 x10(3)/mcL Basophils % 0.5 % Basophils Abs 0.0 0.0 - 0.1 x10(3)/mcL Immature Gran % 0.20 % Sheri Gran Abs 0.01 0.00 - 0.04 x10(3)/mcL Blue Tube HOLD Result Value Ref Range Blue Hold Sample in lab. MDM This is a well-appearing 67-year-old male presents with an episode of syncope prior to arrival. Patient was upstairs getting an IV placed for a cardiac MRI when he started to feel lightheaded and had asensation that he was going to pass out. Patient was laying flat on the stretcher and then went unconscious for roughly 1 minute per report. He did urinate himself. He had no visible seizure activity. He denies any chest pain prior to the episode or after the event. He has returned to his baseline at this time. Patient does have a history of paroxysmal atrial fibrillation and had a mini maze ablation in [place] last year. He has not been in A. fib since the ablation. He is not on anticoagulation. Patient reports that he has been hydrating as per usual. He states that this has happened to him numerous times in the past when he has had blood drawn. He reports that he knows can happen today becausehe took them several minutes to try to get an IV and he was becoming more anxious about the situation. Patient monitored in the emergency department for several hours. He was up and ambulatory without any difficulty. His labs and vital signs here are reassuring. He was given some fluid and continues to feel well. Seems very likely that his symptoms are related to vasovagal syncope as this has happened to him many times in the past when being stuck by a needle. He will follow-up with his PCP as needed for further episodes. He will continue to follow-up with cardiology as an outpatient. ED Course: -H&P -Labs and vitals reviewed -EKG Reviewed -Discharge home with PCP follow up ED Course Yuan Crockett PA 04/20/18 1557 documented in this encounter Plan of Treatment Not on filedocumented as of this encounter Procedures Procedure Name Priority Date/Time Associated Diagnosis Comme nts HEMOGRAM STAT 04/20/2018 11:00 AM Results for this EDT procedure are i n the results section. DIFFERENTIAL, STAT 04/20/2018 11:00 AM Results for this AUTOMATED EDT procedure are i n the results section. BLUE TUBE HOLD STAT 04/20/2018 11:00 AM Result s for this EDT procedure are i n the results section. CBC (WITH DIFF) STAT 04/20/2018 11:00 AM EDT BASIC METABOLIC STAT 04/20/2018 11:00 AM Resul ts for this PANEL (NON-FASTING) EDT procedur e are in the results section. EKG 12-LEAD STAT 04/20/2018 9:42 AM Results f or this EDT procedure are i n the results section. documented in this encounter Results Blue Tube HOLD (04/20/2018 11:00 AM EDT) athologist Signature Blue Hold Sample in [facility]. [facility] Specimen Anatomical Collection Method Collection Time Receive d Time (Source) Location / / Volume Laterality Blood specimen Venous Draw / 04/20/2018 11:00 04/20/20 18 (specimen) Unknown AM EDT 11:04 AM EDT Yuan MARIA HEMATOLOGY ORDERABLES Performing Organization Address City/State/ZIP Code Phon e Number [facility] [place] [address] Differential, Automated (04/20/2018 11:00 AM EDT) P athologist Signature Neutrophils % 73.1 % [facility] Neutr Abs (ANC) 4.05 1.70 - [facility] 6.10 [facility] x10(3)/[facility] LABORATORY Lymphocytes % 17.0 % [facility] Lymphocytes Abs 0.9 0.9 - 3.2 [facility] x10(3)/[facility] LABORATORY Monocytes % 8.7 % [facility] Monocyte Abs 0.5 0.3 - 0.9 [facility] x10(3)/[facility] LABORATORY Eosinophils % 0.5 % [facility] Eosinophils Abs 0.0 0.0 - 0.4 [facility] x10(3)/[facility] LABORATORY Basophils % 0.5 % [facility] Basophils Abs 0.0 0.0 - 0.1 [facility] x10(3)/[facility] LABORATORY Immature Gran % 0.20 % [facility] Comment: Immature granulocytes(IG's)percentage an d absolute count will include metamyelocytes, myelocytes, and promyelo cytes. Blood smears from CBCs yielding IG's will be scanned manually for concor dance. If this scan disagrees with the automated IG or if promyelocytes are not ed, a manual differential will be performed. Sheri Gran Abs 0.01 0.00 - 0.04 x10(3)/[facility] Y [facility] Specimen Anatomical Collection Method Collection Time Receive d Time (Source) Location / / Volume Laterality Blood specimen 04/20/2018 11:00 8 (specimen) AM EDT 11:03 AM EDT Resulting Agency Comment Spec In Lab Yuan MARIA HEMATOLOGY ORDERABLES Performing Organization Address City/State/[place] [address] (ABNORMAL) Hemogram (04/20/2018 11:00 AM EDT) Analysis Performed At Patho logist Time Signature WBC 5.5 4.0 - 9.5 [facility] x10(3)/[facility] LABORATORY RBC 4.36 (L) 4.58 - [place] [facility] 5.54 [facility] x10(6)/[facility] LABORATORY Hemoglobin 14.4 13.7 - [place] [facility] 16.5 gm/dL [facility] Hematocrit 41.0 40.5 - [facility] 48.5 % [facility] MCV 94.0 (H) 82.9 - [facility] 93.1 [facility] LABORATORY MCH 33.0 (H) 27.5 - [place] [facility] 32.1 pg [facility] MCHC 35.1 32.0 - [place] [facility] 35.7 gm/dL [facility] Platelets 218 145 - 357 [facility] LABORATORY RDWSD 41.3 36.0 - [facility] 45.0 [facility] LABORATORY RDWCV 12.0 11.4 - [place] [facility] 13.8 % [facility] MPV 8.8 7.6 - 12.9 [facility] LABORATORY nRBC % Auto 0.0 % [facility] nRBC Abs Auto 0.000 0.000 - [place] [employer] 0.000 [facility] x10(3)/[facility] LABORATORY Specimen Anatomical Collection Method Collection Time Receive d Time (Source) Location / / Volume Laterality Blood specimen 04/20/2018 11:00 8 (specimen) AM EDT 11:03 AM EDT Resulting Agency Comment Spec In Lab Yuan MARIA HEMATOLOGY ORDERABLES Performing Organization Address City/State/[place] [address] Basic Metabolic Panel (non-fasting) (04/20/2018 11:00 AM EDT) P athologist Signature Glucose Lvl 98 65 - 199 [facility] mg/dL [facility] Comment: Diabetes: >=200 mg/dL plus symp toms BUN 13 10 - 20 mg/dL [facility] Creatinine 0.82 0.80 - 1.50 mg/dL [facility] Sodium 142 135 - 145 mmol/L [facility] Potassium 4.6 3.5 - 5.0 mmol/L [facility] Comment: Please note: ??Patients with WBC >100,00 0 may have falsely elevated Potassium levels. ??For accurate Potassium quantif ication in these patients send serum separator tube (gold top) for subsequent determinations. ??Contact the Clinical Chemistry Laboratory if there are any qu estions. Chloride 107 98 - 107 mmol/L [facility] CO2 23 22 - 31 mmol/L [facility] Anion Gap 12 5 - 15 mmol/L [facility] Calcium 8.6 8.5 - 10.5 mg/dL [facility] Estimated GFR 92 >=60 mL/min/1.73 m?? [facility] Comment: The eGFR was calculated using the CKD-EP I equation. As with all creatinine based estimates of kidney function, eGFR values calculated with the CKD-EPI equation are not accurate in patients wi th acute kidney failure, extremes of body mass or the acutely ill. [email or web address] [place]nkf eGFR 107 >=60 mL/min/1.73 m?? [facility] Comment: The eGFR was calculated using the CKD-EP I equation. As with all creatinine based estimates of kidney function, eGFR values calculated with the CKD-EPI equation are not accurate in patients wi th acute kidney failure, extremes of body mass or the acutely ill. [email or web address] Specimen Anatomical Collection Method Collection Time Receive d Time (Source) Location / / Volume Laterality Blood specimen 04/20/2018 11:00 8 (specimen) AM EDT 11:03 AM EDT Resulting Agency Comment Spec In Lab Shefali Gonzales MD CHEMISTRY ORDERABLES Performing Organization Address City/State/[place] [address] EKG 12 Lead (04/20/2018 9:42 AM EDT) Component Value Ref Range Test Analysis Performed Pathologis t Method Time At Signature Ventricular rate 56 BPM MUSE SYSTEM Atrial Rate 56 BPM MUSE SYSTEM P-R Interval 172 ms MUSE SYSTEM QRS Duration 92 ms MUSE SYSTEM Q-T Interval 460 ms MUSE SYSTEM QTC Calculated 443 ms MUSE SYSTEM (Bezet) Calculated P Guy -12 degrees MUSE SYSTEM Calculated R Guy 12 degrees MUSE SYSTEM Calculated T Guy 25 degrees MUSE SYSTEM INTERPRETATION Sinus bradycardia MUSE SY STEM Nonspecific ST abnormality Abnormal ECG When compared with ECG of 12-FEB-2018 08:54, Sinus rhythm has replaced Atrial flutter Vent. rate has decreased BY ??42 BPM Confirmed by MD SILVANO, MARISABEL ([id number]) on 04/21/2018 9:47:50 AM Specimen Anatomical Collection Method Collection Time Receive d Time (Source) Location / / Volume Laterality 04/20/2018 9:42 AM 8 9:47 EDT AM EDT Shefali Gonzales MD ECG ORDERABLES Performing Organization Address City/State/ZIP Code Phon e Number MUSE SYSTEM documented in this encounter Visit Diagnoses Diagnosis Vasovagal syncope Syncope and collapse documented in this encounter Administered Medications Inactive Administered Medications - up to 3 most recent administrations Medication Order MAR Action Action Date Dose Rate Site sodium chloride 0.9% New Bag 04/20/2018 11:06 AM 1,000 mLs 4000 m L/hr infusion EDT 1,000 mL, at 4,000 mL/hr, Intravenous, ONCE, 1 dose, On Fri04/20/18 at 1043 documented in this encounter Active and Recently Administered Medications Times are shown in EDT. Scheduled Medication Order 04/18/2018 04/19/2018 04/20/2018 sodium chloride 0.9% infusion (COMPLETED) 1106 (New Bag - Provider: Blane Medellin RN)1215 (Stopped - Provider: Blane Medellin RN) 1,000 mL, at 4,000 mL/hr, Intravenous, ONCE, 1 dose, On 04/20 at 1043 documented in this encounter Care Teams Senior Technical Specialist Relationship Specialty Start Date End Date Nathaniel Smith MD PCP - General Family Medicine 04/22/17 08/11/18 [address] [place] [address] documented as of this encounter
--- OUTSIDE RECORDS SUMMARY | 2022-08-01 15:49 | XMS_ITS | Encounter Summary ---
:1950 Author Organization [place] [address] Care Team Providers Name Role Phone Nathaniel Smith MD Primary Care Provider Encounter Details Date Type Department Care Team Description 07/14/2018 Orders Only Electrophysiology [place] [facility] [place] [address] Social History Tobacco Use Types Packs/Day Years Used Date Smoking Tobacco: Never Smokeless Tobacco: Never Sex Assigned at Date Recorded Not on file documented as of this encounter Plan of Treatment Not on filedocumented as of this encounter Visit Diagnoses Not on filedocumented in this encounter Care Teams Lab Head Relationship Specialty Start Date End Date Nathaniel Smith MD PCP - General Family Medicine 04/22/17 08/11/18 [address] [place], [place] [address] documented as of this encounter
--- OUTSIDE RECORDS SUMMARY | 2022-08-01 15:49 | XMS_ITS | Encounter Summary ---
:1950 Author Organization [facility] [place] [address] Care Team Providers Name Role Phone Nathaniel [...] Expiration Date Visits Requ ested Visits Authorized [id number] 1 1 Encounter Details Date Type Department Care Team Description 01/13/2019 Surgery Electrophysiology Lab at Torrey Bustos ECTROPHYSIOLOGY [facility] MD Lyn PROCEDURE [facility] [place] [address] CENTER [phone] [place] [id number] Social History Tobacco Use Types Packs/Day Years Used Date Smoking Tobacco: Never Smokeless Tobacco: Never Sex Assigned at Date Recorded Not on file documented as of this encounter Last Filed Vital Signs Vital Sign Reading Time Taken Comments Blood Pressure 112/70 01/13/2019 8:50 PM EDT Pulse 89 01/13/2019 8:50 PM EDT Temperature 36.6 ??C (97.9 ??F) 01/13/2019 8:50 PM EDT Respiratory Rate 17 01/13/2019 8:15 PM EDT Oxygen Saturation 98% 01/13/2019 8:50 PM EDT Inhaled Oxygen Concentration - - Weight 74.9 kg (165 lb 0.2 oz) 01/13/2019 6:37 AM EDT Height 175.3 cm (5' 9) 01/13/2019 6:37 AM EDT Body Mass Index 25.34 01/13/2019 6:37 AM EDT documented in this encounter Discharge Instructions Patient InstructionsTreSung wright PA - 01/14/2019 9:16 AM EDT DISCHARGE [...] of any new medications initiated at the [facility]. The patient should be aware and informed [...] his/her physician or the Cardiac Electrophysiology Service ([phone]). AttachmentsThe following attachments cannot be sent through Care Everywhere.EPS (Electrophysiology Study) and Catheter Ablation: Post-op (Uruguayan)documented in this encounter Medications at Time of [...] NSR on his tele. Groins site soft, ASIA, noredness,no drainage. +DP and PT pulses. Pt. Denies dizziness, has no SOB. Pt. Weighed, up at 171.60 lb.-Bp info paged to Dr. Herring at [phone] by this RN. Am labs drawn and pending.Dr. Herring called back and said to hold am BP meds.hemo. Back as 11.9,hct 34.7. Dr. Herring came to see pt. , BP rechecked by RN instrument repair supervisorMamta as 92/50 Celine Adorno RN - 01/15/2019 [...] Pt. With clear lungs bilat,decreased. 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 +DP and PT pulses +2 heard with doppler. Pt says its easier to breath now,he rates his pain as less than 1/10-hurts less to take a deep breath. This paged to dr. Herring at [phone], pager [phone]. One time IV bolus of 500cc's ordered Celine Adorno RN - 01/14/2019 10:43 PM EDT Pt assessed at the time of 194: He says he has 3-4/10 pain with a deep breath to center chest,but it is better than it was. Pt.'s apical HR over one minute is 83 beats a minute of regular rhythm. Pt. On r/a. Pt.'s bilat groin sites are ASIA,no redness,no drainage ,no swelling, + DP and PT pulses with doppler bilat to feet. Pt ambulating to for frequent voids with one stand by assist. Pt denies SOBand denies dizziness when up ambulating. His telemetry is in sinus rhythm, very occasional PAC as pt. Has been during the day as reported by off going RN. Pac's confirmed with this RN by [employer]. Ptgiven motrin around 1900 per Sung, Nurse [...] his amniodarone. Dr. herring is on pager [phone]. p aparna requested no further running IV [...] loop recorder Overview Note: Placed 08/14/17 - [employer] LINQ serial #[id number] Brief HPI: 68 y.o. male with a history of recurrent AF/AFL following his surgical AF ablation (performed in [place] - 'mini MAZE, bilateral LA antral isolation, [...] Warm and dry Neck- No JVD note. [facility] acces site is CDI without drainage. [...] discharge in AM Hector Nazario MD, PhD, [facility] Cardiac Electrophysiology Jenelle Jasso RN - 01/14/2019 [...] oz) SpO2 98% BMI 24.37 kg/m?? Silvana Andersen, PRECIOUS - 01/13/2019 8:30 PM EDT Report to [facility] in [facility]. Pt janessa ice chips. Denies pain. States he feels well.. documented in this encounter H&P Notes Shantal Louie DO - 01/13/2019 7:14 AM EDT Pritesh Cardona [id number] 01/13/2019 68 y.o. Admission History and Physical [...] following his surgical AF ablation (performed in [place] - 'mini MAZE, bilateral LA antral isolation, [...] Bustos, recommendations reflect our discussion together. Shantal Louie, Cardiac Electrophysiology Fellow documented in this encounter [...] Conf Outcome: Ongoing (Interventions Implemented as Appropriate) 05/15/19 2223 Interdisciplinary Rounds/Family Conf Participants nursing;family;patient documented [...] procedure are i n the results section. HEADWAITRESS SCAN 01/13/2019 12:00 Res ults for this AM EDT procedure are i n the results section. documented in this encounter Results Magnesium (01/15/2019 4:15 AM EDT) athologist Signature Magnesium 0.79 0.69 - 1.07 [facility] mmol/L [facility] Specimen Anatomical Collection Method Collection Time Receive d Time (Source) Location / / Volume Laterality Blood specimen 01/15/2019 4:15 AM 019 4:26 (specimen) EDT AM EDT Resulting Agency Comment Spec In Lab Torrey Bustos MD CHEMISTRY ORDERABLES Performing Organization Address City/State/[place] [address] (ABNORMAL) Basic Metabolic Panel (non-fasting) (01/15/2019 4:15 AM EDT) athologist Signature Glucose Lvl 112 65 - 199 [facility] mg/dL [facility] Comment: Diabetes: >=200 mg/dL plus symp toms BUN 12 10 - 20 mg/dL [facility] Creatinine 0.90 0.80 - 1.50 mg/dL [facility] Sodium 137 135 - 145 mmol/L [facility] Potassium 4.0 3.5 - 5.0 mmol/L [facility] Comment: Please note: ??Patients with WBC >100,00 0 may have falsely elevated Potassium levels. ??For accurate Potassium quantif ication in these patients send serum separator tube (gold top) for subsequent determinations. ??Contact the Clinical Chemistry Laboratory if there are any qu estions. Chloride 103 98 - 107 mmol/L [facility] CO2 26 22 - 31 mmol/L [facility] Anion Gap 8 5 - 15 mmol/L [facility] Calcium 8.3 (L) 8.5 - 10.5 mg/dL [facility] Estimated GFR 88 >=60 mL/min/1.73 m?? [facility] Comment: The eGFR was calculated using the CKD-EP I equation. As with all creatinine based estimates of kidney function, eGFR values calculated with the CKD-EPI equation are not accurate in patients wi th acute kidney failure, extremes of body mass or the acutely ill. http://[employer]/[facility] ALVAnkf eGFR 102 >=60 mL/min/1.73 m?? [facility] Comment: The eGFR was calculated using the CKD-EP I equation. As with all creatinine based estimates of kidney function, eGFR values calculated with the CKD-EPI equation are not accurate in patients wi th acute kidney failure, extremes of body mass or the acutely ill. http://[employer]/[facility]kf Specimen Anatomical Collection Method Collection Time Receive d Time (Source) Location / / Volume Laterality Blood specimen 01/15/2019 4:15 AM 019 4:26 (specimen) EDT AM EDT Resulting Agency Comment Spec In Lab Torrey Bustos MD CHEMISTRY ORDERABLES Performing Organization Address City/State/[place] [address] (ABNORMAL) Hemogram (01/15/2019 4:15 AM EDT) Analysis Performed At Patho logist Time Signature WBC 7.8 4.0 - 9.5 [facility] x10(3)/[facility] LABORATORY RBC 3.70 (L) 4.58 - [facility] 5.54 [facility] x10(6)/[facility] LABORATORY Hemoglobin 11.9 (L) 13.7 - [place] 16.5 gm/dL [facility] Hematocrit 34.7 (L) 40.5 - [place] 48.5 % [facility] MCV 93.8 (H) 82.9 - [place] 93.1 [facility] LABORATORY MCH 32.2 (H) 27.5 - [place] 32.1 pg [facility] MCHC 34.3 32.0 - [place] 35.7 gm/dL [facility] Platelets 162 145 - 357 [place] x10(3)/[facility] LABORATORY RDWSD 40.7 36.0 - [place] 45.0 [facility] RDWCV 11.9 11.4 - [place] 13.8 % [facility] MPV 8.9 7.6 - 12.9 [place] [facility] LABORATORY nRBC % Auto 0.0 % [facility] nRBC Abs Auto 0.000 0.000 - [place] 0.000 [facility] x10(3)/[facility] LABORATORY Specimen Anatomical Collection Method Collection Time Receive d Time (Source) Location / / Volume Laterality Blood specimen 01/15/2019 4:15 AM 019 4:26 (specimen) EDT AM EDT Resulting Agency Comment Spec In Lab Torrey Bustos MD HEMATOLOGY ORDERABLES Performing Organization Address City/State/[place] [address] XR Chest PA & [...] this report, please contact e number below. Electronically signed by: VALENTINO Krueger [facility] ([phone]), at 01/15/2019 1:07 AM Torrey Bustos MD IMG DX ORDERABLES ECHOCARDIOGRAM LMTD W/O CON W LMTD SPEC DOPP, COLOR DOPP (01/14/2019 3:04 PM EDT) P athologist Signature EF 45 HEART[facility] SYSTEM Anatomical Region Laterality Modality Other Specimen (Source) Anatomical Location Collection Method / Collectio n Time Received Time / Laterality Volume 01/14/2019 Narrative 01/14/2019 3:55 PM EDT Procedure: ?Transthoracic Echocardiogram Patient: ?ARMANI QUINTERO ?(Age): 1950(68y) Med Rec#: ? [id number] ?Sex: ?M ? Site Loc: ? [facility] ?Ht / Wt: ??175(cm)/75(kg) Pt. Loc: ?PACU ?BSA: ?1.9 Study Date: ?? 01/14/2019 ?Pt. Type: Same-Day Patient Tape: ? Referring: Torrey Bustos Reading: Reagan Ybarra ([id number]) Coal Crusher Operator: Parish Cheung Diagnosis: *Persistent atrial fibrillation (I48.1) [...] ? Mid-Inferior ?Normal ? Mid-Inferoseptal ?Normal ? [place]-Septal ? Normal ? [place]-Anterior ? Normal ? [place]-Lateral ?Normal ? [place]-Inferior ? Normal ? [place]-Tip ?Normal ? This report has been electronically sign ed by: _ Reagan Ybarra MD ? 01/14/2019 15:54:55 Images [facility] Procedure Note Reagan Ybarra MD - 01/14/2019Forma tting of this note might be different from the original. Procedure: Transthoracic Echocardiogram Patient: ARMANI SINGH(Age): [birth year](68y) Med Rec#: [id number] Sex: M Site Loc: [facility] Ht / Wt: 175(cm)/75(kg) Pt. Loc: PACU BSA: 1.9 Study Date: 01/14/2019 Pt. Type: Same-Da y Patient Tape: Referring: Torrey Bustos Reading: Reagan Ybarra ([id number]) Coal Crusher Operator: Parish Cheung Diagnosis: *Persistent atrial fibrillation (I48.1) [...] Normal Mid-Posterolateral Normal Mid-Inferior Normal Mid-Inferoseptal Normal [place]-Septal Normal [place]-Anterior Normal [place]-Lateral Normal [place]-Inferior Normal [place]-Tip Normal This report has been electronically sign ed by: _ Reagan Ybarra MD 01/14/2019 15:54: 55 Images reviewed and interpretation verif ied [facility] Cardiac Ultrasound Laboratory Torrey Bustos MD ECHO [...] 428 ms MUSE SYSTEM (Bezet) Calculated P Pag[place] 64 degrees MUSE SYSTEM Calculated R [place] 68 degrees MUSE SYSTEM Calculated T [place] -12 degrees MUSE SYSTEM INTERPRETATION Normal sinus [...] T3, Total 58 (L) 75 - 170 [facility] ng/dL [facility] Specimen Anatomical Collection Method Collection Time Receive d Time (Source) Location / / Volume Laterality Blood specimen Venous Draw / 01/14/2019 9:18 AM 2018 (specimen) Unknown EDT 10:53 AM EDT Resulting Agency Comment Spec In Lab Sung MARIA CHEMISTRY ORDERABLES Performing Organization Address City/[facility]/ZIP Code Phon e Number [address] T4, free (01/14/2019 9:18 AM EDT) athologist Signature Free T4 1.54 0.93 - 1.70 [facility] ng/dL [facility] Specimen Anatomical Collection Method Collection Time Receive d Time (Source) Location / / Volume Laterality Blood specimen Venous Draw / 01/14/2019 9:18 AM 2018 (specimen) Unknown EDT 10:53 AM EDT Resulting Agency Comment Spec In Lab Sung MARIA CHEMISTRY ORDERABLES Performing Organization Address City/[facility]/[place] [address] Magnesium (01/14/2019 9:18 AM EDT) athologist Signature Magnesium 0.69 0.69 - 1.07 [facility] mmol/L [facility] Specimen Anatomical Collection Method Collection Time Receive d Time (Source) Location / / Volume Laterality Blood specimen 01/14/2019 9:18 AM 019 (specimen) EDT 10:53 AM EDT Resulting Agency Comment Spec In Lab Torrey Bustos MD CHEMISTRY ORDERABLES Performing Organization Address City/State/[place] [address] (ABNORMAL) Basic Metabolic Panel (non-fasting) (01/14/2019 9:18 AM EDT) P athologist Signature Glucose Lvl Not Perf 65 - 199 [facility] Comment: Sample improperly processed prior to rec eipt. Diabetes: >=200 mg/dL plus symptoms BUN 15 10 - 20 mg/dL [facility] Creatinine 1.16 0.80 - 1.50 mg/dL [facility] Sodium 141 135 - 145 mmol/L [facility] Potassium 3.4 (L) 3.5 - 5.0 mmol/L [facility] Comment: Please note: ??Patients with WBC >100,00 0 may have falsely elevated Potassium levels. ??For accurate Potassium quantif ication in these patients send serum separator tube (gold top) for subsequent determinations. ??Contact the Clinical Chemistry Laboratory if there are any qu estions. Chloride 100 98 - 107 mmol/L [facility] CO2 26 22 - 31 mmol/L [facility] Anion Gap 15 5 - 15 mmol/L [facility] Calcium 8.6 8.5 - 10.5 mg/dL [facility] Estimated GFR 65 >=60 mL/min/1.73 m?? [facility] Comment: The eGFR was calculated using the CKD-EP I equation. As with all creatinine based estimates of kidney function, eGFR values calculated with the CKD-EPI equation are not accurate in patients wi th acute kidney failure, extremes of body mass or the acutely ill. http://[employer]/[facility]VAnkf eGFR 75 >=60 mL/min/1.73 m?? [facility] Comment: The eGFR was calculated using the CKD-EP I equation. As with all creatinine based estimates of kidney function, eGFR values calculated with the CKD-EPI equation are not accurate in patients wi th acute kidney failure, extremes of body mass or the acutely ill. http://[employer]/[facility]VAnkf Specimen Anatomical Collection Method Collection Time Receive d Time (Source) Location / / Volume Laterality Blood specimen 01/14/2019 9:18 AM 019 (specimen) EDT 10:53 AM EDT Resulting Agency Comment Spec In Lab Torrey Bustos MD CHEMISTRY ORDERABLES Performing Organization Address City/[facility]/[place] [address] EKG 12 Lead (01/14/2019 7:25 AM EDT) Component Value Ref Range Test Analysis Performed Pathologis t Method Time At Signature Ventricular rate 83 BPM MUSE SYSTEM Atrial Rate 83 BPM MUSE SYSTEM P-R Interval 186 ms MUSE SYSTEM QRS Duration 96 ms MUSE SYSTEM Q-T Interval 378 ms MUSE SYSTEM QTC Calculated 444 ms MUSE SYSTEM (Bezet) Calculated P Pageland 82 degrees MUSE SYSTEM Calculated R Pag[place] 48 degrees MUSE SYSTEM Calculated T Pag[place] 42 degrees MUSE SYSTEM INTERPRETATION Normal sinus [...] Barbosa MD ECG ORDERABLES Performing Organization Address City/[facility]/ZIP Code Phon e Number MUSE SYSTEM EKG [...] 467 ms MUSE SYSTEM (Bezet) Calculated P Pageland 79 degrees MUSE SYSTEM Calculated R Pag[place] -30 degrees MUSE SYSTEM Calculated T [place] -28 degrees MUSE SYSTEM INTERPRETATION Normal sinus rhythm MUSE SYSTEM Left axis deviation Nonspecific T wave abnormality Prolonged QT Abnormal ECG When compared with ECG of 18-AUG-2018 11:16, Sinus rhythm has replaced Atrial fibrillation Confirmed by Adam Roque MD ([id number]) on 01/14/2019 3:20:22 PM Specimen Anatomical Collection Method Collection Time Receive d Time (Source) Location / / Volume Laterality 01/13/2019 7:28 PM 9 3:20 EDT PM EDT Torrey Bustos MD ECG ORDERABLES Performing Organization Address City/State/ZIP Code Phon e Number MUSE SYSTEM (ABNORMAL) Point of Care Blood Gas Historical (01/13/2019 12:56 PM EDT) [facility] gist Method Time Signature POC pH 7.40 7.35 - [facility] 7.45 [facility] POC PCO2 39 35 - 45 [facility] mmHg [facility] POC PO2 315 (H) 85 - 104 [facility] mmHg [facility] POC Base Excess 0.0 -3.0 - 3.0 [facility] K mmol/L [facility] POC HCO3 24.3 20.0 - [facility] 26.0 [facility] mmol/[facility] LABORAT[facility] POC Sodium 143 135 - 145 [facility] mmol/L [facility] POC Potassium 3.8 3.5 - 5.0 [facility] mmol/L [facility] POC Ionized Ca 1.08 (L) 1.15 - [facility] 1.33 [facility] POC Hematocrit 37.0 (L) 40.0 - [facility] 51.0 % [facility] POC Calc Hgb 12.6 (L) 13.7 - [facility] 17.5 gm/dL [facility] Comment: The calculation of hemoglobin f rom hematocrit assumes a normal MCHC. POC Bgas Loc CC LAB [facility] Specimen Anatomical Collection Method Collection Time Receive d Time (Source) Location / / Volume Laterality Blood specimen 01/13/2019 12:56 9 9:30 (specimen) PM EDT AM EDT Torrey Bustos MD CHEMISTRY ORDERABLES Performing Organization Address City/State/[place] [address] ELECTROPHYSIOLOGY PROCEDURE (01/13/2019 12:20 [...] Antiarrhythmic ?: None Weight (kilograms) ?: 74.9 [id number] Score ?: 1 Method:??The procedural attending person [...] te of 3000 units/hour. The short 8 Ghanaian sheaths in the right femoral vein were replaced with long sheaths as follows: ?? A Daig 8.5 Fr SL1 transeptal sheath care fully was advanced over a 0.035 J-tipped guidewire so that its tip was i n the superior vena cava. The guidewire was exchanged for a Brockenbro ugh needle (BRK tip), which was inserted [...] 1125 milliseconds (ms) were as follows: ?? ND: ??200 ms (P wave duration??142 ms) AH:?104 ms HV: ??60 ms QRS: 100 ms QT: ??472 ms ?? 2) Atrial overdrive pacing (10 mA @ 2 ms ) was accomplished from the proximal-most bipole in the coronary sin us (CS), and the atrioventricular (AV) Wenckebach block CL was observed at ??370 ms. There was no pre-excitation or conduction aberrancy i dentified. The [id number] interval < QRS-QRS interval just prior t [...] Atrial Anatomy and Mapping: ?? A [employer]ART[employer] ThermoCool SF 8 Fr abla tion catheter [...] iCTI ablation trajectory at ~6:00 in the [place] view during tachycardia with termination during ablation; [...] th at elicited atrial fibrillation with successful oriental orthodox of sinus rhy thm with only 20 [...] through out the procedure and was the primary health care nurse; he reviewed the draft report p repared by Dr. Louie, and approved it with only limited editing. Torrey Bustos MD EP PROCEDURE ORDERABLES (ABNORMAL) Hepatic Function Panel (01/13/2019 6:21 AM EDT) Analysis Performed At Patho logist Time Signature Total Protein 6.1 6.1 - 8.0 [facility] gm/dL [facility] Albumin 4.1 3.2 - 5.2 [facility] gm/dL [facility] AST 18 0 - 39 [facility] [place] unit/L [facility] ALT 15 0 - 55 [facility] [place] unit/L [facility] Alk Phos 36 (L) 40 - 120 [facility] [place] unit/L [facility] Total Not Perf 0.2 - 1.3 [facility] [place] Bilirubin mg/dL [facility] Comment: Analyte stability exceeded; nighat t not performed. Bili, Direct Not Perf 0.0 - 0.3 mg/dL [facility] OCK [facility] Comment: Analyte stability exceeded; nighat t not performed. Specimen Anatomical Collection Method Collection Time Receive d Time (Source) Location / / Volume Laterality Blood specimen Venous Draw / 01/13/2019 6:21 AM 2018 7:16 (specimen) Unknown EDT AM EDT Resulting Agency Comment Spec In Lab Sung MARIA CHEMISTRY ORDERABLES Performing Organization Address City/[facility]/ZIP Code Phon e Number [address] (ABNORMAL) TSH (01/13/2019 6:21 AM EDT) P athologist Signature TSH 4.69 (H) 0.27 - 4.20 [facility] mcIU/mL [facility] Specimen Anatomical Collection Method Collection Time Receive d Time (Source) Location / / Volume Laterality Blood specimen Venous Draw / 01/13/2019 6:21 AM 2018 7:16 (specimen) Unknown EDT AM EDT Resulting Agency Comment Spec In Lab Sung MARIA CHEMISTRY ORDERABLES Performing Organization Address City/[facility]/ZIP Code Phon e Number [address] Differential, Automated (01/13/2019 6:21 AM EDT) P athologist Signature Neutrophils % 50.7 % [facility] Neutr Abs (ANC) 2.55 1.70 - [facility] 6.10 [facility] x10(3)/[facility] LABORATORY Lymphocytes % 34.2 % [facility] Lymphocytes Abs 1.7 0.9 - 3.2 [facility] x10(3)/[facility] LABORATORY Monocytes % 11.5 % [facility] Monocyte Abs 0.6 0.3 - 0.9 [facility] x10(3)/[facility] LABORATORY Eosinophils % 1.8 % [facility] Eosinophils Abs 0.1 0.0 - 0.4 [facility] x10(3)/[facility] LABORATORY Basophils % 1.2 % [facility] Basophils Abs 0.1 0.0 - 0.1 [facility] x10(3)/[facility] LABORATORY Immature Gran % 0.60 % [facility] Comment: Immature granulocytes(IG's)percentage an d absolute count will include metamyelocytes, myelocytes, and promyelo cytes. Blood smears from CBCs yielding IG's will be scanned manually for concor dance. If this scan disagrees with the automated IG or if promyelocytes are not ed, a manual differential will be performed. Sheri Gran Abs 0.03 0.00 - 0.04 x10(3)/[facility] Specimen Anatomical Collection Method Collection Time Receive d Time (Source) Location / / Volume Laterality Blood specimen 01/13/2019 6:21 AM 019 6:24 (specimen) EDT AM EDT Resulting Agency Comment Spec In Lab Farhad MARIA HEMATOLOGY ORDERABLES Performing Organization Address City/State/[place] [address] (ABNORMAL) Hemogram (01/13/2019 6:21 AM EDT) Analysis Performed At Patho logist Time Signature WBC 5.0 4.0 - 9.5 [facility] x10(3)/[facility] LABORATORY RBC 4.38 (L) 4.58 - [facility] 5.54 [facility] x10(6)/[facility] LABORATORY Hemoglobin 14.3 13.7 - [facility] 16.5 gm/dL [facility] Hematocrit 42.1 40.5 - [facility] 48.5 % [facility] MCV 96.1 (H) 82.9 - [facility] 93.1 fL [facility] MCH 32.6 (H) 27.5 - [place] 32.1 pg [facility] MCHC 34.0 32.0 - [place] 35.7 gm/dL [facility] Platelets 214 145 - 357 [place] x10(3)/[facility] LABORATORY RDWSD 41.4 36.0 - [place] 45.0 [place] [facility] LABORATORY RDWCV 11.9 11.4 - [place] NYLA 13.8 % [facility] LABORATORY MPV 9.0 7.6 - 12.9 [facility] LABORATORY nRBC % Auto 0.0 % [facility] LABORATORY nRBC Abs Auto 0.000 0.000 - [facility] 0.000 [facility] x10(3)/[facility] LABORATORY Specimen Anatomical Collection Method Collection Time Receive d Time (Source) Location / / Volume Laterality Blood specimen 01/13/2019 6:21 AM 019 6:24 (specimen) EDT AM EDT Resulting Agency Comment Spec In Lab Farhad MARIA HEMATOLOGY ORDERABLES Performing Organization Address City/State/[place] [address] BMP w/fasting Glucose (01/13/2019 6:21 AM EDT) P athologist Signature Glucose 93 65 - 99 [facility] Fasting mg/dL [facility] Comment: ?Fasting* Glucose Interpretive C riteria Normal ?65-99 mg/dL Impaired Fasting glucose ?100-125 mg/dL Consistent with Diabetes Mellitus ? >or= 126 mg/dL *Fasting is defined as no caloric intake for at least 8 hours In the absence of unequivocal hypergly cemia a plasma glucose value of >or= 126 mg/dL should be repeated on a subseq uent day. Diagnosis and Classification of Diabetes Mellitus, Position Statement from the [employer]. ??Diabete s Care, Volume 33, Supplement 1, Sep 2009 BUN 20 10 - 20 mg/dL [facility] LABORATORY Creatinine 0.88 0.80 - 1.50 mg/dL [facility] LABOR[facility]ORY Sodium 142 135 - 145 mmol/L [facility]OR[facility] Potassium 4.3 3.5 - 5.0 mmol/L [facility]OR[facility] Comment: Please note: ??Patients with WBC >100,00 0 may have falsely elevated Potassium levels. ??For accurate Potassium quantif ication in these patients send serum separator tube (gold top) for subsequent determinations. ??Contact the Clinical Chemistry Laboratory if there are any qu estions. Chloride 105 98 - 107 mmol/L [facility] CO2 26 22 - 31 mmol/L [facility] Anion Gap 11 5 - 15 mmol/L [facility]OR[facility]ORY Calcium 8.9 8.5 - 10.5 mg/dL [facility]OR[facility] Estimated GFR 89 >=60 mL/min/1.73 m?? [facility] Comment: The eGFR was calculated using the CKD-EP I equation. As with all creatinine based estimates of kidney function, eGFR values calculated with the CKD-EPI equation are not accurate in patients wi th acute kidney failure, extremes of body mass or the acutely ill. [email or web address]/[facility] eGFR 103 >=60 mL/min/1.73 m?? [facility] LABORAT[facility] Comment: The eGFR was calculated using the CKD-EP I equation. As with all creatinine based estimates of kidney function, eGFR values calculated with the CKD-EPI equation are not accurate in patients wi th acute kidney failure, extremes of body mass or the acutely ill. [email or web address]/DHnkf Specimen Anatomical Collection Method Collection Time Receive d Time (Source) Location / / Volume Laterality Blood specimen 01/13/2019 6:21 AM 019 6:24 (specimen) EDT AM EDT Resulting Agency Comment Spec In Lab Osorio Barbosa MD CHEMISTRY ORDERABLES Performing Organization Address City/State/[place] [address] SCAN DOC: HEADWAITRESS (01/13/2019 12:00 AM EDT) Anatomical Region Laterality Modality Other Narrative 01/13/2019 12:00 AM EDT This result has an attachment that is no t available. Ordered by an unspecified provider. Scanning Provider MEDIA MGR SCAN EXT ORDR/RSLT documented in this encounter Visit Diagnoses Not on filedocumented in this encounter Admitting Diagnoses Diagnosis Status [...] 40 mEq, Oral, ONCE, 1 dose, On Fri01/14/19 at 1730, 20 mEq tablet may [...] Discontinued, Routine apixaban (ELIQUIS) tablet 5 mg 2153 (Given - Provider: Nicole Jasso RN) 08 (Given - Provider: Laurence Oates RN)2329 (Given - Provider: Celine Adorno RN) 0914 (Given - Provider: Lyn Sylvester) 5 mg, Oral, 2 TIMES DAILY, First dose on Fri01/13/19 at 2230, Until Discontinued, Anticoagulant, Routine BUpivacaine (PF) (MARCAINE) 0.5 % (5 mg/mL) injection 150 mg (COMPLETED) 1255 (Given - Provider: Tanya Jin, PRECIOUS) 150 mg (30 mL), Subcutaneous, ONCE, 1 [...] 0.6 mg, Oral, DAILY, First dose on Sat at 0900, Until Discontinued, Maximum dose: 2.4 mg/ 24 hours, Routine finasteride (PROSCAR) tablet 5 mg 2314 (Given - Provider: Pritesh Jasso RN) 1999 (Given - Provider: Celine Adorno RN)2100 (Not Given - Provider: Celine Adorno RN - Reason: See comment - Comment: given prior) 5 mg, Oral, NIGHTLY, First dose on Wed at 2315, Until Discontinued, STAT ibuprofen (ADVIL;MOTRIN) tablet 400 mg (COMPLETED) 1251 (Given - Provider: Laurence Oates RN) 400 mg, Oral, ONCE, 1 dose, Anna 01/14/19 at 1315, Administer orally with milk or food to minimize GI irritation. Maximum dose of 3200 mg from all sources in 24 hours, Routine lidocaine ((GLYDO)) 2 % gel 10 mL (COMPLETED) 1200 (Gi cecilia - Provider: Tanya Jin, PRECIOUS) 10 mL, INTRA-URETHRAL, ONCE, 1 dose, Fri01/13/19 at 0715, EP (Intra-Procedure), Routine lidocaine (XYLOCAINE) 20 mg/mL (2 %) injection 400 mg (COMPLETED) 1255 (Given - Provider: Tanya Jin RN) 400 mg (20 mL), Subcutaneous, ONCE, 1 do se, Fri01/13/19 at 0715, EP (Intra- Procedure), Routine magnesium oxide (MAG-OX) tablet 400 mg 2 002 (Given - Provider: Celine Adorno, PRECIOUS) 0915 (Given - Provider: Lyn Sylvester) 400 mg, Oral, DAILY, First dose on Fri at 1900, Until Discontinued, Routine melatonin tablet 6 mg 232 (Given - Provider: Sheyla Adorno RN) 6 mg, Oral, NIGHTLY, First dose on Fri at 2100, Until Discontinued, Routine pantoprazole (PROTONIX) tablet 40 mg 929 (Given - Provider: Marleen Oleary RN) 40 mg, Oral, DAILY, First dose on Fri at 1000, Until Discontinued, DO NOT CRUSH OR OPEN, Routine potassium chloride (K-DUR/KLOR-CON) extended release tablet 40 mEq (COMPLETED) 173 (Given - Provider: Laurence Oates, PRECIOUS) 40 mEq, Oral, ONCE, 1 dose, Fri01/14/19 at 1730, 20 mEq tablet may be dissolved in water for administration, Routine sodium chloride 0.9% 500 mL IV bolus (COMPLETED) 0000 (New Bag - Provider: Celine Adorno RN) Intravenous, ONCE, 1 dose, Fri01/15/19 at 0015 tamsulosin (FLOMAX) ER capsule 0.4 mg 2314 (Given - Pr ovider: Jenelle Jasso RN) 2000 (Given - Provider: Celine Adorno RN) 0.4 mg, Oral, NIGHTLY, First dose on Fri01/13/19 at 2315, Until Discontinued, DO NOT CRUSH OR OPEN, STAT Continuous Medication Order 01/13/2019 01/14/2019 01/15/2019 furosemide (LASIX) 100 mg in sodium chloride 0.9% 100 mL infusion (CANCELED) 2301 (New Bag - Provider: Jenelle Jasso RN) 0829 (Stopped - Provider: Laurence Oates RN) 5 mg/hr (5 mL/hr), Intravenous, at 5 mL/ hr, CONTINUOUS, Starting Fri01/13/19 at 2200, Until Anna 01/14/19 at 0836, Routine lactated ringers infusion (CANCELED) 0724 (New Bag - P rovider: Grace Martinez, PRECIOUS)1457 (New Bag - Provider: Lawson Cesar CRNA)1800 (New Bag - Provider: Lawson Cesar CRNA)1835 (Anesthesia Volume Adjustment - Provider: Lawson Cesar CRNA) 1,000 mL, at 100 mL/hr, Intravenous, CON TINUOUS, Starting Fri01/13/19 at 0715, Until Fri01/13/19 at 2030, Day of Surgery (Day of Procedure) sodium chloride 0.9% infusion 181 (New Bag - Provider: Laurence Oates RN)2349 (Stopped - Provider: Celine Adorno RN - Comment: per pt request) 100 mL/hr, at 100 mL/hr, Intravenous, CO NTINUOUS, Starting Anna 01/14/19 at 1730, Until Fri01/15/19 at 0329 PRN Medication Order 01/13/2019 01/14/2019 01/15/2019 acetaminophen (TYLENOL) tablet 650 mg 2152 (Given - Pr ovider: Jenelle Jasso RN) 818 (Given - Provider: Laurence avery RN)2021 (Given - Provider: Celine Adorno RN) 650 mg, Oral, EVERY 4 HOURS PRN, Startin g Fri01/13/19 at 1838, Until Fri01/15/19 at 1352, Pain, Fever, Mild-moderate pain (1-6), maximum daily dose 4 gm, Recovery (Recovery-Hospital Unit), Routine ibuprofen (ADVIL;MOTRIN) tablet 400 mg 1 907 (Given - Provider: Celine Adorno RN) 1134 (Given - Provider: Lyn Sylvester) [...] PRN, Starting Anna 01/14/19 at 1859, Until 01/15/19 at 1352, constipation, Routine documented in this encounter Care Teams Wildlife Biology Internship Relationship Specialty Start Date End Date Nathaniel Smith MD PCP - General Family Medicine 12/23/18 [address] [place] [address] documented as of this encounter
--- OUTSIDE RECORDS SUMMARY | 2022-08-01 15:49 | XMS_ITS | Encounter Summary ---
:1950 Author Organization [facility] [place] [address] Care Team Providers Name Role Phone Nathaniel Smith MD Primary Care Provider Encounter Details Date Type Department Care Team Description 02/23/2018 Orders Only Electrophysiology La b at [facility] [place] [address] Social History Tobacco Use Types Packs/Day Years Used Date Smoking Tobacco: Never Smokeless Tobacco: Never Sex Assigned at Date Recorded Not on file documented as of this encounter Plan of Treatment Not on filedocumented as of this encounter Visit Diagnoses Not on filedocumented in this encounter Care Teams Aircraft Skin Burnisher Relationship Specialty Start Date End Date Nathaniel Smith MD PCP - General Family Medicine 04/22/17 08/11/18 [address] [place], [place] [address] documented as of this encounter
--- OUTSIDE RECORDS SUMMARY | 2022-08-01 15:49 | XMS_ITS | Encounter Summary ---
:1950 Author Organization [facility] [address] Care Team Providers Name Role Phone Nathaniel Smith MD Primary Care Provider Encounter Details Date Type Department Care Team Description 01/12/2019 Orders Only Cardiology at [facility] Torrey Bustos, Persistent atrial [facility] [place] [address] CARDIOLOGY DEPT. [phone] [place], [place] [address] Social History Tobacco Use Types Packs/Day Years Used Date Smoking Tobacco: Never Smokeless Tobacco: Never Sex Assigned at Date Recorded Not on file documented as of this encounter Plan of Treatment Not on filedocumented as of this encounter Visit Diagnoses Diagnosis Persistent atrial fibrillation Atrial fibrillation documented in this encounter Care Teams Rivet Sorter Relationship Specialty Start Date End Date Nathaniel Smith MD PCP - General Family Medicine 12/23/18 [address] [place] [id number] documented as of this encounter
--- OUTSIDE RECORDS SUMMARY | 2022-08-01 15:56 | XMS_ITS | Clinical Summary ---
:1950 Author Organization [facility] Address [address] [place] [address] Care Team Providers Name Role Phone Mitali Pinon Primary Care Provider Allergies No known active allergies Medications Medication Sig Dispensed Refills Start Date End Date Status atorvastatin (LIPITOR) Take 20 mg by 0 05/16/2021 Active 20 mg tablet mouth daily. TAMSulosin (FLOMAX) Take 1 capsule by 30 capsule 11 11/01/2021 Active 0.4 mg mouth at bedtime. capsuleIndications: BPH with obstruction/lower urinary tract symptoms Additional Information Patient not taking. 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 Additional Information Patient not taking. 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) 07/02/2022 Telemedicine Urology Richard Meyer Epididymitis (Primary Dx); MD Seamus Pain in right t esticle 06/24/2022 Office Visit Urology Richard Meyer Epididymitis (Primary Dx); MD Seamus Pelvic pain 06/10/2022 Telephone Urology Richard Meyer Advice Only MD Seamus 05/30/2022 Office Visit Urology Richard Meyer Epididymitis (Primary Dx); MD Seamus Weak urinary st ream; Impotence of or ganic origin 05/28/2022 Hospital Encounter Radiology Epididymi tis 05/27/2022 Telephone Urology Richard Meyer Groin Pain MD Seamus 05/20/2022 [facility] Care [facility], Pharmacy PA-C 05/19/2022 Walk-[facility], Pain in righ t testicle PA-C (Primary Dx) 05/17/2022 Telephone Urology Richard Meyer Groin Pain MD Seamus from Last 3 Months Surgical History Surgery Date Site/Laterality Comments TURP 06/23/2019 TURP CHEST SURGERY RHYTHM MONITOR I N LEFT CHEST WALL, NOW DYSFUNCTIONA L, HAS NOT BEEN REMOVED SHOULDER ARTHROPLASTY Right Right shou lder replacement KNEE CARTILAGE SURGERY Left LEft meni scus repair Medical History Medical History Date Comments Atrial fibrillation (HCC-CMS) (HCC) Heart failure with reduced ejection fraction (HCC-CMS) (HCC) Epilepsy (HCC) BPH with urinary obstruction 2017 flomax/francis steride 02/16-06/19; cysto (09/19)-lateral BPH w ith high median bar, not ideal for U rolift; TRUS (09/19)-35 g; TURP History of continuous positive airway pressure (CPAP) therapy at home Social History Tobacco Use Types Packs/Day Years Used Date Smoking Tobacco: Former Cigarettes 0.5 10/1969 - 06/03/2002 Smokeless Tobacco: Never Tobacco Cessation: Counseling Given: Yes Alcohol Use Standard Drinks/Week Comments Not Currently 0 (1 standard drink = 0.6 oz pure virtu ally none a couple of alcohol) drinks per year Sex Assigned at Date Recorded Male 06/20/2022 18:06 EDT Obstetrics History Last Filed Vital Signs Vital Sign Reading Time Taken Comments Blood Pressure 110/60 07/14/2022 0923 EST Pulse 44 07/14/2022 0923 EST Temperature 36.8 ??C (98.3 ??F) 07/14/2022 0923 EST Respiratory Rate 16 07/14/2022 0923 EST Oxygen Saturation 100% 07/14/2022 0923 EST Inhaled Oxygen Concentration - - Weight 72.1 kg (159 lb) 11/06/2021 1351 EST Height 175.3 cm (5' 9) 11/06/2021 1351 EST Body Mass Index 23.48 11/06/2021 1351 EST Plan of Treatment Upcoming Encounters Date Type Specialty Care Team Description 08/08/2022 Office Visit General Surgery Ish Hall MD [address] [place] [phone] (Wo rk) 09/09/2022 Office Visit Urology Richard Meyer MD [address] [place] [phone] (Wo rk) 10/07/2022 Appointment 10/14/2022 Hospital Encounter General Surgery Richard Meyer MD [address] [place] [phone] (Wo rk) 10/14/2022 Surgery General Surgery Richard MeyerE CTSeamus ARIZMENDI MD UNILATERAL [[id number] [place] (CPT??)] [address] [phone] (Wo rk) 10/28/2022 Post-op Visit Urology Richard Meyer MD [address] [place] [phone] (Wo rk) 11/25/2022 Office Visit Urology Richard Meyer MD [address] [place] [phone] (Wo rk) Scheduled Procedures Name Priority Associated Diagnoses Date/Time EPIDIDYMECTOMY, UNILATERAL Epididymitis 10/14 12:30 EST Health Maintenance Due Date Last Done Comments Hepatitis C Screen 1950 COVID-19 Vaccine (#1) 03/25/1951 Fall Risk Screening 07/05/2020 07/05/2019, 03/02/2019, 09/02, Additional history exists Procedures Procedure Name Priority Date/Time Associated Diagnosis Comme nts POCT URINE Routine 07/14/2022 9:32 Chronic epididymitis Resu lts for this DIPSTICK, VISUAL EST procedure a re in READ the results section. POCT CSN BARCODE Routine 05/30/2022 11:09 Weak urinary stream URINE DIPSTICK EDT POCT URINE Routine 05/30/2022 11:09 Weak urinary stream Resu lts for this DIPSTICK, CLINITEK EDT procedure are in the results section. POCT URINE CLINITEK Routine 05/30/2022 11:09 Weak urinary stre am Results for this (DIPSTICK) - DOES EDT procedure are in NOT REFLEX the results section. US SCROTUM Routine 05/28/2022 11:27 Epididymitis Results for this EDT procedure are i n the results section. BACTERIAL CULTURE, Routine 05/19/2022 16:35 Pain in right Resu lts for this URINE EDT testicle procedure are i n the results section. POCT URINE Routine 05/19/2022 Pain in right Results for th is DIPSTICK, VISUAL testicle procedure a re in READ the results section. from Last 3 Months Results POCT URINE DIPSTICK, VISUAL READ (07/14/2022 9:32 EST)Only the most recent of2 resultswithin the time period is included. [facility] Method Time Signature Color, UA Colorless [facility] POINT OF CARE Clarity, UA Clear [facility] POINT OF CARE Glucose, UA Negative . mg/dL [facility] POINT OF CARE Bilirubin, UA Negative Negative [facility] POINT OF CARE Ketones, UA Negative . mg/dL [facility] POINT OF CARE Spec Grav, UA 1.015 1.005 - [facility] POINT 1.030 OF CARE Blood, UA Negative Negative [facility] POINT OF CARE pH, UA 7.0 4.6 - 8.0 [facility] POINT OF CARE Protein, UA Negative . mg/dL [facility] POINT OF CARE Urobilinogen, 0.2 0.2 - 1.0 [facility] PO[facility] UA E.U./dL OF CARE Nitrite, UA Negative . [facility] POINT OF CARE Leuk Esterase Negative Negative [facility] POINT OF CARE Comment [facility] POINT OF CARE Specimen (Source) Anatomical Collection Method Collection Time Re ceived Time Location / / Volume Laterality Urine URINE SPECIMEN 07/14/2022 9:32 COLLECTION, CLEAN EST CATCH / Unknown Loc Jara OIL WELL FISHING TOOL TECHNICIAN POINT OF CARE TEST ORDERABLE S Performing Organization Address City/[facility]/ZIP Code Phon e Number [facility] POINT OF CARE POCT CSN BARCODE URINE DIPSTICK (05/30/2022 11:09 EDT) Specimen Anatomical Collection Method Collection Time Receive d Time (Source) Location / / Volume Laterality Urine URINE SPECIMEN 05/30/2022 11:09 COLLECTION, CLEAN EDT 11:09 EDT CATCH / Unknown Richard Meyer MD LAB INFO SERVICE AND SUPPORT & PHONE RESULT Performing Organization Address City/State/ZIP Code Phon e Number [facility] [address] [place] [address] POCT URINE DIPSTICK, CLINITEK (05/30/2022 11:09 EDT) [facility] Method Time Signature Color, UA Yellow Yellow 05/30/2022 [facility] 11:11 EDT [facility] Clarity, UA Clear Clear 05/30/2022 [facility] 11:11 EDT CENTER LABORATORY SERVICES Glucose, UA Negative Negative 05/30/2022 [facility] 11:11 EDT CENTER LABORATORY SERVICES Bilirubin, UA Negative Negative 05/30/2022 [facility] 11:11 EDT CENTER LABORATORY SERVICES Ketones, UA Negative Negative 05/30/2022 [facility] 11:11 EDT CENTER LABORATORY SERVICES Specific 1.010 1.001 - 05/30/2022 [facility] [place], 1.035 11:11 [facility] Urine LABORATORY SERVICES Blood, UA Negative Negative 05/30/2022 [facility] 11:11 EDT CENTER LABORATORY SERVICES pH, UA 6.5 4.6 - 8.0 05/30/2022 [facility] 11:11 EDT CENTER LAB[facility] SERVICES Protein, UA Negative Negative 05/30/2022 [facility] 11:11 EDT CENTER LABORATORY SERVICES Urobilinogen, 0.2 0.2 - 1.0 05/30/2022 [facility] UA mg/dL 11:11 T [facility]ENTER LABORATORY SERVICES Nitrite, UA Negative Negative 05/30/2022 [facility] 11:11 EDT CENTER LAB[facility]ATORY SERVICES Leuk Esterase Negative Negative 05/30/2022 [facility] 11:11 EDT CENTER LABORATORY SERVICES HN LAB Test performed 05/30/2022 [facility] COMMENT at [place] 11:11 EDT CENTER (CLINITEK, Urology LABORATORY UR) SERVICES Specimen Anatomical Collection Method Collection Time Receive d Time (Source) Location / / Volume Laterality Urine URINE SPECIMEN 05/30/2022 11:09 2 COLLECTION, CLEAN EDT 11:11 EDT CATCH / Unknown Richard Meyer MD POINT OF CARE TEST ORDERABLE S Performing Organization Address City/State/ZIP Code Phon e Number [facility] [address] [place] [address] SERVICES US SCROTUM (05/28/2022 11:27 EDT) Anatomical Region Laterality Modality Testes, Body Ultrasound Specimen (Source) Anatomical Collection Method Collection Time Re ceived Time Location / / Volume Laterality 05/28/2022 12:24 EDT Impressions 05/28/2022 12:24 EDT 1. No testicular parenchymal abnormality detected. 2. Small left epididymal head cyst. Othe rwise grossly unremarkable appearance of the epididymides. 3. Mild right and trace left hydrocele. 4. Very small bilateral varicoceles. Narrative 05/28/2022 12:24 EDT INDICATION: Swelling behind testicle consistent with possible epididymitis, swelling persists despite antibiotics TECHNIQUE: Bilateral testicular ultrasou nd was performed including color flow Doppler imaging. COMPARISON: None FINDINGS: The right testicle measures 3. 0 x 4.0 x 2.3 cm in size. The left testicle measures 3.8 x 1.9 x 2.1 cm in size. The testicular parenchyma demonstrates a normal homogeneous echotexture bilaterally. Symmetric grossly normal blood flow is seen within the testicular parenchyma bilaterally. There is a small right and trace left hydrocele. Very small bilater al varicoceles are noted. There is a left epididymal head 6 x 2 x 8 mm cyst. Adjacent smaller epididymal head cysts are seen. No right epididymal cyst is seen. Procedure Note Pekala, Jaime Lalito, MD - 05/28/2022F ormatting of this note might be different from the original. INDICATION: Swelling behind testicle con sistent with possible epididymitis, swelling persists despite antibiotics TECHNIQUE: Bilateral testicular ultrasou nd was performed including color flow Doppler imaging. COMPARISON: None FINDINGS: The right testicle measures 3. 0 x 4.0 x 2.3 cm in size. The left testicle measures 3.8 x 1.9 x 2.1 cm in size. The testicular parenchyma demonstrates a normal homogeneous echotexture bilaterally. Symmetric grossly normal blood flow is seen within the testicular parenchyma bilaterally. There is a small right and trace left hydrocele. Very small bilateral varicoce les are noted. There is a left epididymal head 6 x 2 x 8 mm cyst. Adjacent smaller epididymal head cysts are seen. No right epididymal cyst is seen. IMPRESSION 1. No testicular parenchymal abnormality detected. 2. Small left epididymal head cyst. Othe rwise grossly unremarkable appearance of the epididymides. 3. Mild right and trace left hydrocele. 4. Very small bilateral varicoceles. Richard Meyer MD [facility] ORDERABLES BACTERIAL CULTURE, URINE (05/19/2022 16:35 EDT) Analysis Performed At Patho logist Time Signature Organism ID No Growth VITEK 05/21/2022 [facility] 11:25 EDT [facility] Specimen Anatomical Collection Method Collection Time Receive d Time (Source) Location / / Volume Laterality Urine URINE SPECIMEN Urine Collect / 05/19/2022 16:35 2021 COLLECTION, CLEAN Unknown EDT 16:35 EDT CATCH / Unknown [facility] PA-C MICROBIOLOGY - GENERAL ORDER VANCE Performing Organization Address City/State/ZIP Code Phon e Number [facility] [address] [place] [address] from Last 3 Months Insurance Payer Benefit Plan Subscriber ID Effective Phone Address Typ e / Group Dates [facility] [id number] 2019-Pres [phone] [address] [employer] MEDICARE ent [id number] [place] [address] Pritesh Cardona Personal/Family Self [address] (Home) [place] [address] Pritesh Cardona Personal/Family Self [address] (Home) [place] [address] Advance Directives For more information, please contact: [phone] Latest Code Status on File Code Status Date Activated Date Inactivated Comments Full Code 10/07/2017 11:43 10/07/2017 17:38 Reason for decision includes: Full code consistent with over all plan of care Who participated in the discussion? Not Discussed Full Code 10/07/2017 10:23 10/07/2017 11:43 Reason for decision includes: Full code consistent with over all plan of care Who participated in the discussion? Not Discussed Full Code 06/06/2017 17:44 06/09/2017 16:49 Reason for decision includes: Full code consistent with over all plan of care Who participated in the discussion? Not Discussed Care Teams Inverter And Clipper Relationship Specialty Start Date End Date Mitali Pinon PCP - General Internal Medicine - Primary 05/04/21 4 [address] NA[address]U [facility] [place] [address]
--- OUTSIDE RECORDS SUMMARY | 2022-08-01 15:57 | XMS_ITS | Encounter Summary ---
:1950 Author Organization [facility] Address [address] [place] [address] Care Team Providers Name Role Phone Mitali Pinon Primary Care Provider Encounter Details Date Type Department Care Team Description 11/05/2021 Prep for Procedure [facility] - Alethea Heller, [facility] [address] [place] [address] [place] [phone] (Wo rk) Social History Tobacco Use Types Packs/Day Years Used Date Smoking Tobacco: Former Cigarettes 0.5 10/1969 - 06/03/2002 Smokeless Tobacco: Never Sex Assigned at Date Recorded Male 06/20/2022 18:06 EDT documented as of this encounter Functional Status Functional Status Response Date of Assessment Are you deaf or do you have serious difficulty hearing? No 06/06/2017 Are you blind or do you have serious difficulty seeing, No 06/06/2017 even when wearing glasses? Do you have serious difficulty walking or climbing No 06/06/2017 stairs? (5 years old or older) Do you have difficulty dressing or bathing? (5 years old No 06/06/2017 or older) Because of a physical, mental, or emotional condition, No 06/20/2017 does this person have difficulty doing errands alone such as visiting a doctor's office or shopping? Cognitive Status Response Date of Assessment Because of a physical, mental, or emotional condition, No 06/20/2017 does this person have serious difficulty concentrating, remembering, or making decisions? documented as of this encounter Plan of Treatment Upcoming Encounters Date Type Specialty Care Team Description 08/08/2022 Office Visit General Surgery Ish Hall MD [address] [place] [phone] (Wo rk) 09/09/2022 Office Visit Urology Richard Meyer MD [address] [place] [phone] (Wo rk) 10/07/2022 Appointment 10/14/2022 Hospital Encounter General Surgery Richard Meyer MD [address] [place] [phone] (Wo rk) 10/14/2022 Surgery General Surgery Richard Meyer EPIDIDYME CTOMYSeamus MD UNILATERAL [[id number] (CPT??)] [address] [phone] (Wo rk) 10/28/2022 Post-op Visit Urology Richard Meyer MD [address] [place] [phone] (Wo rk) 11/25/2022 Office Visit Urology Richard Meyer MD [address] [place] [phone] (Wo rk) Scheduled Procedures Name Priority Associated Diagnoses Date/Time EPIDIDYMECTOMY, UNILATERAL Epididymitis 10/14 12:30 EST documented as of this encounter Visit Diagnoses Not on filedocumented in this encounter Care Teams Stock Holder Relationship Specialty Start Date End Date Mitali Pinon PCP - General Internal Medicine - Primary 05/04/21 [address] [place] [address] documented as of this encounter
--- OUTSIDE RECORDS SUMMARY | 2022-08-01 15:57 | XMS_ITS | Encounter Summary ---
:1950 Author Organization [facility] Address [address] [place] [address] Care Team Providers Name Role Phone Nathaniel Smith MD Primary Care Provider Encounter Details Date Type Department Care Team Description 06/22/2020 Travel Social History Tobacco Use Types Packs/Day Years Used Date Smoking Tobacco: Former Cigarettes 0.5 10/1969 - 06/03/2002 Smokeless Tobacco: Never Sex Assigned at Date Recorded Male 06/20/2022 18:06 EDT COVID-19 Exposure Response Date Recorded In the last month, have you been in contact with No / Unsure 06/22/2020 15:00 EDT someone who was confirmed or suspected to have Coronavirus / COVID-19? documented as of this encounter Functional Status [...] Office Visit General Surgery Ish Hall MD [address] [place] [phone] (Wo rk) 09/09/2022 Office Visit Urology Richard Meyer MD [address] [place] [phone] (Wo rk) 10/07/2022 Appointment 10/14/2022 Hospital Encounter General Surgery Richard Meyer MD [address] [place] [phone] (Wo rk) 10/14/2022 Surgery General Surgery Richard Meyer EPIDIDYME CTSeamus ARIZMENDI MD UNILATERAL [[id number] [place] (CPT??)] [address] [phone] (Wo rk) 10/28/2022 Post-op Visit Urology Richard Meyer MD [address] [place] [phone] (Wo rk) 11/25/2022 Office Visit Urology Richard Meyer MD [address] [place] [phone] (Wo rk) Scheduled Procedures Name Priority Associated Diagnoses Date/Time EPIDIDYMECTOMY, UNILATERAL Epididymitis 10/14 12:30 EST documented as of this encounter Visit Diagnoses Not on filedocumented in this encounter Care Teams Bread Racker Relationship Specialty Start Date End Date Nathaniel Smith MD PCP - General 04/21/17 05/03/21 [address] [place] [address] documented as of this encounter
--- OUTSIDE RECORDS SUMMARY | 2022-08-01 15:57 | XMS_ITS | Encounter Summary ---
:1950 Author Organization [facility] Address [address] [place] [address] Care Team Providers Name Role Phone Mitali Pinon Primary Care Provider Reason for Visit Reason Comments Other Weak urinary stream Encounter Details Date Type Department Care Team Description 11/01/2021 Procedure visit [facility] Richard Meyer urinary stream (Primary Dx); Urology - MD Seamus BPH with obstruction/lower urinary tract symptoms [address], [facility], [facility], [address] [place] [address] [phone] (Wo rk) Social History Tobacco Use Types [...] making decisions? documented as of this encounter Ordered Prescriptions Prescription Sig Dispensed Refills Start Date End Date TAMSulosin (FLOMAX) 0.4 mg Take 1 capsule by 30 capsule 11 capsuleIndications: BPH mouth at bedtime. with obstruction/lower urinary tract symptoms documented in this encounter Progress Notes Richard Meyer MD - 11/01/2021 1315 EST Chief Complaint Patient presents with ??? Other Weak urinary stream HPI- I saw Pritesh in the office today for follow-up of his BPH. He has had a couple of episodes over the last year of difficulty voiding. His stream becomes gradually weaker and he has smaller voided volumesand a sense of incomplete bladder emptying. These episodes have resolved spontaneously on the prior 2 episodes. He does not have any dysuria or hematuria when these occur. He is on no medication for his prostate. He is status post TURP just over 2 years ago. Past Medical History: Diagnosis Date ??? Atrial fibrillation (HCC-CMS) ([facility]) ??? BPH with urinary obstruction 2018 flomax/finasteride 02/16-06/19 ; cysto (09/19)-lateral BPH with high median bar, not ideal for Urolift; TRUS (09/19)-35 g; TURP 06/19 ??? Epilepsy (HCC) ??? Heart failure with reduced ejection fraction (HCC-CMS) ([facility]) Past Surgical History: Procedure Laterality Date ??? TURP 06/23/2019 TURP Current Outpatient Medications Medication ??? atorvastatin (LIPITOR) 20 mg tablet ??? TAMSulosin (FLOMAX) 0.4 mg capsule No current facility-administered medications for this visit. No Known Allergies Physical Exam Cysto-no urethral stricture or bladder neck contracture. Prostate open status post TURP with only very slight residual tissue with some inflammation toward the very apex Procedure visit on 11/01/2021 Component Date Value Ref Range Status ??? Bladder Scan 11/01/2021 0.0 ml Final PSA- No results found for: PSA UROFLOW: 2 separate voids each with their own measurement Volume 117, 170 Flow time 28.8, 29.7 Peak flow 8.4, 10.3 Average flow 4.1, 5.7 Time to peak flow 21.7, 5.0 Total flow time 29.3, 30.0 Flow curve shape: Flattened quevedo curve and then long flattened curve Results reviewed and interpreted Flow today about the same as usual for pt. Encounter Diagnoses Name Primary? Weak urinary stream -He has weak urinary stream which is difficult to find the cause for. His prostate looks open following his TURP with only little bit of tissue at the apex which does not look to be significantly obstructing -I recommend he try Flomax again to see if it helps him. This could relax his bladder neck or might relax the apex of the prostate -If his symptoms continue to bother we might want to consider urodynamics. I would recommend this before proceeding with any further TURP as a resection towards the apex would get closer to the sphincter and carry some small risk of incontinence. -It may be that his bladder function is relatively weak which is more difficult to improve -I also recommend he try ibuprofen as there appears to be some inflammation at the apex of the prostate Yes ??? BPH with obstruction/lower urinary tract symptoms -See above. He has had a TURP in the past and his prostate appears open This note has been prepared with voice recognition software. Please excuse patent engineer errors. No orders of the defined types were placed in this encounter. documented in this encounter Procedure Notes Richard Meyer MD - 11/01/2021 1315 EST CYSTOSCOPY After risks of bleeding, infection and urethral irritation were reviewed, informed consent was obtained. The genitalia were prepped and draped in a sterile fashion. The cystoscope was navigated throughthe urethra without difficulty. At the conclusion, the scope was slowly removed. The patient tolerated the procedure well. Antibiotics: none FINDINGS: Urethra- no strictures Prostate- S/p TURP, open with mild inflamed mucosa and sl tissue at the apex Bladder neck- no contracture Ureteral orifices- clear efflux and normal position Mucosa- no tumors, no lesions, no erythema, moderate/marked trabeculations Other- OK for Urolift?: n/a, s/p TURP A barbotage sample was not taken from the bladder. documented in this encounter Plan of Treatment Upcoming Encounters Date Type Specialty Care Team Description 08/08/2022 Office Visit General Surgery Ish Hall MD [address] [place] [phone] (Wo rk) 09/09/2022 Office Visit Urology Richard Meyer MD [address] [place] [phone] (Wo rk) 10/07/2022 Appointment 10/14/2022 Hospital Encounter General Surgery Richard Meyer MD [address] [place] [phone] (Wo rk) 10/14/2022 Surgery General Surgery Richard Meyer EPIDIDYME Seamus HINSON MD UNILATERAL [[id number] [place] (CPT??)] [address] [phone] (Wo rk) 10/28/2022 Post-op Visit Urology Richard Meyer MD [address] [place] [phone] (Wo rk) 11/25/2022 Office Visit Urology Richard Meyer MD [address] [place] [phone] (Wo rk) Scheduled Procedures Name Priority Associated Diagnoses Date/Time EPIDIDYMECTOMY, UNILATERAL Epididymitis 10/14 12:30 EST documented as of this encounter Procedures Procedure Name Priority Date/Time Associated Diagnosis Comme nts UROLOGY BLADDER SCAN Routine 11/01/2021 BPH with Results for this obstruction/lower procedure are in the urinary tract symptoms resul ts section. documented in this encounter Results UROLOGY BLADDER SCAN (11/01/2021) P athologist Signature Bladder Scan 0.0 ml [facility] POINT OF CARE Specimen (Source) Anatomical Location Collection Method / Collectio n Time Received Time / Laterality Volume Urine 11/01/2021 Richard Meyer MD UROLOGY ORDERABLES Performing Organization Address City/State/ZIP Code Phon e Number [facility] POINT OF CARE documented in this encounter Visit Diagnoses Diagnosis Weak urinary stream - Primary Slowing of urinary stream BPH with obstruction/lower urinary tract symptoms Hypertrophy of prostate with urinary obs truction and other lower urinary tract symptoms (LUTS) Epididymitis Orchitis and epididymitis, unspecified documented in this encounter Discontinued Medications Medication Sig Discontinue Reason Start Date End Date TAMSulosin (FLOMAX) 0.4 Take 1 capsule by Patient Stopped 11/01/2021 mg capsule mouth at bedtime. Taking tadalafiL (CIALIS) 20 Take 0.5-1 Tabs by Patient Stopped 01/18/2021 11/01/2021 mg tabletIndications: mouth as needed for Taking Impotence of organic Erectile origin Dysfunction. sildenafil citrate Take 0.5-1 Tabs by Patient Stopped 01/18/2021 11/01/2021 (VIAGRA) 100 mg mouth as needed for Taking tabletIndications: Erectile Impotence of organic Dysfunction. origin erythromycin (ROMYCIN) Place 1 cm into Patient Stopped 08/11/2021 11/01/2021 5 mg/gram (0.5 %) affected eye(s) 3 Taking ophthalmic times daily. ointmentIndications: Hordeolum internum of left upper eyelid documented as of this encounter Care Teams Intervention Teacher Relationship Specialty Start Date End Date Mitali Pinon PCP - General Internal Medicine - Primary 05/04/21 [address] [facility] [place] [address] documented as of this encounter
--- OUTSIDE RECORDS SUMMARY | 2022-08-01 15:57 | XMS_ITS | Encounter Summary ---
:1950 Author Organization [facility] Address [address] [place] [address] Care Team Providers Name Role Phone Nathaniel Smith MD Primary Care Provider Reason for Visit Reason Comments BPH With Obstruction Encounter Details Date Type Department Care Team Description 07/05/2019 Office Visit [facility] Rocío Mendez BPH [facility] urinary Urology - Medical MD Seamus obstruction (Primary Office Building [address] [facility]) [address] [facility] [address] [place], [place] [address] [place] [address], [place] [phone] (Wo rk) Social History Tobacco Use [...] making decisions? documented as of this encounter Progress Notes Rocío Mendez - 07/05/2019 0845 EST Subjective: Patient ID: Leon Cardona is an 68 y.o. male. Leon Cardona is seen in the office today for BPH With Obstruction. HPI Leon is here in follow-up of his BPH. He underwent TURP almost 2 weeks ago. He initially had some blood and some urgency but he was able to pass some clots and for the last for 5 days he has been voiding very well. He states his stream is a strong as he can remember it being many years ago. He still having a little bit of urgency and frequency less than he had before. He also has a little bit of postvoid dribbling still but again this is improved. His IPSS symptom score is already down to 6/35, andhis bother score down to 1/6 Patient Active Problem List Diagnosis ??? Achilles tendonitis ??? Persistent atrial fibrillation Past Medical History: Diagnosis Date ??? Atrial fibrillation (HCC-CMS) ??? BPH with urinary obstruction 2018 flomax/finasteride 02/16-06/19 ; cysto (09/19)-lateral BPH with high median bar, not ideal for Urolift; TRUS (09/19)-35 g; TURP 06/19 ??? Epilepsy (HCC-CMS) ??? Heart failure with reduced ejection fraction (HCC-CMS) Past Surgical History: Procedure Laterality Date ??? TURP 06/23/2019 TURP No family history on file. Social Social History Tobacco Use ??? Smoking status: Former Smoker Packs/day: 0.50 Types: Cigarettes Start date: 06/03/1970 Last attempt to quit: 06/03/2002 Years since quittin.0 ??? Smokeless tobacco: Never Used Substance Use Topics ??? Alcohol use: Not on file ??? Drug use: Not on file Current Outpatient Medications on File Prior to Visit Medication Sig Dispense Refill ??? finasteride (PROSCAR) 5 mg tablet Take 5 mg by mouth daily. ??? tamsulosin (FLOMAX) 0.4 mg capsule Take 0.4 mg by mouth daily. No current facility-administered medications on file prior to visit. No Known Allergies ROS - See HPI Objective: There were no vitals taken for this visit. Physical Exam Office Visit on 07/05/2019 Component Date Value Ref Range Status ??? Bladder Scan 07/05/2019 50cc Final PSA: No results found for: PSA BMP: Lab Results Component Value Date NA 140 06/08/2017 K 4.2 06/08/2017 CL 107 06/08/2017 CO2 24 06/08/2017 BUN 20 06/08/2017 CREATININE 0.74 06/08/2017 MG 2.3 06/06/2017 Path Name: ? LEON CARDONA ? Accession #: ? [id number] ? : ? 1950 (Age: 68) ??M ?Collect Date: ? 06/23/2019 ? Location: ? [facility] ? Receive Date: ? 06/24/2019 ? Provider: ROCÍO MENDEZ MD Copy to: LAAL ANDRES MD ? 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 ?? - Calculus and calculi fragments. Assessment / Plan: 1. BPH with urinary obstruction -He is doing very well after his TURP. He can expect to have long-term improvement of his urination and he is off of both of his BPH medications as well. His pathology was benign -I did caution him to not overdo it for the next couple of weeks until he is 3 to 4 weeks out from the surgery. Too much exertion can lead to more bleeding from the prostate which can cause problems with hematuria and clots. -He will likely have a little blood in his urine off and on for this time and if he does he should take it easy and drink plenty of water. -I can see him back on an as-needed basis at this point. I would expect him to have 10 to 20 years of benefit from the surgery -If his irritative symptoms do not resolve he could follow-up to discuss medications we can use for that but I do not think that will be necessary. This note has been prepared with voice recognition software. Please excuse equipment coordinator errors. No orders of the defined types were placed in this encounter. Rocío Mendez MD documented in this encounter Plan of Treatment Upcoming Encounters Date Type Specialty Care Team Description 08/08/2022 Office Visit General Surgery Ish Hall MD [address] [place] [phone] (Tristian rk) 09/09/2022 Office Visit Urology Rocío Mendez MD [address] [place] [phone] (Tristian knott) 10/07/2022 Appointment 10/14/2022 Hospital Encounter General Surgery Rocío Mendez MD [address] [place] [phone] (Wo rk) 10/14/2022 Surgery General Surgery Rocío Mendez Charles, MD UNILATERAL [[id number] [place] (CPT??)] [address] [phone] (Tristian knott) 10/28/2022 Post-op Visit Urology Rocío Mendez MD [address] [place], [place] [address], [place] [phone] (Wo rk) 11/25/2022 Office Visit Urology Rocío Mendez MD [address] [facility] [address] [place] [phone] (Wo rk) Scheduled Procedures Name Priority Associated Diagnoses Date/Time EPIDIDYMECTOMY, UNILATERAL Epididymitis 10/14 12:30 EST documented as of this encounter Procedures Procedure Name Priority Date/Time Associated Diagnosis Comme nts UROLOGY BLADDER Routine 07/05/2019 9:08 EST BPH with urinary R esults for this SCAN obstruction procedure are i n the results section. documented in this encounter Results UROLOGY BLADDER SCAN (07/05/2019 9:08 EST) P athologist Signature Bladder Scan 50cc POINT OF CARE [facility] Specimen (Source) Anatomical Location Collection Method / Collectio n Time Received Time / Laterality Volume Urine (substance) Rocío Mendez MD UROLOGY ORDERABLES Performing Organization Address City/State/ZIP Code Phon e Number [facility] POINT OF CARE POINT OF CARE [facility] documented in this encounter Visit Diagnoses Diagnosis BPH with urinary obstruction - Primary Hypertrophy of prostate with urinary obs truction and other lower urinary tract symptoms (LUTS) Epididymitis Orchitis and epididymitis, unspecified documented in this encounter Care Teams Supervisor Inspection And Testing Relationship Specialty Start Date End Date Nathaniel Smith MD PCP - General 04/21/17 05/03/21 [address] [place] [address] documented as of this encounter
--- OUTSIDE RECORDS SUMMARY | 2022-08-01 15:57 | XMS_ITS | Encounter Summary ---
:1950 Author Organization [facility] Address [address] [place] [address] Care Team Providers Name Role Phone Mitali Pinon Primary Care Provider Reason for Visit Reason Comments Conjunctivitis sore eye Encounter Details Date Type Department Care Team Description 08/11/2021 Walk-In [facility] Elicia Dial, Hordeolum internum of [facility] PA-C left upper eyelid [address] (Primary Dx) [place] [address] [facility] [phone] [place], [place] [address] Social History Tobacco Use Types Packs/Day Years Used Date Smoking Tobacco: Former Cigarettes 0.5 10/1969 - 06/03/2002 Smokeless Tobacco: Never Sex Assigned at Date Recorded Male 06/20/2022 18:06 EDT documented as of this encounter Last Filed Vital Signs Vital Sign Reading Time Taken Comments Blood Pressure 117/76 08/11/2021 1002 EST Pulse 52 08/11/2021 1002 EST Temperature 36.6 ??C (97.8 ??F) 08/11/2021 1002 EST Respiratory Rate 16 08/11/2021 1002 EST Oxygen Saturation 99% 08/11/2021 1002 EST Inhaled Oxygen Concentration - - Weight - - Height - - Body Mass Index - - documented in this encounter Functional Status Functional Status Response [...] making decisions? documented as of this encounter Patient Instructions Patient InstructionsElicia Dial PA-C - 08/11/2021 9:45 EST Images from the original note were not included. [facility] Patient Instructions Styes and Chalazia: Care Instructions Your Care Instructions Styes and chalazia (say [id number]-[id number]-[id number]-) are both conditions that can cause swelling of the eyelid. A stye is an infection in the root of an eyelash. The infection causes a tender red lump on the edgeof the eyelid. The infection can spread until the whole eyelid becomes red and inflamed. Styes usually break open, and a tiny amount of pus drains. They usually clear up on their own in about a week, but they sometimes need treatment with antibiotics. A chalazion is a lump or cyst in the eyelid (chalazion is singular; chalazia is plural). It is caused by swelling and inflammation of deep oil glands inside the eyelid. Chalazia are usually not infected. They can take a few months to heal. If a chalazion becomes more swollen and painful or does not go away, you may need to have it drainedby your doctor. Follow-up care is a camargo part of your treatment and safety. Be sure to make and go to all appointments, and call your doctor if you are having problems. It's also a good idea to know your test results and keep a list of the medicines you take. How can you care for yourself at home? ?? Do not rub your eyes. Do not squeeze or try to open a stye or chalazion. ?? To help a stye or chalazion heal faster: ? Put a warm, moist compress on your eye for 5 to 10 minutes, 3 to 6 times a day. Heat often brings a stye to a point where it drains on its own. Keep in mind that warm compresses will often increase swelling a little at first. ? Do not use hot water or heat a wet cloth in a microwave oven. The compress may get too hot and canburn the eyelid. ?? Always wash your hands before and after you use a compress or touch your eyes. ?? If the doctor gave you antibiotic drops or ointment, use the medicine exactly as directed. Use the medicine for as long as instructed, even if your eye starts to feel better. ?? To put in eyedrops or ointment: ? Tilt your head back, and pull your lower eyelid down with one finger. ? Drop or squirt the medicine inside the lower lid. ? Close your eye for 30 to 60 seconds to let the drops or ointment move around. ? Do not touch the ointment or dropper tip to your eyelashes or any other surface. ?? Do not wear eye makeup or contact lenses until the stye or chalazion heals. ?? Do not share towels, pillows, or washcloths while you have a stye. When should you call for help? Call your doctor now or seek immediate medical care if: ? You have pain in your eye. ? You have a change in vision or loss of vision. ? Redness and swelling get much worse. Watch closely for changes in your health, and be sure to contact your doctor if: ? Your stye does not get better in 1 week. ? Your chalazion does not start to get better after several weeks. Where can you learn more? Go to https://www.healthwise.net/[facility] or log into your [facility] account at [email or web address] Enter C853 in the search box to learn more about Styes and Chalazia: Care Instructions. Current as of: December 28, 2020?Content Version: 13.1 ?? [employer]. Care instructions adapted under license by [facility]. If you have questions about a medical condition or this instruction, always ask your healthcare professional. [employer] disclaims any warranty or liability for your use of this information. documented in this encounter Ordered Prescriptions Prescription Sig Dispensed Refills Start Date End Date erythromycin (ROMYCIN) 5 Place 1 cm into 3.5 g 0 202011/01/2021 mg/gram (0.5 %) affected eye(s) 3 ophthalmic times daily. ointmentIndications: Hordeolum internum of left upper eyelid documented in this encounter Progress Notes Bebeto Gaspar RN - 08/11/2021 0945 EST LMTCB. BEBETO GASPAR RN 08/11/21 9:41 Sarah Beth Ruiz RN - 08/11/2021 0945 EST CC/HPI:sore feeling in corner ofleft eye, this am some drainage from eye Covid Screening: In the last 72 hours, has the patient had: New or unusual cough, shortness of breath, new nasal congestion, sore throat, fever, chills, body aches, or new loss of taste or smell without a reasonable alternative diagnosis*? (If yes, assign patient to ARC schedule)no In the past 14 days, has the patient had a confirmed close Covid exposure (<6ft for > 15mins in 24hr period)?no In the past 14 days, has the patient returned from international travel? no Is the patient fully Covid vaccinated? (If close exposure or international travel but fully vaccinated, remains NRC. If close exposure or international travel and unvaccinated, assign to ARC) yes and booster *may be determined by RN or in discussion with available provider (STRAIGHTEDGE MAN's and CCA's can defer to Charge Nurse to complete triage when appropriate) PCP: Mitali Pinon Elicia Dial PA-C - 08/11/2021 0945 EST [facility] Chief Complaint(s): Chief Complaint Patient presents with ??? Conjunctivitis sore eye Assessment & Plan: 1. Hordeolum internum of left upper eyelid erythromycin (ROMYCIN) 5 mg/gram (0.5 %) ophthalmic ointment New Prescriptions ERYTHROMYCIN (ROMYCIN) 5 MG/GRAM (0.5 %) OPHTHALMIC OINTMENT Place 1 cm into affected eye(s) 3 times daily. Exam is consistent with a somewhat larger stye, discussed etiology and conservative care with warm compresses. I did prescribe a topical antibiotic which may be useful in preventing infection and also there may be some benefit from the anti-inflammatory effects. I did recommend he follow-up with his eye school child care attendant if no improvement on rare occasions these may require excision. HPI: 70-year-old male presents with complaints of left eye discomfort and swelling. He noticed a tender spot and a bit of swelling yesterday, he tried some cool compresses and it seemed to improve. Overnight it drained a bit and then again this morning it is swollen. He denies any change in his vision, there was a bit of coop/purulent drainage overnight. He does not wear contact lenses. No constitutional symptoms. ROS: Review of Systems Constitutional: Negative for chills and fever. Eyes: Positive for discharge. Negative for blurred vision, photophobia and redness. Objective: Vitals and nursing notes reviewed Examination: BP 117/76 Pulse 52 Temp 36.6 ??C (97.8 ??F) (Oral) Resp 16 SpO2 99% Physical Exam Constitutional: General: He is not in acute distress. Appearance: Normal appearance. HENT: Head: Normocephalic and atraumatic. Eyes: Extraocular Movements: Extraocular movements intact. Conjunctiva/sclera: Conjunctivae normal. Pupils: Pupils are equal, round, and reactive to light. Comments: Left upper lid with moderately sized internal stye near the medial aspect. Neurological: General: No focal deficit present. Mental Status: He is alert. This note was prepared using voice recognition software and the EMR. There may be inadvertent errorsand omissions. documented in this encounter Plan of Treatment Upcoming Encounters Date Type Specialty Care Team Description 08/08/2022 Office Visit General Surgery Ish Hall MD [address] [place] [phone] (Wo rk) 09/09/2022 Office Visit Urology Richard Meyer MD [address] [place] [phone] (Wo rk) 10/07/2022 Appointment 10/14/2022 Hospital Encounter General Surgery Richard Meyer MD [address] [place] [phone] (Wo rk) 10/14/2022 Surgery General Surgery Richard MeyerE CTSeamus ARIZMENDI MD UNILATERAL [[id number] (CPT??)] [address] [phone] (Wo rk) 10/28/2022 Post-op Visit Urology Richard Meyer MD [address] [place] [phone] (Wo rk) 11/25/2022 Office Visit Urology Richard Meyer MD [address] [place] [phone] (Wo rk) Scheduled Procedures Name Priority Associated Diagnoses Date/Time EPIDIDYMECTOMY, UNILATERAL Epididymitis 10/14 12:30 EST documented as of this encounter Visit Diagnoses Diagnosis Hordeolum internum of left upper eyelid - Primary Hordeolum internum Epididymitis Orchitis and epididymitis, unspecified documented in this encounter Historical Medications This list may reflect changes made after this encounter. Medication Sig Dispensed Refills Start Date End Date atorvastatin (LIPITOR) 20 Take 20 mg by mouth 0 0 05/16/2021 mg tablet daily. added in this encounter Care Teams Lumber Tallier Relationship Specialty Start Date End Date Mitali Pinon PCP - General Internal Medicine - Primary 05/04/21 [address] [place] [address] documented as of this encounter
--- OUTSIDE RECORDS SUMMARY | 2022-08-01 15:57 | XMS_ITS | Encounter Summary ---
:[address] [facility] Address [address] [place] [address] Care Team Providers Name Role Phone Mitali Pinon Primary Care Provider Reason for Visit Reason Comments Groin Pain Pt has been having increasin g groin pain for 10 weeks but cannot see urologist for 5 weeks. 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 Monitor for fevers or increased pain. No obvious sign of hernia. Follow-up with Urology as planned Journal for stools - no concern for bacteria at this time related to no loose stools. Change in stools to be discussed with PCP with journal and possible new colonoscopy. Continue with ice and Ibuprofen as needed for comfort. Continue with activities as tolerated AttachmentsThe following attachments cannot be sent through Care Everywhere. Epididymitis and Orchitis (Wolof)documented in this encounter Progress Notes Nicole Max RN - 07/14/2022 0900 EST CC: groin pain Covid Screening: In the last 72 hours, has the patient had: Shortness of breath, cough, sore throat, nasal congestion, runny nose, fever/chills/body aches, headache, or loss of taste or smell without a reasonable alternative diagnosis*? (If yes, assign patient to ARC schedule)no If no, have they been advised to quarantine due to COVID exposure (<6ft for > 15 mins in 24hr period) or due to travel? (If no, see in NRC)no *may be determined by RN/SOAP BOILER or in discussion with available provider (CCA's can defer to Charge Nurse or Nurse they are working with to complete triage when appropriate) This excludes people that have traveled for essential reasons, or fully covid-vaccinated individuals > 14 days out from date of immunization. NICOLE MAX RN 07/14/22 9:14 Loc Jara NP - 07/14/2022 0900 EST Images from the original note were not included. [facility] Chief Complaint(s): Groin Pain (Pt has been having increasing groin pain for 10 weeks but cannot seeurologist for 5 weeks. He is worried about possible hernia) Assessment & Plan: 1. Chronic epididymitis POCT URINE DIPSTICK, VISUAL READ This is a 71 y.o. yr old male patient who presents with of testicular pain for 10 weeks. Reports long history of visits with [facility] and phone calls he has had with his urologist. He has been on 2antibiotics with no relief. Denies fevers. Today's exam is consistent with Chronic Epididymitis vs inguinal hernia Recommendations No antibiotics at this time. Monitor for fevers or increased pain. No obvious sign of hernia. Follow-up with Urology as planned - previously discussed removal of epididymus. Urologist stopped last antibiotic as it showed no improvement and didn't feel it was helpful. Journal for stools - no concern for bacteria at this time related to no loose stools. Change in stools to be discussed with PCP with journal and possible new colonoscopy. Continue with ice and Ibuprofen as needed for comfort. Continue with activities as tolerated New Prescriptions No medications on file Results for orders placed or performed in visit on 07/14/22 POCT URINE DIPSTICK, VISUAL READ Result Value Ref Range Color, UA Colorless Clarity, UA Clear Glucose, UA Negative . mg/dL Bilirubin, UA Negative Negative Ketones, UA Negative . mg/dL Spec Grav, UA 1.015 1.005 - 1.030 Blood, UA Negative Negative pH, UA 7.0 4.6 - 8.0 Protein, UA Negative . mg/dL Urobilinogen, UA 0.2 0.2 - 1.0 E.U./dL Nitrite, UA Negative . Leuk Esterase Negative Negative Comment HPI: HPI Pritesh Cardona is a 71 y.o. yr old male here with complaints of testicular pain for 10 weeks. Reports long history of visits with [facility] and phone calls he has had with his urologist. He has beenon 2 antibiotics with no relief. Denies fevers. He reports it limits exercise although he has started riding his bicycle again and some days it bothers more than others. Ice is helpful, heat helps sometimes other times feels more inflamed after use, Ibuprofen with minimal relief. Social History Tobacco Use Smoking Status Former ??? Packs/day: 0.50 ??? Types: Cigarettes ??? Start date: 06/03/1970 ??? Quit date: 06/03/2002 ??? Years since quittin.1 Smokeless Tobacco Never I have reviewed current problem list and current medications. ROS: Review of Systems Constitutional: Negative for fever and malaise/fatigue. Gastrointestinal: Negative for abdominal pain, blood in stool, constipation and diarrhea. Reports change in stools over last several weeks without diarrhea or constipation but change in form and timing of when he has a BM I martini a bowel movement this morning which is not like me Genitourinary: Negative for dysuria, flank pain and urgency. Right groin pain for 10 weeks Skin: Negative. Objective: Examination: Vital signs and nursing notes reviewed. Vitals: BP 110/60 (BP Cuff Location: Left arm, BP Patient Position: Sitting, BP Cuff Sizes: Adult, regular) Pulse (!) 44 Temp 36.8 ??C (98.3 ??F) (Oral) Resp 16 SpO2 100% There is no height or weight on file to calculate BMI. Physical Exam Exam conducted with a arc trimmer present. Constitutional: General: He is not in acute distress. Eyes: Conjunctiva/sclera: Conjunctivae normal. Pulmonary: Effort: Pulmonary effort is normal. Abdominal: General: Abdomen is flat. There is no distension. Palpations: Abdomen is soft. There is no mass. Tenderness: There is no abdominal tenderness. There is no guarding. Hernia: No hernia is present. There is no hernia in the left inguinal area or right inguinal area. Genitourinary: Penis: Circumcised. No erythema, tenderness, discharge, swelling or lesions. Testes: Cremasteric reflex is present. Right: Mass, tenderness or swelling not present. Epididymis: Right: Not inflamed or enlarged. Tenderness present. No mass. Left: Not inflamed or enlarged. No mass or tenderness. Comments: Tenderness as marked in red on diagram Skin: General: Skin is warm and dry. Neurological: Mental Status: He is alert and oriented to person, place, and time. Data reviewed with patient (past results):Discussion of test results with performing provider documented in this encounter Plan of Treatment Upcoming Encounters Date Type Specialty Care Team Description 08/08/2022 Office Visit General Surgery Ish Hall MD [address] [place] [phone] (Tristian knott) 09/09/2022 Office Visit Urology Richard Meyer MD [address] [place] [phone] (Tristian knott) 10/07/2022 Appointment 10/14/2022 Hospital Encounter General Surgery Richard Meyer MD [address] [place] [phone] (Tristian knott) 10/14/2022 Surgery General Surgery Richard Myeer EPIDIDYME Seamus HINSON MD UNILATERAL [[id number] (CPT??)] [address] [phone] (Tristian knott) 10/28/2022 Post-op Visit Urology Richard Meyer MD [address] [place] [phone] (Tristian knott) 11/25/2022 Office Visit Urology Richard Meyer MD [address] [place] [address], [address] [place] [phone] (Wo rk) Scheduled Procedures Name Priority Associated Diagnoses Date/Time EPIDIDYMECTOMY, UNILATERAL Epididymitis 10/14 12:30 EST documented as of this encounter Procedures Procedure Name Priority Date/Time Associated Diagnosis Comme nts POCT URINE Routine 07/14/2022 9:32 Chronic epididymitis Resu lts for this DIPSTICK, VISUAL EST procedure a re in READ the results section. documented in this encounter Results POCT URINE DIPSTICK, VISUAL READ (07/14/2022 9:32 EST) [facility] gist Method Time Signature Color, UA Colorless [facility] POINT OF CARE Clarity, UA Clear [facility] POINT OF CARE Glucose, UA Negative . mg/dL [facility] POINT OF CARE Bilirubin, UA Negative Negative [facility] POINT OF CARE Ketones, UA Negative . mg/dL [facility] POINT OF CARE Spec Grav, UA 1.015 1.005 - [facility] POINT 1.030 OF CARE Blood, UA Negative Negative [facility] POINT OF CARE pH, UA 7.0 4.6 - 8.0 [facility] POINT OF CARE Protein, UA Negative . mg/dL [facility] POINT OF CARE Urobilinogen, 0.2 0.2 - 1.0 [facility] POINT UA E.U./dL OF CARE Nitrite, UA Negative . [facility] POINT OF CARE Leuk Esterase Negative Negative [facility] POINT OF CARE Comment [facility] POINT OF CARE Specimen (Source) Anatomical Collection Method Collection Time Re ceived Time Location / / Volume Laterality Urine URINE SPECIMEN 07/14/2022 9:32 COLLECTION, CLEAN EST CATCH / Unknown Loc Jara NP POINT OF CARE TEST ORDERABLE S Performing Organization Address City/State/ZIP Code Phon e Number [facility] POINT OF CARE documented in this encounter Visit Diagnoses Diagnosis Chronic epididymitis - Primary Epididymitis Orchitis and epididymitis, unspecified documented in this encounter Care Teams Recreation Aide Relationship Specialty Start Date End Date Mitali Pinon PCP - General Internal Medicine - Primary 05/04/21 [address] [facility] [place] [id number] documented as of this encounter
--- OUTSIDE RECORDS SUMMARY | 2022-08-01 15:57 | XMS_ITS | Encounter Summary ---
:1950 Author Organization [facility] Address [address] [place] [address] Care Team Providers Name Role Phone Mitali Pinon Primary Care Provider Reason for Referral Radiology Services (Routine/Next Available) - New Request Specialty Diagnoses / Procedures Referred By Contact Refer red To Contact Radiology Diagnoses Epididymitis Richard Meyer, [facility] [place] Procedures US SCROTUM [address] [place], [place] [address] [place] [address] Phone: [employer], [address] [place] [address] Referral ID Status Reason Start Date Expiration Date Visits V isits Requested Authorized [id number] New Request 05/27/2022 1 1 Reason for Visit Reason Onset Date Comments Groin Pain 05/27/2022 Encounter Details Date Type Department Care Team Description 05/27/2022 Telephone [facility] Urology Roc Meyer Groin Pain - Michael MOJICA [address] [facility], [address] [place] [address] [address] [place] [address] Pavilion, [place] [phone] (Wo rk) Social History Tobacco Use Types [...] Sig Dispensed Refills Start Date End Date sulfamethoxazole-trimethop Take 1 Tablet by 20 Tablet 0 06/06/2022 rim (BACTRIM DS) 800-160 mouth 2 times daily mg per tablet for 10 days. documented in this encounter Miscellaneous Notes Telephone Encounter - Luisana Nielsen RN - 05/27/2022 1115 EDT Called patient's office number as requested. Per that office, that patient has left. They requested this RN call the patient's home phone in 10 minutes. Reached patient on his home phone. Advised he call [facility]iology to schedule US. Advised if it's >2 weeks, call us back. He said [facility] would be convenient. Advised he could call their Radiology Dept to check on their schedule, and if they can get him in sooner, we can resend the order. Patient aware of abx. Confirmed pharmacy. Advised to stop Levaquin. Patient does not feel like this is an infection. Advised if he feels worse, he could present to the ED. Patient verbalized understanding and denied additional questions. Telephone Encounter - Aide Snyder - 05/27/2022 1048 EDT Called back again, apparently cell doesn't work in office. [phone] is his office phone Telephone Encounter - Luisana Nielsen RN - 05/27/2022 1027 EDT LM on patient's cell phone. Advised it rang a short ring and went straight to [facility]. Telephone Encounter - Aide Snyder - 05/27/2022 1025 EDT Patient called back, please call him on his cell phone [phone] Telephone Encounter - Luisana Nielsen RN - 05/27/2022 1006 EDT LM for patient: US Scrotum ordered to [facility]. Bactrim DS Rx sent to [facility] in [place], [place]. Requested he call the clinic back to discuss, [phone]. Telephone Encounter - Richard Meyer MD - 05/27/2022 1000 EDT Levaquin would probably be my first choice for antibiotic for epididymitis. If this is not working after a week, however, then he could try switching to Bactrim DS twice daily for 10 days. If he is still having swelling there then a scrotal ultrasound is reasonable as well which we will order Telephone Encounter - Luisana Nielsen RN - 05/27/2022 0928 EDT Please see note from Tim Caceres RN on 05/17 @ 0752. Bacterial culture from 05/19 = No Growth. Patient reports pain in his right testicle. 1 week ago went to [facility] [place]. They gave himLevaquin starting 05/20. Reports no improvement on that. Denies fevers/chills. Denies redness. Reports his cord coming down behind the testicle is swollen. Telephone Encounter - Aide Snyder - 05/27/2022 0911 EDT Patient still experiencing pain, swelling and redness in testicle. Has done ice and advil as suggested,just not sure what to do at this point. documented in this encounter Plan of Treatment Upcoming Encounters Date Type Specialty Care Team Description 08/08/2022 Office Visit General Surgery Ish Hall MD [address] [place] [phone] (Tristian knott) 09/09/2022 Office Visit Urology Richard Meyer MD [address] [place] [phone] (Tristian knott) 10/07/2022 Appointment 10/14/2022 Hospital Encounter General Surgery Richard Meyer MD [address] [phone] (Tristian knott) 10/14/2022 Surgery General Surgery Richard Meyer Charles, MD UNILATERAL [[id number] 111 [place] (CPT??)] [address] [phone] (Wo rk) 10/28/2022 Post-op Visit Urology Richard Meyer MD 111 [facility] 5 [place] [phone] (Wo rk) 11/25/2022 Office Visit Urology Richard Meyer MD [address] [phone] (Wo rk) Scheduled Procedures Name Priority Associated Diagnoses Date/Time EPIDIDYMECTOMY, UNILATERAL Epididymitis 10/14 12:30 EST documented as of this encounter Results US SCROTUM (05/28/2022 11:27 EDT) Anatomical Region [...] right epididymal cyst is seen. Procedure Note Jaime Zarate MD - 05/28/2022F ormatting of this note [...] Very small bilateral varicoceles. Richard Meyer MD [facility] ORDERABLES documented in this encounter Visit Diagnoses Diagnosis Epididymitis - Primary Orchitis and epididymitis, unspecified Epididymitis Orchitis and epididymitis, unspecified Epididymitis Orchitis and epididymitis, unspecified documented in this encounter Care Teams Spray Foam Installer Relationship Specialty Start Date End Date Mitali Pinon PCP - General Internal Medicine - Primary 05/04/21 [address] [place] [address] documented as of this encounter
--- OUTSIDE RECORDS SUMMARY | 2022-08-01 15:57 | XMS_ITS | Encounter Summary ---
:1950 Author Organization [facility] Address [address] [place] [address] Care Team Providers Name Role Phone Nathaniel Smtih MD Primary Care Provider Reason for Visit Reason Comments BPH With Obstruction Encounter Details Date Type Department Care Team Description 04/13/2021 Procedure visit [facility] Richard Meyer urinary stream (Primary Dx); Urology - MD Seamus BPH with obstruction/lower urinary tract symptoms; [address] Impotence of organic origin 1330 [facility] 103 [facility], Level [address] [place] [address] [phone] (Wo rk) Social History Tobacco Use [...] documented as of this encounter Progress Notes Richard Meyer MD - 04/13/2021 1315 EDT Chief Complaint Patient presents with ??? BPH With Obstruction COREY- Pritesh is here in follow-up of his yet weakened urinary stream. He had an episode again of difficultywith flow couple of months ago. He had difficulty starting his flow and his stream is weak. He triedFlomax this time without any help. He had this episode once before with spontaneous resolved. This episode resolved as well after a few weeks and has been voiding well for the last couple of weeks. He starts easily and is a good stream with only minimal postvoid dribbling. He is not taking Flomax. He is also having some issues with erections still. He tried Viagra and Cialis with some benefit buthe still has trouble maintaining a full erection during intercourse and often has difficulty reaching ejaculation. Past Medical History: Diagnosis Date ??? Atrial fibrillation (HCC-CMS) ??? BPH with urinary obstruction 2018 flomax/finasteride 02/16-06/19 ; cysto (09/19)-lateral BPH with high median bar, not ideal for Urolift; TRUS (09/19)-35 g; TURP 06/19 ??? Epilepsy (HCC-CMS) ??? Heart failure with reduced ejection fraction (HCC-CMS) Past Surgical History: Procedure Laterality Date ??? TURP 06/23/2019 TURP Current Outpatient Medications Medication ??? sildenafil citrate (VIAGRA) 100 mg tablet ??? tadalafiL (CIALIS) 20 mg tablet ??? TAMSulosin (FLOMAX) 0.4 mg capsule No current facility-administered medications for this visit. No Known Allergies Physical Exam Procedure visit on 04/13/2021 Component Date Value Ref Range Status ??? Color, UA 04/13/2021 Yellow Yellow Final ??? Clarity, UA 04/13/2021 Clear Clear Final ??? Glucose, UA 04/13/2021 Negative Negative mg/dL Final ??? Bilirubin, UA 04/13/2021 Negative Negative Final ??? Ketones, UA 04/13/2021 Negative Negative mg/dL Final ??? Specific Jones, Urine 04/13/2021 1.025 1.001 - 1.035 Final ??? Blood, UA 04/13/2021 Negative Negative Final ? ? pH, UA 04/13/2021 6.0 <=8 Final ??? Protein, UA 04/13/2021 Negative Negative mg/dL Final ??? Urobilinogen, UA 04/13/2021 0.2 0.2 - 1.0 EU/dL Final ??? Nitrite, UA 04/13/2021 Negative Negative Final ??? Leuk Esterase 04/13/2021 Trace* Negative Final ??? HN LAB COMMENT (CLINITEK, UR) 04/13/2021 Test performed at [facility] Final PSA- No results found for: PSA Lab Results Component Value Date CREATININE 0.74 06/08/2017 CREATININE 0.88 06/07/2017 CALCGFR 97 06/08/2017 CALCGFR 90 06/07/2017 Encounter Diagnoses Name Primary? Weak urinary stream -He has now had 2 episodes of weakened urinary stream and hesitancy which have resolved spontaneously. -We will plan on performing cystoscopy today but his symptoms have resolved so there is no indication at this time. -Is a difficult explained exactly what could have caused this and then resolved. He did have numerous calcifications in his prostate and is possible that a calcification cause obstruction and then subsequently resolved. That calcification could be in the bladder but otherwise he usually would have seen it pass. -If this occurs again then we will likely check of bladder ultrasound and then follow with a cystoscopy to rule out a bladder neck contracture or stricture. Yes ??? BPH with obstruction/lower urinary tract symptoms -He has had a TURP in the past and we would certainly not expect this to recur this early. ??? Impotence of organic origin -Viagra and Cialis have not worked well for him thus far. We will check a testosterone level to makesure that that is normal. -We discussed some of the next options including vacuum erection device, injection therapy, or [place] suppository. He is not interested in those at this time but he could try them in the future if he were interested. -He is also undergoing some cardiac evaluation to be sure that he is not having any vascular issues. This note has been prepared with voice recognition software. Please excuse freight tallier errors. Other Orders Placed This Visit Procedures ??? POCT CSN Barcode ??? Testosterone ??? POCT Urine Dipstick, Clinitek documented in this encounter Plan of Treatment Upcoming Encounters Date Type Specialty Care Team Description 08/08/2022 Office Visit General Surgery Ish Hall MD [address] [place] [phone] (Wo rk) 09/09/2022 Office Visit Urology Richard Meyer MD [address] [place] [phone] (Wo rk) 10/07/2022 Appointment 10/14/2022 Hospital Encounter General Surgery Richard Meyer MD [address] [place] [phone] (Wo rk) 10/14/2022 Surgery General Surgery Richard MeyerE CTSeamus ARIZMENDI MD UNILATERAL [[id number] [address] [place] (CPT??)] [address] [phone] (Wo rk) 10/28/2022 Post-op Visit Urology Richard Meyer MD [address] [place] [phone] (Wo rk) 11/25/2022 Office Visit Urology Richard Meyer MD [address] [place] [phone] (Wo rk) Scheduled Procedures Name Priority Associated Diagnoses Date/Time EPIDIDYMECTOMY, UNILATERAL Epididymitis 10/14 12:30 EST documented as of this encounter Procedures Procedure Name Priority Date/Time Associated Diagnosis Comme nts POCT CSN BARCODE Routine 04/16/2021 7:46 EDT BPH with URINE DIPSTICK obstruction/lower urinary tract symptoms POCT URINE CLINITEK Routine 04/13/2021 13:46 BPH with Resu lts for this (DIPSTICK) - DOES EDT obstruction/lower proce dure are in NOT REFLEX urinary tract the results symptoms section. POCT URINE Routine 04/13/2021 13:46 BPH with Results for this DIPSTICK, CLINITEK EDT obstruction/lower proc edure are in urinary tract the results symptoms section. documented in this encounter Results POCT CSN BARCODE URINE DIPSTICK (04/16/2021 7:46 EDT) Specimen (Source) Anatomical Collection Method Collection Time Re ceived Time Location / / Volume Laterality Urine URINE SPECIMEN 04/13/2021 13 :37 COLLECTION, CLEAN EDT CATCH / Unknown Richard Meyer MD LAB INFO SERVICE AND SUPPORT & PHONE RESULT Performing Organization Address City/State/ZIP Code Phon e Number [facility] [address] [place] [address] SERVICES (ABNORMAL) POCT URINE DIPSTICK, CLINITEK (04/13/2021 13:46 EDT) [facility] gist Method Time Signature Color, UA Yellow Yellow 04/13/2021 [email or web address] MEDICAL 13:48 EDT [facility]ENTER LABOR[facility] SERVICES Clarity, UA Clear Clear 04/13/2021 [facility] [[email or web address] MEDICAL 13:48 EDT CENTER LABORATORY SERVICES Glucose, UA Negative Negative 04/13/2021 [facility] [[email or web address] MEDICAL mg/dL 13:48 EDT CENTER LABORATORY SERVICES Bilirubin, UA Negative Negative 04/13/2021 [facility] [[email or web address] MEDICAL 13:48 EDT CENTER LABORATORY SERVICES Ketones, UA Negative Negative 04/13/2021 [facility] [[email or web address] MEDICAL mg/dL 13:48 [facility] CENTER LABORATORY SERVICES Specific 1.025 1.001 - 04/13/2021 [facility] Jones, 1.035 13:48 EDT CENTER Urine LABORATORY SERVICES Blood, UA Negative Negative 04/13/2021 [facility] [[email or web address] MEDICAL 13:48 EDT CENTER LABORATORY SERVICES pH, UA 6.0 <=8 04/13/2021 [facility] [[email or web address]] MEDICAL 13:48 EDT CENTER LABORATORY SERVICES Protein, UA Negative Negative 04/13/2021 [facility] mg/dL 13:48 EDT CENTER LABORATORY SERVICES Urobilinogen, 0.2 0.2 - 1.0 04/13/2021 [facility] UA EU/dL 13:48 EDT CENTER LABORATORY SERVICES Nitrite, UA Negative Negative 04/13/2021 [facility] 13:48 EDT CENTER LABORATORY SERVICES Leuk Esterase Trace (A) Negative 04/13/2021 [facility] 13:48 EDT CENTER LABORATORY SERVICES HN LAB Test performed 04/13/2021 [facility] COMMENT at [place] 13:48 EDT CENTER (CLINITEK, Urology LABORATORY UR) SERVICES Specimen Anatomical Collection Method Collection Time Receive d Time (Source) Location / / Volume Laterality Urine URINE SPECIMEN 04/13/2021 13:46 1 COLLECTION, CLEAN EDT 13:48 EDT CATCH / Unknown Richard Meyer MD POINT OF CARE TEST ORDERABLE S Performing Organization Address City/State/ZIP Code Phon e Number [facility] [address] [place] [address] SERVICES documented in this encounter Visit Diagnoses Diagnosis Weak urinary stream - Primary Slowing of urinary stream BPH with obstruction/lower urinary tract symptoms Hypertrophy of prostate with urinary obs truction and other lower urinary tract symptoms (LUTS) Impotence of organic origin Epididymitis Orchitis and epididymitis, unspecified documented in this encounter Care Teams Manager Care Relationship Specialty Start Date End Date Nathaniel Smith MD PCP - General 04/21/17 05/03/21 [address] [place] [address] documented as of this encounter
--- OUTSIDE RECORDS SUMMARY | 2022-08-01 15:57 | XMS_ITS | Encounter Summary ---
:1950 Author Organization [facility] Address [address] [place] [address] Care Team Providers Name Role Phone Mitali Pinon Primary Care Provider Reason for Referral Radiology Services (Routine/Next Available) - New Request Specialty Diagnoses / Procedures Referred By Contact Refer red To Contact Radiology Diagnoses Epididymitis Richard Meyer, [facility] Procedures US SCROTUM MD [address] Phone: [employer], [address] [place] [address] Referral ID Status Reason Start Date Expiration Date Visits V isits Requested Authorized [id number] New Request 05/27/2022 1 1 Reason for Visit Radiology Services (Routine/Next Available) - New Request Specialty Diagnoses / Procedures Referred By Contact Refer red To Contact Radiology Diagnoses Epididymitis Richard Meyer, [facility] Procedures US SCROTUM MD [address] Phone: [employer], [address] [place] [address] Referral ID Status Reason Start Date Expiration Date Visits V isits Requested Authorized [id number] New Request 05/27/2022 1 1 Encounter Details Date Type Department Care Team Description 05/28/2022 Hospital Encounter [facility] Epididymitis Ultrasound [address] [place] [address] Social History Tobacco Use Types Packs/Day Years [...] making decisions? documented as of this encounter Medications at Time of Discharge Medication Sig Dispensed Refills Start Date End Date atorvastatin (LIPITOR) 20 Take 20 mg by mouth 0 0 05/16/2021 mg tablet daily. TAMSulosin (FLOMAX) 0.4 Take 1 capsule by 30 capsule 11 11/01 mg capsuleIndications: mouth at bedtime. BPH with obstruction/lower urinary tract symptoms levOFLOXacin (LEVAQUIN) Take 1 Tablet by 10 Tablet 0 202105/30/2022 500 mg tabletIndications: mouth daily. Pain in right testicle sulfamethoxazole-trimetho Take 1 Tablet by 20 Tablet 0 05/0306/06/2022 prim (BACTRIM DS) 800-160 mouth 2 times daily mg per tablet for 10 days. tadalafiL (CIALIS) 5 mg Take 1 Tablet by 30 Tablet 11 202105/30/2022 tabletIndications: BPH mouth daily. with urinary obstruction documented as of this encounter Discharge Disposition Disposition Code Departure Means Destination Home or Self Care documented in this encounter Plan of Treatment Upcoming Encounters Date Type Specialty Care Team Description 08/08/2022 Office Visit General Surgery Ish Hall MD [address] [place] [phone] (Wo rk) 09/09/2022 Office Visit Urology Richard Meyer MD [address] [place] [phone] (Wo rk) 10/07/2022 Appointment 10/14/2022 Hospital Encounter General Surgery Richard Meyer MD [address] [place] [phone] (Wo rk) 10/14/2022 Surgery General Surgery Richard MeyerE Seamus HINSON MD UNILATERAL [[id number] [address] [place] (CPT??)] [address] [phone] (Wo rk) 10/28/2022 Post-op Visit Urology Richard Meyer MD [address] [place] [phone] (Wo rk) 11/25/2022 Office Visit Urology Richard Meyer MD [address] [place] [phone] (Wo rk) Scheduled Procedures Name Priority Associated Diagnoses Date/Time EPIDIDYMECTOMY, UNILATERAL Epididymitis 10/14 12:30 EST documented as of this encounter Procedures Procedure Name Priority Date/Time Associated Diagnosis Comme nts US SCROTUM Routine 05/28/2022 11:27 EDT Epididymitis Results for this procedure are i n the results section . documented in this encounter Results US SCROTUM (05/28/2022 11:27 [...] Very small bilateral varicoceles. Richard Meyer MD IMG US ORDERABLES documented in this encounter Visit Diagnoses Diagnosis Epididymitis Orchitis and epididymitis, unspecified Epididymitis Orchitis and epididymitis, unspecified documented in this encounter Care Teams Zipper Trimmer Relationship Specialty Start Date End Date Mitali Pinon PCP - General Internal Medicine - Primary 05/04/21 [address] [place] [address] documented as of this encounter
--- OUTSIDE RECORDS SUMMARY | 2022-08-01 15:57 | XMS_ITS | Encounter Summary ---
:1950 Author Organization [facility] Address [address] [place] [address] Care Team Providers Name Role Phone Nathaniel Smith MD Primary Care Provider Encounter Details Date Type Department Care Team Description 06/15/2019 Abstract [facility] [address] [place] [address], [phone] [place] [address], [place] [phone] (Wo rk) Social History [...] Office Visit General Surgery Ish Hall MD [address] [place] [phone] (Wo rk) 09/09/2022 Office Visit Urology Richard Meyer MD [address] [place] [phone] (Wo rk) 10/07/2022 Appointment 10/14/2022 Hospital Encounter General Surgery Richard Meyer MD [address] [place] [phone] (Wo rk) 10/14/2022 Surgery General Surgery Richard MeyerE CTSeamus ARIZMENDI MD UNILATERAL [[id number] [address] [place] (CPT??)] [address] [phone] (Wo rk) 10/28/2022 Post-op Visit Urology Richard Meyer MD [address] [place] [phone] (Wo rk) 11/25/2022 Office Visit Urology Richard Meyer MD [address] [place] [phone] (Wo rk) Scheduled Procedures Name Priority Associated Diagnoses Date/Time EPIDIDYMECTOMY, UNILATERAL Epididymitis 10/14 12:30 EST documented as of this encounter Visit Diagnoses Not on filedocumented in this encounter Discontinued Medications Medication Sig Discontinue Reason Start Date End Date amiodarone (PACERONE) 200 Take 200 mg by Therapy completed 06/15/2019 mg tablet mouth 2 times daily. apixaban (ELIQUIS) 5 mg Take 5 mg by mouth Therapy completed 06/15/2019 tablet 2 times daily. levETIRAcetam (KEPPRA) 500 Take 250 mg by Therapy completed 06/15/2019 mg tablet mouth 2 times daily. metoprolol XL (TOPROL-XL) Take 25 mg by Therapy completed 06/15/2019 25 mg tablet mouth daily. pindolol (VISKIN) 5 mg Take 5 mg by mouth 06/15/2019 tablet 2 times daily. documented as of this encounter Care Teams Quality Assurance Group Leader Relationship Specialty Start Date End Date Nathaniel Smith MD PCP - General 04/21/17 05/03/21 [address] [place] [address] documented as of this encounter
--- OUTSIDE RECORDS SUMMARY | 2022-08-01 15:57 | XMS_ITS | Encounter Summary ---
:1950 Author Organization [facility] Address [address] [place] [address] Care Team Providers Name Role Phone Mitali Pinon Primary Care Provider Reason for Referral Radiology Services (Routine) - Authorization Not Required Specialty Diagnoses / Procedures Referred By Contact Refer red To Contact Diagnoses Hyperlipidemia Mitali Pinon Procedures CT CARDIAC CALCIUM SCORE [address] [place] [address] Referral ID Status Reason Start Expiration Visits Visits Date Date Requested Authorized [id number] Authorization Not 03/02/2021 1 1 Required Reason for Visit Radiology Services (Routine) - Authorization Not Required Specialty Diagnoses / Procedures Referred By Contact Refer red To Contact Diagnoses Hyperlipidemia Mitali Pinon Procedures CT CARDIAC CALCIUM SCORE [address] [place] [address] Referral ID Status Reason Start Expiration Visits Visits Date Date Requested Authorized [id number] Authorization Not 03/02/2021 1 1 Required Encounter Details Date Type Department Care Team Description 05/11/2021 Hospital Encounter [facility] Radiology CT - Hyperlipidemia Main [place] [address] [place] [address] Social History Tobacco Use Types Packs/Day Years [...] Sig Dispensed Refills Start Date End Date sildenafil citrate Take 0.5-1 Tabs by 6 Tab 11 11/01/2021 (VIAGRA) 100 mg mouth as needed for tabletIndications: Erectile Dysfunction. Impotence of organic origin tadalafiL (CIALIS) 20 Take 0.5-1 Tabs by 6 Tab 11 202011/01/2021 mg tabletIndications: mouth as needed for Impotence of organic Erectile Dysfunction. origin TAMSulosin (FLOMAX) 0.4 Take 1 capsule by 30 capsule 5 03/1411/01/2021 mg capsule mouth at bedtime. documented as of this encounter Discharge Disposition Disposition Code Departure Means Destination Home or Self Care documented in this encounter Plan of Treatment Upcoming Encounters Date Type Specialty Care Team Description 08/08/2022 Office Visit General Surgery Ish Hall MD [address] [phone] (Tristian knott) 09/09/2022 Office Visit Urology Richard Meyer MD [address] [phone] (Tristian knott) 10/07/2022 Appointment 10/14/2022 Hospital Encounter General Surgery Richard Meyer MD [address] [place] [phone] (Wo rk) 10/14/2022 Surgery General Surgery Richard Meyer EPIDIDYME CTOMYSeamus MD UNILATERAL [[id number] 111 [place] (CPT??)] [address] [phone] (Wo rk) 10/28/2022 Post-op Visit Urology Richard Meyer MD [address] [place] [phone] (Wo rk) 11/25/2022 Office Visit Urology Richard Meyer MD [address] [place] [phone] (Wo rk) Scheduled Procedures Name Priority Associated Diagnoses Date/Time EPIDIDYMECTOMY, UNILATERAL Epididymitis 10/14 12:30 EST documented as of this encounter Procedures Procedure Name Priority Date/Time Associated Diagnosis Comme nts CT CARDIAC CALCIUM Routine 05/11/2021 15:44 Hyperlipidemia Res ults for this SCORE EDT procedure are i n the results section. documented in this encounter Results CT CARDIAC CALCIUM SCORE (05/11/2021 15:44 EDT) Anatomical Region Laterality Modality Computed Tomography Specimen (Source) Anatomical Collection Method Collection Time Re ceived Time Location / / Volume Laterality 05/11/2021 16:12 EDT Impressions 05/11/2021 16:12 EDT Total calcium score of 253 places the patient in the 67% percentile for age and gender Coronary artery calcification is a speci fic marker for coronary atherosclerosis. ??The amount of calcification correlates with the severity of coronary atherosclerosis. A score of 0 implies low likeliho od of coronary obstruction but cannot to tally exclude the presence of atherosclerosis. A high score indicates a significant plaque burden and relative risk for future cardiovascular events. It should be understood that calcification is not si te specific for stenosis but rather indicates the extent of atherosclerosis in the coronary arteries overall. Percentile rankings used in this report are based on data analysis from patients asymptomatic for coronary artery disease. ??Additional reference literature regarding risk stratification can be found in : Reji Vail, Brennan S, et al, [facility] 200 2: 90: 168-173. Narrative 05/11/2021 16:[address] CARDIAC CALCIUM SCORE ??05/11/2021 3:30 PM Clinical History/Comments: Hyperlipidemia Technique: Acquisition was performed with prospecti ve cardiac triggering in axial mode with 3mm contiguous slices from the marya to the inferior surface of the heart. ??Vessel analysis was performed on a Plerts d 3D console using Agatston 130 tables f or risk stratification. Exam description: CT of the heart withou t contrast with quantitative evaluation of coronary calcium. Comparison: None. Findings: The calcium score is distributed as foll owing: Left main: 0 Left anterior descendin Right coronary artery: 87 Left circumflex coronary artery: 134 The patient has a total calcium score of 253 . This places the patient into the 67th pe rcentile in comparison to a group of patient's asymptomatic for coronary artery disease with the same age and gender. This means that 67% of males age 65-69 years have calcium scores lower than the patient. Ancillary findings: Left atrial appendage occluder clip Hepatic cysts Procedure Note Indra Polk MD - 05/11/2021Form atting of this note might be different from the original. CT CARDIAC CALCIUM SCORE 05/11/2021 3:30 PM Clinical History/Comments: Hyperlipidemia Technique: Acquisition was performed with prospecti ve cardiac triggering in axial mode with 3mm contiguous slices from the marya to the inferior surface of the heart. Vessel analysis was performed on a dedicated 3D console using Agatston 130 tables for risk stratificat ion. Exam description: CT of the heart withou t contrast with quantitative evaluation of coronary calcium. Comparison: None. Findings: The calcium score is distributed as foll owing: Left main: 0 Left anterior descendin Right coronary artery: 87 Left circumflex coronary artery: 134 The patient has a total calcium score of 253 . This places the patient into the 67th pe rcentile in comparison to a group of patient's asymptomatic for coronary artery disease with the same age and gender. This means that 67% of males age 65-69 years have calcium scores lower than the patient. Ancillary findings: Left atrial appendage occluder clip Hepatic cysts IMPRESSION Total calcium score of 253 places the pa tient in the 67% percentile for age and gender Coronary artery calcification is a speci fic marker for coronary atherosclerosis. The amount of calcification correlates with the severity of coronary atherosclerosis. A score of 0 implies low likelihood of coronary obstruction but cannot totally exclude the presence of atherosclerosis. A high score indicates a significant plaque burden and relative risk for future cardiovascular events. It should be understood that calcification is not site specific for stenosis but rather indicates the extent of atherosclerosis in the coronary arteries overall. Percentile rankings used in this report are based on data analysis from patients asymptomatic for coronary artery disease. Additional reference literature regarding risk stratification can be found in: Brennan Stanford S, et al, AJC 2002: 90: 168-173. Mitali Pinon [facility] [place]LES documented in this encounter Visit Diagnoses Diagnosis Hyperlipidemia Other and unspecified hyperlipidemia Epididymitis Orchitis and epididymitis, unspecified documented in this encounter Care Teams Transit Operations Supervisor Relationship Specialty Start Date End Date Mitali Pinon PCP - General Internal Medicine - Primary 05/04/21 [address] [place] [address] documented as of this encounter
--- OUTSIDE RECORDS SUMMARY | 2022-08-01 15:57 | XMS_ITS | Encounter Summary ---
:1950 Author Organization [facility] Address [address] [place] [address] Care Team Providers Name Role Phone Nathaniel Smith MD Primary Care Provider Encounter Details Date Type Department Care Team Description 03/14/2021 Orders Only [facility] Urology - Nicole Parisi RN Medical Office [address], [address] [place], [place] [id number] Social History Tobacco Use Types Packs/Day Years [...] 03/1411/01/2021 mg capsule mouth at bedtime. documented in this encounter Plan of Treatment Upcoming Encounters Date Type Specialty Care Team Description 08/08/2022 Office Visit General Surgery Ish Hall MD [address] [place] [phone] (Wo rk) 09/09/2022 Office Visit Urology Richard Meyer MD [address] [place] [phone] (Wo rk) 10/07/2022 Appointment 10/14/2022 Hospital Encounter General Surgery Richard Meyer MD [address] [place] [phone] (Wo rk) 10/14/2022 Surgery General Surgery Richard MeyerE CTSeamus ARIZMENDI MD UNILATERAL [[id number] 111 [place] (CPT??)] [address] [phone] (Wo rk) 10/28/2022 Post-op Visit Urology Richard Meyer MD [address] [place] [phone] (Wo rk) 11/25/2022 Office Visit Urology Richard Meyer MD [address] [place] [phone] (Wo rk) Scheduled Procedures Name Priority Associated Diagnoses Date/Time EPIDIDYMECTOMY, UNILATERAL Epididymitis 10/14 12:30 EST documented as of this encounter Visit Diagnoses Not on filedocumented in this encounter Discontinued Medications Medication Sig Discontinue Reason Start Date End Date TAMSulosin (FLOMAX) 0.4 Take 1 Cap by mouth Reorder 09/15/2020 03/14/2021 mg capsule at bedtime. documented as of this encounter Care Teams Benefit Director Relationship Specialty Start Date End Date Nathaniel Smith MD PCP - General 04/21/17 05/03/21 [address] [place] [address] documented as of this encounter
--- OUTSIDE RECORDS SUMMARY | 2022-08-01 15:57 | XMS_ITS | Encounter Summary ---
:1950 Author Organization [facility] Address [address] [place] [address] Care Team Providers Name Role Phone Nathaniel Smith MD Primary Care Provider Reason for Referral Radiology Services (Routine) - Authorization Not Required Specialty Diagnoses / Procedures Referred By Contact Refer red To Contact Diagnoses Epididymitis Richard Meyer MD Procedures US SCROTUM WITH LIMITED DOPPLER US SCROTUM [address] [phone] Referral ID Status Reason Start Expiration Visits Visits Date Date Requested Authorized [id number] Authorization Not 1 1 Required 0 Reason for Visit Radiology Services (Routine) - Authorization Not Required Specialty Diagnoses / Procedures Referred By Contact Refer red To Contact Diagnoses Epididymitis Richard Meyer MD Procedures US SCROTUM WITH LIMITED DOPPLER US SCROTUM [address] [phone] Referral ID Status Reason Start Expiration Visits Visits Date Date Requested Authorized [id number] Authorization Not 1 1 Required 0 Encounter Details Date Type Department Care Team Description 06/22/2020 Hospital Encounter Medical Center Radiology US - Epididymitis [facility] [place] [address] [place], [place] [address] Social History Tobacco Use Types Packs/Day Years [...] making decisions? documented as of this encounter Discharge Disposition Disposition Code Departure Means Destination Home or Self Care documented in this encounter Plan of Treatment Upcoming Encounters Date Type Specialty Care Team Description 08/08/2022 Office Visit General Surgery Ish Hall MD [address] [phone] (Tristian knott) 09/09/2022 Office Visit Urology Richard Meyer MD [address] [place] [phone] (Tristian knott) 10/07/2022 Appointment 10/14/2022 Hospital Encounter General Surgery Richard Meyer MD [address] [phone] (Wo rk) 10/14/2022 Surgery General Surgery Richard Meyer EPIDIDYME CTSeamus ARIZMENDI MD UNILATERAL [[id number] 111 [place] (CPT??)] [address] [phone] (Wo rk) 10/28/2022 Post-op Visit Urology Richard Meyer MD [address] [phone] (Wo rk) 11/25/2022 Office Visit Urology Richard Meyer MD [address] [phone] (Wo rk) Scheduled Procedures Name Priority Associated Diagnoses Date/Time EPIDIDYMECTOMY, UNILATERAL Epididymitis 10/14 12:30 EST documented as of this encounter Procedures Procedure Name Priority Date/Time Associated Diagnosis Comme nts US SCROTUM WITH Routine 06/22/2020 15:45 Epididymitis Results for this LIMITED DOPPLER EDT procedure ar e in the results section. documented in this encounter Results US SCROTUM WITH LIMITED DOPPLER (06/22/2020 15:45 EDT) Anatomical Region Laterality Modality Body Ultrasound Specimen (Source) Anatomical Collection Method Collection Time Re ceived Time Location / / Volume Laterality 06/22/2020 16:23 EDT Impressions 06/22/2020 16:23 EDT 1. No testicular mass or torsion. 2. Right hydrocele. 3. Small left epididymal cyst. Narrative 06/22/2020 16:23 EDT ULTRASOUND SCROTUM WITH LIMITED DOPPLER ??06/22/2020 4:16 PM Clinical History/Comments: Right testicular pain. Rule out tumor or lesion. Comparison: None Technique: Static and cine ultrasound im ages of scrotum obtained, supplemented by Doppler images where appropriate. Findings: The right testicle measures 4.0 x 2.6 x 2.9 cm, for volume 15.4 mL. Testicular echotexture within normal limits, allowing for mild dilatation of rete testes.. No focal mass. There are normal arterial an d venous waveforms obtained on color and spectral Doppler. The right epididymal head measures 7 x 1 3 x 10 mm and right epididymis is within normal limits. The left testicle measures 2.9 x 2.3 x 2 .3 cm, for volume 11 mL. Testicular echogenicity within normal limits, allowing for mild dilatation of rete testes, no focal mass. There are normal arterial and v enous waveforms obtained on color and sp ectral Doppler. The left epididymal head measures 10 x 1 3 x 13 mm, and contains a 7 mm epididymal head cyst. No concerning epididymal findings. Spermatic cord is straight. No significa nt scrotal thin thickening. No hernia. No varicocele formation There is a small right hydrocele, with m ild low level internal echoes. No significant left hydrocele. Procedure Note Roderick Conde MD - 06/26/2020Fo rmatting of this note might be different from the original. ULTRASOUND SCROTUM WITH LIMITED DOPPLER 06/22/2020 4:16 PM Clinical History/Comments: Right testicular pain. Rule out tumor or lesion. Comparison: None Technique: Static and cine ultrasound im ages of scrotum obtained, supplemented by Doppler images where appropriate. Findings: The right testicle measures 4.0 x 2.6 x 2.9 cm, for volume 15.4 mL. Testicular echotexture within normal limits, allowing for mild dilatation of rete testes.. No focal mass. There are normal arterial and venous waveforms obtained on color and spectral Doppler. The right epididymal head measures 7 x 1 3 x 10 mm and right epididymis is within normal limits. The left testicle measures 2.9 x 2.3 x 2 .3 cm, for volume 11 mL. Testicular echogenicity within normal limits, allowing for mild dilatation of rete testes, no focal mass. There are normal arterial and venous waveforms obtained on color and spectral Doppler. The left epididymal head measures 10 x 1 3 x 13 mm, and contains a 7 mm epididymal head cyst. No concerning epididymal findings. Spermatic cord is straight. No significa nt scrotal thin thickening. No hernia. No varicocele formation There is a small right hydrocele, with m ild low level internal echoes. No significant left hydrocele. IMPRESSION 1. No testicular mass or torsion. 2. Right hydrocele. 3. Small left epididymal cyst. Richard Meyer MD IMG US ORDERABLES documented in this encounter Visit Diagnoses Diagnosis Epididymitis Orchitis and epididymitis, unspecified Epididymitis Orchitis and epididymitis, unspecified documented in this encounter Care Teams Computer Processing Scheduler Relationship Specialty Start Date End Date Nathaniel Smith MD PCP - General 04/21/17 05/03/21 [address] [place] [address] documented as of this encounter
--- OUTSIDE RECORDS SUMMARY | 2022-08-01 15:57 | XMS_ITS | Encounter Summary ---
:1950 Author Organization [facility] Address [address] [place] [address] Care Team Providers Name Role Phone Nathaniel Smith MD Primary Care Provider Encounter Details Date Type Department Care Team Description 06/23/2019 Results Only [facility] Rocío Mendez, Urology - Medical Office Building [address] [place], [place] [address] [place] [address] [phone] (Wo rk) Social History Tobacco Use [...] Office Visit General Surgery Ish Hall MD [address] [place] [phone] (Wo rk) 09/09/2022 Office Visit Urology Rocío Mendez MD [address] [place] [phone] (Wo rk) 10/07/2022 Appointment 10/14/2022 Hospital Encounter General Surgery Rocío Mendez MD [address] [place] [phone] (Wo rk) 10/14/2022 Surgery General Surgery Rocío Mendez EPIDIDYME CTSeamus ARIZMENDI MD UNILATERAL [[id number] [address] [place] (CPT??)] [address] [phone] (Wo rk) 10/28/2022 Post-op Visit Urology Rocío Mendez MD [address] [place] [phone] (Wo rk) 11/25/2022 Office Visit Urology Rocío Mendez MD [address] [place] [phone] (Wo rk) Scheduled Procedures Name Priority Associated Diagnoses Date/Time EPIDIDYMECTOMY, UNILATERAL Epididymitis 10/14 12:30 EST documented as of this encounter Procedures Procedure Name Priority Date/Time Associated Diagnosis Comme nts PATHOLOGY SPECIMEN Routine 06/23/2019 16:30 Resul ts for this TO [facility] EDT procedure are in the results section. SURGICAL PATHOLOGY Routine 06/23/2019 11:51 Resul ts for this EDT procedure are i n the results section. documented in this encounter Results PATHOLOGY SPECIMEN TO [facility] (06/23/2019 16:30 EDT) [facility] Method Time Signature PATHOLOGY Results 06/28/2019 [place] SPECIMEN Below 15:57 EDT MEDICAL RESULT - [facility] Comment: SURGICAL PATHOLOGY REPORT Disclaimers: 1) ??Reports generated via electronic i nterface contain original data; however they are lacking the format of t he original report. Caution should be taken when reading/int erpreting unformatted reports. 2) ??Please reference the paper report if the text (End of Report) is not displayed. Name: ? LEON CARDONA ? Accession #: ? [id number] : ? 1950 (Age: 68) ??M ? Collect Date: ? 06/23/2019 Location: ? [facility] ? Receive Date: ? 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 - Calculus and calculi fragments. Document reviewed and electronically sig ruben by: JAYCE JEFFERSON MD Report ??Date: 06/28/2019 15:51 By the signature above, the attending ph ysician certifies that he/she has personally conducted a gross and/or micr oscopic examination of the described specimens and rendered or confirmed the above diagnosis. Specimen(s) Received: Prostate chips and prostate calculi Clinical History: BPH; Note: Stones in specimen Gross Description: ? Received in formalin labelled wit h proper patient identification (initials R, P) and prostate chips and calculi a re multiple varela-noonan, rubbery and cauterized soft tissue fragments (13.9 c m, 5.5 x 5.4 x 2.5 cm in aggregate). In addition there is a dark brown black christian d calculus measuring 1.1 x 0.8 x 0.7 cm; there are multiple small calculi of lolis lar configuration measuring 1.8 x 1.6 x 0.4 cm in aggregate. Prostatic tissue ex clusive of calculi entirely submitted in 09-11. Dr. Hand 06/24/2019 5:02 PM End of Report Test performed or referred by The [address] [address] Specimen Anatomical Collection Method Collection Time Receive d Time (Source) Location / / Volume Laterality 06/23/2019 16:30 06/23/2019 EDT 17:57 EDT Narrative [facility] - 06/28/2019 1 5:57 EDT 1 FORMALIN Rocío Mendez MD CHEMISTRY & BLOOD GAS ORDERA BLES Performing Organization Address City/State/ZIP Code Phon e Number [facility] [address] [place] [address] [facility] SURGICAL PATHOLOGY (06/23/2019 11:51 EDT) Component Value Ref Test Analysis Performed At [facility] Range Method Time Signature Pathology SURGICAL PATHOLOGY REPORT [facility] MED[facility] Report: Reports generated via electronic interface contain origina l data; CENTER however they are lacking the format of the original report. LABORATORY Caution should be taken when reading/interpreting unformat salvador reports. SERVICES Name: ? LEON CARDONA ? Accession #: ? [id number] ? : ? 1950 (Age: [age]) ??M ? Collect Date: ? 06/23/2019 ? Location: ? [facility] ? Receive Date: ? 06/24/2019 ? Provider: ROCÍO MENDEZ MD Copy to: LALA ANDRES MD ? Final Pathologic Diagnosis: PROSTATE, TRANSURETHRAL CURETTAGE: - Prostatic glandular and stroma hyperplasia - Reactive squamous metaplasia of prostatic urethra an d prostatic ducts with chronic urethritis. ?? - Calculus and calculi fragments. Document reviewed and electronically signed by: JAYCE JEFFERSON MD Report ??Date: 06/28/2019 15:51 By the signature above, the attending physician certifies th at he/she has personally conducted a gross and/or microscopic examin ation of the described specimens and rendered or confirmed the above diagnosis. Specimen(s) Received: Prostate chips and prostate calculi Clinical History: BPH; Note: Stones in specimen Gross Description: ? Received in formalin labelled with proper patient identification (initials R, P) and prostate chips and calculi are multiple varela-noonan , rubbery and cauterized soft tissue fragm ents (13.9 cm, 5.5 x 5.4 x 2.5 cm in aggregate). In addition there is a dark bro wn black hard calculus measuring 1.1 x 0.8 x 0.7 cm; there are multiple small irvin culi of similar configuration measuring 1.8 x 1.6 x 0.4 cm in aggregate. Prostat ic tissue exclusive of calculi entirely submitted in 09-11. Dr. Hand 06/24/2019 5:02 PM End of Report Specimen Anatomical Collection Method Collection Time Receive d Time (Source) Location / / Volume Laterality 06/23/2019 11:51 06/24/2019 EDT 11:51 EDT Rocío Mendez MD PATHOLOGY ORDERABLES Performing Organization Address City/State/ZIP Code Phon e Number [facility] [address] [place] [phone] SERVICES documented in this encounter Visit Diagnoses Not on filedocumented in this encounter Care Teams Placement Coordinator Relationship Specialty Start Date End Date Nathaniel Smith MD PCP - General 04/21/17 05/03/21 [address] [place] [address] documented as of this encounter
--- OUTSIDE RECORDS SUMMARY | 2022-08-01 15:57 | XMS_ITS | Encounter Summary ---
:1950 Author Organization [facility] Address [address] [place] [address] Care Team Providers Name Role Phone Mitali Pinon Primary Care Provider Reason for Visit Reason Comments Epididymitis Encounter Details Date Type Department Care Team Description 05/30/2022 Office Visit [facility] Richard Meyer Epidid ymitis (Primary Dx); Urology - Michael Way MD Weak urinary stream; [address] Impotence of organic origin [place], [address] [place] [phone] [place], [address] [place] [address] (Wo rk) Social History Tobacco [...] Sig Dispensed Refills Start Date End Date tadalafiL (CIALIS) 20 mg Take 0.5-1 Tablets by 10 Tablet 11 05/30/2022 tabletIndications: mouth as needed for Impotence of organic Erectile Dysfunction. origin documented in this encounter Progress Notes Richard Meyer MD - 05/30/2022 1100 EDT Chief Complaint Patient presents with ??? Epididymitis HPI- I saw Pritesh in the office for a new complaint. He has had discomfort in the right scrotum for about 2 and half weeks. He states this occurred a few days after hard bike ride and he felt a lump adjacentto the testicle. He was treated for possible epididymitis with antibiotics first on Levaquin and more recently switched to Bactrim. He has not noticed any real change in the antibiotics. He never had noticed any erythema there and swelling has been relatively mild. He is tried both ice and heat but hestill having the discomfort. It does not radiate. From a voiding standpoint he still has only so-so urination. He has some intermittency and relatively small volumes. He gets appropriate 2-1/2 hours at night to void. He has tried Flomax in the past and does not think it helped him. He also has some erectile dysfunction difficulty maintaining and obtaining erections that is helped in the past with medications. There was a miscommunication about hisCialis dosing previously Past Medical History: Diagnosis Date ??? Atrial fibrillation (HCC-CMS) ([facility]) ??? BPH with urinary obstruction 2018 flomax/finasteride 02/16-06/19 ; cysto (09/19)-lateral BPH with high median bar, not ideal for Urolift; TRUS (09/19)-35 g; TURP 06/19 ??? Epilepsy (HCC) ??? Heart failure with reduced ejection fraction (HCC-CMS) (HCC) ??? History of continuous positive airway pressure (CPAP) therapy at home Past Surgical History: Procedure Laterality Date ??? CHEST SURGERY RHYTHM MONITOR IN LEFT CHEST WALL, NOW DYSFUNCTIONAL, HAS NOT BEEN REMOVED ??? KNEE CARTILAGE SURGERY Left LEft meniscus repair ??? SHOULDER ARTHROPLASTY Right Right shoulder replacement ??? TURP 06/23/2019 TURP Current Outpatient Medications Medication ??? atorvastatin (LIPITOR) 20 mg tablet ??? sulfamethoxazole-trimethoprim (BACTRIM DS) 800-160 mg per tablet ??? tadalafiL (CIALIS) 20 mg tablet ??? TAMSulosin (FLOMAX) 0.4 mg capsule No current facility-administered medications for this visit. No Known Allergies Physical Exam Genitourinary: Testes: Right: Tenderness (Mild tenderness to palpation of the epididymis on the right) and swelling (Very minimal swelling but no erythema) present. Mass not present. Office Visit on 05/30/2022 Component Date Value Ref Range Status ??? Color, UA 05/30/2022 Yellow Yellow Final ??? Clarity, UA 05/30/2022 Clear Clear Final ??? Glucose, UA 05/30/2022 Negative Negative Final ??? Bilirubin, UA 05/30/2022 Negative Negative Final ??? Ketones, UA 05/30/2022 Negative Negative Final ??? Specific [place], Urine 05/30/2022 1.010 1.001 - 1.035 Final ??? Blood, UA 05/30/2022 Negative Negative Final ??? pH, UA 05/30/2022 6.5 4.6 - 8.0 Final ??? Protein, UA 05/30/2022 Negative Negative Final ??? Urobilinogen, UA 05/30/2022 0.2 0.2 - 1.0 mg/dL Final ??? Nitrite, UA 05/30/2022 Negative Negative Final ??? Leuk Esterase 05/30/2022 Negative Negative Final ??? HN LAB COMMENT (CLINITEK, UR) 05/30/2022 Test performed at [facility] Final PSA- No results found for: PSA Scrotal U/S (05/28/22) IMPRESSION 1. No testicular parenchymal abnormality detected. 2. Small left epididymal head cyst. Otherwise grossly unremarkable appearance of the epididymides. 3. Mild right and trace left hydrocele. 4. Very small bilateral varicoceles I personally reviewed the images and discussed the findings with the patient Encounter Diagnoses Name Primary? Epididymitis -He seems to have epididymitis. This has not resolved with antibiotics and so I do not think infection is likely the cause both based on the lack of success of antibiotics and the lack of any redness -I recommend he emphasize elevation and anti-inflammatories in the form of ibuprofen. Hopefully withsome rest and elevation this will gradually resolve but the epididymis can be bothersome off and on for many patients Yes ??? Weak urinary stream -His urinary stream is very strong after his TURP but has weakened stream over time. We performed cystoscopy relatively recently that did not show any obvious obstruction but there may be some regrowthof tissue -If his urination worsens we could consider repeating TURP in the future. ??? Impotence of organic origin -He has had some erectile dysfunction which has responded somewhat to medications in the past. He would like to try the on-demand dose of Cialis rather than the daily dose and I sent in a new prescription for 20 mg pills that he can break in half if it works at that dose. This note has been prepared with voice recognition software. Please excuse sleever errors. Other Orders Placed This Visit Procedures ??? POCT Urine Clinitek (DIPSTICK) - does not reflex ??? POCT CSN Barcode ??? POCT Urine Dipstick, Clinitek documented in this encounter Plan of Treatment Upcoming Encounters Date Type Specialty Care Team Description 08/08/2022 Office Visit General Surgery Ish Hall MD [address] [phone] (Tristian knott) 09/09/2022 Office Visit Urology Richard Meyer MD [address] [phone] (Tristian knott) 10/07/2022 Appointment 10/14/2022 Hospital Encounter General Surgery Richard Meyer MD [address] [phone] (Wo rk) 10/14/2022 Surgery General Surgery Richard Meyer EPIDIDYME CTOMYSeamus MD UNILATERAL [[id number] (CPT??)] [address] [phone] (Wo rk) 10/28/2022 Post-op Visit Urology Richard Meyer MD [address] [place] [phone] (Wo rk) 11/25/2022 Office Visit Urology Richard Meyer MD [address] [place] [phone] (Wo rk) Scheduled Orders Name Type Priority Associated Diagnoses Order S chedule POCT URINE CLINITEK Lab Routine Weak urinary stream 6 Occurrences starting (DIPSTICK) - DOES NOT 2021 until REFLEX 05/30/2023, 1 c ompleted Scheduled Procedures Name Priority Associated Diagnoses Date/Time EPIDIDYMECTOMY, UNILATERAL Epididymitis 10/14 12:30 EST documented as of this encounter Procedures Procedure Name Priority Date/Time Associated Diagnosis Comme nts POCT CSN BARCODE Routine 05/30/2022 11:09 Weak urinary stream URINE DIPSTICK EDT POCT URINE CLINITEK Routine 05/30/2022 11:09 Weak urinary stre am Results for this (DIPSTICK) - DOES EDT procedure are in NOT REFLEX the results section. POCT URINE Routine 05/30/2022 11:09 Weak urinary stream Resu lts for this DIPSTICK, CLINITEK EDT procedure are in the results section. documented in this encounter Results POCT CSN BARCODE URINE DIPSTICK (05/30/2022 11:09 EDT) Specimen Anatomical Collection Method Collection Time Receive d Time (Source) Location / / Volume Laterality Urine URINE SPECIMEN 05/30/2022 11:09 2 COLLECTION, CLEAN EDT 11:09 EDT CATCH / Unknown Richard Meyer MD LAB INFO SERVICE AND SUPPORT & PHONE RESULT Performing Organization Address City/State/ZIP Code Phon e Number [facility] [address] [place] [address] POCT URINE DIPSTICK, CLINITEK (05/30/2022 11:09 EDT) [facility] Method Time Signature Color, UA Yellow Yellow 05/30/2022 [facility] 11:11 EDT [facility] Clarity, UA Clear Clear 05/30/2022 [facility] 11:11 EDT [facility] Glucose, UA Negative Negative 05/30/2022 [facility] 11:11 EDT [facility] Bilirubin, UA Negative Negative 05/30/2022 [facility] 11:11 EDT [facility] Ketones, UA Negative Negative 05/30/2022 [facility] 11:11 EDT [facility] Specific 1.010 1.001 - 05/30/2022 [facility] [place], 1.035 11:11 EDT CENTER Urine LABORATORY SERVICES Blood, UA Negative Negative 05/30/2022 [facility] 11:11 EDT [facility] pH, UA 6.5 4.6 - 8.0 05/30/2022 [facility] 11:11 EDT [facility] Protein, UA Negative Negative 05/30/2022 [facility] 11:11 EDT [facility] Urobilinogen, 0.2 0.2 - 1.0 05/30/2022 [facility] UA mg/dL 11:11 EDT [facility] Nitrite, UA Negative Negative 05/30/2022 [facility] 11:11 EDT [facility] Leuk Esterase Negative Negative 05/30/2022 [facility] 11:11 EDT [facility]ENTER [facility] HN LAB Test performed 05/30/2022 [facility] COMMENT at [facility] 11:11 EDT CENTER (CLINITEK, Urology LABORATORY UR) SERVICES Specimen Anatomical Collection Method Collection Time Receive d Time (Source) Location / / Volume Laterality Urine URINE SPECIMEN 05/30/2022 11:09 2 COLLECTION, CLEAN EDT 11:11 EDT CATCH / Unknown Richard Meyer MD POINT OF CARE TEST ORDERABLE S Performing Organization Address City/State/ZIP Code Phon e Number [facility] [address] [place] [address] SERVICES documented in this encounter Visit Diagnoses Diagnosis Epididymitis - Primary Orchitis and epididymitis, unspecified Weak urinary stream Slowing of urinary stream Impotence of organic origin Epididymitis Orchitis and epididymitis, unspecified documented in this encounter Discontinued Medications Medication Sig Discontinue Reason Start Date End Date levOFLOXacin (LEVAQUIN) Take 1 Tablet by Patient Stopped Taking 05/30/2022 500 mg mouth daily. tabletIndications: Pain in right testicle tadalafiL (CIALIS) 5 mg Take 1 Tablet by Alternate therapy 01/25/2005/30/2022 tabletIndications: BPH mouth daily. with urinary obstruction documented as of this encounter Care Teams Data Migration Consultant Relationship Specialty Start Date End Date Mitali Pinon PCP - General Internal Medicine - Primary 05/04/21 [address] [place] [address] documented as of this encounter
--- OUTSIDE RECORDS SUMMARY | 2022-08-01 15:57 | XMS_ITS | Encounter Summary ---
:1950 Author Organization [facility] Address [address] [place] [address] Care Team Providers Name Role Phone Nathaniel Smith MD Primary Care Provider Reason for Visit Reason Comments BPH With Obstruction Follow-up Encounter Details Date Type Department Care Team Description 01/18/2021 Telemedicine [facility] Richard Meyer BPH wi th urinary obstruction (Primary Dx); Urology - [place] MD Seamus Impotence of organic origin [address] [facility], [address] [place] [phone] [place], [address] [place] [address] (Wo rk) Social History Tobacco [...] mg mouth as needed for tabletIndications: Erectile Impotence of organic Dysfunction. origin tadalafiL (CIALIS) 20 mg Take 0.5-1 Tabs by 6 Tab 11 11/01/2021 tabletIndications: mouth as needed for Impotence of organic Erectile origin Dysfunction. documented in this encounter Progress Notes Richard Meyer MD - 01/18/2021 5287 EDT Chief Complaint Patient presents with ??? BPH With Obstruction ??? Follow-up HPI- I had a telehealth visit with the patient today by telephone. They understood the limitations we areputting on [id number] encounters due to the COVID-19 pandemic and consented to this telehealth visit. I had a telephone telemedicine visit with Pritesh today. He has noticed progressively worsening urination in the last few months. About a year ago his urinary stream had weakened a bit and he took Flomaxwhich dramatically improved it to levels that were like he had just after his TURP. He stopped the me dication after about a month and he seemed to be doing well but his symptoms worsen again and he started the Flomax again in September. This time it has not improved his symptoms much. He still has hesitancy, postvoid dribbling, and some intermittency at times. His stream is variable and he gets up onceat night to urinate. He is also having some issues with erectile dysfunction that are new. Is some difficulty obtaining and maintaining an erection as well as he used to. His libido remains good. He has not tried any medications or treatment yet. Past Medical History: Diagnosis Date ??? Atrial [...] this visit. No Known Allergies Physical Exam No visits with results within 1 Day(s) from this visit. Latest known visit with results is: Office Visit on 07/05/2019 Component Date Value Ref Range Status ??? Bladder Scan 07/05/2019 50cc Final PSA- No results found for: PSA Lab Results Component Value Date CREATININE 0.74 06/08/2017 CREATININE 0.88 06/07/2017 CALCGFR 97 06/08/2017 CALCGFR 90 06/07/2017 Encounter Diagnoses Name Primary? BPH with urinary obstruction -His BPH has not improved much with Flomax this time. Moreover he is less than 2 years out from his TURP and I would expect his urination to still be quite good following that procedure for much longerthan it has -Therefore think it is worth seeing him in the office to perform a cystoscopy and rule out any strictures or bladder neck contracture that could be worsening his symptoms. If none of those are present and his prostate is widely open we might need to consider urodynamics or another test. We will try toget the cystoscopy done before his upcoming shoulder surgery on February 22 -For the time being he will remain on his Flomax. Yes ??? Impotence of organic origin -He has some new erectile dysfunction. Is relatively mild but he does find it bothersome. -We discussed treatment options and elected to try medications first which is the standard. I will send in a prescription for both Viagra and Cialis and he can try whichever when he wants and see how well he tolerates it and how effective it is. He can likely use a low-dose of either. The patient gave fully informed consent to proceed with medical therapy for his erectile dysfunction. He is not on any nitrate medications and understands potential risks with alpha artem medicationsif taken at the same time. We talked about the mechanism of action and the risks, benefits and some of the possible side effects of Viagra, Levitra, and Cialis. We discussed specific side effects such as headache, flushing, nasal stuffiness, visual changes, backache and priapism. He understands that it is important to take medical therapy exactly the way it is prescribed without deviation. He will call if any side effects occur. We will begin medical therapy for his erectile dysfunction. This note has been prepared with voice recognition software. Please excuse tour guide errors. This visit was conducted by telephone. I spent a total of 18 minutes in discussion with the patient as described in the progress note. No orders of the defined types were placed in this encounter. documented in this encounter Plan of Treatment Upcoming Encounters Date Type Specialty Care Team Description 08/08/2022 Office Visit General Surgery Ish Hall MD [address] [place] [phone] (Tristian knott) 09/09/2022 Office Visit Urology Richard Meyer MD [address] [place] [phone] (Tristian knott) 10/07/2022 Appointment 10/14/2022 Hospital Encounter General Surgery Richard Meyer MD [address] [place] [phone] (Wo rk) 10/14/2022 Surgery General Surgery Richard Meyer Charles, MD UNILATERAL [[id number] [address] [place] (CPT??)] [address] [phone] (Tristian knott) 10/28/2022 Post-op Visit Urology Richard Meyer MD 111 [facility] [address] [place] [phone] (Wo rk) 11/25/2022 Office Visit Urology Richard Meyer MD [address] [phone] (Wo rk) Scheduled Procedures Name Priority Associated Diagnoses Date/Time EPIDIDYMECTOMY, UNILATERAL Epididymitis 10/14 12:30 EST documented as of this encounter Visit Diagnoses Diagnosis BPH with urinary obstruction - Primary Hypertrophy of prostate with urinary obs truction and other lower urinary tract symptoms (LUTS) Impotence of organic origin Epididymitis Orchitis and epididymitis, unspecified documented in this encounter Care Teams Manager Of Photography Relationship Specialty Start Date End Date Nathaniel Smith MD PCP - General 04/21/17 05/03/21 [address] [place] [address] documented as of this encounter
--- OUTSIDE RECORDS SUMMARY | 2022-08-01 15:57 | XMS_ITS | Encounter Summary ---
:1950 Author Organization [facility] Address [address] [place] [address] Care Team Providers Name Role Phone Nathaniel Smith MD Primary Care Provider Mitali Pinon Primary Care Provider Encounter Details Date Type Department Care Team Description 04/18/2021 Lab Requisition [facility] Outr Resulting Lab, Pathology & Laboratory Provider [facility] [address] [place] [address] Social History Tobacco Use Types Packs/Day Years [...] Office Visit General Surgery Ish Hall MD [address] [place] [phone] (Wo rk) 09/09/2022 Office Visit Urology Richard Meyer MD [address] [place] [phone] (Wo rk) 10/07/2022 Appointment 10/14/2022 Hospital Encounter General Surgery Richard Meyer MD [address] [place] [phone] (Wo rk) 10/14/2022 Surgery General Surgery Richard Meyer EPIDIDYME CTSeamus ARIZMENDI MD UNILATERAL [[id number] [address] [place] (CPT??)] [address] [phone] (Wo rk) 10/28/2022 Post-op Visit Urology Richard Meyer MD [address] [place] [phone] (Wo rk) 11/25/2022 Office Visit Urology Richard Meyer MD [address] [place] [phone] (Wo rk) Scheduled Procedures Name Priority Associated Diagnoses Date/Time EPIDIDYMECTOMY, UNILATERAL Epididymitis 10/14 12:30 EST documented as of this encounter Procedures Procedure Name Priority Date/Time Associated Diagnosis Comme nts TESTOSTERONE Routine 04/18/2021 9:37 EDT Results for this procedure are i n the results section . documented in this encounter Results TESTOSTERONE (04/18/2021 9:37 EDT) P athologist Signature Testosterone 650 229 - 902 04/18/2021 [facility] ng/dL 22:10 EDT [facility]ENTER [facility] Specimen Anatomical Collection Method Collection Time Receive d Time (Source) Location / / Volume Laterality Blood VENOUS BLOOD / 04/18/2021 9:37 04/18/2021 Unknown EDT 21:[address] [facility] - 04/18/2021 22:10 EDT The results of this assay can be falsely elevated due to the consumption of Biotin. Provider Outr Resulting Lab CHEMISTRY & BLOOD GAS JADE JORDEN Performing Organization Address City/State/ZIP Code Phon e Number [facility] [address] [place] [address] SERVICES documented in this encounter Visit Diagnoses Not on filedocumented in this encounter Care Teams World Designer Relationship Specialty Start Date End Date Nathaniel Smith MD PCP - General 04/21/17 05/03/21 [address] [place], [place] [phone] Mitali Pinon PCP - General Internal Medicine - 05/04/[address] Primary Care [place], [place] [phone] documented as of this encounter
--- OUTSIDE RECORDS SUMMARY | 2022-08-01 15:57 | XMS_ITS | Encounter Summary ---
:1950 Author Organization [facility] Address [address] [place] [address] Care Team Providers Name Role Phone Mitali Pinon Primary Care Provider Reason for Visit Reason Onset Date Comments Medications Refill 01/21/2022 Encounter Details Date Type Department Care Team Description 01/21/2022 Telephone [facility] Richard Meyer Refill Urology - [place] MD Seamus [address] [place] [address], [address] [place] [phone] [place] [address], [place] [phone] (Wo rk) Social History Tobacco [...] making decisions? documented as of this encounter Miscellaneous Notes Telephone Encounter - Aide Snyder - 01/21/2022 1340 EDT Patient called back and said he would like to try medicine again, let him know I would have nurse call him. Please use mobile number Telephone Encounter - Luisana Nielsen, PRECIOUS - 01/21/2022 1307 EDT Sildenafil last mentioned in Dr. Meyer's 04/13/21 note as not working. Refill request from Pharmacy. LM for patient to please call clinic to discuss refill request. Telephone Encounter - Aide Snyder - 01/21/2022 1153 EDT Received refill request for sildenafil citrate, not on current medications. documented in this encounter Plan of Treatment Upcoming Encounters Date Type Specialty Care Team Description 08/08/2022 Office Visit General Surgery Ish Hall MD [address] [phone] (Tristian knott) 09/09/2022 Office Visit Urology Richard Meyer MD [address] [phone] (Tristian knott) 10/07/2022 Appointment 10/14/2022 Hospital Encounter General Surgery Richard Meyer MD [address] [phone] (Wo rk) 10/14/2022 Surgery General Surgery Richard Meyer EPIDIDYME CTOMYSeamus MD UNILATERAL [[id number] [address] [place] (CPT??)] [address] [phone] (Wo rk) 10/28/2022 Post-op Visit Urology Richard Meyer MD [address] [place] [phone] (Wo rk) 11/25/2022 Office Visit Urology Richard Meyer MD [address] [place] [phone] (Wo rk) Scheduled Procedures Name Priority Associated Diagnoses Date/Time EPIDIDYMECTOMY, UNILATERAL Epididymitis 10/14 12:30 EST documented as of this encounter Visit Diagnoses Not on filedocumented in this encounter Care Teams Food Tray Assembler Relationship Specialty Start Date End Date Mitali Pinon PCP - General Internal Medicine - Primary 05/04/21 [address] [place], [place] [phone] documented as of this encounter
--- OUTSIDE RECORDS SUMMARY | 2022-08-01 15:57 | XMS_ITS | Encounter Summary ---
:1950 Author Organization [facility] Address [address] [place] [address] Care Team Providers Name Role Phone Nathaniel Smith MD Primary Care Provider Encounter Details Date Type Department Care Team Description 06/23/2019 Orders Only [facility] Richard Meyer, Urology - [place] [address] [place] [address], [address] [place] [address] [address], [place], [place] [phone] (Wo rk) Social History [...] of this encounter Progress Notes Richard Meyer - 06/23/2019 2113 EDT RTC path 2-4 weeks. Pt's to d/c pricilla 10/25 AM at home documented in this encounter Plan of Treatment Upcoming Encounters Date Type Specialty Care Team Description 08/08/2022 Office Visit General Surgery Ish Hall MD [address] [place] [phone] (Wo rk) 09/09/2022 Office Visit Urology Richard Meyer MD [address] [place] [phone] (Wo rk) 10/07/2022 Appointment 10/14/2022 Hospital Encounter General Surgery Richard Meyer MD [address] [place] [phone] (Wo rk) 10/14/2022 Surgery General Surgery Richard MeyerE CTSeamus ARIZMENDI MD UNILATERAL [[id number] [address] [place] (CPT??)] [address] [phone] (Wo rk) 10/28/2022 Post-op Visit Urology Richard Meyer MD [address] [place] [phone] (Wo rk) 11/25/2022 Office Visit Urology Richard Meyer MD 111 [facility], [address] [place] [phone] (Wo rk) Scheduled Procedures Name Priority Associated Diagnoses Date/Time EPIDIDYMECTOMY, UNILATERAL Epididymitis 10/14 12:30 EST documented as of this encounter Visit Diagnoses Not on filedocumented in this encounter Care Teams Head Insulation Board Saw Operator Relationship Specialty Start Date End Date Nathaniel Smith MD PCP - General 04/21/17 05/03/21 [address] [place] [address] documented as of this encounter
--- OUTSIDE RECORDS SUMMARY | 2022-08-01 15:57 | XMS_ITS | Encounter Summary ---
:1950 Author Organization [facility] Address [address] [place] [address] Care Team Providers Name Role Phone Mitali Pinon Primary Care Provider Reason for Visit Reason Onset Date Comments Advice Only 06/10/2022 Encounter Details Date Type Department Care Team Description 06/10/2022 Telephone [facility] Urology Roc Meyer, Advice Only - [place] [address] [place] [address], [address] [place] [address] [place] [address], [place], [place] [phone] (Wo rk) Social History [...] this encounter Miscellaneous Notes Telephone Encounter - Janessa Macdonald - 06/11/2022 1344 EDT LM for PT to call the office to schedule next appointment. Also started I would send a mychart. Telephone Encounter - Luisana Nielsen RN - 06/11/2022 1019 EDT LM for patient to check his MyChart msg for details. Telephone Encounter - Richard Meyer MD - 06/10/20222031 EDT Antibiotics, steady use of anti-inflammatories like ibuprofen, support, and rest do not work then there are limited options. We could consider an epididymectomy but that is a surgery that can also havepostoperative pain. If the pain is intolerable and not improving then he may need to consider that. I can see him in the office to discuss that option and to potentially perform a cord block with Marcaine to see if that helps control his pain for short period of time as well Telephone Encounter - Shannan Ceballos MA - 06/10/2022 1150 EDT TC from Pt, he wants to report to Dr. Meyer that his symptoms for epididymitis have not been improve, he would like to know what to do next. He can be reached through his home phone number or Mychartmessages works well also, per patient's request. documented in this encounter Plan of Treatment Upcoming Encounters Date Type Specialty Care Team Description 08/08/2022 Office Visit General Surgery Ish Hall MD [address] [place] [phone] (Wo rk) 09/09/2022 Office Visit Urology Richard Meyer MD [address] [place] [phone] (Wo rk) 10/07/2022 Appointment 10/14/2022 Hospital Encounter General Surgery Richard Meyer MD [address] [place] [phone] (Wo rk) 10/14/2022 Surgery General Surgery Richard Meyer EPIDIDYME CTSeamus ARIZMENDI MD UNILATERAL [[id number] [address] (CPT??)] [address] [phone] (Wo rk) 10/28/2022 Post-op Visit Urology Richard Meyer MD [address] [place] [phone] (Wo rk) 11/25/2022 Office Visit Urology Richard Meyer MD [address] [place] [phone] (Wo rk) Scheduled Procedures Name Priority Associated Diagnoses Date/Time EPIDIDYMECTOMY, UNILATERAL Epididymitis 10/14 12:30 EST documented as of this encounter Visit Diagnoses Not on filedocumented in this encounter Care Teams Telesales Specialist Relationship Specialty Start Date End Date Mitali Pinon PCP - General Internal Medicine - Primary 05/04/21 [address] [place] [address] documented as of this encounter
--- OUTSIDE RECORDS SUMMARY | 2022-08-01 15:57 | XMS_ITS | Encounter Summary ---
:1950 Author Organization [facility] Address [address] [place] [address] Care Team Providers Name Role Phone Nathaniel Smith MD Primary Care Provider Encounter Details Date Type Department Care Team Description 06/23/2019 Hospital Encounter [facility] - S Unknown, Pro Adam schmidt MD [facility] [phone] [place] [address] (Work) [phone] Social History Tobacco Use Types Packs/Day Years [...] (PROSCAR) 5 mg Take 5 mg by mouth 0 06/13/2020 tablet daily. tamsulosin (FLOMAX) 0.4 mg Take 0.4 mg by 0 12/13/2019 capsule mouth daily. documented as of this encounter Discharge Disposition Disposition Code Departure Means Destination Home or Self Fdc documented in this encounter Plan of Treatment Upcoming Encounters Date Type Specialty Care Team Description 08/08/2022 Office Visit General Surgery Ish Hall MD [address] [place] [phone] (Wo rk) 09/09/2022 Office Visit Urology Richard Meyer MD [address] [place] [phone] (Wo rk) 10/07/2022 Appointment 10/14/2022 Hospital Encounter General Surgery Richard Meyer MD [address] [place] [phone] (Wo rk) 10/14/2022 Surgery General Surgery Richard Meyer CTSeamus ARIZMENDI MD UNILATERAL [[id number] 111 [place] (CPT??)] [address] [phone] (Wo rk) 10/28/2022 Post-op Visit Urology Richard Meyer MD [address] [place] [phone] (Wo rk) 11/25/2022 Office Visit Urology Richard Meyer MD [address] [place] [phone] (Wo rk) Scheduled Procedures Name Priority Associated Diagnoses Date/Time EPIDIDYMECTOMY, UNILATERAL Epididymitis 10/14 12:30 EST documented as of this encounter Visit Diagnoses Not on filedocumented in this encounter Care Teams Power Lineworker Relationship Specialty Start Date End Date Nathaniel Smith MD PCP - General 04/21/17 05/03/21 [address] [place] [address] documented as of this encounter
--- OUTSIDE RECORDS SUMMARY | 2022-08-01 15:57 | XMS_ITS | Encounter Summary ---
:1950 Author Organization [facility] Address [address] [place] [address] Care Team Providers Name Role Phone Mitali Pinno Primary Care Provider Reason for Visit Reason Onset Date Comments Pharmacy 05/20/2022 Encounter Details Date Type Department Care Team Description 05/20/[address] [facility] Angel Nguyen PA-C [facility] [address] [address] [place] [address] (Wo rk) Social History Tobacco Use Types [...] Sig Dispensed Refills Start Date End Date levOFLOXacin (LEVAQUIN) Take 1 Tablet by 10 Tablet 0 202105/30/2022 500 mg tabletIndications: mouth daily. Pain in right testicle documented in this encounter Miscellaneous Notes Telephone Encounter - Lachelle Cheung - 05/20/2022 1431 EDT Patient's pharmacy is closed again today. Please resend prescription to [facility] in [place]. Resent to alternate pharmacy per above. documented in this encounter Plan of Treatment Upcoming Encounters Date Type Specialty Care Team Description 08/08/2022 Office Visit General Surgery Ish Hall MD [address] [phone] (Wo rk) 09/09/2022 Office Visit Urology Richard Meyer MD [address] [phone] (Wo rk) 10/07/2022 Appointment 10/14/2022 Hospital Encounter General Surgery Richard Meyer MD [address] [phone] (Wo rk) 10/14/2022 Surgery General Surgery Richard Meyer Charles, MD UNILATERAL [[id number] 111 [place] (CPT??)] [address] [phone] (Wo rk) 10/28/2022 Post-op Visit Urology Richard Meyer MD [address] [place] [phone] (Wo rk) 11/25/2022 Office Visit Urology Richard Meyer MD [address] [place] [phone] (Wo rk) Scheduled Procedures Name Priority Associated Diagnoses Date/Time EPIDIDYMECTOMY, UNILATERAL Epididymitis 10/14 12:30 EST documented as of this encounter Visit Diagnoses Diagnosis Scrotal pain - Primary Unspecified disorder of male genital org ans Pain in right testicle Unspecified disorder of male genital org ans Epididymitis Orchitis and epididymitis, unspecified documented in this encounter Discontinued Medications Medication Sig Discontinue Reason Start Date End Date levOFLOXacin (LEVAQUIN) Take 1 Tablet by Alternate therapy 05/19/20 22 05/20/2022 500 mg tabletIndications: mouth daily. Pain in right testicle documented as of this encounter Care Teams Route Clerk Relationship Specialty Start Date End Date Mitali Pinon PCP - General Internal Medicine - Primary 05/04/21 [address] [place] [address] documented as of this encounter
--- OUTSIDE RECORDS SUMMARY | 2022-08-01 15:57 | XMS_ITS | Encounter Summary ---
:1950 Author Organization [facility] Address [address] [place] [address] Care Team Providers Name Role Phone Mitali Pinon Primary Care Provider Reason for Referral Laboratory Services (Routine/Next Available) - New Request Specialty Diagnoses / Procedures Referred By Contact Refer red To Contact Diagnoses Weak urinary stream Richard Meyer MD Procedures URINE SEDIMENT (MICRO) WITH REFLEX TO CULTURE [address] [phone] Referral ID Status Reason Start Date Expiration Date Visits V isits Requested Authorized [id number] New Request 10/09/2021 1 1 Reason for Visit Reason Comments BPH With Obstruction Encounter Details Date Type Department Care Team Description 10/09/2021 Telemedicine [facility] Richard Meyer Weak u rinary stream (Primary Dx); Urology - Michael Way MD BPH with urinary obstruction [address] [facility], [address] [place], [place] [id number] [place] [address] [phone] (Wo rk) Social History Tobacco Use [...] encounter Progress Notes Richard Meyer MD - 10/09/2021 1000 EST Chief Complaint Patient presents with ??? BPH With Obstruction HPI- I had a telephone telemedicine visit with Pritesh today. He is status post TURP about 2 years ago. He has had a couple of episodes now of difficulty with urination with hesitancy and a weak stream. He had this last summer but by the time he came in it has resolved and his urination was back to his baseline. He has had another recurrence over the last couple weeks where his urine stream has gradually become weaker. He has times where he has significant hesitancy for up to 20 seconds like he did last night. He feels like his voided volumes are smaller as well. He is not having any dysuria nor any hematuria. He had tried adding Flomax again when this last happened and it did not seem to help. Past Medical History: Diagnosis Date ??? Atrial [...] ??? atorvastatin (LIPITOR) 20 mg tablet ??? erythromycin (ROMYCIN) 5 mg/gram (0.5 %) ophthalmic ointment ??? sildenafil citrate (VIAGRA) 100 mg tablet ??? tadalafiL (CIALIS) 20 mg tablet ??? TAMSulosin (FLOMAX) 0.4 mg capsule No current facility-administered medications for this visit. No Known Allergies Physical Exam No visits with results within 1 Day(s) from this visit. Latest known visit with results is: Lab Requisition on 04/18/2021 Component Date Value Ref Range Status ??? Testosterone 04/18/2021 650 229 - 902 ng/dL Final PSA- No results found for: PSA Encounter Diagnoses Name Primary? Weak urinary stream -He has a weak urinary stream of unclear etiology. He is only 2 years after his TURP and I would certainly expect that to remain open unless he has had an unusual area of regrowth -We will check a urine sample to be sure there is no sign of infection. He can also try using Flomaxand or ibuprofen to see if either helps either with relaxing his prostate or bladder neck for the Flomax or with inflammation for the ibuprofen. -I will plan on seeing him in the office for cystoscopy in the next few weeks. Yes ??? BPH with urinary obstruction -See above. He is status post TURP will make sure that there is not any new regrowth or residual tissue. This note has been prepared with voice recognition software. Please excuse ssis developer errors. This visit was conducted by telephone. I spent a total of 8 minutes in discussion with the patient as described in the progress note. No orders of the defined types were placed in this encounter. documented in this encounter Plan of Treatment Upcoming Encounters Date Type Specialty Care Team Description 08/08/2022 Office Visit General Surgery Ish Hall MD 111 [facility], [address] [place] [phone] (Wo rk) 09/09/2022 Office Visit Urology Richard Meyer MD [address] [phone] (Wo rk) 10/07/2022 Appointment 10/14/2022 Hospital Encounter General Surgery Richard Meyer MD [address] [phone] (Wo rk) 10/14/2022 Surgery General Surgery Richard Meyer EPIDIDYME CTSeamus ARIZMENDI MD UNILATERAL [[id number] 111 [place] (CPT??)] [address] [phone] (Wo rk) 10/28/2022 Post-op Visit Urology Richard Meyer MD [address] [place] [phone] (Wo rk) 11/25/2022 Office Visit Urology Richard Meyer MD [address] [place] [phone] (Wo rk) Scheduled Orders Name Type Priority Associated Diagnoses Order S chedule URINE SEDIMENT (MICRO) Lab Routine Weak urinary strea m Expected: 10/09/2021 WITH REFLEX TO CULTURE (Appr oximate), Expires: 10/09/2022 Scheduled Procedures Name Priority Associated Diagnoses Date/Time EPIDIDYMECTOMY, UNILATERAL Epididymitis 10/14 12:30 EST documented as of this encounter Visit Diagnoses Diagnosis Weak urinary stream - Primary Slowing of urinary stream BPH with urinary obstruction Hypertrophy of prostate with urinary obs truction and other lower urinary tract symptoms (LUTS) Epididymitis Orchitis and epididymitis, unspecified documented in this encounter Care Teams Aircraft Structural Repair Mechanic Relationship Specialty Start Date End Date Mitali Pinon PCP - General Internal Medicine - Primary 05/04/21 [address] [place] [address] documented as of this encounter
--- OUTSIDE RECORDS SUMMARY | 2022-08-01 15:57 | XMS_ITS | Encounter Summary ---
:1950 Author Organization [facility] Address [address] [place] [address] Care Team Providers Name Role Phone Nathaniel Smith MD Primary Care Provider Reason for Visit Reason Comments BPH With Obstruction Encounter Details Date Type Department Care Team Description 03/02/2019 Office Visit [facility] Richard Meyer BPH [facility] urinary Urology - [place] MD Seamus obstruction (Primary [address] [place] [facility] [address] [phone] [place], [address] [place] [phone] (Wo rk) Social History Tobacco [...] of this encounter Progress Notes Richard Meyer MD, MD - 03/02/2019 0900 EDT Subjective: Patient ID: [email or web address] Cardona is an 68 y.o. male. Pritesh Cardona is seen in the office today for BPH With Obstruction. Chief Complaint Patient presents with ??? BPH With Obstruction HPI Pritesh is here in follow-up of his BPH. His symptoms seem essentially stable. He thinks he may have been doing a little better recently but he feels it comes and goes. He continues on both Flomax and finasteride. His main bother is his urinary frequency and weakened urinary stream. His IPSS symptom score is 21/35 which puts him in the severe category. He had cardiac ablation about 6 weeks ago and is doing well thus far from that. He anticipates coming off his Eliquis at some point in the near future. Patient Active Problem List Diagnosis ??? Achilles tendonitis ??? Persistent atrial fibrillation (HCC-CMS) Past Medical History: Diagnosis Date ??? Atrial fibrillation (HCC-CMS) ??? BPH with urinary obstruction 2018 flomax/finasteride 02/16- ; cysto (09/19)-lateral BPH with high median bar, not ideal for Urolift; TRUS (09/19)-35 g ??? Epilepsy (HCC-CMS) ??? Heart failure with reduced ejection fraction (HCC-CMS) No past surgical history on file. No family history on file. Social Social History Tobacco Use ??? Smoking status: Former Smoker Packs/day: 0.50 Types: Cigarettes Start date: 06/03/1970 Last attempt to quit: 06/03/2002 Years since quittin.7 ??? Smokeless tobacco: Never Used Substance Use Topics ??? Alcohol use: Not on file ??? Drug use: Not on file Current Outpatient Medications on File Prior to Visit Medication Sig Dispense Refill ??? amiodarone (PACERONE) 200 mg tablet Take 200 mg by mouth 2 times daily. ??? apixaban (ELIQUIS) 5 mg tablet Take 5 mg by mouth 2 times daily. ??? finasteride (PROSCAR) 5 mg tablet Take 5 mg by mouth daily. ??? levETIRAcetam (KEPPRA) 500 mg tablet Take 250 mg by mouth 2 times daily. ??? metoprolol XL (TOPROL-XL) 25 mg tablet Take 25 mg by mouth daily. ??? pindolol (VISKIN) 5 mg tablet Take 5 mg by mouth 2 times daily. ??? tamsulosin (FLOMAX) 0.4 mg capsule Take 0.4 mg by mouth daily. No current facility-administered medications on file prior to visit. No Known Allergies Review of Systems Constitutional: Negative for chills, diaphoresis and fever. Gastrointestinal: Negative for abdominal pain and nausea. Genitourinary: Positive for frequency. Negative for dysuria, flank pain, hematuria and urgency. - See HPI Objective: There were no vitals taken for this visit. Physical Exam Office Visit on 03/02/2019 Component Date Value Ref Range Status ??? Bladder Scan 03/02/2019 112cc Final ??? Color 03/02/2019 YELLOW Yellow Final ??? Clarity, UA 03/02/2019 Clear Clear Final ??? Glucose 03/02/2019 Neg Neg Final ??? Bilirubin 03/02/2019 Neg Neg Final ??? Ketones 03/02/2019 Neg Neg Final ??? Specific [place] 03/02/2019 1.010 1.001 - 1.035 Final ??? Blood 03/02/2019 Neg Neg Final ??? pH 03/02/2019 5.0 4.6 - 8.0 Final ??? Protein 03/02/2019 Neg Neg Final ??? Urobilinogen 03/02/2019 0.2 0.2 - 1.0 mg/dL Final ??? Nitrite 03/02/2019 Neg Neg Final ??? Leuk Esterase 03/02/2019 Trace* Neg Final ??? Tech ID 03/02/2019 [id number] Final Test performed at [facility] PSA: No results found for: PSA BMP: Lab Results Component Value Date NA 140 06/08/2017 K 4.2 06/08/2017 CL 107 06/08/2017 CO2 24 06/08/2017 BUN 20 06/08/2017 CREATININE 0.74 06/08/2017 MG 2.3 06/06/2017 Assessment / Plan: 1. BPH with urinary obstruction -He has ongoing BPH symptoms despite maximal medical therapy. He unfortunately is not a particular good candidate for the Urolift as he has an elevated median bar and median lobe. -We discussed options and he is liked to go ahead with a TURP. We also discussed laser with the onlyreal advantage of that being that it could be an outpatient procedure. We also could consider tryingthe Urolift but would likely have to couple that with an incision or resection of the median bar with a TUIP. -He would rather have something done that would be long-lasting and effective in the TURP is the best option for that. We will look to set that up this fall. He will need to be off of Eliquis for The patient and I talked at length about surgical treatment of BPH. Etiologies of BPH including advancing age, family history of BPH and others were discussed with the patient. Alternative medical, minimally invasive and surgical treatment options were discussed with the patient in detail. The risks, benefits, and some of the possible complications of surgical treatment options including TUMT, TUNA, TUIP, Laser ablation of the prostate, TURP and Suprapubic prostatectomy were discussed with the patient. All questions were answered. The patient gave fully informed consent to proceed with a TURP for the surgical therapy for their BPH. Risks were reviewed, including, but not limited to, incontinence, impotence, stricture, retrogradeejaculation, bladder neck contracture, and regrowth. This note has been prepared with voice recognition software. Please excuse rn clinician errors. No orders of the defined types were placed in this encounter. Richard Meyer MD documented in this encounter Plan of Treatment Upcoming Encounters Date Type Specialty Care Team Description 08/08/2022 Office Visit General Surgery Ish Hall MD [address] [place] [phone] (Wo rk) 09/09/2022 Office Visit Urology Richard Meyer MD [address] [phone] (Wo rk) 10/07/2022 Appointment 10/14/2022 Hospital Encounter General Surgery Richard Meyer MD [address] [place] [phone] (Wo rk) 10/14/2022 Surgery General Surgery Richard Meyer EPIDIDYME CTOMYSeamus MD UNILATERAL [[id number] 111 [place] (CPT??)] [address] [phone] (Wo rk) 10/28/2022 Post-op Visit Urology Richard Meyer MD [address] [place] [phone] (Wo rk) 11/25/2022 Office Visit Urology Richard Meyer MD [address] [place] [phone] (Wo rk) Scheduled Procedures Name Priority Associated Diagnoses Date/Time EPIDIDYMECTOMY, UNILATERAL Epididymitis 10/14 12:30 EST documented as of this encounter Procedures Procedure Name Priority Date/Time Associated Diagnosis Comme nts POCT URINE Routine 03/02/2019 9:18 EDT BPH with urinary Resu lts for this DIPSTICK, CLINITEK obstruction procedure are in the results section. UROLOGY BLADDER Routine 03/02/2019 9:08 EDT BPH with urinary R esults for this SCAN obstruction procedure are i n the results section. documented in this encounter Results (ABNORMAL) POCT URINE DIPSTICK, CLINITEK (03/02/2019 9:18 EDT) [facility] Method Time Signature Color YELLOW Yellow 03/02/2019 [facility] 9:24 EDT [facility] Clarity, UA Clear Clear 03/02/2019 [facility] 9:24 EDT [facility] Glucose Neg Neg 03/02/2019 [facility] 9:24 EDT [facility] Bilirubin Neg Neg 03/02/2019 [facility] 9:24 EDT [facility] Ketones Neg Neg 03/02/2019 [facility] 9:24 EDT [facility] Specific [place] 1.010 1.001 - 03/02/2019 [facility] 1.035 9:24 EDT [facility] Blood Neg Neg 03/02/2019 [facility] 9:24 EDT [facility] pH 5.0 4.6 - 8.0 03/02/2019 [facility] 9:24 EDT [facility] Protein Neg Neg 03/02/2019 [facility] 9:24 EDT [facility] Urobilinogen 0.2 0.2 - 1.0 03/02/2019 [facility] mg/dL 9:24 EDT [facility] Nitrite Neg Neg 03/02/2019 [facility] 9:24 EDT [facility] Leuk Esterase Trace (A) Neg 03/02/2019 [facility] 9:24 EDT [facility] home health scheduler ID [id number] 03/02/2019 [facility] 9:24 EDT [facility] Comment: Test performed at [facility] Specimen Anatomical Collection Method Collection Time Receive d Time (Source) Location / / Volume Laterality Urine URINE / Unknown 03/02/2019 9:18 9 9:24 (substance) EDT EDT Richard Meyer MD POINT OF CARE TEST ORDERABLE S Performing Organization Address City/State/ZIP Code Phon e Number [facility] [address] [place] [address] SERVICES UROLOGY BLADDER SCAN (03/02/2019 9:08 EDT) athologist Signature Bladder Scan 112cc POINT OF CARE [facility] Specimen (Source) Anatomical Location Collection Method / Collectio n Time Received Time / Laterality Volume Urine (substance) Richard Meyer MD UROLOGY ORDERABLES Performing Organization Address City/State/ZIP Code Phon e Number [facility] POINT OF CARE POINT OF CARE [facility] documented in this encounter Visit Diagnoses Diagnosis BPH with urinary obstruction - Primary Hypertrophy of prostate with urinary obs truction and other lower urinary tract symptoms (LUTS) Epididymitis Orchitis and epididymitis, unspecified documented in this encounter Care Teams Water Mangle Tender Relationship Specialty Start Date End Date Nathaniel Smith MD PCP - General 04/21/17 05/03/21 [address] [place] [address] documented as of this encounter
--- OUTSIDE RECORDS SUMMARY | 2022-08-01 15:57 | XMS_ITS | Encounter Summary ---
:1950 Author Organization [facility] Address [address] [place] [address] Care Team Providers Name Role Phone Mitali Pinon Primary Care Provider Reason for Referral Radiology Services (Routine) - Authorization Not Required Specialty Diagnoses / Procedures Referred By Contact Refer red To Contact Diagnoses Encounter for abdominal aortic aneurysm screening Mitali Pinon Procedures US ABDOMINAL AORTA SCREENING 4 [place] [address] Referral ID Status Reason Start Expiration Visits Visits Date Date Requested Authorized [id number] Authorization Not 03/13/2021 1 1 Required Reason for Visit Radiology Services (Routine) - Authorization Not Required Specialty Diagnoses / Procedures Referred By Contact Refer red To Contact Diagnoses Encounter for abdominal aortic aneurysm screening Mitali Pinon Procedures US ABDOMINAL AORTA SCREENING 4 [place] [address] Referral ID Status Reason Start Expiration Visits Visits Date Date Requested Authorized [id number] Authorization Not 03/13/2021 1 1 Required Encounter Details Date Type Department Care Team Description 05/11/2021 Hospital Encounter Medical Center Encount er for abdominal Radiology US - ACC aortic an eurysm [place] screening [address] [place] [address] Social History Tobacco Use Types Packs/Day Years [...] Visit General Surgery Ish Hall MD [address] [phone] (Wo rk) 09/09/2022 Office Visit Urology Richard Meyer MD [address] [phone] (Wo rk) 10/07/2022 Appointment 10/14/2022 Hospital Encounter General Surgery Richard Meyer MD [address] [phone] (Wo rk) 10/14/2022 Surgery General Surgery Richard Meyer EPIDIDYME CTSeamus ARIZMENDI MD UNILATERAL [[id number] 111 [place] (CPT??)] [address] [phone] (Wo rk) 10/28/2022 Post-op Visit Urology Richard Meyer MD [address] [place] [phone] (Wo rk) 11/25/2022 Office Visit Urology Richard Meyer MD [address] [place] [phone] (Wo rk) Scheduled Procedures Name Priority Associated Diagnoses Date/Time EPIDIDYMECTOMY, UNILATERAL Epididymitis 10/14 12:30 EST documented as of this encounter Procedures Procedure Name Priority Date/Time Associated Diagnosis Comme nts US ABDOMINAL AORTA Routine 05/11/2021 14:34 Encounter for Resu lts for this MEDICARE SCREENING EDT abdominal aortic proce dure are in aneurysm screening the resul ts section. documented in this encounter Results US ABDOMINAL AORTA SCREENING (05/11/2021 14:34 EDT) Anatomical Region Laterality Modality Abdomen Ultrasound Specimen (Source) Anatomical Collection Method Collection Time Re ceived Time Location / / Volume Laterality 05/11/2021 15:02 EDT Impressions 05/11/2021 15:02 EDT No abdominal aortic aneurysm. I have personally reviewed the images an d the above interpretation and agree with the findings. Narrative 05/11/2021 15:02 EDT US ABDOMINAL AORTA SCREENING ??05/11/2021 2:30 PM Signs and Symptoms/Comments: ?? Former smoker, screening. Comparison: None. Technique: Still and cine ultrasound images of the abdominal aorta were obtained to screen for the presence of abdominal aortic aneurysm. Doppler augmentation was utilized when necessary. Findings: The proximal aorta measures 2.2 x 2.3 cm . The mid aorta measures 1.8 x 1.8 cm. The distal aorta measures 1.6 x 1.8 cm. The right iliac artery measures 1.0 x 1. 0 cm. The left iliac artery measures 1.1 x 1.1 cm. Mild atherosclerotic plaque. Procedure Note Tyson Canada MD - 021 US ABDOMINAL AORTA SCREENING 05/11/2021 2 :30 PM Signs and Symptoms/Comments: Former smoker, screening. Comparison: None. Technique: Still and cine ultrasound images of the abdominal aorta were obtained to screen for the presence of abdominal aortic aneurysm. Doppler augmentation was utilized when necessary. Findings: The proximal aorta measures 2.2 x 2.3 cm . The mid aorta measures 1.8 x 1.8 cm. The distal aorta measures 1.6 x 1.8 cm. The right iliac artery measures 1.0 x 1. 0 cm. The left iliac artery measures 1.1 x 1.1 cm. Mild atherosclerotic plaque. IMPRESSION No abdominal aortic aneurysm. I have personally reviewed the images an d the above interpretation and agree with the findings. Mitali Pinon [facility] US ORDERABLES documented in this encounter Visit Diagnoses Diagnosis Encounter for abdominal aortic aneurysm screening Screening for other and unspecified card iovascular conditions Epididymitis Orchitis and epididymitis, unspecified documented in this encounter Care Teams Icing Coater Relationship Specialty Start Date End Date Mitali Pinon PCP - General Internal Medicine - Primary 05/04/21 [address] [place] [address] documented as of this encounter
--- OUTSIDE RECORDS SUMMARY | 2022-08-01 15:57 | XMS_ITS | Encounter Summary ---
:1950 Author Organization [facility] Address [address] [place] [address] Care Team Providers Name Role Phone Nathaniel Smith MD Primary Care Provider Reason for Referral Radiology Services (Routine) - Authorization Not Required Specialty Diagnoses / Procedures Referred By Contact Refer red To Contact Diagnoses Epididymitis Richard Meyer MD Procedures US SCROTUM WITH LIMITED DOPPLER US SCROTUM [address] [phone] Referral ID Status Reason Start Expiration Visits Visits Date Date Requested Authorized [id number] Authorization Not 1 1 Required 0 Reason for Visit Reason Comments Epididymitis Encounter Details Date Type Department Care Team Description 06/13/2020 Telemedicine [facility] Richard Meyer Epidid ymitis (Primary Dx); Urology - Michael Way MD BPH with urinary obstruction [address] [facility], [address] [place], [place] [id number] [place] [address] [phone] (Wo rk) Social History Tobacco [...] encounter Progress Notes Richard Meyer MD - 06/13/2020 1500 EDT Subjective: Patient ID: Pritesh Cardona is an 69 y.o. male. Pritesh Cardona is seen by telephone telehealth today for Epididymitis. HPI I had a telehealth visit with the patient today by telephone. They understood the limitations we areputting on [id number] encounters due to the COVID-19 pandemic and consented to this telehealth visit. I had a telephone telemedicine visit with Pritesh today. I had seen him previously for BPH and he had a TURP approximately a year ago. He developed some right testicular pain about 4 days ago. This is been somewhat constant but relatively mild. It does not wake him up at night. It seems to be in the lower posterior aspect of the testicle and does not radiate. There is no exacerbating factors and it does not bother him more if he is active. He is noticed no swelling and no redness. He is tried some ibuprofen which may have helped a little bit, and heat has not seem to do much. His voiding is good now and is on no medication for his prostate. He had a slight bout of difficultyvoiding last spring for which he took Flomax for a week and things straightened out. He is now very pleased with his voiding. Patient Active Problem List Diagnosis ??? Achilles tendonitis ??? Persistent atrial fibrillation ([facility]) Past Medical History: Diagnosis Date ??? Atrial fibrillation ([facility]) ??? BPH with urinary obstruction 2018 flomax/finasteride 02/16-06/19 ; cysto (09/19)-lateral BPH with high median bar, not ideal for Urolift; TRUS (09/19)-35 g; TURP 06/19 ??? Epilepsy ([facility]) ??? Heart failure with reduced ejection fraction ([facility]) Past Surgical History: Procedure Laterality Date ??? TURP 06/23/2019 TURP No family history on file. Social Social History Tobacco Use ??? Smoking status: Former Smoker Packs/day: 0.50 Types: Cigarettes Start date: 06/03/1970 Quit date: 06/03/2002 Years since quittin.0 ??? Smokeless tobacco: Never Used Substance Use Topics ??? Alcohol use: Not on file ??? Drug use: Not on file No current outpatient medications on file prior to visit. No current facility-administered medications on file prior to visit. No Known Allergies ROS - See HPI Objective: There were no vitals taken for this visit. Physical Exam No visits with results within [...] MG 2.3 06/06/2017 Assessment / Plan: 1. Epididymitis -He appears to have right epididymitis based on his description. I recommend he try anti-inflammatories in the form of ibuprofen as well as elevation of the scrotum. -If his symptoms persist then I will see him in the office in a couple weeks for an exam I have alsoset him up for an ultrasound of the scrotum. If his symptoms resolve we can cancel both of those. -If he develops redness or swelling he should let us know as this will be more likely indicate possible infection warranting antibiotics. I think that is unlikely based on his description. 2. BPH with urinary obstruction -He has had a TURP almost a year ago and is voiding well and should continue to void well for years. This note has been prepared with voice recognition software. Please excuse top precipitator operator helper errors. This visit was conducted by telephone. I spent a total of 12 minutes in discussion with the patient as described in the progress note. Other Orders Placed This Visit Procedures ??? US SCROTUM Richard Meyer MD documented in this encounter Plan of Treatment Upcoming Encounters Date Type Specialty Care Team Description 08/08/2022 Office Visit General Surgery Ish Hall MD [address] [place] [phone] (Wo rk) 09/09/2022 Office Visit Urology Richard Meyer MD [address] [place] [phone] (Wo rk) 10/07/2022 Appointment 10/14/2022 Hospital Encounter General Surgery Richard Meyer MD [address] [place] [phone] (Wo rk) 10/14/2022 Surgery General Surgery Richard MeyerE CTSeamus ARIZMENDI MD UNILATERAL [[id number] [address] [place] (CPT??)] [address] [phone] (Wo rk) 10/28/2022 Post-op Visit Urology Richard Meyer MD [address] [place] [phone] (Wo rk) 11/25/2022 Office Visit Urology Richard Meyer MD [address] [place] [address], [place] [phone] (Wo rk) Scheduled Procedures Name Priority Associated Diagnoses Date/Time EPIDIDYMECTOMY, UNILATERAL Epididymitis 10/14 12:30 EST documented as of this encounter Results US SCROTUM WITH LIMITED [...] Epididymitis - Primary Orchitis and epididymitis, unspecified BPH with urinary obstruction Hypertrophy of prostate with urinary obs truction and other lower urinary tract symptoms (LUTS) Epididymitis Orchitis and epididymitis, unspecified Epididymitis Orchitis and epididymitis, unspecified documented in this encounter Discontinued Medications Medication Sig Discontinue Reason Start Date End Date tamsulosin (FLOMAX) 0.4 Take 1 Cap by mouth Alternate therapy 12/1206/13/2020 mg capsule at bedtime. finasteride (PROSCAR) 5 Take 5 mg by mouth Alternate therapy 06/13/2020 mg tablet daily. documented as of this encounter Care Teams Commercial Pest Control Representative Relationship Specialty Start Date End Date Nathaniel Smith MD PCP - General 04/21/17 05/03/21 [address] [place] [address] documented as of this encounter
--- OUTSIDE RECORDS SUMMARY | 2022-08-01 15:57 | XMS_ITS | Encounter Summary ---
:1950 Author Organization [facility] Address [address] [place] [address] Care Team Providers Name Role Phone Mitali Pinon Primary Care Provider Reason for Visit Reason Onset Date Comments Groin Pain 05/17/2022 Encounter Details Date Type Department Care Team Description 05/17/2022 Telephone [facility] Urology oRc Meyer, Groin Pain - [place] [address] [place] [address], [address] [place] [id number] [place] [address], [place] [phone] (Wo rk) Social History [...] this encounter Miscellaneous Notes Telephone Encounter - Sima Caceres RN - 05/17/2022 1627 EDT Discussed plan with Dr. Salinas. Continue ice and ibuprofen Add rest and elevation to regimen. Call Friday if no improvement. Telephone Encounter - Sima Caceres RN - 05/17/2022 1557 EDT I have epididymitis. Pain above and behind right testicle to touch with sitting or touch. Pain started 5 days ago after a long bike ride. Pain is not worse but not getting better. Testicle is a little swollen. Denied redness Has been icing and ibuprofen (400 mg, 2 times daily) helps with discomfort but is not getting any better overall. Telephone Encounter - Aide Snyder - 05/17/2022 1541 EDT Patient called, please call back Telephone Encounter - Luisana Nielsen RN - 05/17/2022 1510 EDT Patient last saw Dr. Meyer in October 2021 - no mention of Hx epididymitis. LM for patient to call the clinic to discuss symptoms. Telephone Encounter - Aide Snyder - 05/17/2022 1013 EDT Patient thinks he is having a bout of epididymitis. Has sore testicles. Has been icing not sure if there is more he can do. documented in this encounter Plan of Treatment Upcoming Encounters Date Type Specialty Care Team Description 08/08/2022 Office Visit General Surgery Ish Hall MD [address] [place] [phone] (Wo rk) 09/09/2022 Office Visit Urology Richard Meyer MD [address] [place] [phone] (Wo rk) 10/07/2022 Appointment 10/14/2022 Hospital Encounter General Surgery Richard Meyer MD [address] [place] [phone] (Wo rk) 10/14/2022 Surgery General Surgery Richard Meyer Charles, MD UNILATERAL [[id number] [address] [place] (CPT??)] [address] [phone] (Wo rk) 10/28/2022 Post-op Visit Urology Richard Meyer MD [address] [place] [phone] (Wo rk) 11/25/2022 Office Visit Urology Richard Meyer MD [address] [place] [phone] (Wo rk) Scheduled Procedures Name Priority Associated Diagnoses Date/Time EPIDIDYMECTOMY, UNILATERAL Epididymitis 10/14 12:30 EST documented as of this encounter Visit Diagnoses Not on filedocumented in this encounter Care Teams Quality Control Engineering Technician Relationship Specialty Start Date End Date Mitali Pinon PCP - General Internal Medicine - Primary 05/04/21 [address] [facility] [place] [address] documented as of this encounter
--- OUTSIDE RECORDS SUMMARY | 2022-08-01 15:57 | XMS_ITS | Encounter Summary ---
:1950 Author Organization [facility] Address [address] [place] [address] Care Team Providers Name Role Phone Nathaniel Smith MD Primary Care Provider Encounter Details Date Type Department Care Team Description 02/15/2021 Orders Only [facility] Richard Meyer BPH [facility] Urology - [place] MD Seamus obstruction/lower [address] [facility], [address] [place] [address] [address] symptoms (Primary Dx) [place], [place] [id number] [place] [address], [facility] [phone] [place], [address] [place] [phone] (Wo rk) Social History Tobacco [...] Office Visit General Surgery Ish Hall MD [address] [place] [phone] (Wo rk) 09/09/2022 Office Visit Urology Richard Meyer MD [address] [place] [phone] (Wo rk) 10/07/2022 Appointment 10/14/2022 Hospital Encounter General Surgery Richard Meyer MD [address] [place] [phone] (Wo rk) 10/14/2022 Surgery General Surgery Richard Meyer Charles, MD UNILATERAL [[id number] [address] [place] (CPT??)] [address] [phone] (Wo rk) 10/28/2022 Post-op Visit Urology Richard Meyer MD [address] [place] [phone] (Wo rk) 11/25/2022 Office Visit Urology Richard Meyer MD [address] [place] [phone] (Wo rk) Scheduled Orders Name Type Priority Associated Diagnoses Order S chedule UROLOGY BLADDER Procedure Routine BPH with 6 Occurrence s starting SCAN obstruction/lower 02/15/2021 until urinary tract symptoms 02/15, 1 completed Scheduled Procedures Name Priority Associated Diagnoses Date/Time EPIDIDYMECTOMY, UNILATERAL Epididymitis 10/14 12:30 EST documented as of this encounter Results UROLOGY BLADDER SCAN (11/01/2021) P athologist Signature Bladder Scan 0.0 ml [facility] POINT OF CARE Specimen (Source) Anatomical Location Collection Method / Collectio n Time Received Time / Laterality Volume Urine 11/01/2021 Richard Meyer MD UROLOGY ORDERABLES Performing Organization Address City/State/ZIP Code Phon e Number [facility] POINT OF CARE documented in this encounter Visit Diagnoses Diagnosis BPH with obstruction/lower urinary tract symptoms - Primary Hypertrophy of prostate with urinary obs truction and other lower urinary tract symptoms (LUTS) Epididymitis Orchitis and epididymitis, unspecified documented in this encounter Care Teams Air Liaison And Special Staff Relationship Specialty Start Date End Date Nathaniel Smith MD PCP - General 04/21/17 05/03/21 [address] [place] [address] documented as of this encounter
--- OUTSIDE RECORDS SUMMARY | 2022-08-01 15:57 | XMS_ITS | Encounter Summary ---
:1950 Author Organization [facility] Address [address] [place] [address] Care Team Providers Name Role Phone Mitali Pinon Primary Care Provider Encounter Details Date Type Department Care Team Description 10/08/2021 Telephone [facility] Urology Roc Meyer [facility] [address] [place] [address], [address] [place] [address] [place] [address], [place], [place] [phone] (Wo rk) Social History [...] Office Visit General Surgery Ish Hall MD [address] [place] [phone] (Wo rk) 09/09/2022 Office Visit Urology Richard Meyer MD [address] [place] [phone] (Wo rk) 10/07/2022 Appointment 10/14/2022 Hospital Encounter General Surgery Richard Meyer MD [address] [place] [phone] (Wo rk) 10/14/2022 Surgery General Surgery Richard MeyerE CTSeamus ARIZMENDI MD UNILATERAL [[id number] 111 [place] (CPT??)] [address] [phone] (Wo rk) 10/28/2022 Post-op Visit Urology Richard Meyer MD [address] [place] [phone] (Wo rk) 11/25/2022 Office Visit Urology Richard Meyer MD [address] [place] [phone] (Wo rk) Scheduled Procedures Name Priority Associated Diagnoses Date/Time EPIDIDYMECTOMY, UNILATERAL Epididymitis 10/14 12:30 EST documented as of this encounter Visit Diagnoses Not on filedocumented in this encounter Care Teams Center Hole Reamer Relationship Specialty Start Date End Date Mitali Pinon PCP - General Internal Medicine - Primary 05/04/21 [address] [place] [address] documented as of this encounter
--- OUTSIDE RECORDS SUMMARY | 2022-08-01 15:57 | XMS_ITS | Encounter Summary ---
:1950 Author Organization [facility] Address [address] [place] [address] Care Team Providers Name Role Phone Mitali Pinon Primary Care Provider Reason for Visit Reason Comments Epididymitis Follow-up Encounter Details Date Type Department Care Team Description 07/02/2022 Telemedicine [facility] Rocío Mendez Epidid ymitis (Primary Dx); Urology - [place] MD Seamus Pain in right testicle [address] [facility], [address] [place] [phone] [place], [address] [place] [phone] (Wo rk) Social History Tobacco [...] of this encounter Progress Notes Rocío Mendez MD - 07/02/2022 0915 EDT Chief Complaint Patient presents with ??? Epididymitis ??? Follow-up HPI- I had a telehealth visit with the patient today by telephone. They understood the limitations we areputting on [id number]-[id number] encounters due to the COVID-19 pandemic and consented to this telehealth visit. I had a telephone telemedicine visit with Pritesh today. I performed a cord block a few weeks ago and this helped resolve his pain but only for a couple of days and the discomfort came back. He is now frustrated as he is tried both resting and being more active, has tried ibuprofen and the pain continues to be an issue that affects his ability to do the things he wants to do. Past Medical History: Diagnosis Date ??? Atrial fibrillation ([facility]) ([facility]) ??? BPH with urinary obstruction 2018 flomax/finasteride 02/16-06/19; cysto (09/19)-lateral BPH with high median bar, [...] ??? atorvastatin (LIPITOR) 20 mg tablet ??? tadalafiL (CIALIS) 20 mg tablet ??? TAMSulosin (FLOMAX) 0.4 mg capsule No current facility-administered medications for this visit. No Known Allergies Physical Exam No visits with results within 1 Day(s) from this visit. Latest known visit with results is: Office Visit on 05/30/2022 Component Date Value Ref Range Status ??? Color, UA 05/30/2022 Yellow Yellow Final ??? Clarity, UA 05/30/2022 Clear Clear Final ??? Glucose, UA 05/30/2022 Negative Negative Final ??? Bilirubin, UA 05/30/2022 Negative Negative Final ??? Ketones, UA 05/30/2022 Negative Negative Final ??? Specific [place], Urine 05/30/2022 1.010 1.001 - 1.035 Final [...] COMMENT (CLINITEK, UR) 05/30/2022 Test performed at [facility] Final PSA- No results found for: PSA Encounter Diagnoses Name Primary? 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 We did discuss the fact that this generally does resolve at some point but has not yet now in almost 2 months and he is getting frustrated. -The fact that the cord block worked would confirm that the source of the pain is distal to the block which would suggest to the testicle or epididymis. On exam the epididymis had been a clear source and he feels like this is in fact where the pain is coming from -Therefore I think an epididymectomy has high chance of success. I did, however, cautioned him that there is a significant percentage of men who have persistent pain after epididymectomy and even go toorchiectomy at some point. He found this discouraging -He will let us know if he wants to go ahead with epididymectomy and we can set that up in the next few weeks. Yes ??? Pain in right testicle This note has been prepared with voice recognition software. Please excuse ios architect errors. This visit was conducted by telephone. I spent a total of 20 minutes in discussion with the patient as described in the progress note. No orders of the defined types were placed in this encounter. documented in this encounter Miscellaneous Notes Addendum Note - Rocío Mendez MD - 07/02/2022 0915 EDT Addended by: ROCÍO MENDEZ on: 07/22/2022 09:18 Modules accepted: Orders, SmartSet documented in this encounter Plan of Treatment Upcoming Encounters Date Type Specialty Care Team Description 08/08/2022 Office Visit General Surgery Ish Hall MD [address] [place] [phone] (Wo rk) 09/09/2022 Office Visit Urology Rocío Mendez MD [address] [place] [phone] (Wo rk) 10/07/2022 Appointment 10/14/2022 Hospital Encounter General Surgery Rocío Mendez MD [address] [place] [phone] (Wo rk) 10/14/2022 Surgery General Surgery Rocío Mendez EPIDIDYME CTSeamus ARIZMENDI MD UNILATERAL [[id number] [address] [place] (CPT??)] [address] [phone] (Wo rk) 10/28/2022 Post-op Visit Urology Rocío Mendez MD [address] [place] [phone] (Wo rk) 11/25/2022 Office Visit Urology Rocío Mendez MD [address] [facility], [address] [place] [phone] (Wo rk) Scheduled Procedures Name Priority Associated Diagnoses Date/Time EPIDIDYMECTOMY, UNILATERAL Epididymitis 10/14 12:30 EST documented as of this encounter Visit Diagnoses Diagnosis Epididymitis - Primary Orchitis and epididymitis, unspecified Pain in right testicle Unspecified disorder of male genital org ans Epididymitis Orchitis and epididymitis, unspecified documented in this encounter Care Teams Traveling Electrician Relationship Specialty Start Date End Date Mitali Pinon PCP - General Internal Medicine - Primary 05/04/21 [address] [place] [address] documented as of this encounter
--- OUTSIDE RECORDS SUMMARY | 2022-08-01 15:57 | XMS_ITS | Encounter Summary ---
:1950 Author Organization [facility] Address [address] [place] [address] Care Team Providers Name Role Phone Mitali Pinon Primary Care Provider Reason for Visit Reason Onset Date Comments Medication Management 01/21/2022 Encounter Details Date Type Department Care Team Description 01/21/2022 Telephone [facility] Richard Meyer tion Management Urology - Sharon MD Seamus [address] [place] [address], [address] [place] [id number] [place] [address], [place] [phone] (Wo rk) Social History Tobacco [...] Telephone Encounter - Luisana Nielsen RN - 01/22/2022 0820 EDT Sildenafil last mentioned in Dr. Meyer's 04/13/21 note as not working. ?? LM for patient to call the clinic back. Telephone Encounter - Aide Snyder - 01/21/2022 1639 EDT Called back again regarding medications issue. documented in this encounter Plan of Treatment Upcoming Encounters Date Type Specialty Care Team Description 08/08/2022 Office Visit General Surgery Ish Hall MD [address] [phone] (Tristian knott) 09/09/2022 Office Visit Urology Richard Meeyr MD [address] [phone] (Wo rk) 10/07/2022 Appointment 10/14/2022 Hospital Encounter General Surgery Richard Meyer MD [address] [phone] (Tristian knott) 10/14/2022 Surgery General Surgery Richard Meyer Charles, MD UNILATERAL [[id number] 111 [place] (CPT??)[address] [phone] (Wo rk) 10/28/2022 Post-op Visit Urology Richard Meyer MD [address] [phone] (Wo rk) 11/25/2022 Office Visit Urology Richard Meyer MD [address] [phone] (Wo rk) Scheduled Procedures Name Priority Associated Diagnoses Date/Time EPIDIDYMECTOMY, UNILATERAL Epididymitis 10/14 12:30 EST documented as of this encounter Visit Diagnoses Not on filedocumented in this encounter Care Teams Pricer Relationship Specialty Start Date End Date Mitali Pinon PCP - General Internal Medicine - Primary 05/04/21 [address] [place] [address] documented as of this encounter
--- OUTSIDE RECORDS SUMMARY | 2022-08-01 15:57 | XMS_ITS | Encounter Summary ---
:1950 Author Organization [facility] Address [address] [place] [address] Care Team Providers Name Role Phone Mitali Pinon Primary Care Provider Reason for Visit Reason Comments Groin Pain Encounter Details Date Type Department Care Team Description 05/19/2022 [place] [facility] [place], Pain in right testicle [facility] PA-C (Primary Dx) [address] [place] [address] [facility] [phone] [place], [place] [address] Social History Tobacco Use Types Packs/Day Years Used Date Smoking Tobacco: Former Cigarettes 0.5 1010/1969 - 06/03/2002 Smokeless Tobacco: Never Alcohol Use Standard Drinks/Week Comments Not Currently 0 (1 standard drink = 0.6 oz pure virtu ally none a couple of alcohol) drinks per year Sex Assigned at Date Recorded Male 06/20/2022 18:06 EDT documented as of this encounter Last Filed Vital Signs Vital Sign Reading Time Taken Comments Blood Pressure 132/70 05/19/2022 1501 EDT Pulse 58 05/19/2022 1501 EDT Temperature 36.7 ??C (98.1 ??F) 05/19/2022 1501 EDT Respiratory Rate 16 05/19/2022 1501 EDT Oxygen Saturation 100% 05/19/2022 1501 EDT Inhaled Oxygen Concentration - - Weight [...] as of this encounter Patient Instructions Patient InstructionsAngel Plaza PA-C - 05/19/2022 15:00 EDT I suspect you may have a bacterial epidermidis. I have prescribed an antibiotic called levofloxacin.Take 1 pill daily for 10 days. OTC analgesics can be used for pain control if needed. If symptoms changing, worsening, or not improving with treatment please seek follow-up evaluation. documented in this encounter Ordered Prescriptions Prescription Sig Dispensed Refills Start Date End Date levOFLOXacin (LEVAQUIN) Take 1 Tablet by 10 Tablet 0 202105/20/2022 500 mg tabletIndications: mouth daily. Pain in right testicle documented in this encounter Progress Notes Trista Rascon MA - 05/19/2022 1500 EDT LMTCB Trista Rascon MA - 05/19/2022 1500 EDT CC/HPI: Pt thinks he has epididymitis. Soreness for a week. Went for a long bike ride last weekend, started feeling pain Sunday 05/13. Has been taking Ibuprofen with some relief. Covid Screening: In the last 72 hours, has the patient had: New or unusual cough, shortness of breath, new nasal congestion, sore throat, fever, chills, body aches, or new loss of taste or smell without a reasonable alternative diagnosis*? (If yes, assign to ARC)- NO In the past 10 days, has the patient had a positive Covid test OR a confirmed close Covid exposure (<6ft for > 15mins in 24hr period)? (if yes, assign to ARC, regardless of vaccination status)- NO *may be determined by RN or in discussion with available provider (MULTIMEDIA AUTHORING SPECIALIST's and CCA's can defer to Charge Nurse to complete triage when appropriate) PCP: Mitali Pinon [facility] PA-C - 05/19/2022 1500 EDT [facility] Chief Complaint(s): Chief Complaint Patient presents with ??? Groin Pain Assessment & Plan: 1. Pain in right testicle POCT URINE DIPSTICK, VISUAL READ levOFLOXacin (LEVAQUIN) 500 mg tablet Symptoms are consistent with epididymitis. In-house UA was unremarkable. Will send for culture. No recent sexual activity. Will treat with 10-day course of levofloxacin per current recommendations. Advised OTC analgesics +/- heat or ice as needed. If symptoms changing, worsening, not improved with treatment recommended seeking follow-up evaluation. New Prescriptions LEVOFLOXACIN (LEVAQUIN) 500 MG TABLET Take 1 Tablet by mouth daily. HPI: Patient reports pain and swelling in his right testicle. Symptoms are most prominent over testicularpole. Pain and swelling have been present for 5 to 6 days. They began shortly after a long bike ridelast weekend. He has been taking ibuprofen and tried both ice and heat all of which have temporarilyimproved symptoms. Pain is well localized. He describes history of postvasectomy pain syndrome though this has not been bothersome for many years. He is established with a urologist and has contacted this provider however was not able to get an appointment in a timely fashion. He is not aware of any specific trauma to his groin or testicle area. Urination is unchanged from baseline; he does have some chronic lower urinary tract symptoms from BPH. No perianal pain or change in bowel habits. No dysuria, hematuria, or change to urinary frequency. He denies any recent sexual activity. Denies fever, chills or malaise. No nausea or abdominal pain. ROS: Review of Systems Constitutional: Negative for chills, fever and malaise/fatigue. Gastrointestinal: Negative for abdominal pain and nausea. Genitourinary: Negative for dysuria, frequency and urgency. Skin: Negative for rash. Objective: Vitals and nursing notes reviewed Examination: BP 132/70 Pulse 58 Temp 36.7 ??C (98.1 ??F) (Oral) Resp 16 SpO2 100% Physical Exam Constitutional: General: He is not in acute distress. Appearance: He is not ill-appearing. Cardiovascular: Rate and Rhythm: Normal rate and regular rhythm. Pulmonary: Effort: Pulmonary effort is normal. Breath sounds: Normal breath sounds. Abdominal: Palpations: Abdomen is soft. Tenderness: There is no abdominal tenderness. There is no guarding or rebound. Hernia: No hernia is present. Genitourinary: Comments: Right testicle was grossly swollen on visual inspection. Overlying skin was unremarkable appearing. No erythema or exudates appreciated around external urinary meatus. Right epididymis prominent (relative to left) and moderatly tender to palpation. Cremaster reflex was intact. No inguinal hernia was appreciated with Valsalva with patient standing. No significant discomfort with GERMAN. Prostate large and rubbery on palpation. Skin: General: Skin is warm and dry. Findings: No rash. Neurological: Mental Status: He is alert. Data reviewed with patient (current and past results): Problem, medication, allergy list, labs reviewed. Results for orders placed or performed in visit on 05/19/22 POCT URINE DIPSTICK, VISUAL READ Result Value Ref Range Color, UA Yellow Clarity, UA Clear Glucose, UA Negative . mg/dL Bilirubin, UA Negative Negative Ketones, UA Negative . mg/dL Spec Grav, UA 1.010 1.005 - 1.030 Blood, UA Negative Negative pH, UA 6.5 4.6 - 8.0 Protein, UA Negative . mg/dL Urobilinogen, UA 0.2 0.2 - 1.0 E.U./dL Nitrite, UA Negative . Leuk Esterase Negative Negative Comment This note may be in part documented using voice dictation software. Please forgive any errors or omissions that may result from use of dictation. documented in this encounter Plan of Treatment Upcoming Encounters Date Type Specialty Care Team Description 08/08/2022 Office Visit General Surgery Ish Hall MD [address] [place] [phone] (Wo rk) 09/09/2022 Office Visit Urology Richard Meyer MD [address] [place] [phone] (Wo rk) 10/07/2022 Appointment 10/14/2022 Hospital Encounter General Surgery Richard Meyer MD [address] [place] [phone] (Wo rk) 10/14/2022 Surgery General Surgery Richard Meyer EPIDIDYME CTSeamus ARIZMENDI MD UNILATERAL [[id number] [address] [place] (CPT??)] [address] [phone] (Wo rk) 10/28/2022 Post-op Visit Urology Richard Meyer MD [address] [place] [phone] (Wo rk) 11/25/2022 Office Visit Urology Richard Meyer MD [address] [place] [phone] (Wo rk) Scheduled Procedures Name Priority Associated Diagnoses Date/Time EPIDIDYMECTOMY, UNILATERAL Epididymitis 10/14 12:30 EST documented as of this encounter Procedures Procedure Name Priority Date/Time Associated Diagnosis Comme nts BACTERIAL CULTURE, Routine 05/19/2022 16:35 Pain in right Resu lts for this URINE EDT testicle procedure are i n the results section. POCT URINE Routine 05/19/2022 Pain in right Results for th is DIPSTICK, VISUAL testicle procedure a re in READ the results section. documented in this encounter Results BACTERIAL CULTURE, URINE (05/19/2022 16:35 EDT) Analysis Performed At Patho logist Time Signature Organism ID No Growth VITEK 05/21/2022 CENTRAL SUSCEPTIBILITY 11:25 EDT [facility] Specimen Anatomical Collection Method Collection Time Receive d Time (Source) Location / / Volume Laterality Urine URINE SPECIMEN Urine Collect / 05/19/2022 16:35 2021 COLLECTION, CLEAN Unknown EDT 16:35 EDT CATCH / Unknown [facility] PA-C MICROBIOLOGY - GENERAL ORDER VANCE Performing Organization Address City/State/ZIP Code Phon e Number [facility] [address] [place] [address] POCT URINE DIPSTICK, VISUAL READ (05/19/2022) Patholo gist Method Time Signature Color, UA Yellow [facility] POINT [facility] Clarity, UA Clear [facility] Glucose, UA Negative . mg/dL [facility] Bilirubin, UA Negative Negative [facility] Ketones, UA Negative . mg/dL [facility] PO[facility] Spec Grav, UA 1.010 1.005 - [facility] POINT 1.030 OF CARE Blood, UA Negative Negative [facility] POINT [facility] C[facility] pH, UA 6.5 4.6 - 8.0 [facility] Protein, UA Negative . mg/dL [facility] POINT [facility] CARE Urobilinogen, 0.2 0.2 - 1.0 [facility] POINT UA E.U./dL OF CARE Nitrite, UA Negative . [facility] POINT [facility]ARE Leuk Esterase Negative Negative [facility] Comment [facility] Specimen (Source) Anatomical Location Collection Method / Collectio n Time Received Time / Laterality Volume Urine URINE SPECIMEN 05/19/2022 COLLECTION, CLEAN CATCH / Unknown Angel Plaza PA-C POINT OF CARE TEST ORDERABLE S Performing Organization Address City/State/ZIP Code Phon e Number [facility] documented in this encounter Visit Diagnoses Diagnosis Pain in right testicle - Primary Unspecified disorder of male genital org ans Epididymitis Orchitis and epididymitis, unspecified documented in this encounter Care Teams Sulfonation Equipment Operator Relationship Specialty Start Date End Date Mitali Pinon PCP - General Internal Medicine - Primary 05/04/21 [address] [place] [address] documented as of this encounter
--- OUTSIDE RECORDS SUMMARY | 2022-08-01 15:57 | XMS_ITS | Encounter Summary ---
:1950 Author Organization [facility] Address [address] [place] [address] Care Team Providers Name Role Phone Mitali Pinon Primary Care Provider Reason for Referral Referral (Routine/Next Available) - Receiving Office to Obtain Authorization Specialty Diagnoses / Procedures Referred By Contact Refer red To Contact Diagnoses Personal history of colonic polyps Mitali Pinon Procedures COLONOSCOPY [address] [place] [address] Referral ID Status Reason Start Expiration Visits Visits Date Date Requested Authorized [id number] Receiving Office 1 1 to Obtain 1 Authorization Reason for Visit Auth/Cert Specialty Diagnoses / Procedures Referred By Contact Refer red To Contact Referral ID Status Reason Start Date Expiration Date Visits Requ ested Visits Authorized [id number] 1 1 Encounter Details Date Type Department Care Team Description 11/06/2021 Hospital Encounter [facility] Nathaniel Heller Personal history of - [facility] Endoscopy MD Torito colonic polyps [address] [place] [address] [place] [phone] Social History Tobacco Use Types Packs/Day Years Used Date Smoking Tobacco: Former Cigarettes 0.5 10/0 10/1969 - 06/03/2002 Smokeless Tobacco: Never Alcohol Use Standard Drinks/Week Comments Not Currently 0 (1 standard drink = 0.6 oz pure virtu ally none a couple of alcohol) drinks per year Sex Assigned at Date Recorded Male 06/20/2022 18:06 EDT documented as of this encounter Last Filed Vital Signs Vital Sign Reading Time Taken Comments Blood Pressure 108/65 11/06/2021 1614 EST Pulse - - Temperature 36.4 ??C (97.5 ??F) 11/06/2021 1351 EST Respiratory Rate 12 11/06/2021 1614 EST Oxygen Saturation 99% 11/06/2021 1614 EST Inhaled Oxygen Concentration - - Weight 72.1 kg (159 lb) 11/06/2021 1351 EST Height 175.3 cm (5' 9) 11/06/2021 1351 EST Body Mass Index 23.48 11/06/2021 1351 EST documented in this encounter Functional Status Functional [...] 05/16/2021 mg tablet daily. TAMSulosin (FLOMAX) 0.4 mg Take 1 capsule by 30 capsule 11 capsuleIndications: BPH mouth at bedtime. with obstruction/lower urinary tract symptoms documented as of this encounter Discharge Disposition Disposition Code Departure Means Destination Home or Self Intermediate documented in this encounter H&P Notes Nathaniel Heller MD - 11/06/2021 1430 EST Endoscopy Sedation for Procedure History & Physical Date: 11/06/2021 Time: 15:14 Location: [facility] Endoscopy Planned Procedure: Colonoscopy Chief Complaint/Indications for Procedure: Personal history of colonic polyps History Previous Complication with Sedation and/or Anesthesia? No Allergies: No Known Allergies Current Medications: Current Outpatient Medications Medication ??? atorvastatin (LIPITOR) 20 mg tablet ??? TAMSulosin (FLOMAX) 0.4 mg capsule Current Facility-Administered Medications Medication Route Frequency ??? sodium chloride 0.9 % (NS) infusion intravenous PRN Or ??? lactated ringers (LR) infusion intravenous PRN ??? lidocaine (PF) 10 mg/mL (1 %) injection 2 mg intradermal PRN ??? lidocaine (PF) 10 mg/mL (1 %) injection 2 mg intradermal PRN ??? ondansetron (PF) (ZOFRAN) injection 4 mg intravenous Once PRN ??? sodium chloride 0.9 % (flush) flush 5 mL intravenous PRN Past Medical History: Past Medical History: Diagnosis Date ??? Atrial fibrillation (HCC-CMS) (HCC) ??? BPH with urinary obstruction 2018 flomax/finasteride 02/16-06/19 ; cysto (09/19)-lateral BPH with high median bar, not ideal for Urolift; TRUS (09/19)-35 g; TURP 06/19 ??? Epilepsy (HCC) ??? Heart failure with reduced ejection fraction (HCC-CMS) (HCC) Social History: Past Surgical History: Procedure Laterality Date ??? CHEST SURGERY RHYTHM MONITOR IN LEFT CHEST WALL, NOW DYSFUNCTIONAL, HAS NOT BEEN REMOVED ??? KNEE CARTILAGE SURGERY Left LEft meniscus repair ??? SHOULDER ARTHROPLASTY Right Right shoulder replacement ??? TURP 06/23/2019 TURP Social History Tobacco Use ??? Smoking status: Former Smoker Packs/day: 0.50 Types: Cigarettes Start date: 06/03/1970 Quit date: 06/03/2002 Years since quittin.4 ??? Smokeless tobacco: Never Used Substance Use Topics ??? Alcohol use: Not Currently Comment: virtually none a couple of drinks per year Family History: History reviewed. No pertinent family history. Review of Systems as pertinent: Physical Exam Vital Signs: BP 120/72 Temp 36.4 ??C (97.5 ??F) Resp 12 Ht 175.3 cm (69) Wt 72.1 kg (159 lb) SpO2 100% BMI 23.48 kg/m?? Heart Examination: Cardiac Regularity: Regular Respiratory Examination: Respiratory Pattern: Regular Breath Sounds Right: Clear Breath Sounds Left: Clear Abdominal Examination: Additional physical exam related to the proposed procedure, patient activity, disease state and treatment as pertinent: Assessment Previous complications with sedation or anesthesia?: No Airway Concerns: None/NA Anesthesia Classification: ASA 2 Plan: Proceed with sedation for procedure Fasting Time: Date of Last Liquid: 11/06/21 Time of Last Liquid: 1130 Date of Last Solid: 11/05/21 Time of Last Solid: 0700 Patient Appropriate Candidate for Planned Sedation?: Yes Nathaniel Heller MD 11/06/2021 15:14 documented in this encounter Nursing Notes Luisana Bell RN - 11/06/2021 1430 EST Enema #1 @ 1402, pt tolerated well. documented in this encounter Plan of Treatment Upcoming Encounters Date Type Specialty Care Team Description 08/08/2022 Office Visit General Surgery Ish Hall MD [address] [place] [phone] (Tristian knott) 09/09/2022 Office Visit Urology Richard Meyer MD [address] [place] [phone] (Wo rk) 10/07/2022 Appointment 10/14/2022 Hospital Encounter General Surgery Richard Meyer MD [address] [place] [phone] (Wo hedy) 10/14/2022 Surgery General Surgery Richard Meyer EPIDIDYME CTSeamus ARIZMENDI MD UNILATERAL [[id number] [address] (CPT??)] [facility] [address] [place] [phone] (Wo rk) 10/28/2022 Post-op Visit Urology Richard Meyer MD [address] [phone] (Wo rk) 11/25/2022 Office Visit Urology Richard Meyer MD [address] [phone] (Wo rk) Scheduled Procedures Name Priority Associated Diagnoses Date/Time EPIDIDYMECTOMY, UNILATERAL Epididymitis 10/14 12:30 EST documented as of this encounter Procedures Procedure Name Priority Date/Time Associated Comments Diagnosis ECG REPORT - SCANNED 11/08/2021 8:09 EST SURGICAL PATHOLOGY Routine 11/06/2021 15:34 Personal history o f Results for this EST colonic polyps procedure are in the results section. COLONOSCOPY Routine 11/06/2021 14:30 Personal history of Resu lts for this EST colonic polyps procedure are in the results section. documented in this encounter Results ECG REPORT - SCANNED (11/08/2021 8:09 EST) Specimen (Source) Anatomical Collection Method Collection Time Re ceived Time Location / / Volume Laterality 11/08/2021 8:09 EST Narrative This result has an attachment that is no t available. Scan 2 Lining Stitcher PROCEDURE/MINOR SURGICAL ORD ERABLES SURGICAL PATHOLOGY (11/06/2021 15:34 EST) Component Value Ref Test Analysis Performed At [facility] Range Method Time Signature Note to The 11/08/2021 [facility] Patient following 10:15 EST [facility] pathology [facility] results have been interpreted by your pathologist and may be available to you before your health provider has had the opportunity to review them. Please allow time for your provider to receive these results and explore management options, if applicable. Final A. COLON, SIGMOID, POLYP: 11/08/2021 NORBERTO TRAL Diagnosis - Tubular adenoma. 10:15 EST [facility] Attestation By the 11/08/2021 [facility]TRAL Electro nically signature 10:15 [facility] signed b y below, the [facility]ENTER [facility] Tanya Mcarthur MD on physician 11/08/2021 at 1015 certifies that they have 1) personally conducted a gross and/or microscopic examination of the described specimen(s), and/or personally interpreted the results of laboratory testing of the described specimen(s), and 2) personally rendered or confirmed the above diagnosis. Clinical Personal 11/08/2021 C[facility]TRAL History history of 10:15 [facility] colonic polyps [facility] Gross A. 11/08/2021 [facility] Description The specimen is received in formalin labeled with Leon Cardona and sigmoid polyp are 3 mucosal fragments that range in size from 0.1 x 0.1 x 0.3 cm to 0.1 x 0.3 x 0.7 cm. The specimen is entirely submitted in 1 cassette. 10:15 [facility] Nadia Longo 11/07/2021 13:59 Performing Lab [facility] 11/08/2021 [facility] 10:15 [facility] Scanned Images 11/08/2021 [place] 10:15 [facility] Specimen Anatomical Collection Method Collection Time Receive d Time (Source) Location / / Volume Laterality Tissue (Colon, 11/06/2021 15:34 8:52 Polyp) EST EST Nathaniel Heller MD PATHOLOGY ORDERABLES Performing Organization Address City/State/ZIP Code Phon e Number [facility] [address] [place] [id number] COLONOSCOPY (11/06/2021 14:30 EST) Anatomical Region Laterality Modality Endoscopy Specimen (Source) Anatomical Location Collection Method / Collectio n Time Received Time / Laterality Volume Narrative 11/06/2021 14:30 [facility] ?? [address] [facility], [place], [place] [address] ?? Patient Name ? LEON CARDONA Date of ? 1950 Record Number ? [id number] Date/Time of Procedure ?11/06/2021, 02 :30:00 PM Endoscopist ?Nathaniel Heller ? ? Biomedical Engineering Director ? Referring Physician(s) ?? Marla mo , TONIA Anesthesiologist ? PROCEDURE PERFORMED: COLONOSCOPY INDICATIONS FOR EXAMINATION: Surveillanc e. Hx polyps Instruments: ? [facility]-[id number] ([id number]) Medications: ?Fentanyl 75 mcg, Verse d 4 mg I was in continuous face to face attenda nce during the administration of moderate sedation services that were monitored by an independent trained observer who had no other duties during the procedure. ? Visualization: ? Good ?Tolerance : Good ?Complications: None ? Extent of Exam: ?cecum ? Limitat ions: ?? Procedure Technique: A physical exam was performed. Informed consent was obtained from the patient after explaining all th e risks (perforation, bleeding, infection and adverse effects to the medicine) , b enefits and alternatives to the procedure which the patient appeared to understand and so stated. ??The patient was connected to the monitoring devices and placed in the left lateral position. Continuous oxygen was provided with a nasal cannula and IV medicine administered thru an indwelling cannula. After adequate conscious sedati on was achieved, a digital exam was performed and the colonoscope introduced into the rectum and advanced under direct visualization to the cecum which was dunia ntified by visual landmarks. The scope was subsequently removed slowly while carefu lly examining the color, texture, anatomy, and integrity of the mucosa on the way o ut. In the rectum the scope was retroflexed to evaluate for internal hemorrhoids and anorectal pathology. The patient was subsequently transferred to the recovery area in satisfactory condition. The following findings were noted: FINDINGS: 3 to 5 mm sessile polyp in the sigmoid c olon. Polypectomy performed with cold snare. Polyp retrieved. Histology pending. ENDOSCOPIC DIAGNOSIS: Colon polyp RECOMMENDATIONS: Await pathology;The office will contact you by phone or mail as indicated. Please call the office if you do not hear from us. Anticipate repeat colonoscopy in 7 years Sedation Start: 03:15:15 PM ?? Sedation End: 03:37:49 PM Signature: ___ Nathaniel Heller M.D. This note was electronically signed on 11/06/2021 03:39:45 PM By Nathaniel Heller M.D. Mitali Pinon GI PROCEDURE ORDERABLES documented in this encounter Visit Diagnoses Diagnosis Personal history of colonic polyps Epididymitis Orchitis and epididymitis, unspecified documented in this encounter Administered Medications Inactive Administered Medications - up to 3 most recent administrations Medication Order MAR Action Action Date Dose Rate Site fentaNYL citrate (PF) injection Given 11/06/2021 15:19 EST 25 mcg intravenous, PRN, Starting on Fri11/06/21 at 1516, Until Fri11/06/21 at 1519, Routine Given 11/06/2021 15:16 EST 50 mcg midazolam (MDV) (VERSED) injection Given 11/06/2021 15:19 EST 2 mg intravenous, PRN, Starting on Fri11/06/21 at 1516, Until Fri11/06/21 at 1519, Routine Given 11/06/2021 15:16 EST 2 mg documented in this encounter Orders Medications Ordered That Might Not Have Count Last Ord ered Date First Ordered Date Been Administered lactated ringers (LR) infusion 1 11/06/2021 lidocaine (PF) 10 mg/mL (1 %) injection 2 2 2021 mg ondansetron (PF) (ZOFRAN) injection 4 mg 1 022 sodium chloride 0.9 % (flush) flush 5 mL 1 022 sodium chloride 0.9 % (NS) infusion 1 11/06/2021 documented in this encounter Care Teams Chlorine Operator Relationship Specialty Start Date End Date Mitali Pinon PCP - General Internal Medicine - Primary 05/04/21 [address] [place] [address] documented as of this encounter
--- OUTSIDE RECORDS SUMMARY | 2022-08-01 15:57 | XMS_ITS | Encounter Summary ---
:1950 Author Organization [facility] Address [address] [place] [address] Care Team Providers Name Role Phone Mitali Pinon Primary Care Provider Reason for Visit Reason Comments Follow-up cord block Encounter Details Date Type Department Care Team Description 06/24/2022 Office Visit [facility] Richard Meyer Epidid ymitis (Primary Dx); Urology - Medical MD Seamus Pelvic pain Office Building [address] [place] [address] [address] [facility], [place], [place] [address] [place] [address], [place] [phone] (Wo rk) Social History Tobacco [...] encounter Progress Notes Richard Meyer MD - 06/24/2022 1145 EDT Chief Complaint Patient presents with ??? Follow-up cord block HPI- I saw Pritesh in the office today for follow-up of his epididymitis and right pelvic pain. He continues to have right-sided testicular pain and has for about 7 weeks now. There is some variation at timesthe pain either better or worse. It does not radiate up the groin. He does get a little bit of help when he uses ice. It does not wake him from sleep but certain positions do cause pain which can wake him up. He denies any dysuria or other voiding symptoms in association with this Past Medical History: Diagnosis Date ??? Atrial fibrillation (HCC-CMS) ([facility]) ??? BPH with urinary obstruction 2018 [...] this visit. No Known Allergies Physical Exam Cord block Informed consent was obtained. The skin was prepped in the usual sterile manner. 8cc of a mixture ofquarter percent Marcaine and 2% lidocaine without epinephrine is injected into the right spermatic cord. The patient tolerated procedure well and was given postprocedure precautions. No visits with results within 1 Day(s) from this visit. Latest known visit with results is: Office Visit on 05/30/2022 Component Date Value Ref Range Status ??? Color, UA 05/30/2022 Yellow Yellow Final ??? Clarity, UA 05/30/2022 Clear Clear Final ??? Glucose, UA 05/30/2022 Negative Negative Final ??? Bilirubin, UA 05/30/2022 Negative Negative Final ??? Ketones, UA 05/30/2022 Negative Negative Final ??? Specific [place], Urine 05/30/2022 1.010 1.001 - 1.035 Final [...] COMMENT (CLINITEK, UR) 05/30/2022 Test performed at [facility] Final PSA- No results found for: PSA Encounter Diagnosis Name Primary? Epididymitis -He appears to have chronic right epididymitis and pelvic pain. We attempted a cord block today and we will see how he responds to that. If this helps resolve his pain for the short-term but it recurs he can either continue with conservative measures or we could consider an epididymectomy. -If we do attempt epididymectomy he understands that there is some risk that the pain might not be confined to the epididymis and might still persist after it is removed. His pain has seemed to have been consistently within the epididymis, however Yes This note has been prepared with voice recognition software. Please excuse healthcare science specialist errors. No orders of the defined types were placed in this encounter. documented in this encounter Plan of Treatment Upcoming Encounters Date Type Specialty Care Team Description 08/08/2022 Office Visit General Surgery Ish Hall MD [address] [place] [phone] (Wo rk) 09/09/2022 Office Visit Urology iRchard Meyer MD [address] [place] [phone] (Wo rk) 10/07/2022 Appointment 10/14/2022 Hospital Encounter General Surgery Richard Meyer MD [address] [place] [phone] (Wo rk) 10/14/2022 Surgery General Surgery Richard Meyer EPIDIDYME CTSeamus ARIZMENDI MD UNILATERAL [[id number] [address] [place] (CPT??)] [address] [phone] (Wo rk) 10/28/2022 Post-op Visit Urology Richard Meyer MD [address] [place] [phone] (Wo rk) 11/25/2022 Office Visit Urology Richard Meyer MD [address] [place] [phone] (Wo rk) Scheduled Procedures Name Priority Associated Diagnoses Date/Time EPIDIDYMECTOMY, UNILATERAL Epididymitis 10/14 12:30 EST documented as of this encounter Visit Diagnoses Diagnosis Epididymitis - Primary Orchitis and epididymitis, unspecified Pelvic pain Epididymitis Orchitis and epididymitis, unspecified documented in this encounter Care Teams Payroll Administrator Relationship Specialty Start Date End Date Mitali Pinon PCP - General Internal Medicine - Primary 05/04/21 [address] [place] [address] documented as of this encounter
--- OUTSIDE RECORDS SUMMARY | 2022-08-01 15:57 | XMS_ITS | Encounter Summary ---
:1950 Author Organization [facility] Address [address] [place] [address] Care Team Providers Name Role Phone Nathaniel Smith MD Primary Care Provider Encounter Details Date Type Department Care Team Description 06/24/2019 Results Only [facility] - Richard Meyer, [place] [facility] Eric Colindres MD [address] [facility] [address] [place] [phone] [facility] [address] [place] [phone] (Wo rk) Social History Tobacco [...] Visit General Surgery Ish Hall MD [address] [place] [phone] (Wo rk) 09/09/2022 Office Visit Urology Richard Meyer MD [address] [place] [phone] (Wo rk) 10/07/2022 Appointment 10/14/2022 Hospital Encounter General Surgery Richard Meyer MD [address] [place] [phone] (Wo rk) 10/14/2022 Surgery General Surgery Richard Meyer EPIDIDYME CTSeamus ARIZMENDI MD UNILATERAL [[id number] [address] [place] (CPT??)] [address] [phone] (Wo rk) 10/28/2022 Post-op Visit Urology Richard Meyer MD [address] [place] [phone] (Wo rk) 11/25/2022 Office Visit Urology Richard Meyer MD [address] [place] [phone] (Wo rk) Scheduled Procedures Name Priority Associated Diagnoses Date/Time EPIDIDYMECTOMY, UNILATERAL Epididymitis 10/14 12:30 EST documented as of this encounter Procedures Procedure Name Priority Date/Time Associated Diagnosis Comme nts POCT GLUCOSE Routine 06/24/2019 5:56 EDT Results for this (NURSING) - [facility] procedure ar e in the results section. documented in this encounter Results (ABNORMAL) POCT GLUCOSE (NURSING) - [facility] (06/24/2019 5:56 EDT) athologist Signature POC CAPILLARY 122 (H) 70 - 100 06/24/2019 [facility] GLUCOSE - [facility] mg/dL 6:54 EDT [facility] Specimen Anatomical Collection Method Collection Time Receive d Time (Source) Location / / Volume Laterality 06/24/2019 5:56 06/24/2019 6 :53 EDT EDT Richard Meyer MD POINT OF CARE TEST ORDERABLE S Performing Organization Address City/State/ZIP Code Phon e Number [facility] [address] [place] [address] [facility] documented in this encounter Visit Diagnoses Not on filedocumented in this encounter Care Teams Solo Musician Relationship Specialty Start Date End Date Nathaniel Smith MD PCP - General 04/21/17 05/03/[address] [place], [place] [phone] documented as of this encounter
--- OUTSIDE RECORDS SUMMARY | 2022-08-01 15:57 | XMS_ITS | Encounter Summary ---
:1950 Author Organization [facility] Address [address] [place] [address] Care Team Providers Name Role Phone Nathaniel Smith MD Primary Care Provider Reason for Visit Reason Comments Groin Pain Encounter Details Date Type Department Care Team Description 06/26/2020 Telemedicine [facility] Richard Meyer Pain i n right testicle (Primary Dx); Urology - Medical MD Seamus Epididymitis Office Building [address] [place] [address] [address] [facility], [place], [place] [id number] [place] [address], [place] [phone] (Wo rk) Social History Tobacco [...] encounter Progress Notes Richard Meyer MD - 06/26/2020 0911 EDT Subjective: Patient ID: Pritesh Cardona is an 69 y.o. male. Pritesh Cardona is seen by telephone telehealth today for Groin Pain. HPI I had a telehealth visit with the patient today by telephone. They understood the limitations we areputting on [id number] encounters due to the COVID-19 pandemic and consented to this telehealth visit. I had a telephone telemedicine visit with Pritesh today. He has had some ongoing pain in his right testicle. It is exclusively in the testicle and he feels it is just behind and below it. He went for some physical therapy and that helped significantly in reducing the pain and almost eliminating it. The other day, however, he did some heavy work in the [place] and felt that it strained his back and the pain worsened again. He still does not notice any abnormalities on exam and has had no erythema. He has used ibuprofen from time to time. He had a similar episode of this decades ago which resolved completely with physicaltherapy and he feels like this is a similar situation. Patient Active Problem List Diagnosis ??? Achilles [...] 06/08/2017 CREATININE 0.74 06/08/2017 MG 2.3 06/06/2017 Scrotal U/S- Minimal right hydrocele, slight fullness of right epididymis, no lesions or masses on either side I personally reviewed the images and discussed the findings with the patient Assessment / Plan: 1. Pain in right testicle -He has right testicular pain of unclear etiology. It is very possible this pain is referred, as he has had that in the past. He will therefore work on physical therapy for his lower back. -I also encouraged him to use ibuprofen as needed. He can either take it steadily for a week and then as needed, or merely take it as needed. The anti- inflammatory could potentially help his back as much as his testicle or epididymis. -There is no evidence of any clear pathology based on his ultrasound 2. Epididymitis -This is a diagnosis of exclusion. Based on his description it seems to be focal pain but there is no erythema. I do not think there is any evidence of infection and so antibiotics are not warranted now. -Rather, as above, I would use ibuprofen as needed This note has been prepared with voice recognition software. Please excuse primer boxer errors. This visit was conducted by telephone. I spent a total of 9 minutes in discussion with the patient as described in the progress note. No orders of the defined types were placed in this encounter. Richard Meyer MD documented in this encounter Plan of Treatment Upcoming Encounters Date Type Specialty Care Team Description 08/08/2022 Office Visit General Surgery Ish Hall MD [address] [place] [phone] (Wo rk) 09/09/2022 Office Visit Urology Richard Meyer MD [address] [place] [phone] (Wo rk) 10/07/2022 Appointment 10/14/2022 Hospital Encounter General Surgery Richard Meyer MD [address] [place] [phone] (Wo rk) 10/14/2022 Surgery General Surgery Richard Meyer EPIDIDYME CTSeamus ARIZMENDI MD UNILATERAL [[id number] (CPT??)] [address] [phone] (Wo rk) 10/28/2022 Post-op Visit Urology Richard Meyer MD [address] [place] [phone] (Wo rk) 11/25/2022 Office Visit Urology Richard Meyer MD [address] [place] [phone] (Wo rk) Scheduled Procedures Name Priority Associated Diagnoses Date/Time EPIDIDYMECTOMY, UNILATERAL Epididymitis 10/14 12:30 EST documented as of this encounter Visit Diagnoses Diagnosis Pain in right testicle - Primary Unspecified disorder of male genital org ans Epididymitis Orchitis and epididymitis, unspecified Epididymitis Orchitis and epididymitis, unspecified documented in this encounter Care Teams Seasonal Delivery Driver Relationship Specialty Start Date End Date Nathaniel Smith MD PCP - General 04/21/17 05/03/21 [address] [place] [address] documented as of this encounter
--- OUTSIDE RECORDS SUMMARY | 2022-08-01 15:57 | XMS_ITS | Encounter Summary ---
:1950 Author Organization [facility] Address [address] [place] [address] Care Team Providers Name Role Phone Mitali Pinon Primary Care Provider Reason for Visit Reason Onset Date Comments Appointment Related 10/08/2021 Encounter Details Date Type Department Care Team Description 10/08/2021 Telephone [facility] Richard Meyer tment Related Urology - [place] MD Seamus [address] [place] [address], [address] [place] [id number] [place] [address], [place] [phone] (Wo rk) Social History Tobacco [...] Telephone Encounter - Luisana Nielsen RN - 10/08/2021 1329 EST Unfortunately unable to coordinate a cysto with tomorrow's nursing scheduler. Therefore, patient amenable totelevisit - he prefers telemedcine on his home phone number. Chencho Ceballos MA made aware and will coordinate. Patient verbalized understanding and denied additional questions. Telephone Encounter - Richard Meyer MD - 10/08/2021 1313 EST Ideally we should have the capability to perform cystoscopy if he is going to drive 2 hours. There may not be room in the schedule, however, so we can start with a televideo visit tomorrow and he can then have labs done locally with a urinalysis and perhaps a bladder ultrasound as I had mentioned in April. That would also give him the chance to try Flomax again to see if that helps before going ahead with a cystoscopy. If he prefers to have the cystoscopy done tomorrow and we can fit in the schedule then we can also do that Telephone Encounter - Luisana Nielsen RN - 10/08/2021 1206 EST Reached patient on his home number. He reports he was asymptomatic since April, but now the symptoms are starting again. Difficult to start stream, low volumes. This is the third round of symptoms since TURP. Flomax might have helped. Patient just made this appointment because symptoms were restarting. Will route to Dr. Meyer for input on cystoscopy. If NOT going to do one tomorrow, patient would like to keep visit but change to televideo (Zoom). Telephone Encounter - Shannan Ceballos MA - 10/08/2021 1152 EST TC from Pt he is schedule to see Dr. Meyer tomorrow, he is living 2 hours away, and wondering if Dr. Meyer would like to do a cystoscopy as mentioned in his last notes. Pt does not want to come then reschedule for another date if he will need the cysto he can reschedule to come and have it done. documented in this encounter Plan of Treatment Upcoming Encounters Date Type Specialty Care Team Description 08/08/2022 Office Visit General Surgery Ish Hall MD [address] [place] [phone] (Wo rk) 09/09/2022 Office Visit Urology Richard Meyer MD [address] [place] [phone] (Wo rk) 10/07/2022 Appointment 10/14/2022 Hospital Encounter General Surgery Richard Meyer MD [address] [place] [phone] (Wo rk) 10/14/2022 Surgery General Surgery Richard MeyerE CTSeamus ARIZMENDI MD UNILATERAL [[id number] (CPT??)] [address] [phone] (Wo rk) 10/28/2022 Post-op Visit Urology Richard Meyer MD [address] [place] [phone] (Wo rk) 11/25/2022 Office Visit Urology Richard Meyer MD [address] [facility] [place] [phone] (Wo rk) Scheduled Procedures Name Priority Associated Diagnoses Date/Time EPIDIDYMECTOMY, UNILATERAL Epididymitis 10/14 12:30 EST documented as of this encounter Visit Diagnoses Not on filedocumented in this encounter Care Teams School Physical Therapist Relationship Specialty Start Date End Date Mitali Pinon PCP - General Internal Medicine - Primary 05/04/21 [address] [place] [address] documented as of this encounter
--- OUTSIDE RECORDS SUMMARY | 2022-08-01 15:58 | XMS_ITS | Encounter Summary ---
:1950 Author Organization [facility] Address [address] [place] [address] Care Team Providers Name Role Phone Nathaniel Smith MD Primary Care Provider Encounter Details Date Type Department Care Team Description 10/07/2017 Hospital Encounter [facility] Jaime Gomez atrial Perioperative MD Arnold[facility] fibrillation Services- [facility] Nader anastasia Aleksander ([facility]) ([facility]) [address] [place] [address] [address] [place] [address] Social History Tobacco Use Types Packs/Day Years Used Date Smoking Tobacco: Former Cigarettes 0.5 10/1969 - 06/03/2002 Smokeless Tobacco: Never Sex Assigned at Date Recorded Male 06/20/2022 18:06 EDT documented as of this encounter Last Filed Vital Signs Vital Sign Reading Time Taken Comments Blood Pressure 99/68 10/07/2017 1500 EST Pulse - - Temperature 36 ??C (96.8 ??F) 10/07/2017 1500 EST Respiratory Rate 20 10/07/2017 1500 EST Oxygen Saturation 100% 10/07/2017 1500 EST Inhaled Oxygen Concentration - - Weight [...] decisions? documented as of this encounter Discharge Diagnoses Diagnosis I48.92 Unspecified atrial flutter-I48.92 [ICD-10-CM] R00.1 Bradycardia, unspecified-R00.1[ICD -10-CM] I51.7 Cardiomegaly-I51.7[ICD-10-CM] documented in this encounter Discharge Instructions Discharge InstructionsGraciela Madison RN - 10/07/2017 15:13 EST [facility] CARDIOVERSION DISCHARGE INSTRUCTIONS Patient: Leon Cardona Date: 10/07/2017 Resume normal activity in 24 hours. Do not operate motorized vehicles for 24 hours. No alcohol for 24 hours. Call for questions or concerns: Physician: Dr Conde documented in this encounter Medications at Time of Discharge Medication Sig Dispensed Refills Start Date End Date amiodarone (PACERONE) 200 Take 200 mg by 0 06/15/2019 mg tablet mouth 2 times daily. apixaban (ELIQUIS) 5 mg Take 5 mg by mouth 0 06/15/2019 tablet 2 times daily. levETIRAcetam (KEPPRA) 500 Take 250 mg by 0 06/15/2019 mg tablet mouth 2 times daily. metoprolol XL (TOPROL-XL) Take 25 mg by 0 06/15/2019 25 mg tablet mouth daily. documented as of this encounter Discharge Disposition Disposition Code Departure Means Destination Home or Self Care documented in this encounter Progress Notes Graciela Madison RN - 10/07/2017 1434 EST Patient arrived to [facility] [[email or web address]] at 1412 accompanied by anesthesia.. Report obtained from Dr Dyson from anesthesia. Patient awake, oriented x3. No complaints. Dr Conde into speak to patient and his . PO fluids provided. 1437 : EKG in progress. Patient tolerating PO's without complaints of nausea. 1450 : Dr Conde aware of EKG. Still waiting for orders. 1515 : Discharge instructions reviewed with patient and written copy provided. No questions. Dr Miner at bedside. Patient cleared for discharge per anesthesia. PIV removed with catheter intact priorto discharge. 1522 : Discharged via wheelchair with family. Eunice Lao RN - 10/07/2017 1314 EST 1310-Report from Laurence Zelaya for lunch coverage. Surgical waiting area notified that patient is in CVU and will page his for us. Patient resting, remains npo for cardioversion. into sit with patient. 1335-RN here to take patient to cardioversion. Laurence Mujica RN - 10/07/2017 1304 EST 1242- pt. Admitted to cvu s/p joel. Very drowsy on arrival repeating self etc feels well Waiting for cardioversion documented in this encounter H&P Notes Nayan Nesbitt - 10/07/2017 1220 EST Sedation for Procedure History & Physical Date: 10/07/2017 Time: 12:20 Location: Echocardiography laboratory Planned Procedure: JOEL Chief Complaint/Indications for Procedure: Atrial flutter History: 67yoM with history of atrial flutter and s/p left atrial appendage clipping at outside hospital in [place], [place]. Presents for JOEL prior to DCCV. Previous Complication with Sedation and/or Anesthesia? No Allergies: No Known Allergies Current Medications: Prescriptions Prior to Admission Medication Sig Dispense Refill Last Dose ??? amiodarone (PACERONE) 200 mg tablet Take 200 mg by mouth 2 times daily. 10/07/2017 at 0400 ??? apixaban (ELIQUIS) 5 mg tablet Take 5 mg by mouth 2 times daily. 10/07/2017 at 0400 ??? levETIRAcetam (KEPPRA) 500 mg tablet Take 250 mg by mouth 2 times daily. 10/07/2017 at 0400 ??? metoprolol XL (TOPROL-XL) 25 mg tablet Take 25 mg by mouth daily. 10/07/2017 at 0400 Past Medical History: Past Medical History: Diagnosis Date ??? Atrial fibrillation (CMS-HCC) ??? Epilepsy (CMS-HCC) ??? Heart failure with reduced ejection fraction (CMS-HCC) Social History: No past surgical history on file. Social History Substance Use Topics ??? Smoking status: Former Smoker Packs/day: 0.50 Types: Cigarettes Start date: 06/03/1970 Quit date: 06/03/2002 ??? Smokeless tobacco: Never Used ??? Alcohol use Not on file Family History: No family history on file. Physical: Vital Signs: BP (!) 131/98 Temp (!) 35.4 ??C (95.7 ??F) Resp 12 SpO2 100% Heart Examination: rapid rate, regular, +s1/s2, no murmur Respiratory Examination: Good effort Plan: JOEL Fasting Time: Time of last liquid intake: 399 (sip water with pills) Date of Last Liquid Intake: 10/07/17 Time of last solid intake: 1999 Date of last solid intake: 10/06/17 Nayan Nesbitt MD 10/07/2017 12:20 Jaime Gomez MD - 10/07/2017 1112 EST The preoperative history and physical which was performed within 30 days of this procedure has been reviewed and the clinically appropriate elements of the physical examination havebeen repeated. There are no changes to the documented history and physical or if so such changes aredocumented below Informed consent for JOEL/CV obtained Risks and benefits reviewed. Jaime Gomez MD 10/07/2017 11:12 Source Note - Yahir Baumann MD - 09/30/2017 13:40 EST Leon Cardona is a 67 y.o.yo male presenting in clinic today s/p Phillips Mini- Maze and atrial ? Clipping v snipping in [place] early August with recurrent AF/AFL here to discuss next steps. . Chief Complaint Patient presents with ??? Atrial Fibrillation Past Medical History: Diagnosis Date ??? Atrial fibrillation (CMS-HCC) ??? Epilepsy (CMS-HCC) ??? Heart failure with reduced ejection fraction (CMS-HCC) Patient Active Problem List Diagnosis Date Noted ??? Persistent atrial fibrillation (CMS-HCC) 06/06/2017 Priority: Medium ??? Achilles tendonitis 05/17/2014 No past surgical history on file. No family history on file. Social History Social History ??? Marital status: Spouse name: N/A ??? Number of children: N/A ??? Years of education: N/A Social History Main Topics ??? Smoking status: Former Smoker Packs/day: 0.50 Types: Cigarettes Start date: 06/03/1970 Quit date: 06/03/2002 ??? Smokeless tobacco: Never Used ??? Alcohol use None ??? Drug use: None ??? Sexual activity: Not Asked Other Topics Concern ??? None Social History Narrative Medications Prior to Today's Visit Medication Sig ??? apixaban (ELIQUIS) 5 mg tablet Take 5 mg by mouth 2 times daily. ??? levETIRAcetam (KEPPRA) 500 mg tablet Take 250 mg by mouth 2 times daily. ??? metoprolol XL (TOPROL-XL) 25 mg tablet Take 25 mg by mouth daily. No facility-administered medications prior to visit. No Known Allergies ROS: Comprehensive 10 point ROS otherwise noncontributory. Objective: BP 112/70 Pulse 56 Comment: Irregular Ht 177.8 cm (70) Wt 78 kg (172 lb) BMI 24.68 kg/m2 Body mass index is 24.68 kg/(m^2). Physical Exam: General: Alert, cooperative, no distress, appears stated age. Eyes: Conjunctivae not injected, not pale, nonicteric. Ears: Hearing grossly intact. Neck: Trachea midline, no adenopathy, no thyromegaly. Carotid upstroke normal, no carotid bruit and no JVD. Lungs: Clear to auscultation bilaterally. Chest wall: No tenderness or deformity. Heart: Irregular irregular heart sounds, no murmur or rub heard. Normal apical impulse. Abdomen: Soft, non-tender to palpation. No masses felt, No organomegaly. No bruits heard. Extremities: No peripheral edema. No cyanosis. Pulses: Radial pulses 2+ bilaterally. Dorsalis pedis and tibialis posterior 2+ bilaterally. Skin: No pallor, rashes or lesions. Lymph nodes: Cervical, supraclavicular, and axillary nodes normal. Neurologic: Normal strength, nonfocal on exam. Lab Review: Admission on 06/06/2017, Discharged on 06/09/2017 Component Date Value ??? Creatinine 06/06/2017 0.84 ??? GFR, Calculated 06/06/2017 92 ??? Sodium 06/06/2017 143 ??? Potassium 06/06/2017 4.3 ??? Chloride 06/06/2017 103 ??? CO2 06/06/2017 29 ??? Magnesium 06/06/2017 2.3 ??? WBC 06/06/2017 7.91 ??? RBC 06/06/2017 4.65 ??? Hemoglobin 06/06/2017 15.7 ??? HCT 06/06/2017 42.8 ??? MCV 06/06/2017 92 ??? MCH 06/06/2017 33.8* ??? MCHC 06/06/2017 36.7* ??? RDW-CV 06/06/2017 11.9 ??? RDW-SD 06/06/2017 40.1 ??? PLT 06/06/2017 238 ??? MPV 06/06/2017 9.6 ??? Tests to be added 06/06/2017 BUN ??? Number for problems 06/06/2017 [id number] ??? Accession number 06/06/2017 [id number] BUN ??? BUN 06/06/2017 19 ??? Hemoglobin A1C 06/07/2017 5.6 ??? Est Avg Glucose 06/07/2017 114 ??? Sodium 06/07/2017 143 ??? Potassium 06/07/2017 4.4 ??? Chloride 06/07/2017 104 ??? CO2 06/07/2017 28 ??? BUN 06/07/2017 17 ??? Creatinine 06/07/2017 0.88 ??? GFR, Calculated 06/07/2017 90 ??? Sodium 06/08/2017 140 ??? Potassium 06/08/2017 4.2 ??? Chloride 06/08/2017 107 ??? CO2 06/08/2017 24 ??? BUN 06/08/2017 20 ??? Creatinine 06/08/2017 0.74 ??? GFR, Calculated 06/08/2017 97 EKG: Atrial flutter CL 280 msec Assessment and Plan: Mr Cardona has recurrent flutter s/p thoracoscopic maze: I think it reasonable on eliquis to get a JOEL, get a good look at the appendage to make sure there is no remnant or flow, and proceed with cardioversion. I am happy to see Mr Cardona again should he wish to follow up with me, and in the meantime he will continue to see Dr Mckeon locally. I spent a total of 45 minutes in face to face time with this patient today and 35 minutes of that time was spent in counseling and coordination of care as described in the progress note. Yahir Baumann MD 09/30/2017 14:08 documented in this encounter Procedure Notes Carol Conde MD - 10/07/2017 1526 ESTProcedure(s): ELECTRICAL CARDIOVERSION Pre-Procedure Diagnose(s): Typical atrial flutter (HCC-CMS) (HCC) Post-Procedure Diagnose(s): Typical atrial flutter (HCC-CMS) (HCC) Date of Procedure: 10/07/2017 ?? Attending: Carol Conde MD ?? Pre-Op Diagnosis: atrial flutter ?? Post-Op Diagnosis: atrial flutter ?? Procedure: DC Cardioversion ?? Findings: Atrial flutter with variable conduction. DC Cardioversion was performed with one biphasic shock of 100 J. Patient converted to sinus bradycardia. ?? Anesthesia Type: As per Anesthesiologist ?? Estimated Blood Loss: Unless otherwise noted, there was no blood loss, specimens removed, cultures obtained, or drains retained. ?? Complications: None ?? Disposition and Condition: The patient was sent to post procedure recovery in good condition. Carol Conde MD 10/07/2017 ?? Nayan Nesbitt - 10/07/2017 1222 EST Transesophageal Echocardiogram Brief Post-Procedure Note Date of Procedure: 10/07/2017 Attending: Roderick Pacheco MD Fellow: Nayan Nesbitt MD Pre-Op Diagnosis: atrial flutter Post-Op Diagnosis: atrial flutter Procedure: Transesophageal echocardiogram. Findings: No evidence of thrombus in left atrial cavity or appendage remnant. For full report, see PRISM/Verices. Anesthesia Type: A moderate level of anesthesia/conscious sedation was used. Estimated Blood Loss: Unless otherwise noted, there was no blood loss, specimens removed, cultures obtained, or drains retained. Complications: None Disposition and Condition: The patient was sent back to the original unit in Fair condition. Nayan Nesbitt MD 10/07/2017 12:22 documented in this encounter Miscellaneous Notes Anesthesia Post-Eval - Jayjay Miner - 10/07/2017 1521 EST Anesthesia Post op Note Leon Cardona [id number] Anesthesia received: General; Vital Signs: Temp: 36 ??C (96.8 ??F), Heart Rate: 55 BPM, BP: 99/68, Resp: 20, SpO2: 100 % Vital signs Stable: Yes Consciousness: Recovered to baseline Patient's participation in evaluation:Able to participate Temperature Status: Normothermic Respiratory Status: Airway patent Supplemental O2: Room air Oxygen Saturation: Within patient's normal range Cardiovascular Status: Within patient's normal range Post-op Hydration: Adequate Nausea / Vomiting: None Pain Control: Adequate Current Pain Score: Numeric Pain Level (Scale 1-10): 0 Post-op Assessment: Tolerated procedure well Disposition: Home Complications: No apparent anesthetic complications Jayjay Miner MD 10/07/2017 15:21 documented in this encounter Plan of Treatment Upcoming Encounters Date Type Specialty Care Team Description 08/08/2022 Office Visit General Surgery Ish Hall MD [address] [place] [phone] (Wo rk) 09/09/2022 Office Visit Urology Richard Meyer MD [address] [place] [phone] (Wo rk) 10/07/2022 Appointment 10/14/2022 Hospital Encounter General Surgery Richard Meyer MD [address] [place] [phone] (Wo rk) 10/14/2022 Surgery General Surgery Richard Meyer EPIDIDYME CTSeamus ARIZMENDI MD UNILATERAL [[id number] (CPT??)] [address] [phone] (Wo rk) 10/28/2022 Post-op Visit Urology Richard Meyer MD [address] [place] [phone] (Wo rk) 11/25/2022 Office Visit Urology Richard Meyer MD [address] [place] [phone] (Wo rk) Scheduled Procedures Name Priority Associated Diagnoses Date/Time EPIDIDYMECTOMY, UNILATERAL Epididymitis 10/14 12:30 EST documented as of this encounter Procedures Procedure Name Priority Date/Time Associated Diagnosis Comme nts ECG REPORT - 10/10/2017 9:31 EST SCANNED ECG REPORT - 10/08/2017 12:31 SCANNED EST ECG REPORT - 10/07/2017 14:48 SCANNED EST EKG 12-LEAD Routine 10/07/2017 14:38 Results for this EST procedure are i n the results section. EKG 12-LEAD Routine 10/07/2017 10:29 Results for this EST procedure are i n the results section. documented in this encounter Results ECG REPORT - SCANNED (10/10/2017 9:31 EST) Specimen (Source) Anatomical Collection Method Collection Time Re ceived Time Location / / Volume Laterality 10/10/2017 9:31 EST Narrative This result has an attachment that is no t available. Scan 2 Manager Traffic PROCEDURE/MINOR SURGICAL ORD ERABLES ECG REPORT - SCANNED (10/08/2017 12:31 EST) Specimen (Source) Anatomical Collection Method Collection Time Re ceived Time Location / / Volume Laterality 10/08/2017 12:31 EST Narrative This result has an attachment that is no t available. Scan 2 Manager Traffic PROCEDURE/MINOR SURGICAL ORD ERABLES ECG REPORT - SCANNED (10/07/2017 14:48 EST) Specimen (Source) Anatomical Collection Method Collection Time Re ceived Time Location / / Volume Laterality 10/07/2017 14:48 EST Narrative This result has an attachment that is no t available. Scan 2 Manager Traffic PROCEDURE/MINOR SURGICAL ORD ERABLES EKG 12-LEAD (10/07/2017 14:38 EST) Specimen (Source) Anatomical Collection Method Collection Time Re ceived Time Location / / Volume Laterality 10/07/2017 14:38 EST Narrative [facility] EKG - 10/08/2017 12:2 8 EST ? [facility] ? Test Date: ?2017-10-07 Pat Name: ? LEON CARDONA ? Department: ?? PERIOP[facility]INC ? Room: ? [id number] Gender: ? M ?Director Of Grants: ?? [id number] : ?1950 ? Requested By: RANDALLALBERTO MORALESERIYASEMIN Order Number: [id number] ? Aruna MD: ?? HECTOR FOFANA MD ? Measurements Intervals ?[place] ? Rate: ? 54 ? P: ?66 [place]: ? 206 ?QRS: ?-24 QRSD: ? 109 ?T: ?13 QT: ? 487 ? QTc: ?463 ? Interpretive Statements SINUS BRADYCARDIA WITH OCCASIONAL SUPRAV ENTRICULAR PREMATURE COMPLEXES BORDERLINE LEFT AXIS DEVIATION NONSPECIFIC T-WAVE ABNORMALITY PROLONGED QT INTERVAL Compared to ECG 10/07/2017 10:29:17 Prolonged QT interval now present Atrial flutter no longer present Incomplete right bundle-branch block no longer present T-wave abnormality still present I reviewed the tracing and have either a greed or edited the findings in this report. Electronically Signed On 12:28:05 EST by HECTOR FOFANA MD. Procedure Note Hector Fofana MD - 10/08/2017Formattin g of this note might be different from the original. [facility] Test Date: 2017-10-07 Pat Name: LEON CARDONA Department: [facility] Room: [id number] Gender: M Director Of Grants: [id number] : 1950 Requested By: RANDALL HIGH Order Number: [id number] Reading MD: Luis FOFANA MD Measurements Intervals [place] Rate: 54 P: 66 [place]: 206 QRS: -24 QRSD: 109 T: 13 QT: 487 QTc: 463 Interpretive Statements SINUS BRADYCARDIA WITH OCCASIONAL SUPRAV ENTRICULAR PREMATURE COMPLEXES BORDERLINE LEFT AXIS DEVIATION NONSPECIFIC T-WAVE ABNORMALITY PROLONGED QT INTERVAL Compared to ECG 10/07/2017 10:29:17 Prolonged QT interval now present Atrial flutter no longer present Incomplete right bundle-branch block no longer present T-wave abnormality still present I reviewed the tracing and have either a greed or edited the findings in this report. Electronically Signed On 12:28:05 EST by HECTOR FOFANA MD. Carol Conde MD CARDIAC ECG ORDERABLES Performing Organization Address City/State/ZIP Code Phon e Number [facility] EKG EKG 12-LEAD (10/07/2017 10:29 EST) Specimen (Source) Anatomical Collection Method Collection Time Re ceived Time Location / / Volume Laterality 10/07/2017 10:29 EST Narrative [facility] EKG - 10/07/2017 14:4 3 EST ? [facility] ? Test Date: ?2017-10-07 Pat Name: ? LEON CARDONA ? Department: ?? PeriopMainC ? Room: ? MO0916 Gender: ? M ?Director Of Grants: ?? [id number] : ?1950 ? Requested By: JASON Chen Order Number: [id number] ? Reading MD: ?? KETTY CAPELESS MD ? Measurements Intervals ?[place] ? Rate: ? 91 ? P: ? [place]: ? 0 ?QRS: ?3 QRSD: ? 107 ?T: ?31 QT: ? 393 ? QTc: ?485 ? Interpretive Statements ATRIAL FLUTTER/TACHYCARDIA INCOMPLETE RIGHT BUNDLE BRANCH BLOCK NONSPECIFIC T-WAVE ABNORMALITY ABNORMAL RHYTHM ECG Compared to ECG 09/30/2017 13:40:56 No significant change I reviewed the tracing and have either a greed or edited the findings in this report. Electronically Signed On 14:43:36 EST by KETTY JOSHI MD. Procedure Note Ketty Joshi MD - 10/07/2017Formatt ing of this note might be different from the original. [facility] Test Date: 2017-10-07 Pat Name: LEON CARDONA Department: [facility] Room: [id number] Gender: M Director Of Grants: [id number] : 1950 Requested By: JASON Chen Order Number: [id number] Reading MD: Jacinto JOSHI MD Measurements Intervals [place] Rate: 91 P: [place]: 0 QRS: 3 QRSD: 107 T: 31 QT: 393 QTc: 485 Interpretive Statements ATRIAL FLUTTER/TACHYCARDIA INCOMPLETE RIGHT BUNDLE BRANCH BLOCK NONSPECIFIC T-WAVE ABNORMALITY ABNORMAL RHYTHM ECG Compared to ECG 09/30/2017 13:40:56 No significant change I reviewed the tracing and have either a greed or edited the findings in this report. Electronically Signed On 14:43:36 EST by KETTY JOSHI MD. Jaime Gomez MD CARDIAC ECG ORDERABLES Performing Organization Address City/State/ZIP Code Phon e Number [facility] EKG documented in this encounter Visit Diagnoses Diagnosis Persistent atrial fibrillation (HCC) Atrial fibrillation Persistent atrial fibrillation (HCC) Atrial fibrillation Epididymitis Orchitis and epididymitis, unspecified documented in this encounter Administered Medications Inactive Administered Medications - up to 3 most recent administrations Medication Order MAR Action Action Date Dose Rate Site fentaNYL citrate (PF) 50 mcg/mL Given 10/07/2017 12:11 EST 50 mc g injection 25-500 mcg 25-500 mcg, intravenous, ONCE PRN, 1 dose, Starting on Fri10/07/17 at 1143, Until e 10/07/17 at 1211, Sedation, Routine, Intraprocedure flumazenil (ROMAZICON) injection 0.2-1 m g 0.2-1 mg, intravenous, ONCE PRN, 1 dose, Starting on Fri10/07/17 at 1143, Until e 10/07/17 at 1733, benzodiazepine reversal, Routine, Intr aprocedure lidocaine (XYLOCAINE) 2 % viscous soluti on 15 mL 15 mL, mouth / throat, Once (NO Time Spe cified), 1 dose, Starting on Fri10/07/17 at 1143, Until e 10/07/17 at 1733, STAT, Preprocedure midazolam (PF) (VERSED) 1 mg/mL injection 0.5-20 Given 10/07/2017 12:11 EST 5 mg mg 0.5-20 mg, intravenous, ONCE PRN, 1 dose, Starting on Fri10/07/17 at 1143, Until Fri10/07/17 at 1211, Sedation, Routine, Intraprocedure naloxone (NARCAN) injection 0.2-0.4 mg 0.2-0.4 mg, intravenous, ONCE PRN, 1 dos e, Starting on Fri10/07/17 at 1143, Until Fri10/07/17 at 1733, Opioid Reversal, Routine, Intrapro cedure sodium chloride 0.9 % (NS) infusion New Bag 10/07/2017 10:43 EST 30 mL/hr 30 mL/hr 30 mL/hr, intravenous, CONTINUOUS, Starting on Fri10/07/17 at 1045, Until Fri10/07/17 at 1733, Routine, Preprocedure sodium chloride 0.9 % (NS) Rate Documented 10/07/2017 13:06 EST 25 mL/hr 25 mL/hr infusion 25 mL/hr, intravenous, CONTINUOUS, Starting on Fri10/07/17 at 1200, Until Fri10/07/17 at 1733, Routine, Preprocedure documented in this encounter Active and Recently Administered Medications Times are shown in EST. Scheduled Medication Order 10/05/2017 10/06/2017 10/07/2017 lidocaine (XYLOCAINE) 2 % viscous solution 15 mL 15 mL, mouth / throat, ONCE, 1 dose, Sta rting e 18 at 1143, Until Tue 18 at 1733, STAT Continuous Medication Order 10/05/2017 10/06/2017 10/07/2017 sodium chloride 0.9 % (NS) infusion 1043 (New Bag - Provider: Nita Arteaga, RN) at 30 mL/hr, 30 mL/hr, intravenous, CONT INUOUS, Starting 10/07/17 at 1045, Until 10/07/17 at 1733, Routine sodium chloride 0.9 % (NS) infusion 1200 (Canceled Entry - Provider: Batch Job User Admin - Comment: Automatically canceled at discontinue of medication order)1306 (Rate Documented - Provider: Laurence Mujica, PRECIOUS) at 25 mL/hr, 25 mL/hr, intravenous, CONT INUOUS, Starting 10/07/17 at 1200, Until 10/07/17 at 1733, Routine PRN Medication Order 10/05/2017 10/06/2017 10/07/2017 fentaNYL citrate (PF) 50 mcg/mL injection 25-500 mcg (COMPLETED) 1211 (Given - Provider: Anyi Weiss, RN) 25-500 mcg, intravenous, ONCE PRN, 1 dos e, Starting 10/07/17 at 1143, Until 10/07/17 at 2359, Sedation, Routine flumazenil (ROMAZICON) injection 0.2-1 mg 0.2-1 mg, intravenous, ONCE PRN, 1 dose, Starting 10/07/17 at 1143, Until Tue 18 at 1733, benzodiazepine reversal, Routine midazolam (PF) (VERSED) 1 mg/mL injection 0.5-20 mg (COMPLETED) 1211 (Given - Provider: Anyi Weiss, RN) 0.5-20 mg, intravenous, ONCE PRN, 1 dose , Starting 10/07/17 at 1143, Until Tue 18 at 2359, Sedation, Routine naloxone (NARCAN) injection 0.2-0.4 mg 0.2-0.4 mg, intravenous, ONCE PRN, 1 dos e, Starting 10/07/17 at 1143, Until Tue 18 at 1733, Opioid Reversal, Routine documented in this encounter Orders Medications Ordered That Might Not Have Count Last Ord ered Date First Ordered Date Been Administered flumazenil (ROMAZICON) injection 0.2-1 mg 1 2017 lidocaine (XYLOCAINE) 2 % viscous solution 1 10/07 15 mL naloxone (NARCAN) injection 0.2-0.4 mg 1 8 Nursing Count Last Ordered Date First Ordered Date PATIENT AT LOW RISK FOR VTE: RISK OF 1 10/07/2017 PHARMACOLOGIC PROPHYLAXIS OUTWEIG Admission Count Last Ordered Date First Ordered Date STATUS: OUTPATIENT MEDICAL OP BED/SERVICES 1 10/07 Transfer Count Last Ordered Date First Ordered Date NOTIFY PPS OF DISCHARGE COMPLETE 1 10/07/2017 PPS NOTIFICATION OF PATIENT ARRIVAL ON 8 UNIT Discharge Count Last Ordered Date First Ordered Date DISCHARGE PATIENT 1 10/07/2017 documented in this encounter Care Teams Reconciliation Specialist Relationship Specialty Start Date End Date Nathaniel Smith MD PCP - General 04/21/17 05/03/21 [address] [place] [address] documented as of this encounter
--- OUTSIDE RECORDS SUMMARY | 2022-08-01 15:58 | XMS_ITS | Encounter Summary ---
:1950 Author Organization [facility] Address [address] [place] [address] Care Team Providers Name Role Phone Nathaniel Smith MD Primary Care Provider Reason for Referral Cardiology (Routine) - Authorization Not Required Specialty Diagnoses / Procedures Referred By Contact Refer red To Contact Diagnoses Persistent atrial fibrillation (HCC) Status post Maze operation for atrial fibrillation Yahir Baumann Procedures TRANSESOPHAGEAL ECHO (MISBAH) MD Teofilo PhD [address] [phone] Referral ID Status Reason Start Expiration Visits Visits Date Date Requested Authorized [id number] Authorization Not 10/02/2017 1 1 Required ardiology (Routine/Next Available) - Authorization Not Required Specialty Diagnoses / Procedures Referred By Contact Refer red To Contact Diagnoses Persistent atrial fibrillation (HCC) Status post Maze operation for atrial fibrillation Yahir Baumann Procedures CARDIOVERSION MD Teofilo PhD [address] [phone] Referral ID Status Reason Start Expiration Visits Visits Date Date Requested Authorized [id number] Authorization Not 10/02/2017 1 1 Required Encounter Details Date Type Department Care Team Description 10/02/2017 Orders Only [facility] Yahir Baumann atrial fibrillation (CMS-HCC) (HCC-CMS) (Primary Dx); Cardiology - Aleksander Red MD PhD Status post Maze operation for atrial fi brillation 62 Aleksander Lind [address], [facility] [address] [place] [address] (Wo rk) Social History Tobacco [...] Visit General Surgery Ish Hall MD 111 [facility], [address] [address] (Wo rk) 09/09/2022 Office Visit Urology Richard Meyer MD 111 [facility], [facility] [address] [place] [address] (Wo rk) 10/07/2022 Appointment 10/14/2022 Hospital Encounter General Surgery Richard Meyer MD [address] [place] [phone] (Wo rk) 10/14/2022 Surgery General Surgery Richard Meyer EPIDIDYME CTOMYSeamus MD UNILATERAL [[id number] [address] [place] (CPT??)] [address] [address] (Wo rk) 10/28/2022 Post-op Visit Urology Richard Meyer MD [address] [place] [phone] (Wo rk) 11/25/2022 Office Visit Urology Richard Meyer MD [address] [place] [phone] (Wo rk) Scheduled Procedures Name Priority Associated Diagnoses Date/Time EPIDIDYMECTOMY, UNILATERAL Epididymitis 10/14 12:30 EST documented as of this encounter Procedures Procedure Name Priority Date/Time Associated Diagnosis Comme nts CARDIOVERSION Routine 10/08/2017 10:49 Persistent atrial Resul ts for this EST fibrillation procedure are i n ([facility]) (HCC-C MS) the results Status post Maze section. operation for atrial fibrillation TRANSESOPHAGEAL ECHO Routine 10/07/2017 11:59 Persistent atria l Results for this (MISBAH) EST fibrillation procedure are i n ([facility]) (HCC-C MS) the results Status post Maze section. operation for atrial fibrillation documented in this encounter Results CARDIOVERSION (10/08/2017 10:49 EST) Anatomical Region Laterality Modality Other Specimen (Source) Anatomical Collection Method Collection Time Re ceived Time Location / / Volume Laterality 10/08/2017 10:49 EST Narrative 10/08/2017 10:49 EST See Notes Tab. Procedure Note [employer] SUPERVISOR, IMAGING - 10/08/2017Formatt ing of this note might be different from the original. See Notes Tab. Yahir Baumann MD PhD CARDIAC EP ORDERABLE S TRANSESOPHAGEAL ECHO (MISBAH) (10/07/2017 11:59 EST) Anatomical Region Laterality Modality Other Specimen (Source) Anatomical Collection Method Collection Time Re ceived Time Location / / Volume Laterality 10/07/2017 11:59 EST Narrative 10/07/2017 13:24 EST *Interpreting Group:* *[facility]* [address] [place] [address] Date of study: 10/07/2017 Transesophageal Echocardiography Limited 2D, limited spectral Doppler, an d color Doppler *STUDY CONCLUSIONS* Summary: 1. Left ventricle: Systolic function was mildly to moderately reduced. ?? The estimated ejection fraction was 40-45%, by visual assessment. ?? Diffuse hypokinesis. 2. Right ventricle: The cavity size was normal. Wall thickness was ?? normal. Systolic function was low no rmal. 3. Left atrium: The atrium was mildly di lated. No evidence of thrombus ?? in the atrial cavity or appendage re mnant (patient has a history of ?? appendage clipping). 4. Right atrium: The atrium was mildly d ilated. *PATIENT PRESENTATION* Height: ? () S/D Pressure: 114 / 91 Weight: ? () BSA: ORDERING ? Yahir Baumann MD , PhD ATTENDING ?Jaime Gomez MD REFERRING ?Nathaniel Smith PERFORMING ?? [facility], Misbah FELLOW ? Nayan Nesbitt MD PASSENGER LOCOMOTIVE ENGINEER ??Nayan Nesbitt MD *PROCEDURE DATA* Procedure information: ??Dr. Roderick wilson supervised and was present for the performance of the entire proced ure. This study was interpreted by [facility]. Pertinent images and digital data are archived for [facility] storage and are available for subsequent review. ??Study status: ? ?Routine. Diagnostic transesophageal echocardiography. ??Limi salvador 2D, limited spectral Doppler, and color Doppler. ??Consent: ??The risk s, benefits, and alternatives to the procedure were explained to the antelmo ent and consent was verbally obtained. ??Barriers to education: ??No barriers to education identified. Initial setup. The patient was brought t o the laboratory in the fasting state. Surface ECG leads, blood pressure measurements, and pulse oximetric signals were monitored. Sedati on. Moderate sedation was administered by Светлана Weiss RN. A Trans esophageal echocardiogram was performed for exclusion of intracardiac thrombi. Topical anesthesia was obtained using viscous lidocaine. A Mult iplane 3D transesophageal probe was inserted by Roderick Pacheco MDwith some difficulty. Images were obtained using an Epiq 15 cardiac ultras ound machine. The study was technically difficult, as a result of in tractable gagging. Image quality was fair. The transesophageal probe was removed. ??Study completion: ??The patient tolerated the procedure well. Th ere was no blood loss or specimens removed during the procedure. There were no complications. Administered medications: ?? Fentanyl, 5 0mcg, IV administered by Avis Weiss RN . ??Midazolam, 5mg, IV admini stered by Avis Weiss RN . *CARDIAC ANATOMY* Left ventricle: ??Systolic function was mildly to moderately reduced. The estimated ejection fraction was 40-45%, by visual assessment. Diffuse hypokinesis. Aortic valve: ?? Structurally normal amilcar ve. Trileaflet; normal thickness leaflets. Cusp separation was normal. ?? Doppler: ??There was no significant regurgitation. Mitral valve: ?? Structurally normal amilcar ve. ?? Leaflet separation was normal. ??Doppler: ??There was trivial r egurgitation. Left atrium: ??The atrium was mildly dil ated. No evidence of thrombus in the atrial cavity or appendage remnant ( patient has a history of appendage clipping). Right ventricle: ??The cavity size was n ormal. Wall thickness was normal. Systolic function was low normal. Tricuspid valve: ??Not well visualized. ??The valve appears to be grossly normal. ?? Leaflet separation was normal . Right atrium: ??The atrium was mildly di lated. ??No evidence of thrombus in the atrial cavity or appendage. Pericardium: ??There was no pericardial effusion. I have personally reviewed the images an d have reviewed and edited the reported findings. Electronically signed by Roderick Pacheco MD 10/07/2017 13:24 Procedure Note Roderick Pacheco MD - 10/07/2017Formatt ing of this note might be different from the original. *Interpreting Group:* *[facility]* [address] [place] [id number] Date of study: 10/07/2017 Transesophageal Echocardiography Limited 2D, limited spectral Doppler, an d color Doppler *STUDY CONCLUSIONS* Summary: 1. Left ventricle: Systolic function was mildly to moderately reduced. The estimated ejection fraction was 40- 45%, by visual assessment. Diffuse hypokinesis. 2. Right ventricle: The cavity size was normal. Wall thickness was normal. Systolic function was low sage l. 3. Left atrium: The atrium was mildly di lated. No evidence of thrombus in the atrial cavity or appendage remna nt (patient has a history of appendage clipping). 4. Right atrium: The atrium was mildly d ilated. *PATIENT PRESENTATION* Height: () S/D Pressure: 114 / 91 Weight: () BSA: ORDERING Yahir Baumann MD, PhD ATTENDING Jaime Gomez MD REFERRING Nathaniel Smith PERFORMING [facility], Misbah FELLOW Nayan Nesbitt MD PASSENGER LOCOMOTIVE ENGINEER Nayan Nesbitt MD *PROCEDURE DATA* Procedure information: Dr. Roderick Wilkinson er supervised and was present for the performance of the entire proced ure. This study was interpreted by [facility]. Pertinent images and digital data are archived for [facility] storage and are available for subsequent review. Study status: Alejandrina juarez. Diagnostic transesophageal echocardiography. Limite d 2D, limited spectral Doppler, and color Doppler. Consent: The risks, b enefits, and alternatives to the procedure were explained to the [facility] ent and consent was verbally obtained. Barriers to education: No estrella iers to education identified. Initial setup. The patient was brought t o the laboratory in the fasting state. Surface ECG leads, blood pressure measurements, and pulse oximetric signals were monitored. Sedati on. Moderate sedation was administered by Светлана Weiss RN. A Trans esophageal echocardiogram was performed for exclusion of intracardiac thrombi. Topical anesthesia was obtained using viscous lidocaine. A Mult iplane 3D transesophageal probe was inserted by Roderick Pacheco MDwith some difficulty. Images were obtained using an Epiq 15 cardiac ultras ound machine. The study was technically difficult, as a result of in tractable gagging. Image quality was fair. The transesophageal probe was removed. Study completion: The patient tolerated the procedure well. Th ere was no blood loss or specimens removed during the procedure. There were no complications. Administered medications: Fentanyl, 50mc g, IV administered by Avis Weiss RN . Midazolam, 5mg, IV administ ered by Avis Weiss RN . *CARDIAC ANATOMY* Left ventricle: Systolic function was mi ldly to moderately reduced. The estimated ejection fraction was 40-45%, by visual assessment. Diffuse hypokinesis. Aortic valve: Structurally normal valve. Trileaflet; normal thickness leaflets. Cusp separation was normal. Do ppler: There was no significant regurgitation. Mitral valve: Structurally normal valve. Leaflet separation was normal. Doppler: There was trivial regur gitation. Left atrium: The atrium was mildly dilat ed. No evidence of thrombus in the atrial cavity or appendage remnant ( patient has a history of appendage clipping). Right ventricle: The cavity size was nor mal. Wall thickness was normal. Systolic function was low normal. Tricuspid valve: Not well visualized. Th e valve appears to be grossly normal. Leaflet separation was normal. Right atrium: The atrium was mildly dila salvador. No evidence of thrombus in the atrial cavity or appendage. Pericardium: There was no pericardial ef fusion. I have personally reviewed the images an d have reviewed and edited the reported findings. Electronically signed by Roderick Pacheco MD 10/07/2017 13:24 Yahir Baumann MD PhD CARDIAC ECHO ORDERAB LES documented in this encounter Visit Diagnoses Diagnosis Persistent atrial fibrillation (HCC) - P rimary Atrial fibrillation Status post Maze operation for atrial fi brillation Other postprocedural status Epididymitis Orchitis and epididymitis, unspecified documented in this encounter Care Teams Track Dresser Relationship Specialty Start Date End Date Nathaniel Smith MD PCP - General 04/21/17 05/03/21 [address] [place] [address] documented as of this encounter
--- OUTSIDE RECORDS SUMMARY | 2022-08-01 15:58 | XMS_ITS | CCD ---
:1950 Author Care Team Providers Name Role Phone REYNA CHARLES NP Attending Physician Unavailable Vital Signs Unknown or [...] Encounter Diagnosis Diagnosis Code Start Date Aftercare [id number] 03/07/2021 Social History Smoking Status Code Start Date End Date Former smoker [id number] Patient Decision Aids Unknown or Not Available. Discharge Instructions You were admitted to [facility] on 03/07/2021 13:17 with a principal diagnosis of Aftercare following joint r eplacement surgery You were discharged from [facility] on 03/07/2021 13:17 Should you have [...]
--- OUTSIDE RECORDS SUMMARY | 2022-08-01 15:58 | XMS_ITS | CCD ---
:1950 Author Care Team Providers Name Role Phone LYDIA JOSHUA MD Attending Physician Unavailable Vital Signs [...] Encounters Encounter Diagnosis Diagnosis Code Start Date Refusal of treatment by patient [id number] 02/23/20 21 Social History Smoking Status Code Start Date End Date Former smoker [id number] Patient Decision Aids Unknown or Not Available. Discharge Instructions You were admitted to [facility] on 02/22/2021 15:31 with a principal diagnosis of Procedure and treatment not carried out because of patient's decision for unspecified reasons You were discharged from [facility] on 02/22/2021 15:31 Should you have any questions prior to [...]
--- OUTSIDE RECORDS SUMMARY | 2022-08-01 15:58 | XMS_ITS | Encounter Summary ---
:1950 Author Organization [facility] Address [address] [place] [address] Care Team Providers Name Role Phone Yaya Sinha MD Primary Care Provider Unavailable Reason for Visit Reason Comments Ankle Pain Left achilles Encounter Details Date Type Department Care Team Description 05/17/2014 Office Visit [facility] Karson Slater les tendonitis Foot [facility] Ankle Program - MD Rosario (Primary Dx) [address] Juice Vargas, [facility] [phone] Social History Tobacco Use Types Packs/Day Years Used Date Smoking Tobacco: Former Smokeless Tobacco: Never Sex Assigned at Date Recorded Male 06/20/2022 18:06 EDT documented as of this encounter Last Filed Vital Signs Vital Sign Reading Time Taken Comments Blood Pressure - - Pulse - - Temperature - - Respiratory Rate - - Oxygen Saturation - - Inhaled Oxygen Concentration - - Weight 74.8 kg (165 lb) 05/17/2014 0918 EDT Height 177.8 cm (5' 10) 05/17/2014 0918 EDT Body Mass Index 23.68 05/17/2014 0918 EDT documented in this encounter Progress Notes Karson Slater MD - 05/17/2014 0950 EDT Diagnosis: ICD-9-CM 1. Achilles tendonitis 726.71 Pritesh Cardona is being seen today for Ankle Pain We have been asked to see him in consultation by Dr. Levin. HPI: Mr. 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 This going on since Dec, 2012. It was originally seen by Dr. Levin who put himin a walking boot. No other treatment has been undertaken and we have been asked to see him in consultation regarding his diagnosis and ongoing treatment. At this point his pain is primarily when he istrying to be more active such as skiing or riding his bicycle. When he is walking he does have a moderate limp limits himself to walking less than 6 blocks. In the boot he is very comfortable. There isno history of previous problems with this ankle or leg. Past medical history is otherwise unremarkable. ALLERGIES and medications are as noted in prism. He does not smoke and does drink beer occasionally. Patient Active Problem List Diagnosis Code ??? Achilles tendonitis 726.71 No past medical history on file. No past surgical history on file. History Substance Use Topics ??? Smoking status: Former Smoker ??? Smokeless tobacco: Never Used ??? Alcohol Use: Not on file No family history on file. Current Outpatient Prescriptions Medication Sig Dispense Refill ??? ibuprofen (MOTRIN) 200 mg tablet Take 400 mg by mouth as needed for Pain. No current facility-administered medications for this visit. Not on File Review of Systems A ten point review of systems was performed. Pertinent positives are listed below, all others are negative: Musculoskeletal: positive for as per HPI height is 177.8 cm (70) and weight is 74.844 kg (165 lb). Pain Vitals: Pain Location: Ankle Horn-Trinh Pain Rating (Scale 0-10): Hurts a little bit Numeric Pain Level (Scale 1-10): 3 Pain in another site? : No Pain Quality: Sore;Other (comment) (inflammed) Pain Duration: Intermittent General appearance: alert, no distress Physical examination today shows that his hand exam is completely within normal limits. DTR's are 2+at both knees and ankles with intact pulses throughout. Sensation to light touch is intact. Skin is intact with no fat pad atrophy noted. Passive range of motion of the ankle, subtalar and midfoot joints are within normal limits bilaterally. Motor function about the ankle bilaterally is within normal limits. He has normal arches bilaterally. He has a nonantalgic gait. Overall alignment of the ankle, midfoot, and hindfoot bilaterally is within normal limits. He has no plantar calluses underneath the metatarsal heads. Alignment of his great toe bilaterally is within normal limits. He has normal motion on dorsiflexion, plantarflexion of first metatarsophalangeal joint bilaterally. There is normal flexibility and negative grind test of the first MTP joint bilaterally. He has no hammertoes that are flexible or fixed and his toenails are normal in appearance. Anxiety index is 5/10. Pertinent positive findings: On the left mid Achilles he has fusiform swelling which is tender. He has a physiologic Mayer test. He has no pain with plantar flexion against resistance. He has a recent MRI that was reviewed today. This demonstrates Achilles tendinosis in the mid substance of the Achilles with better than 80% preservation of normal tendon. 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 We will therefore start him on a stretching program and see him back in 2 months time. ICD-9-CM 1. Achilles tendonitis 726.71 No orders of the defined types were placed in this encounter. Imaging for next visit:none Follow up: Return in about 2 months (around 07/17/2014). Cc: Referring Provider - Dr. Levin PCP - Yaya Sinha MD documented in this encounter Plan of Treatment Upcoming Encounters Date Type Specialty Care Team Description 08/08/2022 Office Visit General Surgery Ish Hall MD [address] [phone] (Wo hedy) 09/09/2022 Office Visit Urology Richard Meyer MD [address] [phone] ([place]) 10/07/2022 Appointment 10/14/2022 Hospital Encounter General Surgery Richard Meyer MD [address] [place] [address] (Wo rk) 10/14/2022 Surgery General Surgery Richard Meyer Charles, MD UNILATERAL [[id number] [address] [place] (CPT??)] [address] [phone] (Wo rk) 10/28/2022 Post-op Visit Urology Richard Meyer MD [address] [phone] (Wo rk) 11/25/2022 Office Visit Urology Richard Meyer MD [address] [phone] (Wo rk) Scheduled Procedures Name Priority Associated Diagnoses Date/Time EPIDIDYMECTOMY, UNILATERAL Epididymitis 10/14 12:30 EST documented as of this encounter Visit Diagnoses Diagnosis Achilles tendonitis - Primary Achilles bursitis or tendinitis Epididymitis Orchitis and epididymitis, unspecified documented in this encounter Historical Medications This list may reflect changes made after this encounter. Medication Sig Dispensed Refills Start Date End Date ibuprofen (MOTRIN) 200 mg Take 400 mg by mouth 0 06/03/2017 tablet as needed for Pain. added in this encounter Care Teams Product Support Manager Relationship Specialty Start Date End Date Yaya Sinha MD PCP - General 04/22/14 documented as of this encounter
--- OUTSIDE RECORDS SUMMARY | 2022-08-01 15:58 | XMS_ITS | Encounter Summary ---
:1950 Author Organization [facility] Address [address] [place] [address] Care Team Providers Name Role Phone Nathaniel Smith MD Primary Care Provider Reason for Visit Reason Comments Atrial Fibrillation New patient to discuss afib ablation. Encounter Details Date Type Department Care Team Description 06/20/2017 Office Visit [facility] Alice merlos Sa, Yahir Mari ersistent atrial Cardiology - Aleksander Ponce MD fibrillation [address] ([facility] ([facility]) So [facility] (Primary Dx) [id number] [place] [address], [facility] [address] [place] [phone] (Wo rk) Social History Tobacco Use Types Packs/Day Years Used Date Smoking Tobacco: Former Cigarettes 0.5 10/1969 - 06/03/2002 Smokeless Tobacco: Never Sex Assigned at Date Recorded Male 06/20/2022 18:06 EDT documented as of this encounter Last Filed Vital Signs Vital Sign Reading Time Taken Comments Blood Pressure 100/70 06/20/2017817 EDT Pulse 76 06/20/2017817 EDT Temperature - - Respiratory Rate - - Oxygen Saturation 99% 06/20/2017 08 EDT Inhaled Oxygen Concentration - - Weight 74.4 kg (164 lb) 06/20/2017 08 EDT Height 177.8 cm (5' 10) 06/20/2017 08 EDT Body Mass Index 23.53 06/20/2017 0818 EDT documented in this encounter Functional Status Functional [...] documented as of this encounter Progress Notes Yahir Danielle Sa, MD - 06/20/2017 0820 EDT Electrophysiology Clinic New Patient Encounter Chief Complaint Patient presents with ??? Atrial Fibrillation New patient to discuss afib ablation. HPI: I had the privilege of seeing Mr Cardona at the cardiac arrhythmia clinic for consultation regardingpossible atrial fibrillation ablation. For details regarding his history, please review extensive documentation by Dr Walker and during his recent hospitalization for dofetilide loading. Briefly, this very pleasant 66-year-old hanley had not much in the way of medical history. He started having episodes of transient loss of consciousness for which the etiology remains unclear and was noted to be in atrial fibrillation. At that time his atrial fibrillation rate had a rapid ventricular response, particularly on exertion, nearing 200 beats per minute. He had a transthoracic echocardiogram that demonstrated reduced left ventricular systolic function. Since the onset of symptoms, he has not exercised routinely as he likes to do. He is an avid biker and skier and has been avoiding strenuous exercise. The syncope resolved after discontinuation of lisinopril, and there was a question about seizure; however, apparently they want to wean him off Keppra because they are not convinced that he has true seizures. He denies shortness of breath. He was hospitalized for dofetilide loading and underwent a cardioversion; 250 mcg was the tolerated dose. However,he had recurrent atrial fibrillation shortly thereafter. His ventricular response remains relatively labile, particularly in exercise. He is on anticoagulation. He denies any bleeding. A 10-point review of systems was conducted. Pertinent positives are noted in HPI. Past Medical History: Diagnosis Date ??? Atrial fibrillation (HCC) ??? Epilepsy (HCC) ??? Heart failure with reduced ejection fraction (HCC) Allergies as of 06/20/2017 ??? (No Known Allergies) Social History Social History ??? Marital status: Spouse name: N/A ??? Number of children: N/A ??? Years of education: N/A Occupational History ??? Not on file. Social History Main Topics ??? Smoking status: Former Smoker Packs/day: 0.50 Types: Cigarettes Start date: 06/03/1970 Quit date: 06/03/2002 ??? Smokeless tobacco: Never Used ??? Alcohol use Not on file ??? Drug use: Not on file ??? Sexual activity: Not on file Other Topics Concern ??? Not on file Social History Narrative No family history on file. Patient Active Problem List Diagnosis Date Noted ??? Persistent atrial fibrillation (HCC) 06/06/2017 Priority: Medium ??? Achilles tendonitis 05/17/2014 Medications Prior to Today's Visit Medication Sig ??? apixaban (ELIQUIS) 5 mg tablet Take 5 mg by mouth 2 times daily. ??? dofetilide (TIKOSYN) 250 mcg capsule Take 1 Cap by mouth every 12 hours. ??? levETIRAcetam (KEPPRA) 500 mg tablet Take 500 mg by mouth 2 times daily. ??? metoprolol XL (TOPROL-XL) 25 mg tablet Take 25 mg by mouth daily. No facility-administered medications prior to visit. Exam Vitals: 06/20/17 0818 BP: 100/70 Pulse: 76 SpO2: 99% Weight: 74.4 kg (164 lb) Height: 177.8 cm (70) Body mass index is 23.53 kg/(m^2). General: Alert, cooperative, no distress, appears stated age. Eyes: Conjunctivae not injected, not pale, nonicteric. Ears: Hearing grossly intact. Neck: Trachea midline, no adenopathy, no thyromegaly. Lungs: Clear to auscultation bilaterally. Chest wall: No tenderness or deformity. Heart: irregular heart sounds, S1, S2 normal, no murmur or rub heard. Abdomen: Soft, non-tender to palpation. No masses felt, No organomegaly. No bruits heard. Extremities: No peripheral edema. No cyanosis. Pulses: Radial pulses 2+ bilaterally. Dorsalis pedis and tibialis posterior 2+ bilaterally. Skin: Nopallor, rashes or lesions. Lymph nodes: Cervical, supraclavicular, and axillary nodes normal. Neurologic: Normal strength, nonfocal on exam. Data Lab Results Component Value Date/Time NA 140 06/08/2017 05:32 K 4.2 06/08/2017 05:32 CL 107 06/08/2017 05:32 CO2 24 06/08/2017 05:32 BUN 20 06/08/2017 05:32 CREATININE 0.74 06/08/2017 05:32 MG 2.3 06/06/2017 17:52 CrCl cannot be calculated (Patient's most recent sCr result is older than the maximum 7 days allowed.). Lab Results Component Value Date/Time WBC 7.91 06/06/2017 17:52 HCT 42.8 06/06/2017 17:52 PLT 238 06/06/2017 17:52 MCV 92 06/06/2017 17:52 No results found for: INR, PTT Lab Results Component Value Date/Time HGBA1C 5.6 06/07/2017 06:32 No results found for: BNP, NTBNP, TSH A/P: 1. Persistent atrial fibrillation. 2. Labile ventricular response. 3. Left ventricular systolic dysfunction. I had a long discussion with the patient regarding his condition. It is not clear how much atrial fibrillation plays in his episodes of transient loss of consciousness, however, controlling his arrhythmia is going to be difficult due to rate control given labile ventricular response and the patient's preference to continue to have an active exercise schedule. It is, therefore, my impression, that further attempts to suppress atrial fibrillation are recommended, especially given the left ventricular systolic dysfunction demonstrated on presentation. The next best step would be proceeding to an atrial fibrillation ablation. I will discontinue dofetilide. I discussed atrial fibrillation ablation procedure risks and benefits. The patient demonstrates good understanding and is willing to proceed. We specifically discussed discussed that the risk include,but are not limited to cardiac perforation, stroke, phrenic nerve paralysis, atrial esophageal fistula, damage to the mitral valve, pulmonary vein stenosis and atrial tachycardia. We reviewed the success rate of a single procedure and the potential need for more than one procedure as well as use of antiarrhythmic drugs. Yahir merlos Sa, MD 06/20/2017 8:58 Cardiac Handbag Stitcher CC: Nathaniel Smith documented in this encounter Plan of Treatment Upcoming Encounters Date Type Specialty Care Team Description 08/08/2022 Office Visit General Surgery Ish Hall MD [address] [place] [phone] (Wo rk) 09/09/2022 Office Visit Urology Richard Meyer MD [address] [place] [phone] (Wo rk) 10/07/2022 Appointment 10/14/2022 Hospital Encounter General Surgery Richard Meyer MD [address] [place] [phone] (Wo rk) 10/14/2022 Surgery General Surgery Richard Meyer CTSeamus ARIZMENDI MD UNILATERAL [[id number] (CPT??)] [address] [phone] (Wo rk) 10/28/2022 Post-op Visit Urology Richard Meyer MD [address] [place] [phone] (Wo rk) 11/25/2022 Office Visit Urology Richard Meyer MD [address] [place] [phone] (Wo rk) Scheduled Procedures Name Priority Associated Diagnoses Date/Time EPIDIDYMECTOMY, UNILATERAL Epididymitis 10/14 12:30 EST documented as of this encounter Visit Diagnoses Diagnosis Persistent atrial fibrillation (HCC) - P rimary Atrial fibrillation Epididymitis Orchitis and epididymitis, unspecified documented in this encounter Discontinued Medications Medication Sig Discontinue Reason Start Date End Date dofetilide (TIKOSYN) 250 Take 1 Cap by mouth Order modification 05/201706/20/2017 mcg capsule every 12 hours. documented as of this encounter Care Teams Mc Kay Machine Operator Relationship Specialty Start Date End Date Nathaniel Smith MD PCP - General 04/21/17 05/03/21 [address] [place] [address] documented as of this encounter
--- OUTSIDE RECORDS SUMMARY | 2022-08-01 15:58 | XMS_ITS | Encounter Summary ---
:1950 Author Organization [facility] Address [address] [place] [address] Care Team Providers Name Role Phone Nathaniel Smith MD Primary Care Provider Reason for Visit Reason Onset Date Comments Pre-visit Orders 09/21/2018 Encounter Details Date Type Department Care Team Description 09/21/2018 Orders Only [facility] Richard Meyer BPH [facility] urinary Urology - [place] MD Seamus obstruction (Primary [address] [facility], [address] [facility]) [address] [phone] [place], [address] [place] [phone] (Wo rk) Social History Tobacco [...] Visit General Surgery Ish Hall MD [address] [place] [phone] (Wo rk) 09/09/2022 Office Visit Urology Richard Meyer MD [address] [place] [phone] (Wo rk) 10/07/2022 Appointment 10/14/2022 Hospital Encounter General Surgery Richard Meyer MD [address] [place] [phone] (Wo rk) 10/14/2022 Surgery General Surgery Richard MeyerE CTSeamus ARIZMENDI MD UNILATERAL [[id number] [address] [place] (CPT??)] [address] [phone] (Wo rk) 10/28/2022 Post-op Visit Urology Rihcard Meyer MD [address] [place] [phone] (Wo rk) 11/25/2022 Office Visit Urology Richard Meyer MD [address] [place] [phone] (Wo rk) Scheduled Procedures Name Priority Associated Diagnoses Date/Time EPIDIDYMECTOMY, UNILATERAL Epididymitis 10/14 12:30 EST documented as of this encounter Visit Diagnoses Diagnosis BPH with urinary obstruction - Primary Hypertrophy of prostate with urinary obs truction and other lower urinary tract symptoms (LUTS) Epididymitis Orchitis and epididymitis, unspecified documented in this encounter Care Teams Clinical Research Tech Relationship Specialty Start Date End Date Nathaniel Smith MD PCP - General 04/21/17 05/03/[address] [place] [id number] documented as of this encounter
--- OUTSIDE RECORDS SUMMARY | 2022-08-01 15:58 | XMS_ITS | Encounter Summary ---
:[address] [facility] Address [address] [place] [address] Care Team Providers Name Role Phone Nathaniel Smith MD Primary Care Provider Reason for Visit Reason Comments BPH With Obstruction Encounter Details Date Type Department Care Team Description 09/22/2018 Office Visit [facility] Richard Meyer BPH [facility] urinary Urology - Malott MD Seamus obstruction (Primary [address] [employer], [address] [place], [place] [address] [place], [place] [phone] [place], [address] [place] [address] (Wo rk) Social History Tobacco [...] - - Weight 74.8 kg (165 lb) 09/22/2018 1120 EST Height 175.3 cm (5' 9) 09/22/2018 1120 EST Body Mass Index 24.37 09/22/2018 1120 EST documented in this encounter Functional Status [...] encounter Progress Notes Richard Meyer MD - 09/22/2018 1100 EST Subjective: Patient ID: Pritesh Cardona is an [address] Nathaniel Smith has requested that I see Pritesh Cardona in consultation for BPH With Obstruction. Chief Complaint Patient presents with ??? BPH With Obstruction HPI Pritesh is here for evaluation of BPH. He has had symptoms for several years but especially bothersomein the last year. These consist of frequency significant hesitancy and intermittency as well as a weak flow. He has occasional urgency but also has some post void dribbling which is bothersome. He was seen at [facility] by Dr. Haley and started on tamsulosin and finasteride and has had a significant improvement on those medications. He is able to empty better and has better flow. He had been scheduled topotentially have a TURP but that was canceled by anesthesia as he was back in atrial fibrillation. He continues on the medications now. He is interested in a possible Urolift procedure based on some reading he has done. His IPSS symptom score is 18/35 on his medications, which puts him at the upper end of the moderate category. His score off of medications would have been much worse in the past. Patient Active Problem List Diagnosis ??? Achilles tendonitis ??? Persistent atrial fibrillation (HCC-CMS) Past Medical History: Diagnosis Date ??? Atrial fibrillation (HCC-CMS) ??? BPH with urinary obstruction 2017 flomax/finasteride 02/16- ; cysto (09/19)-lateral BPH with high median bar, not ideal for Urolift; TRUS (1/19)-35 g ??? Epilepsy ([facility]) ??? Heart failure with reduced ejection fraction ([facility]) No past surgical history on file. No family history on file. Social Social History Tobacco Use ??? Smoking status: Former Smoker Packs/day: 0.50 Types: Cigarettes Start date: 06/03/1970 Last attempt to quit: 06/03/2002 Years since quittin.3 ??? Smokeless tobacco: Never Used Substance Use [...] Constitutional: Negative for chills, diaphoresis and fever. HENT: Negative for hearing loss and sore throat. Eyes: Negative for blurred vision and double vision. Respiratory: Negative for cough, hemoptysis and wheezing. Cardiovascular: Positive for palpitations. Negative for chest pain. Gastrointestinal: Negative for abdominal pain, diarrhea, nausea and vomiting. Genitourinary: Negative for dysuria, flank pain, frequency, hematuria and urgency. Musculoskeletal: Positive for joint pain. Negative for myalgias. Skin: Negative for itching and rash. Neurological: Negative for dizziness, tremors, speech change, focal weakness, seizures and headaches. Endo/Heme/Allergies: Does not bruise/bleed easily. Psychiatric/Behavioral: Negative for depression and hallucinations. - See HPI Objective: Ht 175.3 cm (69) Wt 74.8 kg (165 lb) BMI 24.37 kg/m?? Physical Exam Constitutional: He appears well-developed and well-nourished. Neck: Neck supple. Cardiovascular: Normal rate and regular rhythm. Pulmonary/Chest: Effort normal. Abdominal: Soft. There is no tenderness. Hernia confirmed negative in the right inguinal area and confirmed negative in the left inguinal area. Genitourinary: Rectum normal, testes normal and penis normal. Prostate is enlarged (Moderate, 30+ grams, no nodules but firm at the right base). Prostate is not tender. Musculoskeletal: Normal range of motion. Lymphadenopathy: He has no cervical adenopathy. Neurological: He is alert. Skin: Skin is warm. Psychiatric: He has a normal mood and affect. Cysto- lat BPH, but elevated median lobe as well with mild intravesical extension; not ideal for Urolift given high median bar TRUS- 35gm, extensive calcifications, 6 mm intravesical extension Office Visit on 09/22/2018 Component Date Value Ref Range Status ??? Bladder Scan 09/22/2018 8cc Final ??? Color 09/22/2018 YELLOW Yellow Final ??? Clarity, UA 09/22/2018 Clear Clear Final ??? Glucose 09/22/2018 Neg Neg Final ??? Bilirubin 09/22/2018 Neg Neg Final ??? Ketones 09/22/2018 Neg Neg Final ??? Specific Holcomb 09/22/2018 1.025 1.001 - 1.035 Final ??? Blood 09/22/2018 Trace* Neg Final ??? pH 09/22/2018 5.0 4.6 - 8.0 Final ??? Protein 09/22/2018 Neg Neg Final ??? Urobilinogen 09/22/2018 0.2 0.2 - 1.0 mg/dL Final ??? Nitrite 09/22/2018 Neg Neg Final ??? Leuk Esterase 09/22/2018 2+* Neg Final ??? Tech ID 09/22/2018 [id number] Final Test performed at [facility] PSA: No results found for: PSA BMP: Lab Results Component Value Date NA 140 06/08/2017 K 4.2 06/08/2017 CL 107 06/08/2017 CO2 24 06/08/2017 BUN 20 06/08/2017 CREATININE 0.74 06/08/2017 MG 2.3 06/06/2017 Assessment / Plan: 1. BPH with urinary obstruction -We discussed his BPH as well as a variety of treatment options. These include observation, continued medication, TURP, laser ablation, TUNA, or Urolift. We went over the pros and cons of each. -Unfortunately he is not a great candidate for the Urolift procedure due to the high median bar which is not treated with the Urolift procedure. While his lateral lobes could be opened he may still have significant obstruction from this median bar. If he strongly wanted to pursue Urolift in hopes thatit would benefit him enough to come off his medications we could consider that but he may not have as good of results as we would like. -I think TURP or laser ablation would be his best option given his prostate anatomy. He may be interested in having that done at [facility] by myself if his cardiac situation is normalized. He is due to have a ablation procedure around December of this year. He will let us know if that goes well, and he is out ofA. fib and wants to pursue surgery. -Continue on the medication is also reasonable option as he has had good benefit and will likely have a little bit more benefit with time as he continues on finasteride. This note has been prepared with voice recognition software. Please excuse charter representative errors. No orders of the defined types were placed in this encounter. Richard Meyer MD documented in this encounter Procedure Notes Richard Meyer MD - 09/22/2018 1100 EST Procedure: Procedures CYSTOSCOPY After risks of bleeding, infection and urethral irritation were reviewed, informed consent was obtained. The genitalia were prepped and draped in a sterile fashion. The cystoscope was navigated throughthe urethra without difficulty. At the conclusion, the scope was slowly removed. The patient tolerated the procedure well. Antibiotics: none FINDINGS: Urethra- no strictures Prostate- Lateral BPH with high obstructing median bar Bladder neck- no contracture Ureteral orifices- clear efflux and normal position Mucosa- no tumors, no lesions, no erythema, marked trabeculations Other- small intravesical median extension OK for Urolift?: not ideal due to median bar A barbotage sample was not taken from the bladder. TRANSRECTAL ULTRASOUND OF THE PROSTATE The patient had an opportunity to discuss the proposed procedure, received answers to all the question(s) they asked and had no further questions. The patient was made aware of the nature of the proposed procedure; the potential benefits, risks and or side effects, including but not limited to the potential problems related to recuperation; the likelihood of achieving the goals of the procedure; the reasonable alternatives to the proposed procedure; the relevant risks, benefits, and side effects related to the alternatives, including the possible results of not undergoing the procedure. He was positioned in the left lateral decubitus position. Transrectal ultrasonography was carried out using the 7.0 megahertz probe. The prostate volume was then measured in the height, width, length dimensions for a total volume of 35.28 grams. Stepwise evaluation was then carried from the base of the apex of the prostate. Findings: - moderate BPH with mild intravesical extension - marked and numerous calcifications - no obvious hypoechoic area Comments: high median bar; median lobe 0.6 x 1.3 x 1.1cm into bladder The patient was given the usual post-procedure precautions regarding bleeding, infection, fever, pain and other problems. documented in this encounter Plan of Treatment Upcoming Encounters Date Type Specialty Care Team Description 08/08/2022 Office Visit General Surgery Ish Hall MD [address] [place] [address] [phone] (Tristian knott) 09/09/2022 Office Visit Urology Richard Meyer MD [address] [place] [phone] (Tristian knott) 10/07/2022 Appointment 10/14/2022 Hospital Encounter General Surgery Richard Meyer MD [address] [place] [phone] (Tristian knott) 10/14/2022 Surgery General Surgery Richard Meyer EPIDIDYME CTSeamus ARIZMENDI MD UNILATERAL [[id number] [facility] [address] [place] [phone] (Wo rk) 10/28/2022 Post-op Visit Urology Richard Meyer MD [address] [phone] (Wo rk) 11/25/2022 Office Visit Urology Richard Meyer MD [address] [phone] (Wo rk) Scheduled Procedures Name Priority Associated Diagnoses Date/Time EPIDIDYMECTOMY, UNILATERAL Epididymitis 10/14 12:30 EST documented as of this encounter Procedures Procedure Name Priority Date/Time Associated Diagnosis Comme nts UROLOGY BLADDER Routine 09/22/2018 11:28 BPH with urinary Resu lts for this SCAN EST obstruction procedure are i n the results section. POCT URINE Routine 09/22/2018 11:27 BPH with urinary Results for this DIPSTICK, CLINITEK EST obstruction procedure are in the results section. documented in this encounter Results UROLOGY BLADDER SCAN (09/22/2018 11:28 EST) P athologist Signature Bladder Scan 8cc POINT OF CARE [facility] Specimen (Source) Anatomical Location Collection Method / Collectio n Time Received Time / Laterality Volume Urine (substance) Richard Meyer MD UROLOGY ORDERABLES Performing Organization Address City/State/ZIP Code Phon e Number [facility] POINT OF CARE POINT OF CARE [facility] (ABNORMAL) POCT URINE DIPSTICK, CLINITEK (09/22/2018 11:27 EST) [facility] gist Method Time Signature Color YELLOW Yellow 09/22/2018 [facility] 11:34 EST [facility] Clarity, UA Clear Clear 09/22/2018 [facility] 11:34 EST [facility] Glucose Neg Neg 09/22/2018 [facility] 11:34 EST [facility] Bilirubin Neg Neg 09/22/2018 [facility] 11:34 [facility] Ketones Neg Neg 09/22/2018 [facility] 11:34 EST [facility] Specific Holcomb 1.025 1.001 - 09/22/2018 [facility] 1.035 11:34 [facility] Blood Trace (A) Neg 09/22/2018 [facility] 11:34 [facility] pH 5.0 4.6 - 8.0 09/22/2018 [facility] 11:34 [facility] Protein Neg Neg 09/22/2018 [facility] 11:34 [facility] Urobilinogen 0.2 0.2 - 1.0 09/22/2018 [facility] mg/dL 11:34 [facility] Nitrite Neg Neg 09/22/2018 [facility] 11:34 [facility] Leuk Esterase 2+ (A) Neg 09/22/2018 [facility] 11:34 [facility] LAB[facility] recycling attendant ID [id number] 09/22/2018 [facility] 11:34 [facility] Comment: Test performed at [facility] Specimen Anatomical Collection Method Collection Time Receive d Time (Source) Location / / Volume Laterality Urine URINE / Unknown 09/22/2018 11:27 09/22/19 19 (substance) EST 11:34 EST Richard Meyer MD POINT OF CARE TEST ORDERABLE S Performing Organization Address City/State/ZIP Code Phon e Number [facility] [address] [place] [address] SERVICES documented in this encounter Visit Diagnoses Diagnosis BPH with urinary obstruction - Primary Hypertrophy of prostate with urinary obs truction and other lower urinary tract symptoms (LUTS) Epididymitis Orchitis and epididymitis, unspecified documented in this encounter Historical Medications This list may reflect changes made after this encounter. Medication Sig Dispensed Refills Start Date End Date pindolol (VISKIN) 5 mg Take 5 mg by mouth 0 06/15/2019 tablet 2 times daily. finasteride (PROSCAR) 5 mg Take 5 mg by mouth 0 06/13/2020 tablet daily. tamsulosin (FLOMAX) 0.4 mg Take 0.4 mg by 0 12/13/2019 capsule mouth daily. added in this encounter Care Teams Film Casting Operator Relationship Specialty Start Date End Date Nathaniel Smith MD PCP - General 04/21/17 05/03/21 [address] [place] [address] documented as of this encounter
--- OUTSIDE RECORDS SUMMARY | 2022-08-01 15:58 | XMS_ITS | Encounter Summary ---
:1950 Author Organization [facility] Address [address] [place] [address] Care Team Providers Name Role Phone Nathaniel Smith MD Primary Care Provider Reason for Visit Reason Onset Date Comments New Patient Visit 04/21/2017 afib Encounter Details Date Type Department Care Team Description 04/21/2017 Telephone [facility] Nathaniel Smith, Ne w Patient Visit Cardiology - Aleksander MOJICA (afib) [address] [place], [place] [phone] Social History Tobacco Use Types Packs/Day Years Used Date Smoking Tobacco: Former Smokeless Tobacco: Never Sex Assigned at Date Recorded Male 06/20/2022 18:06 EDT documented as of this encounter Miscellaneous Notes Telephone Encounter - Abel Diamond - 04/21/2017 1658 EDT Spoke with patient's and have scheduled patient for an appointment tomorrow, 04/22, with Dr. Baumann. Patient will call in the morning if this appointment time does not work. Telephone Encounter - Harry Berna - 04/21/2017 1022 EDT Jyoti is faxing notes to [phone], pt was previously schedule for NPV w/ capeless 06/02/17 for AFIB, however was recently seen @ [facility] ER and there are notes being scanned in from Dr. Mckeon, Dr. Smith his PCP wants him to get in MICHELLE w/ any EP documented in this encounter Plan of Treatment Upcoming Encounters Date Type Specialty Care Team Description 08/08/2022 Office Visit General Surgery Ish Hall MD [address] [place] [phone] (Wo rk) 09/09/2022 Office Visit Urology Richard Meyer MD [address] [place] [phone] (Wo rk) 10/07/2022 Appointment 10/14/2022 Hospital Encounter General Surgery Richard Meyer MD [address] [place] [phone] (Wo rk) 10/14/2022 Surgery General Surgery Richard Meyer EPIDIDYME CTOMYSeamus MD UNILATERAL [[id number] [address] [place] (CPT??)] [address] [phone] (Wo rk) 10/28/2022 Post-op Visit Urology Richard Meyer MD [address] [place] [phone] (Wo rk) 11/25/2022 Office Visit Urology Richard Meyer MD [address] [place] [phone] (Wo rk) Scheduled Procedures Name Priority Associated Diagnoses Date/Time EPIDIDYMECTOMY, UNILATERAL Epididymitis 10/14 12:30 EST documented as of this encounter Visit Diagnoses Not on filedocumented in this encounter Care Teams Ultra Sound Technician Relationship Specialty Start Date End Date Nathaniel Smith MD PCP - General 04/21/17 05/03/21 [address] [place] [address] documented as of this encounter
--- OUTSIDE RECORDS SUMMARY | 2022-08-01 15:58 | XMS_ITS | Encounter Summary ---
:[address] [facility] Address [address] [place] [address] Care Team Providers Name Role Phone Nathaniel Smith MD Primary Care Provider Reason for Visit Reason Onset Date Comments Other 06/06/2017 Waiting for tikosyn call Encounter Details Date Type Department Care Team Description 06/06/2017 Telephone [facility] Ashly Pino, Other (Waiting for Cardiology - Aleksander LANG tikosyn call) [address] [place], [place] [address] Social History Tobacco Use Types Packs/Day Years [...] of a physical, mental, or emotional condition, do No 06/06/2017 you have difficulty doing errands alone such as visiting a doctor's office or shopping? (15 years old or older) Cognitive Status Response Date of Assessment Because of a physical, mental, or emotional condition, do No 06/06/2017 you have serious difficulty concentrating, remembering, or making decisions? (5 years old or older) documented as of this encounter Miscellaneous Notes Telephone Encounter - Ashly Pino, RN - 06/06/2017 1445 EDT Pt calling about EA for Rachele today. He is anxious and wants to know when he is coming in. He was told to be prepared and we would call him. Spoke with Bed reservation and they will check the discharges on [place] and let the pt know. documented in this encounter Plan of Treatment Upcoming Encounters Date Type Specialty Care Team Description 08/08/2022 Office Visit General Surgery Ish Hall MD [address] [place] [phone] (Wo rk) 09/09/2022 Office Visit Urology Richard Meyer MD [address] [place] [phone] (Wo rk) 10/07/2022 Appointment 10/14/2022 Hospital Encounter General Surgery Richard Meyer MD [address] [place] [phone] (Wo rk) 10/14/2022 Surgery General Surgery Richard Meyer EPIDIDYME CTSeamus ARIZMENDI MD UNILATERAL [[id number] [address] [place] (CPT??)] [address] [phone] (Wo rk) 10/28/2022 Post-op Visit Urology Richard Meyer MD [address] [place] [phone] (Wo rk) 11/25/2022 Office Visit Urology Richard Meyer MD [address] [place] [address], [address] [place] [phone] (Wo rk) Scheduled Procedures Name Priority Associated Diagnoses Date/Time EPIDIDYMECTOMY, UNILATERAL Epididymitis 10/14 12:30 EST documented as of this encounter Visit Diagnoses Not on filedocumented in this encounter Care Teams Risk Management Specialist Relationship Specialty Start Date End Date Nathaniel Smith MD PCP - General 04/21/17 05/03/21 [address] [place] [address] documented as of this encounter
--- OUTSIDE RECORDS SUMMARY | 2022-08-01 15:58 | XMS_ITS | CCD ---
:1950 Author Care Team Providers Name Role Phone ROCÍO MENDEZ Attending Physician Unavailable Vital Signs Unknown [...] Encounters Encounter Diagnosis Diagnosis Code Start Date Erectile dysfunction [id number] 04/18/2021 Social History Smoking Status Code Start Date End Date Former smoker [id number] Patient Decision Aids Unknown or Not Available. Discharge Instructions You were admitted to [facility] on 04/18/2021 08:53 with a principal diagnosis of Male erectile dysfunction, unspecified You had the following tests done: TESTO STERONE TOTAL You were discharged from [facility] on 04/18/2021 08:53 Should you have any [...]
--- OUTSIDE RECORDS SUMMARY | 2022-08-01 15:58 | XMS_ITS | CCD ---
:1950 Author Care Team Providers Name Role Phone SANDRA ANDRES Attending Physician Unavailable Vital Signs Unknown or Not Available. Allergies Allergy Code Allergy Type Reaction Status No Known Drug Allergies 0 No known drug allergies Active Procedures Unknown or Not Available. History of Immunizations Unknown or Not Available. Problems Unknown or Not Available. Results PSA SCREENING ANTIGEN TOTAL - Collect Da te/Time: 04/18/2021 09:37 Test Name Code Test Result Test Units Test Ref Range PSA 2857-1 1.55 ng/mL L=0.00 H=4.50 Active Medications Unknown or Not Available. Medications Administered During Visit Unknown or Not Available. Encounters Encounter Diagnosis Diagnosis Code Start Date Screening for malignant neoplasm of prostate [id number] 04/18/2021 Social History Smoking Status Code Start Date End Date Former smoker [id number] Patient Decision Aids Unknown or Not Available. Discharge Instructions You were admitted to [facility] on 04/18/2021 08:49 with a principal diagnosis of Encounter for screening for malignant neoplasm of prostate You had the following tests done: PSA S CREENING ANTIGEN TOTAL You were discharged from [facility] on 04/18/2021 08:49 Should you have any questions prior to [...]
--- OUTSIDE RECORDS SUMMARY | 2022-08-01 15:58 | XMS_ITS | Encounter Summary ---
:1950 Author Organization [facility] Address [address] [place] [address] Care Team Providers Name Role Phone Nathaniel Smith MD Primary Care Provider Reason for Visit Reason Comments Atrial Fibrillation Encounter Details Date Type Department Care Team Description 09/30/2017 Office Visit [facility] Yahir Baumann atrial fibrillation (CMS-HCC) (HCC-CMS) (Primary Dx); Cardiology - Domi Red MD PhD H/O maze procedure; [address] [place] On amiodarone therapy [place], [place] [address] [place] [address], [facility] [address] [place] [address] (Wo rk) Social History Tobacco Use Types Packs/Day Years Used Date Smoking Tobacco: Former Cigarettes 0.5 10/1969 - 06/03/2002 Smokeless Tobacco: Never Sex Assigned at Date Recorded Male 06/20/2022 18:06 EDT documented as of this encounter Last Filed Vital Signs Vital Sign Reading Time Taken Comments Blood Pressure 112/70 09/30/2017 1330 EST Pulse 56 09/30/2017 1330 EST Irregular Temperature - - Respiratory Rate - - Oxygen Saturation - - Inhaled Oxygen Concentration - - Weight 78 kg (172 lb) 09/30/2017 1330 EST Height 177.8 cm (5' 10) 09/30/2017 1330 EST Body Mass Index 24.68 09/30/2017 1330 EST documented in this encounter Functional Status [...] as of this encounter Discharge Diagnoses Diagnosis I48.1 PERSISTENT ATRIAL FIBRILATION[ICD- 10-CM] Z98.890 Other specified postprocedural s tates-Z98.890[ICD-10-CM] Z79.899 Other prison (current) drug t herapy-Z79.899[ICD-10-CM] documented in this encounter Patient Instructions Patient InstructionsYahir Baumann MD - 09/30/2017 13:40 EST 1. SHANIA Cardioversion would be reasonable jaylon from pov of looking at remnant of the left atrial appendectomy 2. Continue eliquis for now 3. If you wish to see me again please call Ashly Pino at [phone] documented in this encounter Discharge Disposition Disposition Code Departure Means Destination Auto Discharge documented in this encounter Progress Notes Yahir Baumann MD - 09/30/2017 1340 EST Leon Cardona is a 67 y.o.yo male presenting in clinic today s/p Phillips Mini- Maze and atrial ? Clipping v snipping in [place] early August with recurrent AF/AFL here to discuss next steps. . Chief Complaint Patient presents with ??? Atrial Fibrillation Past Medical History: Diagnosis Date ??? Atrial fibrillation (CMS-HCC) ??? Epilepsy (CMS-HCC) ??? Heart failure with reduced ejection fraction (CMS-[facility]) Patient Active Problem List Diagnosis Date Noted ??? Persistent atrial fibrillation ([facility]) 06/06/2017 Priority: Medium ??? Achilles tendonitis 05/17/2014 [...] 06/06/2017 BUN ??? Number for problems 06/06/2017 [id number] ??? Accession number 06/06/2017 [id number] BUN ??? BUN 06/06/2017 19 ??? Hemoglobin [...] it reasonable on eliquis to get a SHANIA, get a good look at the appendage [...] MD 09/30/2017 14:08 documented in this encounter Plan of Treatment Upcoming Encounters Date Type Specialty Care Team Description 08/08/2022 Office Visit General Surgery Ish Hall MD [address] [place] [phone] (Wo rk) 09/09/2022 Office Visit Urology Richard Meyer MD [address] [place] [phone] (Tristian rk) 10/07/2022 Appointment 10/14/2022 Hospital Encounter General Surgery Richard Meyer MD [address] [place] [phone] (Wo rk) 10/14/2022 Surgery General Surgery Richard Meyer Charles, MD UNILATERAL [[id number] [address] [place] (CPT??)] [address] [phone] (Wo rk) 10/28/2022 Post-op Visit Urology Richard Meyer MD [address] [place] [phone] (Wo rk) 11/25/2022 Office Visit Urology Richard Meyer MD [address] [phone] (Wo rk) Scheduled Procedures Name Priority Associated Diagnoses Date/Time EPIDIDYMECTOMY, UNILATERAL Epididymitis 10/14 12:30 EST documented as of this encounter Procedures Procedure Name Priority Date/Time Associated Diagnosis Comme nts ECG REPORT - 10/02/2017 11:39 SCANNED EST EKG 12-LEAD Routine 09/30/2017 13:40 Persistent atrial Result s for this EST fibrillation procedure are i n ([facility]-HCC) (HCC-C MS) the results H/O maze procedu re section. On amiodarone therapy documented in this encounter Results ECG REPORT - SCANNED (10/02/2017 11:39 EST) Specimen (Source) Anatomical Collection Method Collection Time Re ceived Time Location / / Volume Laterality 10/02/2017 11:39 EST Narrative This result has an attachment that is no t available. Scan 2 Stock Dealer PROCEDURE/MINOR SURGICAL ORD ERABLES EKG 12-LEAD (09/30/2017 13:40 EST) Specimen (Source) Anatomical Collection Method Collection Time Re ceived Time Location / / Volume Laterality 09/30/2017 13:40 EST Narrative [facility] EKG - 10/02/2017 11:3 3 EST ? [facility] ? Test Date: ?2017-09-30 Pat Name: ? LEON CARDONA ? Department: ?? DOMI FRY ? Room: ? Gender: ? M ?Foot Cutter: ?? [id number] : ?1950 ? Requested By: CAROL ANN DE LRIO Lyla Order Number: [id number] ? Aruna MD: ?? CELSO RAYGOZA MD ? Measurements Intervals ?[place] ? Rate: ? 93 ? P: ? [place]: ? 0 ?QRS: ?-14 QRSD: ? 130 ?T: ?-58 QT: ? 409 ? QTc: ?511 ? Interpretive Statements ATRIAL FLUTTER WITH VARIABLE AV BLOCK INDETERMINATE AXIS INTRAVENTRICULAR CONDUCTION DELAY NONSPECIFIC T-WAVE ABNORMALITY Compared to ECG 06/09/2017 11:07:17 Indeterminate axis now present Intraventricular conduction delay now pr esent T-wave abnormality now present Sinus bradycardia no longer present I reviewed the tracing and have either a greed or edited the findings in this report. Electronically Signed On 11:33:41 EST by CELSO RAYGOZA MD. Procedure Note Celso Raygoza MD - 10/02/2017Formatt ing of this note might be different from the original. [facility] Test Date: 2017-09-30 Pat Name: LEON CARDONA Department: JERRI FRY Room: Gender: Foot Cutter: [id number] : 1950 Requested By: CAROL ANN Arita Order Number: [id number] Reading MD: Jacinto RAYGOZA MD Measurements Intervals [place] Rate: 93 P: [place]: 0 QRS: -14 QRSD: 130 T: -58 QT: 409 QTc: 511 Interpretive Statements ATRIAL FLUTTER WITH VARIABLE AV BLOCK INDETERMINATE AXIS INTRAVENTRICULAR CONDUCTION DELAY NONSPECIFIC T-WAVE ABNORMALITY Compared to ECG 06/09/2017 11:07:17 Indeterminate axis now present Intraventricular conduction delay now pr esent T-wave abnormality now present Sinus bradycardia no longer present I reviewed the tracing and have either a greed or edited the findings in this report. Electronically Signed On 11:33:41 EST by CELSO RAYGOZA MD. Yahir Baumann MD PhD CARDIAC ECG ORDERABL ES Performing Organization Address City/State/ZIP Code Phon e Number [facility] EKG documented in this encounter Visit Diagnoses Diagnosis Persistent atrial fibrillation (HCC) - P rimary Atrial fibrillation H/O maze procedure Personal history of surgery to heart and great vessels, presenting hazards to health On amiodarone therapy Epididymitis Orchitis and epididymitis, unspecified documented in this encounter Historical Medications This list may reflect changes made after this encounter. Medication Sig Dispensed Refills Start Date End Date amiodarone (PACERONE) 200 Take 200 mg by mouth 0 06/15/2019 mg tablet 2 times daily. added in this encounter Care Teams Emergency Department Rn Relationship Specialty Start Date End Date Nathaniel Smith MD PCP - General 04/21/17 05/03/21 [address] [place] [address] documented as of this encounter
--- OUTSIDE RECORDS SUMMARY | 2022-08-01 15:58 | XMS_ITS | Encounter Summary ---
:[address] [facility] Address [address] [place] [address] Care Team Providers Name Role Phone Yaya Sinha MD Primary Care Provider Unavailable Nathaniel Smith MD Primary Care Provider Encounter Details Date Type Department Care Team Description 01/22/2016 Historical Results [facility] - Richard Callaway, Only [facility] - [address] [facility] [address] [place] [address] [place], [place] [phone] (Wo rk) Social History Tobacco Use Types Packs/Day Years Used Date Smoking Tobacco: Former Smokeless Tobacco: Never Sex Assigned at Date Recorded Male 06/20/2022 18:06 EDT documented as of this encounter Plan of Treatment Upcoming Encounters Date Type Specialty Care Team Description 08/08/2022 Office Visit General Surgery Ish Hall MD [address] [phone] (Wo rk) 09/09/2022 Office Visit Urology Richard Meyer MD [address] [phone] (Wo rk) 10/07/2022 Appointment 10/14/2022 Hospital Encounter General Surgery Richard Meyer MD [address] [phone] (Wo rk) 10/14/2022 Surgery General Surgery Richard Meyer CTSeamus ARIZMENDI MD UNILATERAL [[id number] [address] [place] (CPT??)] [address] [phone] (Wo rk) 10/28/2022 Post-op Visit Urology Richard Meyer MD [address] [place] [phone] (Wo rk) 11/25/2022 Office Visit Urology Richard Meyer MD [address] [place] [phone] (Wo rk) Scheduled Procedures Name Priority Associated Diagnoses Date/Time EPIDIDYMECTOMY, UNILATERAL Epididymitis 10/14 12:30 EST documented as of this encounter Procedures Procedure Name Priority Date/Time Associated Diagnosis Comme [facility] SURGICAL PATHOLOGY Routine 01/22/2016 Results f or this procedure are i n the results section . documented in this encounter Results SURGICAL PATHOLOGY (01/22/2016) Specimen (Source) Anatomical Collection Method Collection Time Re ceived Time Location / / Volume Laterality 01/22/2016 01/22/2016 17:2 4 EDT [facility] - 016 11:03 EDT Name: LEON CARDONA ? : [birth year] ?Age/Sex: 68/M ?Unit#: [id number] ? Loc: END ? Status: DEP CLI ?? Reg Date: 01/22/16 ? Pt.Phone Number : ? Specimen: [id number] ? STA TUS: SOUT ?Spec Date:01/22/16 ? Physician Copies: ?Richard Callaway MD ?? Tissues: A ?? Endoscopy specimen (COLON) ? Nathaniel Smith ?? CPT: 74423 ?? Units: ??1 ?FINAL DIAGNOSIS ? Colon, polyp, biopsy; ? - Tubular adenoma fragments. ? GROSS DESCRIPTION ? Received in formalin labeled with the patient's name and Colon polyps x 3 are ? five mucosal tissue fragments ran ging in size from 0.2 to 0.5 cm. es 1 NM ?? PREOP DX/CLINICAL HISTORY ?History of polyps Signed ____(signature on file)____ Jayjay Saab M.D. 01/24/16 By the signature above, the attending ph ysician certifies that he/she has personally conducted a gross and/or microscopic exa mination of the described specimens and rendered or confirmed the above diagnosi s. Test Performed by [facility], [address] [place] [address] Manager Ambulatory: Tierra Wang MD PHD Richard Callaway MD PATHOLOGY ORDERABLES Performing Organization Address City/State/ZIP Code Phon e Number [facility] [address] [place] [address] LAB documented in this encounter Visit Diagnoses Not on filedocumented in this encounter Care Teams Ball Sorter Relationship Specialty Start Date End Date Yaya Sinha MD PCP - General 04/22/14 Nathaniel Smith MD PCP - General 04/21/17 05/03/21 [facility] [address] [place], [place] [id number] documented as of this encounter
--- OUTSIDE RECORDS SUMMARY | 2022-08-01 15:58 | XMS_ITS | Encounter Summary ---
:1950 Author Organization [facility] Address [address] [place] [address] Care Team Providers Name Role Phone Yaya Sinha MD Primary Care Provider Unavailable Encounter Details Date Type Department Care Team Description 01/22/2016 Hospital Encounter [facility] - Unknown, [facility] [phone] [place] [address] (Work) [place] [address] Social History Tobacco Use Types Packs/Day Years Used Date Smoking Tobacco: Former Smokeless Tobacco: Never Sex Assigned at Date Recorded Male 06/20/2022 18:06 EDT documented as of this encounter Medications at Time of Discharge Medication Sig Dispensed Refills Start Date End Date ibuprofen (MOTRIN) 200 mg Take 400 mg by mouth 0 06/03/2017 tablet as needed for Pain. documented as of this encounter Discharge Disposition Disposition Code Departure Means Destination Home or Self Retirement documented in this encounter Plan of Treatment Upcoming Encounters Date Type Specialty Care Team Description 08/08/2022 Office Visit General Surgery Ish Hall MD [address] [phone] (Wo rk) 09/09/2022 Office Visit Urology Richard Meyer MD [address] [phone] (Wo rk) 10/07/2022 Appointment 10/14/2022 Hospital Encounter General Surgery Richard Meyer MD [address] [phone] (Wo rk) 10/14/2022 Surgery General Surgery Richard Meyer EPIDIDYME CTOMYSeamus MD UNILATERAL [[id number] [address] [place] (CPT??)] [address] [phone] (Wo rk) 10/28/2022 Post-op Visit Urology Richard Meyer MD [address] [place] [phone] (Wo rk) 11/25/2022 Office Visit Urology Richard Meyer MD [address] [place] [phone] (Wo rk) Scheduled Procedures Name Priority Associated Diagnoses Date/Time EPIDIDYMECTOMY, UNILATERAL Epididymitis 10/14 12:30 EST documented as of this encounter Visit Diagnoses Not on filedocumented in this encounter Care Teams Bait Man Relationship Specialty Start Date End Date Yaya Sinha MD PCP - General 04/22/14 documented as of this encounter
--- OUTSIDE RECORDS SUMMARY | 2022-08-01 15:58 | XMS_ITS | CCD ---
[...] Encounter Diagnosis Diagnosis Code Start Date Aftercare [id number] 04/17/2021 Social History Smoking Status Code Start Date End Date Former smoker [id number] Patient Decision Aids Unknown or Not Available. Discharge Instructions You were admitted to [facility] on 04/17/2021 09:56 with a principal diagnosis of Aftercare following joint r eplacement surgery You were discharged from [facility] on 04/17/2021 09:56 Should you have any [...]
--- OUTSIDE RECORDS SUMMARY | 2022-08-01 15:58 | XMS_ITS | Encounter Summary ---
:1950 Author Organization [facility] Address [address] [place] [address] Care Team Providers Name Role Phone Nathaniel Smith MD Primary Care Provider Encounter Details Date Type Department Care Team Description 11/23/2018 Hospital Encounter [phone] [place] [address] (Work) [place] [address] Social History Tobacco Use Types Packs/Day Years [...] mg by mouth 0 06/13/2020 tablet daily. levETIRAcetam (KEPPRA) 500 Take 250 mg by 0 06/15/2019 mg tablet mouth 2 times daily. metoprolol XL (TOPROL-XL) Take 25 mg by 0 06/15/2019 25 mg tablet mouth daily. pindolol (VISKIN) 5 mg Take 5 mg by mouth 0 06/15/2019 tablet 2 times daily. tamsulosin (FLOMAX) 0.4 mg Take 0.4 mg by 0 12/13/2019 capsule mouth daily. documented as of this encounter Discharge Disposition Disposition Code Departure Means Destination Home or Self Long Term documented in this encounter Plan of Treatment Upcoming Encounters Date Type Specialty Care Team Description 08/08/2022 Office Visit General Surgery Ish Hall MD [address] [phone] (Wo rk) 09/09/2022 Office Visit Urology Richard Meyer MD [address] [place] [phone] (Wo rk) 10/07/2022 Appointment 10/14/2022 Hospital Encounter General Surgery Richard Meyer MD [address] [phone] (Wo rk) 10/14/2022 Surgery General Surgery Richard Meyer Charles, MD UNILATERAL [[id number] [address] [place] (CPT??)] [address] [phone] (Wo rk) 10/28/2022 Post-op Visit Urology Richard Meyer MD [address] [place] [phone] (Wo rk) 11/25/2022 Office Visit Urology Richard Meyer MD [address] [place] [phone] (Wo rk) Scheduled Procedures Name Priority Associated Diagnoses Date/Time EPIDIDYMECTOMY, UNILATERAL Epididymitis 10/14 12:30 EST documented as of this encounter Visit Diagnoses Not on filedocumented in this encounter Care Teams Transport Truck Driver Relationship Specialty Start Date End Date Nathaniel Smith MD PCP - General 04/21/17 05/03/21 [address] [place] [address] documented as of this encounter
--- OUTSIDE RECORDS SUMMARY | 2022-08-01 15:58 | XMS_ITS | Encounter Summary ---
:1950 Author Organization [facility] Address [address] [place] [address] Care Team Providers Name Role Phone Nathaniel Smith MD Primary Care Provider Encounter Details Date Type Department Care Team Description 06/06/2017 - [facility] Jovany Airza MD [address] [phone] Chronic atrial fibrillation (CMS-HCC) (H CC-CMS) (Primary Dx); 06/09/2017 Encounter Cardiac/Telemetry Yahir Baumann MD PhD [address] [phone] Persistent atrial fibrillation (CMS-HCC) (HCC-CMS) [address] [place], [place] [id number] Social History Tobacco Use Types Packs/Day Years Used Date Smoking Tobacco: Former Cigarettes 0.5 10/1969 - 06/03/2002 Smokeless Tobacco: Never Sex Assigned at Date Recorded Male 06/20/2022 18:06 EDT documented as of this encounter Last Filed Vital Signs Vital Sign Reading Time Taken Comments Blood Pressure 96/62 06/09/2017 1359 EDT Pulse 87 06/08/2017 0944 EDT Temperature 35.9 ??C (96.6 ??F) 06/09/2017 1130 EDT Respiratory Rate 13 06/09/2017 1130 EDT Oxygen Saturation 100% 06/09/2017 1130 EDT Inhaled Oxygen Concentration - - Weight 72.6 kg (160 lb) 06/06/2017 1700 EDT Height 177.8 cm (5' 10) 06/06/2017 1700 EDT Body Mass Index 22.96 06/06/2017 1700 EDT documented in this encounter Functional Status [...] or older) documented as of this encounter Discharge Diagnoses Diagnosis I48.1 PERSISTENT ATRIAL FIBRILATION[ICD- 10-CM] I50.22 Chronic systolic (congestive) hea rt failure-I50.22[ICD-10-CM] G40.909 Epilepsy, unspecified, not intra ctable, without status epilepticus-G40.909[ICD-10-CM] Z79.01 half-way (current) use of antico agulants-Z79.01[ICD-10-CM] G47.30 Sleep apnea, unspecified-G47.30[I CD-10-CM] R00.1 Bradycardia, unspecified-R00.1[ICD -10-CM] Z87.891 Personal history of nicotine dep endence-Z87.891[ICD-10-CM] documented in this encounter Discharge Summaries Nicole Stanley NP - 06/06/2017 1803 EDT Cardiology Discharge Summary Primary Care Provider: Nathaniel Smith Attending Physician: Yahir Baumann MD Admit Date: 06/06/2017 Discharge Date:06/09/2017 Disposition: Home or self care Problems and Procedures Admitting Diagnosis: Chronic atrial fibrillation (HCC) Final Hospital Diagnosis: Persistent Atrial Fibrillation Additional Problems Managed in the Hospital Active Hospital Problems Diagnosis Date Noted ??? *Persistent atrial fibrillation (HCC) 06/06/2017 Resolved Hospital Problems Diagnosis Date Noted Date Resolved No resolved problems to display. Principal Procedure: DC Cardioversion Date: 06/09/2017 Secondary Procedures: Not applicable Hospital Course Leon Cardona is a 66 yo male with recently diagnosed Atrial fib 03/05/2017 , syncope, possible sleepapnea, possible seizure disorder. He presented to [facility] 03/05/17 after having an epsiode during the night that the noted he started shaking, was diaphoretic and per would be out for period of time and than woke up. He was noted to be in atrial fib with some rapid ventricular responseof unknown duration and appeared to be asymptomatic of atrial fib. He had an echocardiogram 03/06/2017LVEF 40-45%, mild-mod global hypokinesis of LV. He was started on Apixaban 5 mg twice a day, Lisinopril 2.5 mg daily and Metoprolol Xl 25 mg daily. He than had 2 episodes where he felt very lightheaded and suddenly blacked, which lasted 30 sec and had some shaking movements per his . The Lisinopril was discontinued and he has not had further episodes . He has been seen by a neurologist and started on Keppra per Dr. Walker 06/03/17 office note. He is being followed by Dr Mckeon at [facility], he doessnore and and he is currently undergoing a sleep apnea work up. He underwent dc cardioversion in June at [facility] but only sustained sinus rhytmn for a few minutes before reverting back to atrial fib.He was seen in consultation on 06/03/[address] Jacinto Walker and the plan is for elective admission to initiate dofetilide therapy to try and restore sinus rhythm. His cost for dofetiilide will be $100/month and he is agreeable with the cost. On 06/06/17 he was admitted in atrial fibrillation and was continued on Metoprolol XL 25 mg daily andanticoagulation with Apixaban 5 mg twice a day. He was started on Dofetilide 500 mcg every 12 hours and after third dose qtc increased and Dofetilide decreased to 250 mcg every 12 hours. 06/09 after 6th Dofetilide dose he was in atrial fib and underwent successful DC cardioversion from atrial fib to normal sinus rhythm with 125 joules biphasic shock. His post dccv and post 6th dofetilide dose ecg - sinus bradycardia acceptable qtc. He has been ambulating and denies lightheadedness, dizziness, dyspnea, palpitations,headache, chest discomfort. He will be taking Dofetilide 250 mcg mcg every 12 hours and continue Metoprolol XL 25 mg daily and Apixaban 5 mg twice a day Cardiology follow up on August 07, 2017 at [address] Jacinto Walker at the cardiology clinic of [facility]. Dofetilide Information This patient has been started on the antiarrhythmic medication Dofetilide, to help maintain NSR. Thepatient has been monitored for a total of 6 doses with no significant QT prolongation. There are some medications that are absolutely contraindicated with Dofetilide including; HCTZ, Cimetidine, Ketoconazole, Haldol, Magestrol, Verapamil and Bactrim. Some antibiotics should be avoided, particularly, Macrolides and Quinolones. Anti-emetics such as Compazine, Zofran and Reglan should also be avoided. Some SSRI???s can have a potential interaction. If the patient needs to be started on an anti- depressant the manager market development should be contacted. The patient will have a yearly cardiology visit and will need at a minimum a yearly EKG and check ofkidney function. You can access a list of QT prolonging medications on [email or web address]. Allergies and Immunizations No Known Allergies There is no immunization history on file for this patient. Transition of Care Plans Condition at Discharge Good Assessment at Discharge Vital signs: 06/09/2017 1359 BP 96/62 Pulse 66 Temp 35.9 ??C (96.6 ??F) (Tympanic) Resp 15 SpO2 100% Telemetry: atrial fib than underwent dccv sinus bradycardia 45- 60's Cor: rate, rhythm regular, S1S2 nl, no murmur, rub or gallop Lungs: Gaudencio clear to auscultation Ext: warm , no peripheral edema Neuro: grossly normal Mental status: awake, alert and oriented to person, place and time ECG : 06/09/2017 post dccv and 6th dofetilide 1107 HR 44 sinus bradycardia qtc 445 ms - reviewed withDr Baumann Discharge Medications: START taking these medications Sig dofetilide 250 mcg capsule Commonly known as: TIKOSYN Take 1 Cap by mouth every 12 hours. Quantity: 60 Cap CONTINUE taking these medications Sig ELIQUIS 5 mg tablet Generic drug: apixaban Take 5 mg by mouth 2 times daily. levETIRAcetam 500 mg tablet Commonly known as: KEPPRA Take 500 mg by mouth 2 times daily. metoprolol XL 25 mg tablet Commonly known as: TOPROL-XL Take 25 mg by mouth daily. Medication Instructions: You will be taking Dofetilide 250 mcg every 12 hours to try and keep you in sinus rhythm. You have received a 7 day supply from our inpatient pharmacist. A prescription has been sent to your [facility] pharmacy in [place] Continue Metoprolol XL 25 mg daily for heart rate control and Apixaban 5 mg every 12 hours which is your blood thinning medication. Dofetilide Information You have been started on the antiarrhythmic medication Dofetilide (Tikosyn), to help maintain normalsinus rhythm (NSR). You have been monitored for a total of 6 doses with no significant QT prolongation. There are some medications that are absolutely contraindicated with Dofetilide including; hydrochlorothiazide (HCTZ), Cimetidine, Ketoconazole, Haldol, Magestrol, Verapamil and Bactrim. Some antibiotics should be avoided, particularly, Macrolides (Erythromycin, Azithromycin) and Quinolones (Levaquin). Anti-nausea medications such as Compazine, Zofran and Reglan should also be avoided. Some anti-depressants (SSRI???s) can have a potential interaction. If you need to be started on an anti-depressant your manager market development should be contacted. You will have a yearly cardiology visit and will need at a minimum a yearly EKG and check of kidney function. You can access a list of QT prolonging medications on [email or web address]. Please tell all your providers you are taking Dofetilide prior to starting any new medication. Coumadin Management N/A Non-Cardiac Studies at Time of Discharge none Results Pending at Discharge Test results still pending from this admission None Last Lab Results at Discharge BUN: Lab Results Component Value Date BUN 20 06/08/2017 Creatinine: Lab Results Component Value Date CREATININE 0.74 06/08/2017 CBC: Lab Results Component Value Date WBC 7.91 06/06/2017 RBC 4.65 06/06/2017 HGB 15.7 06/06/2017 HCT 42.8 06/06/2017 MCV 92 06/06/2017 MCH 33.8 (H) 06/06/2017 MCHC 36.7 (H) 06/06/2017 PLT 238 06/06/2017 Electrolytes: Lab Results Component Value Date NA 140 06/08/2017 K 4.2 06/08/2017 CL 107 06/08/2017 CO2 24 06/08/2017 INR: No results found for: INR, PROTIME Lab Results Component Value Date HGBA1C 5.6 06/07/2017 Discharge Follow Up Appointments Scheduled with [facility] Upcoming Appointments Aug 07, 2017 12:00 EST Follow Up Return with Yaya Walker MD [facility] Cardiology - [facility] (--) [address] [place] [id number] Appointments Outside of [facility] We Will Schedule Follow-up appointments and procedures Cardiology follow up on August 07, 2017 at [address] Jacinto Walker at the cardiology clinic of [facility]. If you believe you have gone back into atrial fib or have symptoms similar to whenin atrial fib please contact Dr Walker nurse [facility] [place] number [phone] Nicole Stanley NP 06/09/2017 Associated attestation - Yahir Baumann MD PhD - 06/09/2017 1626 EDT Attending Attestation: I have seen and evaluated the patient. I have discussed the case and am in full agreement with the nurse practitioner's note above. Yahir Baumann MD PhD documented in this encounter Discharge Instructions MedicationsNicole Stanley NP - 06/06/2017 18:05 EDT You will be taking Dofetilide 250 mcg every 12 hours to try and keep you in sinus rhythm. You have received a 7 day supply from our inpatient pharmacist. A prescription has been sent to your [facility] pharmacy in [place] Continue Metoprolol XL 25 mg daily for heart rate control and Apixaban 5 mg every 12 hours which is your blood thinning medication. Dofetilide Information You have been started on the antiarrhythmic medication Dofetilide (Tikosyn), to help maintain normalsinus rhythm (NSR). You have been monitored for a total of 6 doses with no significant QT prolongation. There are some medications that are absolutely contraindicated with Dofetilide including; hydrochlorothiazide (HCTZ), Cimetidine, Ketoconazole, Haldol, Magestrol, Verapamil and Bactrim. Some antibiotics should be avoided, particularly, Macrolides (Erythromycin, Azithromycin) and Quinolones (Levaquin). Anti-nausea medications such as Compazine, Zofran and Reglan should also be avoided. Some anti-depressants (SSRI???s) can have a potential interaction. If you need to be started on an anti-depressant your manager market development should be contacted. You will have a yearly cardiology visit and will need at a minimum a yearly EKG and check of kidney function. You can access a list of QT prolonging medications on [email or web address]. Please tell all your providers you are taking Dofetilide prior to starting any new medication. Discharge Instr - ActivityNicole Stanley NP - 06/09/2017 13:25 EDT DISCHARGE INSTRUCTIONS FOR PATIENTS WHO HAVE HAD CARDIOVERSION/NIPS 1. Resume normal activity in 24 hours. 2. Do not operate any motorized vehicles for 24 hours. AppointmentsNicole Stanley NP - 06/06/2017 18:05 EDT Cardiology follow up on August 07, 2017 at [address] Jacinto Walker at the cardiology clinic of [facility]. If you believe you have gone back into atrial fib or have symptoms similar to whenin atrial fib please contact Dr Walker nurse [facility] [place] number [phone] documented in this encounter Medications at Time of Discharge Medication Sig Dispensed Refills Start Date End Date apixaban (ELIQUIS) 5 mg Take 5 mg by mouth 0 06/15/2019 tablet 2 times daily. dofetilide (TIKOSYN) 250 Take 1 Cap by 60 Cap 3 06/09/20 17 06/20/2017 mcg capsule mouth every 12 hours. levETIRAcetam (KEPPRA) 500 Take 250 mg by 0 06/15/2019 mg tablet mouth 2 times daily. metoprolol XL (TOPROL-XL) Take 25 mg by 0 06/15/2019 25 mg tablet mouth daily. documented as of this encounter Ordered Prescriptions Prescription Sig Dispensed Refills Start Date End Date dofetilide (TIKOSYN) 250 Take 1 Cap by mouth 60 Cap 3 06/20/2017 mcg capsule every 12 hours. documented in this encounter Discharge Disposition Disposition Code Departure Means Destination Home or Self Care documented in this encounter Progress Notes Arielle Dove RN - 06/09/2017 1441 EDT CM DISCHARGE NOTE: Pt discharged prior to being met by CM. Chart reviewed; no d/c needs identified. Arielle Dove RN #[id number] Norma Hoover MD - 06/08/2017 0823 EDT Director Of Training Note Admit Date: 06/06/2017 Date of Service: 06/08/2017 Chief Complaint: Atrial fibrillation Events/ Procedures in the last 24 hrs: Decreased dofetilide dose Subjective: Mr. Cardona has no complaints today. Review of Systems: Pertinent items are noted in Subjective/HPI Objective: VS: Blood pressure 113/68, pulse 85, temperature 36.2 ??C (97.2 ??F), temperature source Tympanic, resp. rate 18, height 177.8 cm (70), weight 72.6 kg (160 lb), SpO2 100 %. Weight: No data found. I&O: No intake or output data in the 24 hours ending 06/08/17 0823 Exam: Gen: No distress, appears comfortable breathing room air HEENT: Moist mucosal membranes Neck: Unable to appreciate JVD CV: RRR, normal S1 and S2, no MRGs, no carotid bruits Pulm: Clear bilaterally, no wheezes, rales, or crackles Abd: Soft, non-tender/non-distended, normal bowel sounds Ext: No LE edema Neuro: AAOx3, CN II-XII intact, no focal deficits Skin: Skin normal color, texture and turgor, no lesions Lab Review: Recent Labs 06/06/17 1752 06/07/17 0632 06/08/17 0532 CREATININE 0.84 0.88 0.74 BUN 19 17 20 NA 143 143 140 K 4.3 4.4 4.2 CL 103 104 107 CO2 29 28 24 MG 2.3 -- -- Recent Labs 06/06/17 1752 WBC 7.91 HGB 15.7 HCT 42.8 MCV 92 PLT 238 Assessment: 66 y.o.male with a history of atrial fibrillation on apixaban, HFrEF 45%, recent syncope/seizure activity presents for elective dofetilide initiation for atrial fibrillation. Plan: Dofetilide Initiation for Atrial Fibrillation -decrease dose of dofetilide to 250 mg BID (prolonging QTc) -replete electrolytes Mg>2, K>4 -continue metoprolol XL 25 mg -NPO after midnight for possible cardioversion tomorrow -continue apixaban 5 mg BID -monitor telemetry Patient seen and discussed with Dr. Alice Hoover MD Director Of Training PGY-5 Pager #[phone] 06/08/2017 8:23 Associated attestation - Yahir Danielle Sa, MD - 06/08/2017 4409 EDT Attending Attestation: I saw and evaluated the patient. I discussed the case with the resident/GANG BORE OPERATOR/fellow and agree with thefindings and plan as documented above. Yaihr merlos Sa, MD Cardiac Electrophysiology documented in this encounter H&P Notes Norma Hoover MD - 06/06/2017 1738 EDT Images from the original note were not included. Cardiology Admission H&P PCP: Nathaniel Smith Talent Rep: Dr. Walker Date of Service: 06/06/2017 Subjective: Chief Complaint: atrial fibrillation HPI 66 y/o male with recently diagnosed Atrial fib 03/05/2017 , syncope, possible sleep apnea, possible seizure disorder. He presented to [facility] 03/05/17 after having an episode during the night that the noted he started shaking, was diaphoretic and per would be out for period of time and then woke up. He was noted to be in atrial fib with some rapid ventricular response of unknown duration and appeared to be asymptomatic of atrial fib. He had an echocardiogram 03/06/2017 LVEF 40-45%, mild-mod global hypokinesis of LV. He was started on Apixaban 5 mg twice a day, Lisinopril 2.5 mg daily and Metoprolol Xl 25 mg daily. He then had 2 episodes where he felt very lightheaded and suddenly blacked out, which lasted 30 sec and had some shaking movements per his . The Lisinopril was discontinued and he has not had further episodes . He has been seen by a neurologist and started on Priteshppra perDr. Walker 06/03/17 office note. He is being followed by Dr Mckeon at [facility], he does snore and he is currently undergoing a sleep apnea work up. He underwent dc cardioversion in June at [facility] but only sustained sinus rhytmn for a few minutes before reverting back to atrial fib. He was seen in consultation on 06/03/[address] Jacinto Walker and the plan is for elective admission to initiate dofetilidetherapy to try and restore sinus rhythm. He cost for dofetiilide will be $100/month and he is agreeable with the cost.Cardiology follow up on August 07, 2017 at [address] Jacinto Walker at the cardiology clinic of [facility]. Currently, he has no complaints but can feel that his pulse is slightly faster than usual. He reports two separate episodes of syncope, one with incontinence but without post-ictal confusion. He has been taking Keppra since these syncopal events, never had seizures prior to this. He also reports some episodes of bradycardia to 40's (pulse taken by who is an RN). Past Medical History: Diagnosis Date ??? Atrial fibrillation (HCC) ??? Epilepsy (HCC) ??? Heart failure with reduced ejection fraction (HCC) No past surgical history on file. Social History Social History [...] History Narrative No family history on file. No Known Allergies Home Medications: No current facility-administered medications on file prior to encounter. Current Outpatient Prescriptions on File Prior to Encounter Medication Sig Dispense Refill ??? apixaban (ELIQUIS) 5 mg tablet Take 5 mg by mouth 2 times daily. ??? levETIRAcetam (KEPPRA) 500 mg tablet Take 500 mg by mouth 2 times daily. ??? metoprolol XL (TOPROL-XL) 25 mg tablet Take 25 mg by mouth daily. Review of Systems: The remainder of the 10 point review of systems is negative. Objective: BP 127/83 (BP Cuff Location: Right arm, Patient Position: Standing) Pulse (!) 116 Temp 36.5 ??C (97.7 ??F) (Tympanic) Resp 16 Ht 177.8 cm (70) Wt 72.6 kg (160 lb) SpO2 99% BMI 22.96 kg/m2 Physical Exam: Blood pressure 127/83, pulse (!) 116, temperature 36.5 ??C (97.7 ??F), temperature source Tympanic, resp. rate 16, height 177.8 cm (70), weight 72.6 kg (160 lb), SpO2 99 %. Gen: No distress, appears comfortable breathing room air HEENT: Moist mucosal membranes Neck: Unable to appreciate JVD CV: Tachycardic, irregular, unable to appreciate murmurs Pulm: Clear bilaterally, no wheezes, rales, or crackles Abd: Soft, non-tender/non-distended, normal bowel sounds Ext: No LE edema Labs: CBC: Recent Labs 06/06/17 1752 WBC 7.91 RBC 4.65 HGB 15.7 HCT 42.8 MCV 92 MCH 33.8* MCHC 36.7* PLT 238 BMP: Recent Labs 06/06/17 1752 NA 143 K 4.3 CL 103 CO2 29 CREATININE 0.84 MG 2.3 estimated creatinine clearance is 90 mL/min (by C-G formula based on Cr of 0.84). ECG 06/06/2017 Atrial Fibrillation 92 bpm Assessment: 66 y.o. male with a history of atrial fibrillation on apixaban, HFrEF 45%, recent syncope/seizure activity presents for elective dofetilide initiation for atrial fibrillation. Plan: Dofetilide Initiation For Atrial Dysrhythmia: -start dofetilide 500 mcg BID -obtain EKG 2 hours after each dose (for total of first 6 doses of dofetilide) -each dose to be approved by EP fellow or ice cream dispenser paper control clerk -dose adjustments will be made following each ECG if QTc increased >15% compared to baseline or if QTc>500 (or 550 in ventricular conduction abnormalities) after 1st dose, will need to halve dose(or dc if at 125 mcg/BID), if any time after 2nd dose of dofetilide is given, QTc >500 msec then dofetilide should be DC'd -ensure no concurrent verapamil, HCTZ, cimetidine, trimethoprim, ketoconazole, prochlorperazine, megesterol, Class I or Class III antiarrythmics -currently taking metoprolol 25 mg, will continue at current dose for now -can give ambien, will stop if QTc prolonging -avoid QT prolonging medications if possible (eg. quinolones, anti-emetics) -daily creatinine, magnesium, potassium to assess renal function and ensure adequate electrolyte levels (K>4, Mg>2) -continue eliquis 5 mg BID -monitor telemetry for pauses FEN: NPO Friday night in case of need for cardioversion PPX: apixaban Lines: PIV PT/OT indicated?: no Code status: Full Dispo: likely home Friday afternoon Norma Hoover MD Director Of Training PGY-5 06/06/2017 19:41 Associated attestation - Yahir Danielle Sa, MD - 06/07/2017 0929 EDT Attending Attestation: I saw and evaluated the patient on 06/07/17. I discussed the case with the resident/GANG BORE OPERATOR/fellow and agree with the findings and plan as documented above. Yahir merlos Sa, MD Cardiac Electrophysiology documented in this encounter Procedure Notes Jaime Gomez MD - 06/09/2017 1021 EDT Electrophysiology Laboratory Final Report -- DC Cardioversion Electrophysiology Procedure Date of Service/Procedure: 06/09/2017 Attending Physician: Jaime Gomez MD Fellow: None Pre-Procedure Diagnosis/Indication: Leon Cardona is a 66 y.o. year old male Presents to [facility] in [place] 7 for dccv Anesthesia: General anesthesia was used.. Access: Other: peripheraq 20g Post-Procedure Condition: The condition of the patient was Good. Complications: None. Estimated Blood Loss: Minimal. Unless otherwise noted, there wereno specimens removed, cultures obtained, or drains retained. Clinical Trial: The patient is not enrolled in a clinical trial. Summary of Procedure: Successful DCCV from AF to NSR with a 125 joule biphasic shock. Post-ProcedureDiagnosis: atrial fibrillation Plan: see post-procedure orders and bedrest for 1 hour(s). no family present Post Procedure Follow Up: Patient to follow up with as schedule in as scheduled by inpatient service weeks Post Procedural Disposition:Return for recovery to [place] [id number] Reference: Hospitalization Criteria for Pacemaker and ICD Placement andEP/Ablation; Heart Rhythm Society; Revised January, Jaime Gomez MD 06/09/2017 10:21 documented in this encounter Miscellaneous Notes Plan of Care - Mark Hope RN - 06/09/2017 1419 EDT Problem: Daily Care Plan Goals Goal: Care Plan Documentation D: Pt admitted for dofetilide course; 6th dose today and continues in afib. Cardioversion this morning successful. Pt on tele; SB 50's. VSS, denies pain or distress. New order to d/c to home. A: Pt to receive d/c orders. R: Dressed and ready to d/c to home when arrives. Plan of Care - Mala Bettencourt RN - 06/08/2017 1422 EDT Problem: Daily Care Plan Goals Goal: Care Plan Documentation Outcome: Ongoing 06/08/17 0944 Care Plan Focus Area of Focus Circulatory Status Goal This Shift pt will tolerate Dofetolide dose #4 by remaining VSS Data: Assumed care at 0700, Afib, HR 90's at rest. Scheduled for dofetilide dose # 4. Denies CP and SOB. Action: Reviewed Dofetilide orders, administered 250 mcg of dofetilide, ordered post dofetilide EKG,and monitored tele. Response: The pt tolerated dofetilide well, VSS,, HR increased to 140's with ambulation. Had a 3 beat run of Vtach, he remained asymptomatic. Mala Bettencourt RN 06/08/2017 14:18 Plan of Care - Laurence Simms RN - 06/07/2017 2331 EDT Problem: Daily Care Plan Goals Goal: Care Plan Documentation Outcome: Ongoing 06/07/171999 Care Plan Focus Area of Focus Circulatory Status Goal This Shift stable vs Data: Care assumed at 1910. Patient A&Ox4. Independent. Afib 80s-110s on quality assurance monitor chassis; occasionally spikes to 140s with ambulation and rate recovers quickly. VSS. Patient admitted for dofetilide loading. Action: Medicated per OCT. See full assessment in Epic. Response: Patient resting in bed. Will continue to monitor patient with patient rounding. Laurence Simms RN 06/07/2017 23:29 Plan of Care - Mala Bettencourt RN - 06/07/2017 1806 EDT Problem: Daily Care Plan Goals Goal: Care Plan Documentation Outcome: Ongoing 06/07/17 1248 Care Plan Focus Area of Focus Circulatory Status Goal This Shift pt will tolerate Dofetolide dose 3 by remaining VSS Data: Assumed care at 0700, HR 90's afib, sating 97-99% on RA. Denies CP and SOB. Scheduled for second dose of dofetilide. Requesting coffee. Action: Reviewed order to give dofetilide, ensured post adminstration EKG was ordered, monitored tele, while encouraging ambulation. Requested coffee order. Response: Tolerated second dose of dofetilide well, ambulated around the unit independently, tolerated well. While ambulating the pt's HR briefly increases to 140's, when this happens he remains asymptotic. Mala Bettencourt RN 06/07/2017 18:01 Plan of Care - Marlene Lawrence RN - 06/07/2017 0536 EDT Problem: Daily Care Plan Goals Goal: Care Plan Documentation Outcome: Ongoing 06/06/17 2300 Care Plan Focus Area of Focus Circulatory Status Goal This Shift vss Data: BP 98/56 (BP Cuff Location: Right arm, Patient Position: Supine) Pulse (!) 116 Temp 37 ??C(98.6 ??F) (Tympanic) Resp 16 Ht 177.8 cm (70) Wt 72.6 kg (160 lb) SpO2 100% BMI 22.96 kg/m2 Assumed care 2300. Pt AOx3. Independent. VSS. Lung sounds clear. No complaints of pain or SOB. Afib on tele. Here for Dofetilide loading. Action: Assessed pt. Documented per protocol. EKG ordered. Clustered care to promote rest. Response: Pt had a sleepless night. Asymptomatic with Afib. Resting in bed. Will continue to monitor. Marlene Lawrence RN 06/07/2017 5:32 Plan of Care - Mala Bettencourt RN - 06/06/2017 1856 EDT Problem: Daily Care Plan Goals Goal: Care Plan Documentation Outcome: Ongoing 06/06/17 1700 Care Plan Focus Area of Focus Circulatory Status Goal This Shift Pt will remain VSS q shift D: Patient arrived to [place] [address]. Admitted for dofetilide. Vital signs noted, and tele applied. Patient in afib with heart rate in 110's. Patient denies chest pain, SOB, and discomfort. A; Assessment as documented in flow sheet. Admission database completed. Patient orientated to room,equipment, and care plan. R: Continue to monitor and document per protocol. HR increased to 140's with ambulation, remains asymptomatic. documented in this encounter Plan of Treatment Upcoming Encounters Date Type Specialty Care Team Description 08/08/2022 Office Visit General Surgery Ish Hall MD [address] [phone] (Wo rk) 09/09/2022 Office Visit Urology Richard Meyer MD [address] [place] [phone] (Wo rk) 10/07/2022 Appointment 10/14/2022 Hospital Encounter General Surgery Richard Meyer MD [address] [phone] (Wo rk) 10/14/2022 Surgery General Surgery Richard Meyer EPIDIDYME Seamus HINSON MD UNILATERAL [[id number] [address] (CPT??)] [address] [phone] (Wo rk) 10/28/2022 Post-op Visit Urology Richard Meyer MD [address] [phone] (Wo rk) 11/25/2022 Office Visit Urology Richard Meyer MD [address] [phone] (Wo rk) Scheduled Procedures Name Priority Associated Diagnoses Date/Time EPIDIDYMECTOMY, UNILATERAL Epididymitis 10/14 12:30 EST documented as of this encounter Procedures Procedure Name Priority Date/Time Associated Comments Diagnosis ECG REPORT - SCANNED 06/12/2017 16:17 EDT ECG REPORT - SCANNED 06/12/2017 13:49 EDT ECG REPORT - SCANNED 06/12/2017 13:49 EDT ECG REPORT - SCANNED 06/12/2017 7:20 EDT ECG REPORT - SCANNED 06/09/2017 16:39 EDT ECG REPORT - SCANNED 06/09/2017 16:39 EDT ECG REPORT - SCANNED 06/09/2017 16:39 EDT ECG REPORT - SCANNED 06/09/2017 16:37 EDT ECG REPORT - SCANNED 06/09/2017 11:43 EDT EKG 12-LEAD Routine 06/09/2017 11:07 Results for this EDT procedure are i n the results section. CARDIOVERSION Routine 06/09/2017 10:26 Results fo r this EDT procedure are i n the results section. POST DOFETILIDE EKG Routine 06/08/2017 23:11 Resu lts for this EDT procedure are i n the results section. POST DOFETILIDE EKG Routine 06/08/2017 12:01 Resu lts for this EDT procedure are i n the results section. BUN Routine 06/08/2017 5:32 Results for this EDT procedure are i n the results section. CREATININE Routine 06/08/2017 5:32 Results for this EDT procedure are i n the results section. ELECTROLYTES Routine 06/08/2017 5:32 Results for this EDT procedure are i n the results section. POST DOFETILIDE EKG Routine 06/07/2017 22:31 Resu lts for this EDT procedure are i n the results section. POST DOFETILIDE EKG Routine 06/07/2017 11:04 Resu lts for this EDT procedure are i n the results section. BUN Routine 06/07/2017 6:32 Results for this EDT procedure are i n the results section. HEMOGLOBIN A1C Routine 06/07/2017 6:32 Results fo r this EDT procedure are i n the results section. CREATININE Routine 06/07/2017 6:32 Results for this EDT procedure are i n the results section. ELECTROLYTES Routine 06/07/2017 6:32 Results for this EDT procedure are i n the results section. POST DOFETILIDE EKG Routine 06/06/2017 23:23 Resu lts for this EDT procedure are i n the results section. INPATIENT ADD-ON Routine 06/06/2017 19:25 Results for this EDT procedure are i n the results section. EKG 12-LEAD Routine 06/06/2017 18:38 Results for this EDT procedure are i n the results section. COMPLETE BLOOD COUNT Routine 06/06/2017 17:52 Res ults for this EDT procedure are i n the results section. BUN Routine 06/06/2017 17:52 Results for this EDT procedure are i n the results section. MAGNESIUM Routine 06/06/2017 17:52 Results for this EDT procedure are i n the results section. CREATININE Routine 06/06/2017 17:52 Results for this EDT procedure are i n the results section. ELECTROLYTES Routine 06/06/2017 17:52 Results for this EDT procedure are i n the results section. documented in this encounter Results ECG REPORT - SCANNED (06/12/2017 16:17 EDT) Specimen (Source) Anatomical Collection Method Collection Time Re ceived Time Location / / Volume Laterality 06/12/2017 16:17 EDT Narrative This result has an attachment that is no t available. Scan 2 Mechanical Integrity Engineer PROCEDURE/MINOR SURGICAL ORD ERABLES ECG REPORT - SCANNED (06/12/2017 13:49 EDT) Specimen (Source) Anatomical Collection Method Collection Time Re ceived Time Location / / Volume Laterality 06/12/2017 13:49 EDT Narrative This result has an attachment that is no t available. Scan 2 Mechanical Integrity Engineer PROCEDURE/MINOR SURGICAL ORD ERABLES ECG REPORT - SCANNED (06/12/2017 13:49 EDT) Specimen (Source) Anatomical Collection Method Collection Time Re ceived Time Location / / Volume Laterality 06/12/2017 13:49 EDT Narrative This result has an attachment that is no t available. Scan 2 Mechanical Integrity Engineer PROCEDURE/MINOR SURGICAL ORD ERABLES ECG REPORT - SCANNED (06/12/2017 7:20 EDT) Specimen (Source) Anatomical Collection Method Collection Time Re ceived Time Location / / Volume Laterality 06/12/2017 7:20 EDT Narrative This result has an attachment that is no t available. Scan 2 Mechanical Integrity Engineer PROCEDURE/MINOR SURGICAL ORD ERABLES ECG REPORT - SCANNED (06/09/2017 16:39 EDT) Specimen (Source) Anatomical Collection Method Collection Time Re ceived Time Location / / Volume Laterality 06/09/2017 16:39 EDT Narrative This result has an attachment that is no t available. Scan 2 Mechanical Integrity Engineer PROCEDURE/MINOR SURGICAL ORD ERABLES ECG REPORT - SCANNED (06/09/2017 16:39 EDT) Specimen (Source) Anatomical Collection Method Collection Time Re ceived Time Location / / Volume Laterality 06/09/2017 16:39 EDT Narrative This result has an attachment that is no t available. Scan 2 Mechanical Integrity Engineer PROCEDURE/MINOR SURGICAL ORD ERABLES ECG REPORT - SCANNED (06/09/2017 16:39 EDT) Specimen (Source) Anatomical Collection Method Collection Time Re ceived Time Location / / Volume Laterality 06/09/2017 16:39 EDT Narrative This result has an attachment that is no t available. Scan 2 Mechanical Integrity Engineer PROCEDURE/MINOR SURGICAL ORD ERABLES ECG REPORT - SCANNED (06/09/2017 16:37 EDT) Specimen (Source) Anatomical Collection Method Collection Time Re ceived Time Location / / Volume Laterality 06/09/2017 16:37 EDT Narrative This result has an attachment that is no t available. Scan 2 Mechanical Integrity Engineer PROCEDURE/MINOR SURGICAL ORD ERABLES ECG REPORT - SCANNED (06/09/2017 11:43 EDT) Specimen (Source) Anatomical Collection Method Collection Time Re ceived Time Location / / Volume Laterality 06/09/2017 11:43 EDT Narrative This result has an attachment that is no t available. Scan 2 Mechanical Integrity Engineer PROCEDURE/MINOR SURGICAL ORD ERABLES EKG 12-LEAD (06/09/2017 11:07 EDT) Specimen (Source) Anatomical Collection Method Collection Time Re ceived Time Location / / Volume Laterality 06/09/2017 11:07 EDT Narrative [facility] EKG - 06/12/2017 16:1 2 EDT ? [facility] ? Test Date: ?2017-06-09 Pat Name: ? LEON CARDONA ? Department: ?? MEENA Avalos ? Room: ? MW528 Gender: ? 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 [id number] : ?1950 ? Requested By: JASON Chen Order Number: [id number] ? Reading : ?? MICHELLE DOW MD ? Measurements Intervals ?[place] ? Rate: ? 43 ? P: ?57 NV: ? 177 ?QRS: ?37 QRSD: ? 105 ?T: ?43 QT: ? 489 ? QTc: ?416 ? Interpretive Statements SINUS BRADYCARDIA Within Normal Limits Compared to ECG 06/08/2017 23:11:33 Indeterminate axis now present Atrial fibrillation no longer present I reviewed the tracing and have either a greed or edited the findings in this report. Electronically Signed On 16:12:59 EDT by MICHELLE DOW MD. Procedure Note Michelle Dow MD - 06/12/2017Formattin g of this note might be different from the original. 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 Electronically Signed On 7 16:12:59 EDT by MICHELLE DOW MD. Jaime Gomez MD CARDIAC ECG ORDERABLES Performing Organization Address City/State/ZIP Code Phon e Number [facility] EKG CARDIOVERSION (06/09/2017 10:26 EDT) Anatomical Region Laterality Modality Other Specimen (Source) Anatomical Collection Method Collection Time Re ceived Time Location / / Volume Laterality 06/09/2017 10:26 EDT Narrative 06/09/2017 10:26 EDT See Notes Tab. Procedure Note ICE CREAM VENDOR, IMAGING - 06/09/2017Formatt ing of this note might be different from the original. See Notes Tab. Yahir Baumann MD PhD CARDIAC EP ORDERABLE S POST DOFETILIDE EKG (06/08/2017 23:11 EDT) Specimen (Source) Anatomical Collection Method Collection Time Re ceived Time Location / / Volume Laterality 06/08/2017 23:11 EDT Narrative [facility] EKG - 06/12/2017 7:15 EDT ? [facility] ? Test Date: ?2017-06-08 Pat Name: ? LEON CARDONA ? Department: ?? MEENA A[facility]os ? Room: ? MW528 Gender: ? 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 [id number] : ?1950 ? Requested By: JAROCHO MANZO Order Number: [id number] ? Reading MD: ?? JEY DE LA TORRE MD ? Measurements Intervals ?[place] ? Rate: ? 77 ? P: ? NV: ? 0 ?QRS: ?61 QRSD: ? 97 ? T: ?77 QT: ? 406 ? QTc: ?462 ? Interpretive Statements ATRIAL FIBRILLATION Compared to ECG 06/08/2017 12:01:34 No significant changes I reviewed the tracing and have either a greed or edited the findings in this report. Electronically Signed On 7 07:15:42 EDT by JEY DE LA TORRE MD. Procedure Note Jey De La Torre MD - 06/12/2017Formatti ng of this note might be different from the original. 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 Electronically Signed On 7 07:15:42 EDT by JEY DE LA TORRE MD. Jovany Ariza MD CARDIAC ECG ORDERABLES Performing Organization Address City/State/ZIP Code Phon e Number [facility] EKG POST DOFETILIDE EKG (06/08/2017 12:01 EDT) Specimen (Source) Anatomical Collection Method Collection Time Re ceived Time Location / / Volume Laterality 06/08/2017 12:01 EDT Narrative [facility] EKG - 06/09/2017 16:3 5 EDT ? [facility] ? Test Date: ?2017-06-08 Pat Name: ? LEON CARDONA ? Department: ?? [facility] ? Room: ? MW528 Gender: ? 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 [id number] : ?1950 ? Requested By: JAROCHO MANZO Order Number: [id number] ? Reading MD: ?? KAMILA MASCORRO MD ? Measurements Intervals ?[place] ? Rate: ? 74 ? P: ? NV: ? 0 ?QRS: ?34 QRSD: ? 89 ? T: ?28 QT: ? 362 ? QTc: ?403 ? Interpretive Statements ATRIAL FIBRILLATION Compared to ECG 06/07/2017 22:34:06 T-wave abnormality now present Prolonged QT interval no longer present This is a preliminary report. ??Edited Rukhsana HOOVER MD on 06-08-17 18:13:34 EDT. I reviewed the tracing and have either a greed or edited the findings in this report. Electronically Signed On 7 16:35:12 EDT by KAMILA MASCORRO MD. Procedure Note Kamila Mascorro MD - 06/09/2017Format ting of this note might be different from the original. [facility] Test Date: 2017-06-08 Pat Name: LEON CARDONA Department: [place] [address] Room: [facility] Gender: M Trash Truck Driver: [id number] : 1950 Requested By: JAROCHO HERNANDEZ RT Order Number: [id number] Reading MD: Efrain MASCORRO MD Measurements Intervals [place] Rate: 74 P: NV: 0 QRS: 34 QRSD: 89 T: 28 QT: 362 QTc: 403 Interpretive Statements ATRIAL FIBRILLATION Compared to ECG 06/07/2017 22:34:06 T-wave abnormality now present Prolonged QT interval no longer present This is a preliminary report. Edited by NORMA HOOVER MD on 06-08-17 18:13:34 EDT. I reviewed the tracing and have either a greed or edited the findings in this report. Electronically Signed On 16:35:12 EDT by KAMILA MASCORRO MD. Jovany Ariza MD CARDIAC ECG ORDERABLES Performing Organization Address City/State/ZIP Code Phon e Number [facility] EKG CREATININE (06/08/2017 5:32 EDT) athologist Signature Creatinine 0.74 0.66 - 06/08/2017 [facility] 1.25 mg/dl 6:59 EDT [facility] GFR, Calculated 97 >60 06/08/2017 [facility] ml/min/1.7 6:59 EDT CENTER 3m2 LABORATORY SERVICES Comment: eGFR calculated using CKD-EPI equation f or non Americans. Multiply eGFR by 1.16 for Americans. Specimen Anatomical Collection Method Collection Time Receive d Time (Source) Location / / Volume Laterality Blood specimen BLOOD SPECIMEN / 06/08/2017 5:32 2016 6:21 (specimen) Unknown EDT EDT Norma Hoover MD CHEMISTRY & BLOOD GAS ORDERA BLES Performing Organization Address City/State/ZIP Code Phon e Number [facility] [address] [place] [address] SERVICES BUN (06/08/2017 5:32 EDT) athologist Signature BUN 20 06/08/2017 [facility] mg/dl 6:59 EDT [facility] Specimen Anatomical Collection Method Collection Time Receive d Time (Source) Location / / Volume Laterality Blood specimen BLOOD SPECIMEN / 06/08/2017 5:32 2016 6:21 (specimen) Unknown EDT EDT Norma Hoover MD CHEMISTRY & BLOOD GAS ORDERA BLES Performing Organization Address City/State/ZIP Code Phon e Number [facility] [address] [place] [phone] SERVICES ELECTROLYTES (06/08/2017 5:32 EDT) athologist Signature Sodium 140 136 - 145 06/08/2017 [facility] mEq/L 6:59 EDT [facility] Potassium 4.2 3.5 - 5.0 06/08/2017 [facility] mEq/L 6:59 EDT [facility] Chloride 107 96 - 110 06/08/2017 [facility] mEq/L 6:59 EDT [facility] CO2 24 22 - 32 06/08/2017 [facility] mEq/L 6:59 EDT [facility] Specimen Anatomical Collection Method Collection Time Receive d Time (Source) Location / / Volume Laterality Blood specimen BLOOD SPECIMEN / 06/08/2017 5:32 2016 6:21 (specimen) Unknown EDT EDT Norma Hoover MD CHEMISTRY & BLOOD GAS ORDERA BLES Performing Organization Address City/State/ZIP Code Phon e Number [facility] [address] [place] [phone] SERVICES POST DOFETILIDE EKG (06/07/2017 22:31 EDT) Specimen (Source) Anatomical Collection Method Collection Time Re ceived Time Location / / Volume Laterality 06/07/2017 22:31 EDT Narrative [facility] EKG - 06/09/2017 11:3 9 EDT ? [facility] ? Test Date: ?2017-06-07 Pat Name: ? LEON CARDONA ? Department: ?? [facility] ? Room: ? MW528 Gender: ? 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 [id number] : ?1950 ? Requested By: JAROCHO JOVANY Order Number: [id number] ? Reading MD: ?? LEON MCFADDEN MD ? Measurements Intervals ?[place] ? Rate: ? 77 ? P: ? NV: ? 0 ?QRS: ?-15 QRSD: ? 102 ?T: ?-6 QT: ? 458 ? QTc: ?521 ? Interpretive Statements ATRIAL FIBRILLATION INDETERMINATE AXIS PROLONGED QT INTERVAL Automated Interpretation. ??Provider Int erpretation to follow. Compared to ECG 06/07/2017 22:33:14 Prolonged QT interval now present I reviewed the tracing and have either a greed or edited the findings in this report. Electronically Signed On 11:39:17 EDT by LEON MCFADDEN MD. Procedure Note Leon Mcfadden MD - 06/09/2017Formatt ing of this note might be different from the original. [facility] Test Date: 2017-06-07 Pat Name: LEON CARDONA Department: [place] [address] Room: [facility] Gender: M Trash Truck Driver: [id number] : 1950 Requested By: JAROCHO HERNANDEZ RT Order Number: [id number] Reading MD: Jacey MCFADDEN MD Measurements Intervals [place] Rate: 77 P: NV: 0 QRS: -15 QRSD: 102 T: -6 QT: 458 QTc: 521 Interpretive Statements ATRIAL FIBRILLATION INDETERMINATE AXIS PROLONGED QT INTERVAL Automated Interpretation. Provider Inter pretation to follow. Compared to ECG 06/07/2017 22:33:14 Prolonged QT interval now present I reviewed the tracing and have either a greed or edited the findings in this report. Electronically Signed On 11:39:17 EDT by LEON MCFADDEN MD. Jovany Ariza MD CARDIAC ECG ORDERABLES Performing Organization Address City/State/ZIP Code Phon e Number [facility] EKG POST DOFETILIDE EKG (06/07/2017 11:04 EDT) Specimen (Source) Anatomical Collection Method Collection Time Re ceived Time Location / / Volume Laterality 06/07/2017 11:04 EDT Narrative [facility] EKG - 06/09/2017 16:3 4 EDT ? [facility] ? Test Date: ?2017-06-07 Pat Name: ? LEON CARDONA ? Department: ?? [place] [facility] ? Room: ? MW528 Gender: ? 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 [id number] : ?1950 ? Requested By: JAROCHO MANZO Order Number: [id number] ? Reading MD: ?? KAMILA MASCORRO MD ? Measurements Intervals ?[place] ? Rate: ? 83 ? P: ? NV: ? 0 ?QRS: ?24 QRSD: ? 101 ?T: ?10 QT: ? 397 ? QTc: ?467 ? Interpretive Statements ATRIAL FIBRILLATION/tachycardia NONSPECIFIC T-WAVE ABNORMALITY ABNORMAL RHYTHM ECG Compared to ECG 06/06/2017 23:23:48 T-wave abnormality now present This is a preliminary report. ??Edited b y NORMA HOOVER MD on 06-07-17 13:43:29 EDT. I reviewed the tracing and have either a greed or edited the findings in this report. Electronically Signed On 16:34:56 EDT by KAMILA MASCORRO MD. Procedure Note Kamila Mascorro MD - 06/09/2017Format ting of this note might be different from the original. 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 Edited by NORMA HOOVER MD on 06-07-17 13:43:29 EDT. I reviewed the tracing and have either a greed or edited the findings in this report. Electronically Signed On 16:34:56 EDT by KAMILA MASCORRO MD. Jovany Ariza MD CARDIAC ECG ORDERABLES Performing Organization Address City/State/ZIP Code Phon e Number [facility] EKG CREATININE (06/07/2017 6:32 EDT) athologist Signature Creatinine 0.88 0.66 - 06/07/2017 [facility] 1.25 mg/dl 8:29 EDT [facility]ENTER [facility] GFR, Calculated 90 >60 06/07/2017 [facility] ml/min/1.7 8:29 EDT CENTER 3m2 LABORATORY SERVICES Comment: eGFR calculated using CKD-EPI equation f or non Americans. Multiply eGFR by 1.16 for Americans. Specimen Anatomical Collection Method Collection Time Receive d Time (Source) Location / / Volume Laterality Blood specimen BLOOD SPECIMEN / 06/07/2017 6:32 2016 7:39 (specimen) Unknown EDT EDT Norma Hoover MD CHEMISTRY & BLOOD GAS ORDERA BLES Performing Organization Address City/State/ZIP Code Phon e Number [facility] [address] [place] [address] SERVICES BUN (06/07/2017 6:32 EDT) athologist Signature BUN 17 10 - 06/07/2017 [facility] mg/dl 8:29 EDT [facility] Specimen Anatomical Collection Method Collection Time Receive d Time (Source) Location / / Volume Laterality Blood specimen BLOOD SPECIMEN / 06/07/2017 6:32 2016 7:39 (specimen) Unknown EDT EDT oNrma Hoover MD CHEMISTRY & BLOOD GAS ORDERA BLES Performing Organization Address City/[facility]/ZIP Code Phon e Number [facility] [address] [place] [phone] SERVICES ELECTROLYTES (06/07/2017 6:32 EDT) P athologist Signature Sodium 143 136 - 145 06/07/2017 [facility] mEq/L 8:29 EDT [facility] Potassium 4.4 3.5 - 5.0 06/07/2017 [facility] mEq/L 8:29 EDT [facility] Chloride 104 96 - 110 06/07/2017 [facility] mEq/L 8:29 EDT [facility] CO2 28 22 - 32 06/07/2017 [facility] mEq/L 8:29 EDT [facility] Specimen Anatomical Collection Method Collection Time Receive d Time (Source) Location / / Volume Laterality Blood specimen BLOOD SPECIMEN / 06/07/2017 6:32 2016 7:39 (specimen) Unknown EDT EDT Norma Hoover MD CHEMISTRY & BLOOD GAS ORDERA BLES Performing Organization Address City/State/ZIP Code Phon e Number [facility] [address] [place] [address] SERVICES HEMOGLOBIN A1C (06/07/2017 6:32 EDT) athologist Signature Hemoglobin A1C 5.6 % 06/09/2017 [facility] 10:48 EDT CENTER LAB[facility]ORY SERVICES Comment: Reference Range: <5.7% Normal 5.7-6.4% Increased risk for diabetes =>6.5% Diagnostic for diabetes (if confi rmed) The A1c goal for non adults in general is <7%. The A1c goal for selected patients may b e significantly lower than 7% if this can be achieved without significant hypoglycemia or other adverse effects of treatment. Est Avg Glucose 114 mg/dl 06/09/2017 10:48 EDT [facility] Comment: eAG represents the A1c result expressed as average glucose in mg/dl. Specimen Anatomical Collection Method Collection Time Receive d Time (Source) Location / / Volume Laterality Blood specimen BLOOD SPECIMEN / 06/07/2017 6:32 2016 7:39 (specimen) Unknown EDT EDT Norma Hoover MD CHEMISTRY & BLOOD GAS ORDERA BLES Performing Organization Address City/[facility]/ZIP Code Phon e Number [facility] [address] [place] [address] SERVICES POST DOFETILIDE EKG (06/06/2017 23:23 EDT) Specimen (Source) Anatomical Collection Method Collection Time Re ceived Time Location / / Volume Laterality 06/06/2017 23:23 EDT Narrative [facility] EKG - 06/09/2017 16:3 4 EDT ? [facility] ? Test Date: ?2017-06-06 Pat Name: ? LEON CARDONA ? Department: ?? [facility] 5 ? Room: ? MW528 Gender: ? 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 [id number] : ?1950 ? Requested By: JAROCHO JOVANY Order Number: [id number] ? Reading MD: ?? KAMILA MASCORRO MD ? Measurements Intervals ?[place] ? Rate: ? 77 ? P: ? NV: ? 0 ?QRS: ?9 QRSD: ? 96 ? T: ?13 QT: ? 411 ? QTc: ?467 ? Interpretive Statements ATRIAL FIBRILLATION ABNORMAL RHYTHM ECG Compared to ECG 06/06/2017 18:38:16 No significant changes This is a preliminary report. ??Edited b y NORMA HOOVER MD on 06-07-17 13:44:28 EDT. I reviewed the tracing and have either a greed or edited the findings in this report. Electronically Signed On 16:34:51 EDT by KAMILA MASCORRO MD. Procedure Note Kamila Mascorro MD - 06/09/2017Format ting of this note might be different from the original. 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 Edited by NORMA HOOVER MD on 06-07-17 13:44:28 EDT. I reviewed the tracing and have either a greed or edited the findings in this report. Electronically Signed On 16:34:51 EDT by KAMILA MASCORRO MD. Jovany Ariza MD CARDIAC ECG ORDERABLES Performing Organization Address City/State/ZIP Code Phon e Number [facility] EKG INPATIENT ADD-ON (06/06/2017 19:25 EDT) [facility] gist Method Time Signature Tests to be BUN 06/06/2017 [facility] added 19:21 [place] [id number] 06/06/2017 [facility] problems 19:36 EDT [facility] BUN 06/06/2017 [facility] number 19:36 T [facility] Specimen Anatomical Collection Method Collection Time Receive d Time (Source) Location / / Volume Laterality OTHER / Unknown 06/06/2017 19:25 06/06/20 17 EDT 19:35 EDT Noram Hoover MD HEMATOLOGY & PF4 ORDERABLES Performing Organization Address City/State/ZIP Code Phon e Number [facility] [address] [place] [id number] SERVICES EKG 12-LEAD (06/06/2017 18:38 EDT) Specimen (Source) Anatomical Collection Method Collection Time Re ceived Time Location / / Volume Laterality 06/06/2017 18:38 EDT Narrative [facility] E[facility] - 06/09/2017 16:3 2 EDT ? [facility] ? Test Date: ?2017-06-06 Pat Name: ? LEON CARDONA ? Department: ?? [place] 5 ? Room: ? MW528 Gender: ? 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 Requested By: TOM VALDEZ Order Number: [id number] ? Reading : ?? KAMILA MASCORRO MD ? Measurements Intervals ?[place] ? Rate: ? 92 ? P: ? NV: ? 0 ?QRS: ?58 QRSD: ? 104 ?T: ?39 QT: ? 367 ? QTc: ?456 ? Interpretive Statements ATRIAL FIBRILLATION No previous ECG available for comparison This is a preliminary report. ??Edited Rukhsana HOOVER MD on 06-07-17 13:42:35 EDT. I reviewed the tracing and have either a greed or edited the findings in this report. Electronically Signed On 7 16:32:51 EDT by KAMILA MASCORRO MD. Procedure Note aKmila Mascorro MD - 06/09/2017Format ting of this note might be different from the original. 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 Edited by NORMA HOOVER MD on 06-07-17 13:42:35 EDT. I reviewed the tracing and have either a greed or edited the findings in this report. Electronically Signed On 16:32:51 EDT by KAMILA MASCORRO MD. Norma Hoover MD CARDIAC ECG ORDERABLES Performing Organization Address City/State/ZIP Code Phon e Number [facility] EKG BUN (06/06/2017 17:52 EDT) athologist Signature BUN 19 06/06/2017 [facility] mg/dl 20:09 EDT [facility] Specimen Anatomical Collection Method Collection Time Receive d Time (Source) Location / / Volume Laterality BLOOD SPECIMEN / 06/06/2017 17:52 017 Unknown EDT 18:58 EDT Norma Hoover MD CHEMISTRY & BLOOD GAS ORDERA BLES Performing Organization Address City/[facility]/ZIP Code Phon e Number [facility] [address] [place] [address] SERVICES (ABNORMAL) HEMAGRAM (06/06/2017 17:52 EDT) P athologist Signature WBC 7.91 4.0 - 10.4 06/06/2017 [facility] K/cmm 19:12 EDT [facility] RBC 4.65 4.36 - 06/06/2017 [facility] 5.78 M/cmm 19:12 EDT [facility] Hemoglobin 15.7 13.8 - 06/06/2017 [facility] 17.3 gm/dl 19:12 EDT [facility] HCT 42.8 39.5 - 06/06/2017 [facility] 50.2 % 19:12 EDT [facility] MCV 92 81 - 95 fl 06/06/2017 [facility] 19:12 EDT [facility] MCH 33.8 (H) 27.6 - 06/06/2017 [facility] 33.0 pg 19:12 EDT [facility] MCHC 36.7 (H) 32.8 - 06/06/2017 [facility] 36.4 gm/dl 19:12 EDT [facility] RDW-CV 11.9 <14.2 % 06/06/2017 [facility] 19:12 EDT [facility] RDW-SD 40.1 <46.0 fl 06/06/2017 [facility] 19:12 EDT [facility] PLT 238 141 - 377 06/06/2017 [facility] K/cmm 19:12 EDT [facility] MPV 9.6 9.5 - 12.7 06/06/2017 [facility] fl 19:12 EDT [facility] Specimen Anatomical Collection Method Collection Time Receive d Time (Source) Location / / Volume Laterality Blood specimen BLOOD SPECIMEN / 06/06/2017 17:52 06/06 (specimen) Unknown EDT 18:58 EDT Norma Hoover MD HEMATOLOGY & PF4 ORDERABLES Performing Organization Address City/State/ZIP Code Phon e Number [facility] [address] [place] [phone] SERVICES MAGNESIUM (06/06/2017 17:52 EDT) P athologist Signature Magnesium 2.3 1.7 - 2.8 06/06/2017 [facility] mg/dl 19:35 EDT [facility] Specimen Anatomical Collection Method Collection Time Receive d Time (Source) Location / / Volume Laterality Blood specimen BLOOD SPECIMEN / 06/06/2017 17:52 06/06 (specimen) Unknown EDT 18:58 EDT Norma Hoover MD CHEMISTRY & BLOOD GAS ORDERA BLES Performing Organization Address City/State/ZIP Code Phon e Number [facility] [address] [place] [address] SERVICES ELECTROLYTES (06/06/2017 17:52 EDT) P athologist Signature Sodium 143 136 - 145 06/06/2017 [facility] mEq/L 19:35 EDT [facility] Potassium 4.3 3.5 - 5.0 06/06/2017 [facility] mEq/L 19:35 EDT [facility] Chloride 103 96 - 110 06/06/2017 [facility] mEq/L 19:35 EDT [facility] CO2 29 22 - 32 06/06/2017 [facility] mEq/L 19:35 EDT [facility] Specimen Anatomical Collection Method Collection Time Receive d Time (Source) Location / / Volume Laterality Blood specimen BLOOD SPECIMEN / 06/06/2017 17:52 06/06 (specimen) Unknown EDT 18:58 EDT Norma Hoover MD CHEMISTRY & BLOOD GAS ORDERA BLES Performing Organization Address City/State/ZIP Code Phon e Number [facility] [address] [place] [address] SERVICES CREATININE (06/06/2017 17:52 EDT) athologist Signature Creatinine 0.84 0.66 - 06/06/2017 [facility] 1.25 mg/dl 19:35 EDT [facility] GFR, Calculated 92 >60 06/06/2017 [facility] ml/min/1.7 19:35 EDT CENTER 3m2 LABORATORY SERVICES Comment: eGFR calculated using CKD-EPI equation f or non Americans. Multiply eGFR by 1.16 for Americans. Specimen Anatomical Collection Method Collection Time Receive d Time (Source) Location / / Volume Laterality Blood specimen BLOOD SPECIMEN / 06/06/2017 17:52 06/06 (specimen) Unknown EDT 18:58 EDT Norma Hoover MD CHEMISTRY & BLOOD GAS ORDERA BLES Performing Organization Address City/State/ZIP Code Phon e Number [facility] [address] [place] [address] SERVICES documented in this encounter Visit Diagnoses Diagnosis Persistent atrial fibrillation (HCC) - P rimary Atrial fibrillation Chronic atrial fibrillation (HCC) Atrial fibrillation Persistent atrial fibrillation (HCC) Atrial fibrillation Epididymitis Orchitis and epididymitis, unspecified documented in this encounter Administered Medications Inactive Administered Medications - up to 3 most recent administrations Medication Order MAR Action Action Date Dose Rate Site apixaban (ELIQUIS) tablet 5 mg Given 06/09/2017 9:00 EDT 5 mg 5 mg, oral, 2 TIMES DAILY, First dose on Fri06/06/17 at 2100, Until Discontinued, Indication for apixaban: Non valvular atrial fibrillation, Routine Given 06/08/2017 21:10 EDT 5 mg Given 06/08/2017 9:47 EDT 5 mg dofetilide (TIKOSYN) capsule 250 mcg Given 06/09/2017 8:58 EDT 250 mcg 250 mcg, oral, EVERY 12 HOURS, First dose (after last modification) on Fri06/08/17 at 0900, Until Discontinued, Routine Given 06/08/2017 21:10 EDT 250 mcg Given 06/08/2017 9:48 EDT 250 mcg dofetilide (TIKOSYN) capsule 500 mcg Given 06/07/2017 20:20 EDT 500 mcg 500 mcg, oral, EVERY 12 HOURS, First dose on Fri06/06/17 at 2100, Until Discontinued, Routine Given 06/07/2017 8:53 EDT 500 mcg Given 06/06/2017 21:19 EDT 500 mcg levETIRAcetam (KEPPRA) tablet 500 mg Given 06/09/2017 9:00 EDT 500 mg 500 mg, oral, 2 TIMES DAILY, First dose on Fri06/06/17 at 2100, Until Discontinued, Routine Given 06/08/2017 21:10 EDT 500 mg Given 06/08/2017 9:47 EDT 500 mg metoprolol XL (TOPROL-XL) tablet 25 mg Given 06/09/2017 9:00 EDT 25 mg 25 mg, oral, DAILY, First dose on Fri06/07/17 at 0900, Until Discontinued, Routine Given 06/08/2017 9:47 EDT 25 mg Given 06/07/2017 8:55 EDT 25 mg sodium chloride 0.9 % (NS) infusion New Bag 06/09/2017 10:02 EDT 75 mL/hr 75 mL/hr intravenous, FA IP EQF CONTINUOUS PRN FOR ONE STEP MEDS, Starting on Fri06/09/17 at 1002, Until Fri06/09/17 at 1002, Routine sodium chloride 0.9 % flush 3 mL Given 06/09/2017 9:00 EDT 3 mL 3 mL, intravenous, EVERY 8 HOURS, First dose on Fri06/06/17 at 1800, Until Discontinued, Routine Given 06/09/2017 1:00 EDT 3 mL Given 06/08/2017 17:12 EDT 3 mL documented in this encounter Active and Recently Administered Medications Times are shown in EDT. Scheduled Medication Order 06/07/2017 06/08/2017 06/09/2017 apixaban (ELIQUIS) tablet 5 mg 0856 (Given - Provider: Torrey Bhatt, PRECIOUS)2019 (Given - Provider: Laurence Simms, PRECIOUS) 0947 (Given - Provider: Mala Bettencourt, PRECIOUS)2109 (Given - Provider: Joana Rider RN) 0900 (Given - Provider: Mark Hope RN) 5 mg, oral, 2 TIMES DAILY, First dose on Fri06/06/17 at 2100, Until Discontinued, Routine dofetilide (TIKOSYN) capsule 250 mcg 4 8 (Given - Provider: Mala Bettencourt RN)2109 (Given - Provider: Joana Rider, PRECIOUS) 08 (Given - Provider: Mark Hope, PRECIOUS) 250 mcg, oral, EVERY 12 HOURS, First dos e on Fri06/08/17 at 0900, Until Discontinued, Routine dofetilide (TIKOSYN) capsule 500 mcg (CANCELED) 0853 ( Given - Provider: Torrey Bhatt RN)2019 (Given - Provider: Laurence Simms, RN) 500 mcg, oral, EVERY 12 HOURS, First dos e on Fri06/06/17 at 2100, Until Discontinued, Routine levETIRAcetam (KEPPRA) tablet 500 mg 0855 (Given - Pro vider: Torrey Bhatt RN)2019 (Given - Provider: Laurence Simms, RN) 09 (Given - Provider: Mala Bettencourt RN)2109 (Given - Provider: Joana Rider RN) 899 (Given - Provider: Mark Hope, PRECIOUS) 500 mg, oral, 2 TIMES DAILY, First dose on Fri06/06/17 at 2100, Until Discontinued, Routine metoprolol XL (TOPROL-XL) tablet 25 mg 0855 (Given - Provide r: Torrey Bhatt RN) 0947 (Given - Provider: Mala Bettencourt RN) 09 (Given - Provider: Mark Hope, PRECIOUS) 25 mg, oral, DAILY, First dose on Fri at 0900, Until Discontinued, Routine sodium chloride 0.9 % flush 3 mL 0244 (Given - Provide r: Marlene Lawrence RN)0917 (Given - Provider: Mala Bettencourt RN - Comment: given with assessment)1601 (Given - Provider: Mala Bettencourt RN) 0950 (Given - Provider: Mala Bettencourt RN)1712 (Given - Provider: Joana Rider RN) 0100 (Given - Provider: Rena Joaquin RN)0900 (Given - Provider: Mark Hope RN) 3 mL, intravenous, EVERY 8 HOURS, First dose on Fri06/06/17 at 1800, Until Discontinued, Routine 2304 (Hold - Provider: Laurence Simms RN - Reason: Other - Comment: flushed during assessment) PRN Medication Order 06/07/2017 06/08/2017 06/09/2017 sodium chloride 0.9 % (NS) infusion (COMPLETED) 1002 (New Bag - Provider: Kavon Mcknight RN)1028 (Completed - Provider: Dimple Pryor RN - Comment: 150 cc in OR per report)1029 (Continued Infusion - Provider: Dimple Pryor RN - Comment: pacu) intravenous, FA IP EQF CONTINUOUS PRN FO R ONE STEP MEDS, Starting 06/09/17 at 1002, Until Discontinued, Routine 1130 ( IV Stopped - Provider: Dimple Pryor RN - Comment: going back to the floor) documented in this encounter Orders Medications Ordered That Might Not Have Count Last Ord ered Date First Ordered Date Been Administered atropine 0.1 mg/mL syringe 0.5 mg 1 06/09/2017 lactated ringers (LR) infusion 1 06/09/2017 naloxone (NARCAN) injection 0.2 mg 1 06/09/2017 ondansetron (PF) (ZOFRAN) injection 2 mg 1 017 Diet Count Last Ordered Date First Ordered Date DISCHARGE DIET 1 06/09/2017 Nursing Count Last Ordered Date First Ordered Date ACTIVITY INSTRUCTIONS 1 06/09/2017 BATHING INSTRUCTIONS 1 06/09/2017 REVIEWED EKG, ADMINISTER NEXT DOSE OF 5 017 06/06/2017 DOFETILIDE AT SCHEDULED TIME MEASURE WEIGHT 1 06/06/2017 VTE PHARMACOLOGIC PROPHYLAXIS CURRENTLY 1 06/06/20 17 ORDERED OR ON ALTERNATIVE THER IV Count Last Ordered Date First Ordered Date IV REQUEST 1 06/06/2017 Admission Count Last Ordered Date First Ordered Date STATUS: INPATIENT ACUTE ADMISSION 1 06/09/2017 STATUS: OUTPATIENT OBSERVATION SERVICES 1 06/06/20 17 Transfer Count Last Ordered Date First Ordered Date CHANGE ATTENDING TO: 1 06/09/2017 NOTIFY PPS OF DISCHARGE COMPLETE 1 06/09/2017 NOTIFY PPS PATIENT ARRIVAL IN PACU 1 06/09/2017 NOTIFY PPS PATIENT TRANSFERRED OUT OF PACU 1 06/09 PPS NOTIFICATION OF PATIENT ARRIVAL ON 7 UNIT Discharge Count Last Ordered Date First Ordered Date DISCHARGE PATIENT 1 06/09/2017 Legal Count Last Ordered Date First Ordered Date MISCELLANEOUS DISCHARGE INSTRUCTIONS 2 06/09/2017 documented in this encounter Care Teams Hair Spinner Relationship Specialty Start Date End Date Nathaniel Smith MD PCP - General 04/21/17 05/03/21 [facility] [address] [place] [address] documented as of this encounter
--- OUTSIDE RECORDS SUMMARY | 2022-08-01 15:58 | XMS_ITS | Encounter Summary ---
:1950 Author Organization [facility] Address [address] [place] [address] Care Team Providers Name Role Phone Nathaniel Simth MD Primary Care Provider Reason for Visit Reason Onset Date Comments Procedure 10/03/2017 Cardioversion for Pe rsistent atrial fib 10/07 JW Encounter Details Date Type Department Care Team Description 10/03/2017 Pre-Procedure [facility] IndydaianaJessica nt atrial Orders Encounter Cardiology - Aleksander Limon RN fibrillation [address] ([facility] ([facility]) [place], [place] (Primary D x) [phone] Social History Tobacco Use Types Packs/Day Years [...] Visit General Surgery Ish Hall MD [address] [place] [phone] (Wo rk) 09/09/2022 Office Visit Urology Richard Meyer MD [address] [place] [phone] (Wo rk) 10/07/2022 Appointment 10/14/2022 Hospital Encounter General Surgery Richard Meyer MD [address] [place] [phone] (Wo rk) 10/14/2022 Surgery General Surgery Richard MeyerE CTSeamus ARIZMENDI MD UNILATERAL [[id number] (CPT??)] [address] [phone] (Wo rk) 10/28/2022 Post-op Visit Urology Richard Meyer MD [address] [place] [phone] (Wo rk) 11/25/2022 Office Visit Urology Richard Meyer MD [address] [place] [phone] (Wo rk) Scheduled Procedures Name Priority Associated Diagnoses Date/Time EPIDIDYMECTOMY, UNILATERAL Epididymitis 10/14 12:30 EST documented as of this encounter Visit Diagnoses Diagnosis Persistent atrial fibrillation (HCC) - P rimary Atrial fibrillation Epididymitis Orchitis and epididymitis, unspecified documented in this encounter Care Teams Matrix Inspector Relationship Specialty Start Date End Date Nathaniel Smith MD PCP - General 04/21/17 05/03/21 [address] [place] [address] documented as of this encounter
--- OUTSIDE RECORDS SUMMARY | 2022-08-01 15:58 | XMS_ITS | Encounter Summary ---
:1950 Author Organization [facility] Address [address] [place] [address] Care Team Providers Name Role Phone Nathaniel Smith MD Primary Care Provider Reason for Visit Reason Onset Date Comments Procedure 10/08/2017 [facility] Cardioversion Encounter Details Date Type Department Care Team Description 10/08/2017 Telephone [facility] Jaime Gomez re ([facility] Cardiology - Aleksander Mclaughlin MD Cardioversion) [address] [place], [place] [address] [place] [address] [address] [place] [phone] Social History Tobacco Use Types Packs/Day Years [...] encounter Miscellaneous Notes Telephone Encounter - Ashly Pino RN - 10/08/[address] Nesbitt agreed to speak with the Pt and he had the number. Telephone Encounter - Moira Warren - 10/08/2017 0805 EST Reason for Call: Procedure ([facility] Cardioversion) Summary/Symptoms: Patient has some questions about his procedure yesterday. Please call to discuss. Moira Warren 10/08/2017 8:05 documented in this encounter Plan of Treatment Upcoming Encounters Date Type Specialty Care Team Description 08/08/2022 Office Visit General Surgery Ish Hall MD [address] [phone] (Tristian rk) 09/09/2022 Office Visit Urology Richard Meyer MD [address] [place] [phone] (Tristian knott) 10/07/2022 Appointment 10/14/2022 Hospital Encounter General Surgery Richard Meyer MD [address] [place] [phone] (Tristian knott) 10/14/2022 Surgery General Surgery Richard Meyer Charles, MD UNILATERAL [[id number] [place] (CPT??)] [address] [phone] (Tristian knott) 10/28/2022 Post-op Visit Urology Richard Meyer MD [address] [place] [phone] (Wo rk) 11/25/2022 Office Visit Urology Richard Meyer MD [address] [place] [phone] (Wo rk) Scheduled Procedures Name Priority Associated Diagnoses Date/Time EPIDIDYMECTOMY, UNILATERAL Epididymitis 10/14 12:30 EST documented as of this encounter Visit Diagnoses Not on filedocumented in this encounter Care Teams Ticker Maintainer Relationship Specialty Start Date End Date Nathaniel Smith MD PCP - General 04/21/17 05/03/21 [address] [place] [address] documented as of this encounter
--- OUTSIDE RECORDS SUMMARY | 2022-08-01 15:58 | XMS_ITS | Encounter Summary ---
:1950 Author Organization [facility] Address [address] [place] [address] Care Team Providers Name Role Phone Nathaniel Smith MD Primary Care Provider Reason for Visit Reason Onset Date Comments Appointment Related 04/21/2017 Encounter Details Date Type Department Care Team Description 04/21/2017 Telephone [facility] Yahir Baumann Migel ointment Related Cardiology - Aleksander Red MD PhD [address] [place] [address], [address] [place] [phone] (Wo rk) Social History Tobacco Use Types Packs/Day Years Used Date Smoking Tobacco: Former Smokeless Tobacco: Never Sex Assigned at Date Recorded Male 06/20/2022 18:06 EDT documented as of this encounter Miscellaneous Notes Telephone Encounter - Yajaira Anders - 04/22/2017 0905 EDT Left pt a VM. Looking at [facility]'s 05/06 frozen spot. Telephone Encounter - Noni Lobo - 04/21/2017 1752 EDT PAS Message: Cancel appt for 04-22. Please call to r/s documented in this encounter Plan of Treatment Upcoming Encounters Date Type Specialty Care Team Description 08/08/2022 Office Visit General Surgery Ish Hall MD [address] [place] [phone] (Wo rk) 09/09/2022 Office Visit Urology Richard Meyer MD [address] [place] [phone] (Wo rk) 10/07/2022 Appointment 10/14/2022 Hospital Encounter General Surgery Richard Meyer MD [address] [place] [phone] (Wo rk) 10/14/2022 Surgery General Surgery Richard Meyer EPIDIDYME CTSeamus ARIZMENDI MD UNILATERAL [[id number] [address] [place] (CPT??)] [address] [phone] (Wo rk) 10/28/2022 Post-op Visit Urology Richard Meyer MD [address] [place] [phone] (Wo rk) 11/25/2022 Office Visit Urology Richard Meyer MD [address] [place] [phone] (Wo rk) Scheduled Procedures Name Priority Associated Diagnoses Date/Time EPIDIDYMECTOMY, UNILATERAL Epididymitis 10/14 12:30 EST documented as of this encounter Visit Diagnoses Not on filedocumented in this encounter Care Teams Toxicology Teacher Relationship Specialty Start Date End Date Nathaniel Smith MD PCP - General 04/21/17 05/03/21 [address] [place] [address] documented as of this encounter
--- OUTSIDE RECORDS SUMMARY | 2022-08-01 15:58 | XMS_ITS | Encounter Summary ---
:1950 Author Organization [facility] Address [address] [place] [address] Care Team Providers Name Role Phone Nathaniel Smith MD Primary Care Provider Reason for Visit Reason Comments Atrial Fibrillation Encounter Details Date Type Department Care Team Description 06/03/2017 Office Visit [facility] Yaya Walker Syncope and collapse; Cardiology - Aleksander Vail MD Persistent atrial fibrillati on ([facility] ([facility]); [address] Primary pulmonary hypertensi on ([facility]) ([facility]) [place] [address] Social History Tobacco Use Types Packs/Day Years Used Date Smoking Tobacco: Former Cigarettes 0.5 10/1969 - 06/03/2002 Smokeless Tobacco: Never Sex Assigned at Date Recorded Male 06/20/2022 18:06 EDT documented as of this encounter Last Filed Vital Signs Vital Sign Reading Time Taken Comments Blood Pressure 90/58 06/03/2017 08 EDT Pulse 80 06/03/2017 08 EDT irregular Temperature - - Respiratory Rate - - Oxygen Saturation 100% 06/03/2017 08 EDT Inhaled Oxygen Concentration - - Weight 75.8 kg (167 lb) 06/03/2017 08 EDT Height 177.8 cm (5' 10) 06/03/2017 08 EDT Body Mass Index 23.96 06/03/2017 0817 EDT documented in this encounter Functional Status Functional Status Response Date of Assessment Because of a physical, mental, or emotional condition, No 06/03/2017 does this person have difficulty doing errands alone such as visiting a doctor's office or shopping? Cognitive Status Response Date of Assessment Because of a physical, mental, or emotional condition, No 06/03/2017 does this person have serious difficulty concentrating, remembering, or making decisions? documented as of this encounter Discharge Diagnoses Diagnosis R55 Syncope and collapse-R55[ICD-10-CM] I48.1 PERSISTENT ATRIAL FIBRILATION[ICD- 10-CM] I27.0 Primary pulmonary hypertension-I27 .0[ICD-10-CM] documented in this encounter Discharge Disposition Disposition Code Departure Means Destination Auto Discharge documented in this encounter Progress Notes Yaya Walker MD - 06/03/2017 0830 EDT This office note has been dictated. Yaya Walker MD - 06/03/2017 0000 EDT [facility] June 03, 2017 Nathaniel Smith MD [address], [address] [address] RE: LEON CARDONA : 1950 Dear Nathaniel: I saw Mr Cardona. He is a very pleasant 66-year-old man who has been in reasonably good health, but has had some odd episodes. The episodes that he describes--his would note that in bed at night, he would suddenly start shaking, was diaphoretic, and then would be out for a period of time and would wake up. He had 3 of these episodes. There was a question of whether he had sleep apnea, and that isnow being evaluated. When he was seen for these episodes, it was noted that his rhythm was irregular. He was found to be in atrial fibrillation with a relatively rapid ventricular response. An echocardi ogram at that time showed his ventricular function to be reduced. He was placed on a beta-artem and lisinopril as well as anticoagulation. Subsequent to that, although he was seemingly asymptomatic from the atrial fibrillation, he had 2 similar episodes in which he felt very lightheaded and suddenlyblacked out. He was out for, his said, 30 seconds, had some shaking movements with this. This occurred on 2 occasions. His lisinopril was then discontinued. He has had no further episodes like that. He still does not note his heart to be racing. He sometimes exercises, and when he was first exercising, he noted he would get his heart rate up to 200 beats per minute and so, has backed off. He hashad no chest pains, no PND and no orthopnea. He underwent elective cardioversion in June, but reverted immediately to atrial fibrillation. He is now referred for further management of his AFib. He denies chest pains, PND and orthopnea. He has a sister who has atrial fibrillation. Mother and father both had pacemakers placed. There has been no early sudden or early coronary artery disease, as far he knows, in his family. He has been seen by neurology who placed him on Keppra for these ep isodes. He is due to get a sleep study next week. Problem List: 1. Syncope. 2. Persistent atrial fibrillation. 3. Possible sleep apnea. 4. Possible seizure disorder. Current Medications: Apixaban 5 mg twice a day. Keppra 500 mg twice a day. Toprol 25 mg a day. 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 Gave up smoking 15 years ago. Rarely drinks alcohol. Allergies: None known. Family History: As above. Review of Systems: 1. Denies fever, chills, sweats. 2. No nausea, vomiting, diarrhea. 3. No claudication. 4. No burning with urination. 5. No bleeding abnormalities. 6. No diabetes. 7. No hypertension. 8. No asthma. 9. No history of stroke, a possible seizure disorder. 10. No recent rash. 11. No inflammatory arthritis. Physical exam today, he was alert, oriented x3, in no acute distress. Blood pressure was 90/58 both lying and standing, pulse was irregular. Lungs were clear. Cardiac examination: S1 and S2 were normal. There was no murmur, gallop or rub heard. Abdomen was soft and nontender. Liver and spleen not enlarged. Extremities showed no edema. Pulses were 2+/4+ throughout without bruits. He had no jugular venous distention. Hearing was intact. Vision was intact. Neurologically he was intact. I reviewed his 12-lead electrocardiogram. He certainly has atrial fibrillation. He also had an eventmonitor. The event monitor showed persistent atrial fibrillation, at times with a rapid ventricular response. There were some periods that looked like pauses on the monitor, which occurred mostly during sleep, as far as I know. I will have to get all of the strips to see, but it is not clear, though the baseline is so flat it could have been one of the leads coming off. Assessment: Mr Cardona has persistent atrial fibrillation. He is not symptomatic, as far as we can tell, from the atrial fibrillation. He has not been able to be maintained in sinus rhythm. There is this issue about what is happening during sleep. The episodes sound almost vasovagal in origin. It is not clear why would occur at sleep. It is possible he is having sleep apnea, gets hypoxic, gets a vagaloutpouring during the hypoxia and has bradycardia with that and that causes his pauses and these episodes that he has. The ones that he had during waking periods sound more like vasovagal episodes. To that end, I think it is worthwhile trying to get him into sinus rhythm and keeping him there. We are not clear whether he is having very significant pauses during sleep. He goes relatively rapidly during atrial fibrillation, although now, on his modest dose of beta-artem, I walked him in the [place] andhe did not get his heart rate up above 95. So I think that is reasonably controlled, but it would bebest to see if we can get him and keep him in sinus rhythm and see if there is any benefit to that, that is, he suddenly feels somewhat better being in sinus rhythm. So I think the next step for him isto bring him in the hospital, put him on dofetilide, if he does not convert spontaneously on dofetilide, then to cardiovert him and see if we can maintain sinus rhythm for a period of time. I would continue him on his anticoagulation, although his risk for stroke is relatively low, and would continue him on his current dose of beta-artem. I will arrange for him to come in the hospital and get that done. The sleep study is due next week. That will be important to find out what that shows. I will the n see him back in clinic in about 6 to 8 weeks. Thank you again for allowing me to see him and participate in his care. Sincerely, Yaya Walker MD 11 39 AM - Yaya Walker MD mn Dictation ID: [id number] cc: Jaison Mckeon MD, [place] [id number] Nathaniel Smith MD, [address], [address] [address] documented in this encounter Plan of Treatment Upcoming Encounters Date Type Specialty Care Team Description 08/08/2022 Office Visit General Surgery Ish Hall MD [address] [place] [phone] (Wo rk) 09/09/2022 Office Visit Urology Richard Meyer MD [address] [place] [phone] (Wo rk) 10/07/2022 Appointment 10/14/2022 Hospital Encounter General Surgery Richard Meyer MD [address] [place] [phone] (Wo rk) 10/14/2022 Surgery General Surgery Richard Meyer CTSeamus ARIZMENDI MD UNILATERAL [[id number] (CPT??)] [address] [phone] (Wo rk) 10/28/2022 Post-op Visit Urology Richard Meyer MD [address] [place] [phone] (Wo rk) 11/25/2022 Office Visit Urology Richard Meyer MD [address] [place] [address] [place] [phone] (Wo rk) Scheduled Procedures Name Priority Associated Diagnoses Date/Time EPIDIDYMECTOMY, UNILATERAL Epididymitis 10/14 12:30 EST documented as of this encounter Visit Diagnoses Diagnosis Syncope and collapse Persistent atrial fibrillation (HCC) Atrial fibrillation Primary pulmonary hypertension (HCC) Primary pulmonary hypertension Epididymitis Orchitis and epididymitis, unspecified documented in this encounter Historical Medications This list may reflect changes made after this encounter. Medication Sig Dispensed Refills Start Date End Date metoprolol XL (TOPROL-XL) Take 25 mg by 0 06/15/2019 25 mg tablet mouth daily. levETIRAcetam (KEPPRA) 500 Take 250 mg by 0 06/15/2019 mg tablet mouth 2 times daily. apixaban (ELIQUIS) 5 mg Take 5 mg by mouth 0 06/15/2019 tablet 2 times daily. added in this encounter Care Teams Sorter [employer]olstery Parts Relationship Specialty Start Date End Date Nathaniel Smith MD PCP - General 04/21/17 05/03/21 [address] [place] [address] documented as of this encounter
--- OUTSIDE RECORDS SUMMARY | 2022-08-01 15:58 | XMS_ITS | Encounter Summary ---
:1950 Author Organization [facility] Address [address] [place] [address] Care Team Providers Name Role Phone Nathaniel Smith MD Primary Care Provider Reason for Visit Reason Comments Atrial Fibrillation pulse has been irregular sin ce cardioversion Encounter Details Date Type Department Care Team Description 06/12/2017 Office Visit [place] Graciela Wolff atrial Cardiology - Aleksander Nicholson, ANP fibrillation ([facility]) [address] ([facility]) (Primary Dx) [place] [address] Social History Tobacco Use Types Packs/Day Years Used Date Smoking Tobacco: Former Cigarettes 0.5 10/1969 - 06/03/2002 Smokeless Tobacco: Never Sex Assigned at Date Recorded Male 06/20/2022 18:06 EDT documented as of this encounter Last Filed Vital Signs Vital Sign Reading Time Taken Comments Blood Pressure 104/68 06/12/2017 1050 EDT Pulse 72 06/12/2017 1050 EDT irregular Temperature - - Respiratory Rate - - Oxygen Saturation - - Inhaled Oxygen Concentration - - Weight 74.4 kg (164 lb) 06/12/2017 1050 EDT Height 177.8 cm (5' 10) 06/12/2017 1050 EDT Body Mass Index 23.53 06/12/2017 1050 EDT documented in this encounter Functional Status [...] or older) documented as of this encounter Progress Notes Graciela Wolff, ANP - 06/12/2017 1040 EDT Problem List Patient Active Problem List Diagnosis ??? Achilles tendonitis ??? Persistent atrial fibrillation (HCC) Current Medications Current Outpatient Prescriptions Medication Sig Dispense Refill ??? apixaban (ELIQUIS) 5 mg tablet Take 5 mg by mouth 2 times daily. ??? dofetilide (TIKOSYN) 250 mcg capsule Take 1 Cap by mouth every 12 hours. 60 Cap 3 ??? levETIRAcetam (KEPPRA) 500 mg tablet Take 500 mg by mouth 2 times daily. ??? metoprolol XL (TOPROL-XL) 25 mg tablet Take 25 mg by mouth daily. No current facility-administered medications for this visit. Nathaniel Smith Dear Dr Smith: I had the pleasure of seeing Pritesh Cardona in cardiac electrophysiology clinic. He is a 66-year-old gentleman who is followed by Dr Jaison Mckeon with a history of persistent atrial fibrillation and he is also followed by Dr Yaya Walker. He was most recently admitted for initiation of dofetilide for antiarrhythmic for management of his persistent atrial fibrillation. He was discharged 3 days ago in sinus rhythm on dofetilide 250 mcg b.i.d. He is also on apixaban 5 mg for anticoagulation and Toprol-XL 25 mg daily for rate control. Pritesh states that he was aware that he went back into atrial fibrillation the day after discharge and feels that he has continued to be in atrial fibrillation since then. He has not had indication of a rapid ventricular response, but he does continue to have episodes wherehe feels lightheaded. This is a symptom that he has had over the course of several months at least and in fact it was thought that some of his episodes might even be seizure like for which he was started on Keppra. He states today that even though he has been in atrial fibrillation, he feels that his pulse sometimes goes very slow. In fact, he feels that he is having significant pauses in his pulse and he is concerned about his symptoms. On exam today, he is alert and oriented x3. His weight is 164, his blood pressure is 104/68 with a pulse of 72. Cardiac exam is irregularly irregular with a normal S1 and S2, no murmurs, rubs or gallops. His lungs are clear to auscultation throughout all mao, and he has no peripheral edema. Rhythm strip run today shows him to be in atrial fibrillation with bradycardia. The longest pause noted to be about 1.5 seconds. Assessment: In discussion with Pritesh and his spouse who is a nurse, they are very concerned about his symptoms. He apparently had had an event monitor in March of this year, which only showed the atrialfibrillation, and there was not room according to the patient for him to trigger the events of lightheadedness. He did have one episode when he was biking to have a heart rate of 200 on that event monitor. After lengthy discussion with he and his , they have determined that they would like to consider atrial fibrillation ablation as the next step for them and we will make an attempt to have him follow up with Dr Yahir merlos Sa for that discussion. Thank you very much for allowing us to continue to participate in the care of this patient. He is scheduled to see Dr Walker in August, but hopefully he will see at least one of our ablation doctors prior to that. In the interim, I have advised him to continue to take current medications. Please do not hesitate to call with any questions. Sincerely, documented in this encounter Plan of Treatment Upcoming Encounters Date Type Specialty Care Team Description 08/08/2022 Office Visit General Surgery Ish Hall MD [address] [facility] [address] [place] [phone] (Wo rk) 09/09/2022 Office Visit Urology Richard Meyer MD [address] [place] [phone] (Wo rk) 10/07/2022 Appointment 10/14/2022 Hospital Encounter General Surgery Richard Meyer MD [address] [place] [phone] (Wo rk) 10/14/2022 Surgery General Surgery Richard MeyerE CTSeamus ARIZMENDI MD UNILATERAL [[id number] [address] [place] (CPT??)] [address] [phone] (Wo rk) 10/28/2022 Post-op Visit Urology Richard Meyer MD [address] [place] [phone] (Wo rk) 11/25/2022 Office Visit Urology Richard Meyer MD [address] [place] [phone] (Wo rk) Scheduled Procedures Name Priority Associated Diagnoses Date/Time EPIDIDYMECTOMY, UNILATERAL Epididymitis 10/14 12:30 EST documented as of this encounter Visit Diagnoses Diagnosis Persistent atrial fibrillation (HCC) - P rimary Atrial fibrillation Epididymitis Orchitis and epididymitis, unspecified documented in this encounter Care Teams Job Placement Specialist Relationship Specialty Start Date End Date Nathaniel Smith MD PCP - General 04/21/17 05/03/21 [address] [place], [place] [id number] documented as of this encounter
--- OUTSIDE RECORDS SUMMARY | 2022-08-01 15:58 | XMS_ITS | Encounter Summary ---
:1950 Author Organization [facility] Address [address] [place] [address] Care Team Providers Name Role Phone Nathaniel Smith MD Primary Care Provider Reason for Visit Reason Onset Date Comments Other 10/03/2017 Preproc orders Encounter Details Date Type Department Care Team Description 10/03/2017 Telephone [facility] Ashly Pino, Other (Preproc orders) Cardiology - Aleksander LANG [address] [place], [place] [address] Social History Tobacco Use [...] Telephone Encounter - Ashly Pino, RN - 10/03/2017 1132 EST Pt returned my call. Pt is having a SHANIA pplrior to his cardioversion 10/07. He recently started on eliquis on 09/15 and this is why he has a SHANIA first. The pt understands. Told him NPO after midnight . documented in this encounter Plan of Treatment Upcoming Encounters Date Type Specialty Care Team Description 08/08/2022 Office Visit General Surgery Ish Hall MD [address] [place] [phone] (Wo rk) 09/09/2022 Office Visit Urology Richard Meyer MD [address] [place] [phone] (Wo rk) 10/07/2022 Appointment 10/14/2022 Hospital Encounter General Surgery Richard Meyer MD [address] [place] [phone] (Wo rk) 10/14/2022 Surgery General Surgery Richard MeyerE CTSeamus ARIZMENDI MD UNILATERAL [[id number] [address] [place] (CPT??)] [address] [phone] (Wo rk) 10/28/2022 Post-op Visit Urology Richard Meyer MD [address] [place] [phone] (Wo rk) 11/25/2022 Office Visit Urology Richard Meyer MD [address] [facility] [address] [place] [phone] (Wo rk) Scheduled Procedures Name Priority Associated Diagnoses Date/Time EPIDIDYMECTOMY, UNILATERAL Epididymitis 10/14 12:30 EST documented as of this encounter Visit Diagnoses Not on filedocumented in this encounter Care Teams Booking Officer Relationship Specialty Start Date End Date Nathaniel Smith MD PCP - General 04/21/17 05/03/21 [address] [place] [address] documented as of this encounter
--- OUTSIDE RECORDS SUMMARY | 2022-08-01 15:58 | XMS_ITS | Encounter Summary ---
:1950 Author Organization [facility] Address [address] [place] [address] Care Team Providers Name Role Phone Nathaniel Smith MD Primary Care Provider Reason for Visit Reason Onset Date Comments Atrial Fibrillation 06/10/2017 Encounter Details Date Type Department Care Team Description 06/10/2017 Telephone [facility] DeniseYaya, Atri al Fibrillation Cardiology - Aleksander MOJICA [address] [place], [place] [address] Social History Tobacco Use [...] this encounter Miscellaneous Notes Telephone Encounter - Graciela Jeffery RN - 06/10/2017 1524 EDT I reviewed below with Dr. Walker and appt made for 06/12/17 with Graciela Wolff NP. Telephone Encounter - Graciela Jeffery RN - 06/10/2017 0946 EDT Pt was discharged yesterday S/P dofetilide initiation and CV. He felt fine this am upon awakening, had one cup of coffee and felt like he went back in to afib. His pulse is irregular, rate 50-90s. He feels a little off, heart feels fluttery. He denies any sob or lightheadedness. His BP is 112/70. He'swondering what the next step for Rx might be. I told pt I will review with a provider and call back.He'll call back in the meantime if anything changes. Telephone Encounter - Odalis Link - 06/10/2017 0826 EDT Reason for Call: Atrial Fibrillation Summary/Symptoms: PT said he went back into a-fib this AM. Please call. Odalis Link 06/10/2017 8:26 documented in this encounter Plan of Treatment Upcoming Encounters Date Type Specialty Care Team Description 08/08/2022 Office Visit General Surgery Ish Hall MD [address] [phone] (Wo rk) 09/09/2022 Office Visit Urology Richard Meyer MD [address] [phone] (Wo rk) 10/07/2022 Appointment 10/14/2022 Hospital Encounter General Surgery Richard Meyer MD [address] [place] [phone] (Wo rk) 10/14/2022 Surgery General Surgery Richard Meyer EPIDIDYME CTOMYSeamus MD UNILATERAL [[id number] [address] (CPT??)] [address] [phone] (Wo rk) 10/28/2022 Post-op Visit Urology Richard Myeer MD [address] [place] [phone] (Wo rk) 11/25/2022 Office Visit Urology Richard Meyer MD [address] [place] [phone] (Wo rk) Scheduled Procedures Name Priority Associated Diagnoses Date/Time EPIDIDYMECTOMY, UNILATERAL Epididymitis 10/14 12:30 EST documented as of this encounter Visit Diagnoses Not on filedocumented in this encounter Care Teams Game Breeding Farm Manager Relationship Specialty Start Date End Date Nathaniel Smith MD PCP - General 04/21/17 05/03/21 [address] [place] [address] documented as of this encounter
--- OUTSIDE RECORDS SUMMARY | 2022-08-01 15:58 | XMS_ITS | Encounter Summary ---
:1950 Author Organization [facility] Address [address] [place] [address] Care Team Providers Name Role Phone Nathaniel Smith MD Primary Care Provider Encounter Details Date Type Department Care Team Description 11/23/2018 Historical Results Only [facility] - Shahriar Luna, [facility] Radiology Resul ts [address] [place], [place] [id number] [place] [address] [address] [place] [address] Social History Tobacco Use Types Packs/Day Years [...] Visit General Surgery Ish Hall MD [address] [place] [phone] (Wo rk) 09/09/2022 Office Visit Urology Richard Meyer MD [address] [place] [phone] (Wo rk) 10/07/2022 Appointment 10/14/2022 Hospital Encounter General Surgery Richard Meyer MD [address] [place] [phone] (Wo rk) 10/14/2022 Surgery General Surgery Richard Meyer EPIDIDYME CTSeamus ARIZMENDI MD UNILATERAL [[id number] [address] [place] (CPT??)] [address] [phone] (Wo rk) 10/28/2022 Post-op Visit Urology Richard Meyer MD [address] [place] [phone] (Wo rk) 11/25/2022 Office Visit Urology Richard Meyer MD [address] [place] [phone] (Wo rk) Scheduled Procedures Name Priority Associated Diagnoses Date/Time EPIDIDYMECTOMY, UNILATERAL Epididymitis 10/14 12:30 EST documented as of this encounter Procedures Procedure Name Priority Date/Time Associated Diagnosis Comme nts XR ANKLE RIGHT 3 OR 11/23/2018 10:17 Resu lts for this MORE VIEWS EDT procedure are i n the results section. documented in this encounter Results XR ANKLE RIGHT 3 OR MORE VIEWS (11/23/2018 10:17 EDT) Anatomical Region Laterality Modality Lower Extremities, Ankle Right Other Specimen (Source) Anatomical Collection Method Collection Time Re ceived Time Location / / Volume Laterality 11/23/2018 10:17 EDT Narrative 11/23/2018 10:20 EDT ? EXAM: RADIOLOGY EXPRESS CARE/EXP CARE ANK EX. D/ (1003) ? CLINICAL INFORMATION: ? S99.911A INJURY OF RIGHT ANKLE ? INDICATION: S99.911A INJURY OF RI GHT ANKLE RIGHT ANKLE INJURY ? TECHNIQUE: 3 views of the right a nkle. ? COMPARISON: None. ? FINDINGS: The bony alignment is a natomic. No acute osseous ? abnormality is detected. Smoothly corticated ossific densities ? adjacent to the distal fibula as well as smooth cortical irregularity ? of the distal lateral tibia at th e interosseous membrane insertion ? are compatible with prior trauma. The ankle mortise is not widened. ? No osteochondral lesion of the ta lar dome is detected. 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 ? IMPRESSION: ? 1. No acute osseous of normality detected. ? 2. 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 ? REPORT SIGNED IN OTHER VENDOR SYSTEM 11/23/2018 ?Reported B y: Antione De La Torre MD ? CC: ? Transcribed Date/Time: 11/23/2018 (1020) ? Locomotive Supervisor: ? Printed Date/Time: 02/21/2019 (23 25) ? PAGE 1 ? Rachel d Report ? Procedure Note Antione De La Torre E - 07/08/2019 EXAM: RADIOLOGY EXPRESS CARE/EXP CARE A NK EX. D/ (1003) CLINICAL INFORMATION: S99.911A INJURY OF RIGHT ANKLE INDICATION: S99.911A INJURY OF RIGHT AN KLE RIGHT ANKLE INJURY TECHNIQUE: 3 views of the right ankle. COMPARISON: None. FINDINGS: The bony alignment is anatomi c. No acute osseous abnormality is detected. Smoothly corti cated ossific densities adjacent to the distal fibula as well a s smooth cortical irregularity of the distal lateral tibia at the inte rosseous membrane insertion are compatible with prior trauma. The a nkle mortise is not widened. No osteochondral lesion of the talar do me is detected. Mild ankle osteoarthritis is present. IMPRESSION: 1. No acute osseous of normality detect ed. 2. 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 REPORT SIGNED IN OTHER VENDOR SYSTEM 11/23/2018 Reported By: Antione De La Torre MD CC: Transcribed Date/Time: 11/23/2018 (1020 ) Locomotive Supervisor: Printed Date/Time: 02/21/2019 (1410) PAGE 1 Signed Report Jyoti Luna MD IMG DIAGNOSTIC IMAGING ORDER VANCE documented in this encounter Visit Diagnoses Not on filedocumented in this encounter Care Teams Accounting Bookkeeper Relationship Specialty Start Date End Date Nathaniel Smith MD PCP - General 04/21/17 05/03/21 [address] [place] [address] documented as of this encounter
--- OUTSIDE RECORDS SUMMARY | 2022-08-01 15:58 | XMS_ITS | Encounter Summary ---
:1950 Author Organization [facility] Address [address] [place] [address] Care Team Providers Name Role Phone Yaya Sinha MD Primary Care Provider Unavailable Encounter Details Date Type Department Care Team Description 04/22/2014 Results Only Imaging [facility] Foot [facility] - [address] [address] [place] [phone] (Wo rk) Social History Tobacco Use Types Packs/Day Years Used Date Smoking Tobacco: Never Assessed Sex Assigned at Date Recorded Male 06/20/2022 18:06 EDT documented as of this encounter Plan of Treatment Upcoming Encounters Date Type Specialty Care Team Description 08/08/2022 Office Visit General Surgery Ish Hall MD [address] [place] [phone] (Wo rk) 09/09/2022 Office Visit Urology Richard Meyer MD [address] [place] [phone] (Wo rk) 10/07/2022 Appointment 10/14/2022 Hospital Encounter General Surgery Richard Meyer MD [address] [place] [phone] (Wo rk) 10/14/2022 Surgery General Surgery Richard Meyer EPIDIDYME CTOMYSeamus MD UNILATERAL [[id number] [address] [place] (CPT??)] [address] [phone] (Wo rk) 10/28/2022 Post-op Visit Urology Richard Meyer MD [address] [phone] (Wo rk) 11/25/2022 Office Visit Urology Richard Meyer MD [address] [phone] (Wo rk) Pending Results Name Type Priority Associated Diagnoses Date/Ti me OUTSIDE IMAGES - MR MSK Imaging 04/02 12:17 EDT Scheduled Procedures Name Priority Associated Diagnoses Date/Time EPIDIDYMECTOMY, UNILATERAL Epididymitis 10/14 12:30 EST documented as of this encounter Visit Diagnoses Not on filedocumented in this encounter Care Teams Armed Guard Relationship Specialty Start Date End Date Yaya Sinha MD PCP - General 04/22/14 documented as of this encounter
--- OUTSIDE RECORDS SUMMARY | 2022-08-01 15:58 | XMS_ITS | Encounter Summary ---
:1950 Author Organization [facility] Address [address] [place] [address] Care Team Providers Name Role Phone Nathaniel Smith MD Primary Care Provider Reason for Visit Reason Onset Date Comments Other 05/16/2017 Holter Monitor Strip s Encounter Details Date Type Department Care Team Description 05/16/2017 Telephone [facility] Yaya Walker Othe r (Holter Monitor Cardiology - Aleksander MOJICA Strips) [address] [place], [place] [address] Social History Tobacco Use Types Packs/Day Years Used Date Smoking Tobacco: Former Smokeless Tobacco: Never Sex Assigned at Date Recorded Male 06/20/2022 18:06 EDT documented as of this encounter Miscellaneous Notes Telephone Encounter - Graciela Jeffery RN - 05/16/2017 1350 EDT Debra will send event monitor summary and a few of the atrial fib strips ( complete event monitor is 130 pages). Telephone Encounter - Alisa Corrigan - 05/16/2017 1122 EDT Reason for Call: Other (Holter Monitor Strips) Summary/Symptoms: Debra at [facility] states she was talking to Rae HAYWARD. She called back for her about Holter Monitor Strips with a question, please call. Alisa Corrigan 05/16/2017 11:22 documented in this encounter Plan of Treatment Upcoming Encounters Date Type Specialty Care Team Description 08/08/2022 Office Visit General Surgery Ish Hall MD [address] [place] [phone] (Wo rk) 09/09/2022 Office Visit Urology Richard Meyer MD [address] [place] [phone] (Wo rk) 10/07/2022 Appointment 10/14/2022 Hospital Encounter General Surgery Richard Meyer MD [address] [place] [phone] (Wo rk) 10/14/2022 Surgery General Surgery Richard Meyer EPIDIDYME CTSeamus ARIZMENDI MD UNILATERAL [[id number] [address] [place] (CPT??)] [address] [phone] (Wo rk) 10/28/2022 Post-op Visit Urology Richard Meyer MD [address] [place] [phone] (Wo rk) 11/25/2022 Office Visit Urology Richard Meyer MD [address] [place] [phone] (Wo rk) Scheduled Procedures Name Priority Associated Diagnoses Date/Time EPIDIDYMECTOMY, UNILATERAL Epididymitis 10/14 12:30 EST documented as of this encounter Visit Diagnoses Not on filedocumented in this encounter Care Teams Program Checker Relationship Specialty Start Date End Date Nathaniel Smith MD PCP - General 04/21/17 05/03/21 [address] [place] [address] documented as of this encounter
--- OUTSIDE RECORDS SUMMARY | 2022-08-01 15:58 | XMS_ITS | Encounter Summary ---
:1950 Author Organization [facility] Address [address] [place] [address] Care Team Providers Name Role Phone Nathaniel Smith MD Primary Care Provider Reason for Visit Reason Onset Date Comments Prior Auth, Other (i.e. radiology, etc.) 06/03/2017 Encounter Details Date Type Department Care Team Description 06/03/2017 Telephone [facility] Jayjay Ariza Au th, Other Cardiology - Aleksander Kwon MD (i.e. radiology, etc.) [address] [facility], [address] [place] [phone] (Wo rk) Social History Tobacco [...] this encounter Miscellaneous Notes Telephone Encounter - Essence Schafer - 06/03/2017 1226 EDT PT has MICHELLE and no PA is required for elective IP admission to start Tikosyn on 06/06/2017. Bed request has been faxed to [phone] and pt has been placed on EP calendar documented in this encounter Plan of Treatment Upcoming Encounters Date Type Specialty Care Team Description 08/08/2022 Office Visit General Surgery Ish Hall MD [address] [place] [phone] (Wo rk) 09/09/2022 Office Visit Urology Richard Meyer MD [address] [place] [phone] (Wo rk) 10/07/2022 Appointment 10/14/2022 Hospital Encounter General Surgery Richard Meyer MD [address] [place] [phone] (Wo rk) 10/14/2022 Surgery General Surgery Richard Meyer Charles, MD UNILATERAL [[id number] [address] [place] (CPT??)] [address] [phone] (Wo rk) 10/28/2022 Post-op Visit Urology Richard Meyer MD [address] [place] [phone] (Wo rk) 11/25/2022 Office Visit Urology Richard Meyer MD [address] [place] [phone] (Wo rk) Scheduled Procedures Name Priority Associated Diagnoses Date/Time EPIDIDYMECTOMY, UNILATERAL Epididymitis 10/14 12:30 EST documented as of this encounter Visit Diagnoses Not on filedocumented in this encounter Care Teams Drain Tile Press Operator Relationship Specialty Start Date End Date Nathaniel Smith MD PCP - General 04/21/17 05/03/21 [address] [place] [address] documented as of this encounter
--- OUTSIDE RECORDS SUMMARY | 2022-08-01 15:58 | XMS_ITS | Encounter Summary ---
:1950 Author Organization [facility] Address [address] [place] [address] Care Team Providers Name Role Phone Nathaniel Smith MD Primary Care Provider Reason for Visit Reason Onset Date Comments Appointment Related 06/12/2017 Encounter Details Date Type Department Care Team Description 06/12/2017 Telephone [facility] Jaya Jeffery nt Related Cardiology - Aleksander Owens RN [address] [place], [place] [address] Social History Tobacco Use [...] encounter Miscellaneous Notes Telephone Encounter - Graciela Jeffery, RN - 06/12/2017 1504 EDT I spoke to pt and appt made to see Dr. Jenkins to discuss ablation. documented in this encounter Plan of Treatment Upcoming Encounters Date Type Specialty Care Team Description 08/08/2022 Office Visit General Surgery Ish Hall MD [address] [place] [phone] (Wo rk) 09/09/2022 Office Visit Urology Richard Meyer MD [address] [place] [phone] (Wo rk) 10/07/2022 Appointment 10/14/2022 Hospital Encounter General Surgery Richard Meyer MD [address] [place] [phone] (Wo rk) 10/14/2022 Surgery General Surgery Richard Meyer CTSeamus ARIZMENDI MD UNILATERAL [[id number] [address] [place] (CPT??)] [address] [phone] (Wo rk) 10/28/2022 Post-op Visit Urology Richard Meyer MD [address] [place] [phone] (Wo rk) 11/25/2022 Office Visit Urology Richard Meyer MD [address] [place] [phone] (Wo rk) Scheduled Procedures Name Priority Associated Diagnoses Date/Time EPIDIDYMECTOMY, UNILATERAL Epididymitis 10/14 12:30 EST documented as of this encounter Visit Diagnoses Not on filedocumented in this encounter Care Teams Laborer Carpentry Dock Relationship Specialty Start Date End Date Nathaniel Smith MD PCP - General 04/21/17 05/03/21 [address] [place] [address] documented as of this encounter
--- OUTSIDE RECORDS SUMMARY | 2022-08-01 15:58 | XMS_ITS | Encounter Summary ---
:1950 Author Organization [facility] Address [address] [place] [address] Care Team Providers Name Role Phone Nathaniel Smith MD Primary Care Provider Reason for Visit Reason Onset Date Comments Other 06/03/2017 EA Encounter Details Date Type Department Care Team Description 06/03/2017 Telephone [facility] Cardiology Graciela Jeffery, Other (EA) - Aleksander LANG [address] [place], [place] [address] Social History Tobacco Use [...] Telephone Encounter - Graciela Jeffery RN - 06/03/2017 1338 EDT Dofetilide will cost the pt $100/month, he is okay with this. I reviewed EA process, ekgs, annual ekgs on dofetilide, certain medications may interact with dofetilide, bring a list of meds, ride home if CV, etc. Patient verbalized good understanding with no learning barriers identified. Telephone Encounter - Graciela Jeffery RN - 06/03/2017 1124 EDT I spoke to pt's who will check on copay and call back with whether or not copay is okay. I alsoreviewed he would need to be on eliquis uninterrupted the 4 weeks prior to adm, this Wednesday 06/06 would work for them. Telephone Encounter - Graciela Jeffery RN - 06/03/2017 0983 EDT I left msg for pt to CB to review checking on dofetilide cost, EA process. documented in this encounter Plan of Treatment Upcoming Encounters Date Type Specialty Care Team Description 08/08/2022 Office Visit General Surgery Ish Hall MD [address] [phone] (Wo rk) 09/09/2022 Office Visit Urology Richard Meyer MD [address] [phone] (Wo rk) 10/07/2022 Appointment 10/14/2022 Hospital Encounter General Surgery Richard Meyer MD [address] [phone] (Wo rk) 10/14/2022 Surgery General Surgery Richard Meyer EPIDIDYME CTSeamus ARIZMENDI MD UNILATERAL [[id number] [address] [place] (CPT??)] [address] [phone] (Wo rk) 10/28/2022 Post-op Visit Urology Richard Meyer MD [address] [phone] (Wo rk) 11/25/2022 Office Visit Urology Richard Meyer MD [address] [phone] (Tristian knott) Scheduled Procedures Name Priority Associated Diagnoses Date/Time EPIDIDYMECTOMY, UNILATERAL Epididymitis 10/14 12:30 EST documented as of this encounter Visit Diagnoses Not on filedocumented in this encounter Discontinued Medications Medication Sig Discontinue Reason Start Date End Date ibuprofen (MOTRIN) 200 Take 400 mg by Patient Stopped Taking 06/03/2017 mg tablet mouth as needed for Pain. documented as of this encounter Care Teams Supervisor Hard Candy Relationship Specialty Start Date End Date Nathaniel Smith MD PCP - General 04/21/17 05/03/21 [address] [place], [place] [phone] documented as of this encounter
[2022-08-03 12:12] LABS: Campylobacter PCR Negative (Negative); Salmonella PCR Negative (Negative); Shiga Toxin PCR Negative (Negative); Shigella/Enteroinvasive Ecoli Negative (Negative)
== END 2022-08-01 15:47 | disposition home or self-care (01) ==
LOC: NCHCN 15:46
PROVIDERS: PCP Internal Medicine; Visit Provider Nurse Practitioner Family
DX: R19.4 Change in bowel habit (principal)
CPT/HCPCS: 87329; 87505; 87177

== ENCOUNTER 2023-04-09 12:04 | Outpatient (REF) | payer MEDICARE, SELFPAY ==
--- NOTE | 2023-04-09 11:50 | SKI_PTH ---
PATIENT: Pritesh Cardona LOC: [facility] U#:[id number] AGE/SX: 72/M ROOM: RE04/09/[address]: Marla Bryan : 1950 BED: DIS: 04/09/2023 SPEC #: [id number] RECD: 04/09/23 17:01 STATUS: ALLEY REHaroldo #: [id number] CLEMENTINE: 04/09/23 11:[address]: Marla Bryan DEPT: Surgical Specimen RECD BY: Marli Bailey ENTERED: 04/09/23 17:03 SP TYPE: ABIEL TEAGUE DR: Nathaniel Smith Tissues: 1 - SKIN BIOPSY(SHAVE/PUNCH) Procedures: SKIN LEVEL 4 Comments: [id number]
== END 2023-04-09 12:05 | disposition home or self-care (01) ==
LOC: NCHCN 12:04
PROVIDERS: PCP Internal Medicine; Visit Provider Registered Nurse
DX: L82.0 Inflamed seborrheic keratosis (principal)
CPT/HCPCS: 88305

== ENCOUNTER 2023-06-06 15:40 | Outpatient (REF) | payer MEDICARE, SELFPAY ==
[2023-06-06 15:30] LABS: HCT 41.3 % (40.0-50.0); HGB 14.2 g/dL (13.5-17.5); MCH 32.3 pg (27.0-33.0); MCHC 34.4 % (32.0-36.0); MCV 94 fL (80-95); MPV 9.2 fL (8.0-11.0); Platelet Count 240 10^3/uL (130-400); RBC 4.39 10^6/uL (4.36-5.78); RDW 11.9 % (11.8-14.1); RDW-SD 41.2 fL; WBC 4.82 10^3/uL (4.4-10.8)
[2023-06-06 16:15] LABS: ALT 30 U/L (16-63); AST 22 U/L (15-37); Albumin 3.7 g/dL (3.4-5.0); Alkaline Phosphatase 39 U/L (46-116); Anion Gap 4.3 mmol/L (3-11); BUN 17 mg/dL (7-18); Bilirubin, Total 0.5 mg/dL (0.2-1.0); CO2 28.7 mmol/L (21.0-32.0); CREATININE 0.7 mg/dL (0.70-1.30); Chloride 104 mmol/L (98-107); Cholesterol 147 mg/dL (<200); Estimated GFR 98.51 (mL/min/1.73m2); Glucose 90 mg/dL (74-106); HDL Cholesterol 61 mg/dL (40-60); Potassium 4.1 mmol/L (3.5-5.1); Sodium 137 mmol/L (136-145); Total Protein 6.5 g/dL (6.4-8.2)
[2023-06-06 16:42] LABS: Triglyceride <25 mg/dL (<150)
[2023-06-06 16:53] LABS: LDL CHOLESTEROL 77 mg/dL (<100)
== END 2023-06-06 15:41 | disposition home or self-care (01) ==
LOC: NCHCN 15:40
PROVIDERS: PCP Internal Medicine; Visit Provider Internal Medicine
DX: D64.9 Anemia, unspecified (principal); E78.5 Hyperlipidemia, unspecified; Z86.79 Personal history of other diseases of the circulatory system
CPT/HCPCS: 80053; 80061; 83721; 85027

== ENCOUNTER → 2024-01-28 10:29 | Outpatient (BNVA) | payer MEDICARE, SELFPAY | PROVIDERS: PCP Internal Medicine; Referring Provider Internal Medicine; Visit Provider Podiatrist | DX: B07.0 Plantar wart; L84 Corns and callosities; M67.01 Short Achilles tendon (acquired), right ankle; M67.02 Short Achilles tendon (acquired), left ankle | CPT/HCPCS: 17110; 99203 ==

== ENCOUNTER → 2024-02-25 08:46 | Outpatient (BNVA) | payer MEDICARE, SELFPAY | PROVIDERS: PCP Internal Medicine; Referring Provider Internal Medicine; Visit Provider Podiatrist | DX: B07.0 Plantar wart (principal); L84 Corns and callosities; M67.01 Short Achilles tendon (acquired), right ankle; M67.02 Short Achilles tendon (acquired), left ankle | CPT/HCPCS: 17110 ==

== ENCOUNTER 2024-06-14 19:14 | Outpatient (REF) | payer MEDICARE, SELFPAY ==
[2024-06-14 21:09] LABS: Cholesterol 142 mg/dL (<200); HDL Cholesterol 71 mg/dL (40-60)
[2024-06-14 21:10] LABS: Triglyceride <25 mg/dL (<150)
[2024-06-14 21:20] LABS: LDL CHOLESTEROL 73 mg/dL (<100)
== END 2024-06-14 19:15 | disposition home or self-care (01) ==
LOC: NCHCN 19:14
PROVIDERS: PCP Internal Medicine; Visit Provider Internal Medicine
DX: E78.5 Hyperlipidemia, unspecified (principal)
CPT/HCPCS: 80061; 83721

== ENCOUNTER 2025-06-10 13:24 | Outpatient (REF) | payer MEDICARE, SELFPAY ==
[2025-06-10 15:40] LABS: HCT 41.0 % (40.0-50.0); HGB 13.7 g/dL (13.5-17.5); MCH 31.9 pg (27.0-33.0); MCHC 33.4 % (32.0-36.0); MCV 95 fL (80-95); MPV 9.2 fL (8.0-11.0); Platelet Count 262 10^3/uL (130-400); RBC 4.30 10^6/uL (4.36-5.78); RDW 12.4 % (11.8-14.1); RDW-SD 43.1 fL; WBC 4.92 10^3/uL (4.4-10.8)
[2025-06-10 15:56] LABS: ALT 37 U/L (16-63); AST 27 U/L (15-37); Albumin 3.9 g/dL (3.4-5.0); Alkaline Phosphatase 42 U/L (46-116); Anion Gap 7.4 mmol/L (3-11); BUN 21 mg/dL (7-18); Bilirubin, Total 0.5 mg/dL (0.2-1.0); CO2 27.6 mmol/L (21.0-32.0); Calcium 8.7 mg/dL (8.5-10.1); Chloride 106 mmol/L (98-107); Cholesterol 159 mg/dL (<200); Estimated GFR 97.29 (mL/min/1.73m2); Glucose 97 mg/dL (74-106); HDL Cholesterol 67 mg/dL (>or=40); Potassium 4.7 mmol/L (3.5-5.1); Sodium 141 mmol/L (136-145); Total Protein 6.7 g/dL (6.4-8.2); Triglyceride <25 mg/dL (<150)
[2025-06-10 16:08] LABS: LDL CHOLESTEROL 85 mg/dL (<100)
== END 2025-06-10 13:25 | disposition home or self-care (01) ==
LOC: NCHCN 13:24
PROVIDERS: PCP Internal Medicine; Visit Provider Internal Medicine
DX: E78.5 Hyperlipidemia, unspecified (principal)
CPT/HCPCS: 80053; 80061; 83721; 85027

== ENCOUNTER 2025-06-17 10:38 | Outpatient (REF) | payer MEDICARE, SELFPAY ==
[2025-06-17 21:45] LABS: PSA, Screening 1.0 ng/mL (<=6.5)
== END 2025-06-17 10:39 | disposition home or self-care (01) ==
LOC: NCHCN 10:38
PROVIDERS: PCP Internal Medicine; Visit Provider Internal Medicine
DX: Z12.5 Encounter for screening for malignant neoplasm of prostate (principal)
CPT/HCPCS: 84153

== ENCOUNTER 2025-07-08 10:43 | Outpatient (CLI) | payer MEDICARE, SELFPAY ==
--- NOTE | 2025-07-08 10:15 | DI.RAD_ITS ---
Exam(s) XR KNEE LT 4V AP,LAT,PAO,PAT EXAM: XR KNEE LT 4V AP,LAT,PAO,PAT CLINICAL HISTORY: LEFT KNEE PAIN. TECHNIQUE: 2D digital imaging was performed of the left knee. Six images were obtained. Merchant,AP, lateral and PA tunnel views were obtained. COMPARISON: No exams were available for comparison FINDINGS: BONES: No acute fracture is present. No bony destructive lesion is seen. There is an enthesophyte at the superior patella. JOINTS: Degenerative changes are present with joint space narrowing and small osteophytes. The findings are most marked in the medial femoral tibial joint. No joint effusion is seen. No loose body. SOFT TISSUE: Atherosclerotic calcification is seen. IMPRESSION: 1. Mild degenerative changes of the left knee. 2. There is no acute fracture or dislocation identified. DATA REPOSITORY: RADIATION DOSE DELIVERED:
== END 2025-07-08 10:44 | disposition home or self-care (01) ==
LOC: DIORS 10:43
PROVIDERS: PCP Internal Medicine; Referring Provider Internal Medicine; Visit Provider Physician Assistant
DX: Z98.890 Other specified postprocedural states (principal); M17.12 Unilateral primary osteoarthritis, left knee
CPT/HCPCS: 99213; 73564

== ENCOUNTER → 2025-08-04 08:44 | Outpatient (BNVA) | payer MEDICARE, SELFPAY | PROVIDERS: PCP Internal Medicine; Referring Provider Internal Medicine; Visit Provider Podiatrist | DX: B07.0 Plantar wart (principal); L84 Corns and callosities | CPT/HCPCS: 17110 ==

== ENCOUNTER → 2025-08-05 10:24 | Outpatient (BNVA) | payer MEDICARE, SELFPAY | PROVIDERS: PCP Internal Medicine; Referring Provider Internal Medicine; Visit Provider Physician Assistant | DX: M17.12 Unilateral primary osteoarthritis, left knee (principal) | CPT/HCPCS: 20610; J1010 ==